=== PATIENT | male | born 1950 | race Hispanic/Latino ===

== ENCOUNTER → 2017-12-14 | Day surgery (SDC) | payer MEDICARE ==
[2017-12-12 16:24] LABS: BASOPHILS % 0.4 % (0.0-1.0); EOSINOPHILS # (AUTO) 0.1 (0.0-0.4); EOSINOPHILS % 1.7 % (0.0-6.0); HEMATOCRIT 40.1 % (38.2-49.6); HEMOGLOBIN 14.3 g/dL (14.0-18.0); LYMPHOCYTES # (AUTO) 1.5 (1.0-3.2); LYMPHOCYTES % 28.8 % (18.0-39.1); MEAN CORPUSCULAR HEMOGLOBIN 30.8 pg (28-32); MEAN CORPUSCULAR HGB CONC 35.7 g/dL (31-35); MEAN CORPUSCULAR VOLUME 86.4 fL (81-99); MONOCYTES # (AUTO) 0.3 (0.2-0.8); MONOCYTES % 5.1 % (4.4-11.3); NEUTROPHILS # (AUTO) 3.4 (2.1-6.9); NEUTROPHILS % 63.8 % (38.7-80.0); PLATELET COUNT 210 x10e3/uL (140-360); RED BLOOD COUNT 4.64 x10e6/uL (4.3-5.7); RED CELL DISTRIBUTION WIDTH 13.2 % (11.7-14.4)
[~2017-12-14] MED LIST: BACTRIM DS TAB1 EACH PO; FENOFIBRATE145 MG PO; FINASTERIDE5 MG PO; FLOMAX0.4 MG PO; LEVOTHYROXINE PO; LISINOPRIL10 MG PO; LOSARTAN POTASS25 MG PO; MIDAZOLAM HCL 2 MG/2 ML VIAL ONE; PROPOFOL IV EMULSION 10 MG/ML 50 ML VIAL ONE; SIMVASTATIN20 MG PO; ULTRAM50 MG PO
== END ==
LOC: OR 07:33
PROVIDERS: ATTEND Internal Medicine Gastroenterology
DX: Z09 Encounter for follow-up examination after completed treatment for conditions other than malignant neoplasm (principal); K57.30 Diverticulosis of large intestine without perforation or abscess without bleeding; K64.8 Other hemorrhoids; I10 Essential (primary) hypertension; E66.3 Overweight; K21.9 Gastro-esophageal reflux disease without esophagitis; N39.0 Urinary tract infection, site not specified; E07.9 Disorder of thyroid, unspecified; R00.1 Bradycardia, unspecified; Z88.0 Allergy status to penicillin; Z88.2 Allergy status to sulfonamides; Z01.810 Encounter for preprocedural cardiovascular examination; Z01.812 Encounter for preprocedural laboratory examination; Z68.28 Body mass index [BMI] 28.0-28.9, adult
CPT/HCPCS: 36415; 45378; 85025; 93005; J2250

== ENCOUNTER 2019-07-22 16:46 | Inpatient (IN) | payer MEDICARE ==
[~2019-07-22] VITALS: Ht 167.6 cm; Wt 68.1 kg
[~2019-07-22 16:46] MED LIST changes: -MIDAZOLAM HCL 2 MG/2 ML VIAL ONE; -PROPOFOL IV EMULSION 10 MG/ML 50 ML VIAL ONE
--- OUTSIDE RECORDS SUMMARY | 2019-07-22 16:51 | XMS REPORT ---
Author Author [facility] Address Unknown Phone Unavailable Care Team Providers Care Animal Sticker Name Role Phone Unavailable Unavailable Problems This patient has no known problems. Allergies, Adverse Reactions, Alerts This patient has no known allergies or adverse reactions. Medications This patient has no known medications. Results Test Description Test Time Test Comments Text Results Atomic Results Result Comments URINALYSIS W/ MICROSCOPIC 2018-09-13 00:15:00 COLOR (BEAKER) (test pxjk=339) Yellow CLARITY (BEAKER) (test cvqz=201) Hazy SPECIFIC GRAVITY UA (BEAKER) (test wogx=888) 1.027 1.001-1.035 PH UA (BEAKER) (test shoc=974) 5.5 5.0-8.0 PROTEIN UA (BEAKER) (test mmil=090) 30 mg/dL Negative GLUCOSE UA (BEAKER) (test awbz=481) Negative Negative KETONES UA (BEAKER) (test hmii=089) 10 mg/dL Negative BILIRUBIN UA (BEAKER) (test qvip=544) Negative Negative BLOOD UA (BEAKER) (test tkec=878) Negative Negative NITRITE UA (BEAKER) (test cfpp=960) Negative Negative LEUKOCYTE ESTERASE UA (BEAKER) (test uptt=289) Trace Negative UROBILINOGEN UA (BEAKER) (test kqjc=988) 0.2 mg/dL 0.2-1.0 RBC UA (BEAKER) (test hzuq=904) 2 /HPF WBC UA (BEAKER) (test gmeg=423) 5 /HPF MUCUS (BEAKER) (test rwmw=5594) Many SQUAMOUS EPITHELIAL (BEAKER) (test mmos=362) 3 /HPF SOURCE(BEAKER) (test nhmm=0589) Urine, Clean Catch BASIC METABOLIC [id number] 23:59:00* Test Item Value Reference Range Comments SODIUM (BEAKER) (test vdgr=780) 136 meq/L 136-145 POTASSIUM (BEAKER) (test rkyh=270) 4.7 meq/L 3.5-5.1 Specimen slightly hemolyzed CHLORIDE (BEAKER) (test vtmb=579) 104 meq/L 98-107 CO2 (BEAKER) (test yzaf=446) 23 meq/L 22-29 BLOOD UREA NITROGEN (BEAKER) (test dxdi=818) 23 mg/dL 7-21 CREATININE (BEAKER) (test gfve=109) 1.30 mg/dL 0.57-1.25 Specimen slightly hemolyzed GLUCOSE RANDOM (BEAKER) (test ulqq=960) 141 mg/dL 70-105 CALCIUM (BEAKER) (test vsdk=652) 9.1 mg/dL 8.4-10.2 EGFR (BEAKER) (test yekr=0174) 55 mL/min/1.73 sq m ESTIMATED GFR IS NOT ACCURATE CREATININE CLEARANCE IN PREDICTING GLOMERULAR FILTRATION RATE. ESTIMATED GFR IS NOT APPLICABLE FOR DIALYSIS PATIENTS. CBC W/PLT COUNT & AUTO [id number] 23:48:00* Test Item Value Reference Range Comments WHITE BLOOD CELL COUNT (BEAKER) (test ccrc=883) 11.7 K/ L 3.5-10.5 RED BLOOD CELL COUNT (BEAKER) (test ijtv=026) 5.29 M/ L 4.63-6.08 HEMOGLOBIN (BEAKER) (test khcz=503) 16.5 GM/DL 13.7-17.5 HEMATOCRIT (BEAKER) (test kuii=955) 49.6 % 40.1-51.0 MEAN CORPUSCULAR VOLUME (BEAKER) (test vfyi=223) 93.8 fL 79.0-92.2 MEAN CORPUSCULAR HEMOGLOBIN (BEAKER) (test guis=124) 31.2 pg 25.7-32.2 MEAN CORPUSCULAR HEMOGLOBIN CONC (BEAKER) (test jsoi=202) 33.3 GM/DL 32.3-36.5 RED CELL DISTRIBUTION WIDTH (BEAKER) (test nyvo=808) 13.8 % 11.6-14.4 PLATELET COUNT (BEAKER) (test sjsd=990) 206 K/CU MM 150-450 MEAN PLATELET VOLUME (BEAKER) (test hdyr=086) 9.6 fL 9.4-12.4 NUCLEATED RED BLOOD CELLS (BEAKER) (test hjln=925) 0 /100 WBC 0-0 NEUTROPHILS RELATIVE PERCENT (BEAKER) (test fynd=496) 91 % LYMPHOCYTES RELATIVE PERCENT (BEAKER) (test zmpw=854) 5 % MONOCYTES RELATIVE PERCENT (BEAKER) (test kzat=749) 4 % EOSINOPHILS RELATIVE PERCENT (BEAKER) (test tknx=334) 0 % BASOPHILS RELATIVE PERCENT (BEAKER) (test lbqt=240) 0 % NEUTROPHILS ABSOLUTE COUNT (BEAKER) (test aoyi=099) 10.64 K/ L 1.78-5.38 LYMPHOCYTES ABSOLUTE COUNT (BEAKER) (test csuq=941) 0.55 K/ L 1.32-3.57 MONOCYTES ABSOLUTE COUNT (BEAKER) (test ktpn=887) 0.42 K/ L 0.30-0.82 EOSINOPHILS ABSOLUTE COUNT (BEAKER) (test ycnj=397) 0.03 K/ L 0.04-0.54 BASOPHILS ABSOLUTE COUNT (BEAKER) (test fpft=590) 0.01 K/ L 0.01-0.08 IMMATURE GRANULOCYTES-RELATIVE PERCENT (BEAKER) (test mhbx=1874) 0 % 0-1
[2019-07-22] MEDS ORDERED: IBUPROFEN 600 MG TAB ONE (17:07)
[2019-07-22] MEDS ORDERED: ACETAMINOPHEN 325 MG TAB ONE (17:07)
[2019-07-22] MEDS ORDERED: IBUPROFEN 600 MG TAB PO STA (17:08)
[2019-07-22] MEDS ORDERED: ACETAMINOPHEN 325 MG TAB PO ONE (17:15)
[2019-07-22 17:29] LABS: BASOPHILS % 0.2 % (0.0-1.0); HEMATOCRIT 43.5 % (38.2-49.6); HEMOGLOBIN 14.8 g/dL (14.0-18.0); LYMPHOCYTES # (AUTO) 0.4 (1.0-3.2); LYMPHOCYTES % 3.3 % (18.0-39.1); MEAN CORPUSCULAR VOLUME 91.2 fL (81-99); MONOCYTES # (AUTO) 0.4 (0.2-0.8); MONOCYTES % 3.4 % (4.4-11.3); NEUTROPHILS % 92.7 % (38.7-80.0); PLATELET COUNT 180 x10e3/uL (140-360); RED BLOOD COUNT 4.77 x10e6/uL (4.3-5.7); RED CELL DISTRIBUTION WIDTH 12.9 % (11.7-14.4)
[2019-07-22 17:47] LABS: ALANINE AMINOTRANSFERASE 21 IU/L (0-55); ALBUMIN 3.9 g/dL (3.5-5.0); ALBUMIN/GLOBULIN RATIO 1.2 (0.8-2.0); ALKALINE PHOSPHATASE 87 IU/L (40-150); ANION GAP 14.9 mmol/L (8-16); BLOOD UREA NITROGEN 12 mg/dL (7-26); BUN/CREATININE RATIO 11 (6-25); CALCIUM 8.9 mg/dL (8.4-10.2); CARBON DIOXIDE 25 mmol/L (22-29); CHLORIDE 96 mmol/L (98-107); CREATININE, SERUM 1.09 mg/dL (0.72-1.25); EST GLOMERULAR FILTRATION RATE > 60 ML/MIN (60-); GLUCOSE 139 mg/dL (74-118); POTASSIUM 3.9 mmol/L (3.5-5.1); SODIUM 132 mmol/L (136-145)
[2019-07-22 18:24] LABS: CLARITY,URINE SL CLOUDY (CLEAR); COLOR,URINE YELLOW (YELLOW)
[2019-07-22 18:25] LABS: BILIRUBIN,URINE NEGATIVE (NEGATIVE); KETONES,URINE NEGATIVE (NEGATIVE); LEUKOCYTE ESTERASE ,URINE NEGATIVE (NEGATIVE); NITRITE,URINE NEGATIVE (NEGATIVE); PROTEIN,URINE DIPSTICK NEGATIVE (NEGATIVE); URINE UROBILINOGEN 0.2 mg/dL (0.2 - 1)
[2019-07-22 18:45] LABS: BACTERIA,URINE RARE /HPF; EPITHELIAL CELLS,URINE RARE /LPF; WBC,URINE (MAN) 0-5 /HPF (0-5)
[2019-07-22] MEDS ORDERED: SODIUM CHLORIDE 0.9% 1000ML 1,000 ML IV SCH (19:45)
--- NOTE | 2019-07-22 20:30 | Diagnostic Imaging Report ---
CT Abdomen and Pelvis without contrast INDICATION: ^hematuria ^[id number] ^1999 TECHNIQUE: Thin collimation axial images obtained from the diaphragm to the level of the pubic symphysis without nonionic intravenous contrast. Dose reduction techniques used: Automated exposure control, adjustment of the mAs and/or kVp according to patient size, standardized low-dose protocol, and/or iterative reconstruction technique. RADIATION DOSE: Total DLP: 352.79 mGy*cm Estimated effective dose: (DLP x 0.015 x size factor) mSv CTDIvol has been reviewed. It is below the limits set by the Radiation Protocol Committee (RPC). COMPARISON: None. ABDOMEN FINDINGS: Lung Bases: Clear. The visualized portion of the mediastinum is normal. Liver: Normal in attenuation without mass. Gallbladder: Absent. No ductal dilatation. Pancreas: Normal attenuation without mass. Spleen: Normal size without mass. Adrenal Glands: No evidence for mass. Kidneys: Right: No renal calculus. No cortical mass or hydronephrosis Left: No renal calculus. There is a prominent peripelvic cyst. No cortical mass or hydronephrosis. Lymph Nodes: No enlarged abdominal or periaortic lymph nodes. Aorta: Normal in diameter. PELVIS FINDINGS: Bowel: Stomach: Normal. Small Bowel: Normal in caliber with normal wall thickness. Large Bowel: Diverticulosis coli, predominantly the sigmoid colon with mural thickening of the mid sigmoid colon for approximately 4.4 cm. There is adjacent peritoneal inflammation. Appendix: Normal. Bladder: Underdistended with mild circumferential mural thickening and perivesicular inflammation. Ureters: No ureteral dilatation or calculus. Prostate: Enlarged with postoperative changes suggestive of TURP. Peritoneum/retroperitoneum: No free fluid or loculated fluid collection. Bones: Degenerative changes of the spine without compression deformities. No lytic or blastic lesions. Soft tissues: [Normal hernia repair mesh and reactive left inguinal lymph node.. IMPRESSION: 1. Inflammation of the mid sigmoid colon is suggestive of diverticulitis. However, inflammatory carcinoma cannot be excluded. Colonoscopy is recommended to exclude underlying colon malignancy. 2. Perivesicular inflammation, likely due to diverticulitis. Please correlate for signs/symptoms of cystitis. 3. Prostate hypertrophy with TURP defect. Bladder wall thickening may be secondary to outlet obstruction as well as cystitis. 4. No renal calculus or obstructive uropathy. Signed by: Dr. Gabbi Lemon MD on 07/22/2019 8:27 PM
[2019-07-22] MEDS ORDERED: CIPROFLOXACIN 400 MG/D5W 200ML 200 ML IV ONE (20:33)
[2019-07-22] MEDS ORDERED: METRONIDAZOLE 750MG/NS 150ML 150 ML IV ONE (21:30)
[2019-07-23] MEDS ORDERED: LEVOTHYROXINE88 MCG PO (06:31)
[2019-07-23] MEDS ORDERED: CIPROFLOXACIN 400 MG/D5W 200ML 200 ML IV SCH (07:00)
[2019-07-23] MEDS: FAMOTIDINE 20 MG/2 ML VIAL IV SCH ×2 (08:48→17:45)
[2019-07-23] MEDS: METRONIDAZOLE 500MG/NS 100ML 100 ML IV SCH ×3 (08:48→20:51)
[2019-07-23] MEDS: CIPROFLOXACIN 400 MG/D5W 200ML 200 ML IV SCH ×2 (08:48→21:30)
--- NOTE | 2019-07-23 10:22 | NUR ---
Report and care hand off received from SB Navarro. Pt sitting up in bed comfortably. RR even and unlabored. pt remains on NIBP, pulse ox, and cardiac monitoring. Call light in reach. Pt updated on POC. Will continue to monitor.
[2019-07-23 13:03] VITALS: BP 120/70
--- NOTE | 2019-07-23 13:22 | NUR ---
Dr. Casey dennis for orders for elevated temp.
--- NOTE | 2019-07-23 14:08 | History and Physical ---
This is a 69-year-old male comes in with abdominal pain. HISTORY OF PRESENTING ILLNESS: Mr. Tej Desir is a 69-year-old with a history of levothyroxine, was in usual state of health until yesterday. The patient started to have abdominal pain in left lower quadrant and also with some pain in the suprapubic area. The patient's pain was classified as about 6/10 in intensity. The patient came into the emergency room, was found to have cystitis and also diverticulitis. The patient admitted for the same. PAST MEDICAL HISTORY: History of hypothyroidism. MEDICATIONS: He takes are levothyroxine 88 mcg. PAST SURGICAL HISTORY: History of surgery with cholecystectomy. The patient also had tonsillectomy when he was young. FAMILY HISTORY: Noncontributory. SOCIAL HISTORY: No EtOH. No IV drug abuse. REVIEW OF SYSTEMS: Negative for chest pain. No shortness of breath. No nausea. No vomiting. Positive for abdominal pain. No constipation. No rectal bleeding. No hematochezia. No hematemesis. No dysuria and no hematuria. PHYSICAL EXAMINATION: GENERAL: The patient is comfortable. VITAL SIGNS: Temperature is 98.4, pulse 58, respirations of 18, blood pressure is 103/64, pulse oximetry of 96% on room air. HEENT: Normocephalic, atraumatic. No icterus present. CVS: S1 and S2 normal. Regular rate and rhythm. LUNGS: Clear to auscultation. ABDOMEN: Tender in the suprapubic area in the left lower quadrant. EXTREMITIES: No clubbing, no cyanosis, no edema. [place]: [place] [address], neutrophil count 92.7. Chemistry shows sodium of 132, potassium 3.9, BUN of 12, creatinine of 1.09. Urine looks cloudy with rbc's and 2+ blood. MICROBIOLOGY: Urine cultures are pending. IMAGING STUDIES: Abdominal CT shows inflammation in the mid sigmoid colon suggestive of diverticulitis or inflammatory carcinoma cannot be excluded. Perivascular inflammation and prostate hypertrophy with TURP defects. Bladder wall thickening may be secondary to outlet obstruction and cystitis. ASSESSMENT: Diverticulitis, sigmoid. PLAN: 1. The patient is currently on Cipro and Flagyl. We will continue the same. 2. Cystitis. Urine cultures have been sent. Ciprofloxacin has been continued. 3. Hypothyroidism. We will keep the patient n.p.o. at this time until the consult with Dr. Wallace Stringer is done. 4. The patient can be transferred to the floor. I will keep the patient inpatient. Further recommendations per clinical course. We will continue to monitor the patient along with consultants. ADDENDUM: The patient has been told about inflammatory processes in the bowels and also the need to follow up in lieu of questionable carcinoma of the large bowel. Further recommendations per clinical course. Again, we will consult Dr. Wallace Stringer. MD OWEN CalderonJ/MODL /[id number]
[2019-07-23] MEDS ORDERED: ACETAMINOPHEN 325 MG TAB PO PRN (14:15)
[2019-07-23] MEDS ORDERED: SODIUM CHLORIDE 0.9% 250ML 250 ML ONE (15:20)
[2019-07-23 15:57] VITALS: BP 120/70
[2019-07-23 20:00] VITALS: BP 135/80
[2019-07-24] VITALS (7 sets, daily range): BP systolic 121–159; BP diastolic 70–82
[2019-07-24] MEDS: METRONIDAZOLE 500MG/NS 100ML 100 ML IV SCH ×4 (01:44→20:29)
[2019-07-24] MEDS: LEVOTHYROXINE SODIUM 88 MCG TAB PO SCH (05:43)
[2019-07-24 06:01] LABS: BASOPHILS % 0.2 % (0.0-1.0); EOSINOPHILS # (AUTO) 0.1 (0.0-0.4); EOSINOPHILS % 1.4 % (0.0-6.0); HEMATOCRIT 38.9 % (38.2-49.6); HEMOGLOBIN 13.5 g/dL (14.0-18.0); LYMPHOCYTES # (AUTO) 0.7 (1.0-3.2); LYMPHOCYTES % 13.9 % (18.0-39.1); MEAN CORPUSCULAR HEMOGLOBIN 31.4 pg (28-32); MEAN CORPUSCULAR HGB CONC 34.7 g/dL (31-35); MEAN CORPUSCULAR VOLUME 90.5 fL (81-99); MONOCYTES # (AUTO) 0.4 (0.2-0.8); MONOCYTES % 8.5 % (4.4-11.3); NEUTROPHILS # (AUTO) 3.8 (2.1-6.9); NEUTROPHILS % 75.6 % (38.7-80.0); PLATELET COUNT 156 x10e3/uL (140-360)
[2019-07-24 06:23] LABS: ANION GAP 12.7 mmol/L (8-16); BLOOD UREA NITROGEN 10 mg/dL (7-26); BUN/CREATININE RATIO 10 (6-25); CARBON DIOXIDE 24 mmol/L (22-29); CHLORIDE 105 mmol/L (98-107); CREATININE, SERUM 1.02 mg/dL (0.72-1.25); EST GLOMERULAR FILTRATION RATE > 60 ML/MIN (60-); GLUCOSE 126 mg/dL (74-118); POTASSIUM 3.7 mmol/L (3.5-5.1); SODIUM 138 mmol/L (136-145)
--- NOTE | 2019-07-24 06:41 | NUR ---
Patient laying in bed, eyes closed, respirations are even and unlabored. Telemetry in place, IV patent, bed low, wheels locked and call light within reach.
[2019-07-24] MEDS: FAMOTIDINE 20 MG/2 ML VIAL IV SCH ×2 (08:24→16:28)
--- NOTE | 2019-07-24 09:33 | Progress Note ---
DATE: 07/24/2019 SUBJECTIVE: The patient comes in with cystitis and diverticulitis of the sigmoid. The patient is currently still feeling pain more in the suprapubic area. The left lower quadrant continues pain. No chest pain. No shortness of breath. No diarrhea. No dysuria and no difficulty urination. MEDICATIONS: At this time, medications he is on Cipro, metronidazole, which he is also taking levothyroxine and acetaminophen for pain control. The patient is on fluid resuscitation too. PHYSICAL EXAMINATION: VITAL SIGNS: Temperature is 98.0, it has been afebrile for the last 48 hours, pulse is 96, respirations of 20, blood pressure is 121/72, and pulse oximetry of 97%. HEENT: Normocephalic and atraumatic. No icterus present. CVS: S1 and S2 normal. Regular rate and rhythm. ABDOMEN: Tender in the suprapubic area, left lower quadrant. EXTREMITIES: No clubbing, no cyanosis, no edema. LABORATORY VALUES: The patient's white count has come down to 5.05, hemoglobin of 13.5, hematocrit 38.9. Left shift test is also dissipated. Chemistry show sodium of 138, potassium 3.7, BUN of 10, creatinine of 1.02, glucose of 126. Urine, white count was elevated. MICROBIOLOGY: Urine cultures and blood cultures have no growth at this time. ASSESSMENT: 1. A 69-year-old male with diverticulitis. Continue on Cipro and Flagyl. 2. Cystitis. Urine cultures have been sent, has been negative. Continue on Cipro. 3. Hypothyroidism. Continue with thyroid medication. 4. The patient will be in-house for the next day or 2. 5. Disposition. Possible discharge in a day or 2 depending on the progression of the patient's symptoms. 6. Further recommendation per clinical course. The patient has been stressed on the need for a colonoscopy as an outpatient basis. MD RONDA Calderon/MODL /[id number]
[2019-07-24] MEDS: CIPROFLOXACIN 400 MG/D5W 200ML 200 ML IV SCH (11:02)
--- NOTE | 2019-07-24 19:46 | NUR ---
RECEIVED PT IN BED AOX3 .JYOTHI PAIN NO ACUTE DISTRESS NOTED FAMILY AT THE BEDSIDE .CALL LIGHT WITH IN REACH .CONTINUE TO MONITOR
[2019-07-24] MEDS: CIPROFLOXACIN 500 MG TAB PO SCH (20:29)
[2019-07-25 00:18] VITALS: BP 122/70
[2019-07-25] MEDS: METRONIDAZOLE 500MG/NS 100ML 100 ML IV SCH ×2 (02:00→08:13)
[2019-07-25 04:10] VITALS: BP 134/77
[2019-07-25] MEDS: LEVOTHYROXINE SODIUM 88 MCG TAB PO SCH (06:02)
--- NOTE | 2019-07-25 06:02 | NUR ---
PT RESTED DURING THE NIGHT .DENIES PAIN .CALL LIGHT WITH IN REACH .CONTINUE TO MONITOR
--- NOTE | 2019-07-25 07:03 | NUR ---
walking rounds completed, received change of shift report from security shift manager RN, pt in stable condition. will continue to monitor.
--- NOTE | 2019-07-25 07:08 | NUR ---
BEDSIDE REPORT GIVEN TO THE ONCOMING NURSE .
[2019-07-25 08:00] VITALS: BP 131/68
[2019-07-25] MEDS: CIPROFLOXACIN 500 MG TAB PO SCH (08:16)
[2019-07-25] MEDS: FAMOTIDINE 20 MG/2 ML VIAL IV SCH (08:17)
[2019-07-25 08:43] VITALS: BP 131/68
[2019-07-25] MEDS ORDERED: FLAGYL250 MG PO (09:19)
[2019-07-25] MEDS ORDERED: CIPRO500 MG PO (09:19)
--- NOTE | 2019-07-25 10:37 | Progress Note ---
DATE: 07/25/2019 SUBJECTIVE: The patient came in with acute diverticulitis and cystitis. Currently, asymptomatic, tolerated p.o. fluids and is doing very well, wants to go home this morning. The patient is on his medication levothyroxine. OBJECTIVE: VITAL SIGNS: Temperature is 96.4, pulse of 49, respirations 16, blood pressure is 134/77, and pulse oximetry of 97%. HEENT: Normocephalic, atraumatic. Pupils reactive to light and accommodation. CVS: S1, S2, normal regular rate and rhythm. ABDOMEN: Nontender, nondistended. EXTREMITIES: No clubbing, no cyanosis, no edema. LABORATORY VALUES: Yesterday's white count resolved. Chemistries are within normal limits and glucose is also within normal limits. MICROBIOLOGY: Urine culture shows no growth in the last 36-48 hours. No growth in blood cultures in the last 48 hours either. ASSESSMENT: Mr. Desir is a 69-year-old male with acute diverticulitis and acute cystitis. The patient is symptom-free, tolerating p.o. at this time. PLAN: Plan will be to discharge him after advancing his diet as tolerated. The patient will be discharged home with Cipro and Flagyl. The patient to be followed up with me in about a week's time, and also with Dr. Stringer. The patient again stressed the importance of colonoscopy in lieu of the CT findings of questionable malignancy. Further recommendation per clinical course. The patient has been advised to follow up with Dr. Stringer. MD RONDA Calderon/MODL /[id number]
[2019-07-28] MEDS ORDERED: KEFLEX500 MG PO (02:06)
== END 2019-07-25 10:15 | disposition home or self-care (01) | DRG 392 ==
LOC: ER 16:46 → ERHOLD 07-23 01:11 → MED/SURG3 07-23 14:34
PROVIDERS: ADMIT Family Medicine; ATTEND Family Medicine
DX: K57.92 Diverticulitis of intestine, part unspecified, without perforation or abscess without bleeding (principal); N30.90 Cystitis, unspecified without hematuria; Z79.52 Long term (current) use of systemic steroids; E03.9 Hypothyroidism, unspecified
CPT/HCPCS: 36415; 74176; 80048; 80053; 81001; 83605; 85025; 87040; 87086; 99284; J7030; J7050

== ENCOUNTER 2020-01-22 16:16 | Emergency (ER) | payer MEDICARE ==
[~2020-01-22] VITALS: Ht 167.6 cm; Wt 68.0 kg
[~2020-01-22 16:16] MED LIST changes: +CIPRO500 MG PO; +FLAGYL250 MG PO; +KEFLEX500 MG PO; +LEVOTHYROXINE88 MCG PO
--- OUTSIDE RECORDS SUMMARY | 2020-01-22 16:20 | XMS REPORT | Clinical Summary ---
Author Author [facility] Address Unknown Phone Unavailable Care Team Providers Care Head Neck Surgeon Name Role Phone Sharpless PCP Allergies Comments Active Allergy Reactions Severity Noted Date Sulfamethoxazole-Trimetho Rash Low 01/12 prim Penicillins Rash Low 01/25/2014 Sulfa (Sulfonamide Hives 09/12/2018 Antibiotics) Medications End Date Status Medication Sig Dispensed Refills Start Date Active FINASTERIDE ORAL Take by 0 mouth. Active tamsulosin (FLOMAX) 0.4 Take 0.4 mg 0 mg Cp24 24 hr capsule by mouth daily. Active lisinopril Take 10 mg by 0 (PRINIVIL,ZESTRIL) 10 MG mouth daily. tablet Active famotidine (PEPCID) 20 MG Take 1 tablet 30 tablet 0 tablet (20 mg total) 4 by mouth 2 (two) times daily. 09/13/2019 dicyclomine (BENTYL) 20 Take 1 tablet 20 tablet 0 mg tablet (20 mg total) 9 by mouth 2 (two) times daily. Active Problems Not on file Social History Date Tobacco Use Types Packs/Day Years Used Never Smoker Alcohol Use Drinks/Week oz/Week Comments No Sex Assigned at Date Recorded Not on file Industry Job Start Date Occupation Not on file Not on file Not on file Travel End Travel History Travel Start No recent travel history available. Last Filed Vital Signs Not on file Plan of Treatment Not on file Results Not on fileafter 01/21/2019 Insurance Payer Benefit Subscriber ID Type Phone Address Plan / Group [employer] xxxxxxxxx [facility] xxxxxxxxx MEDICARE [employer] CARE MEDICARE HMO [id number]
--- OUTSIDE RECORDS SUMMARY | 2020-01-22 16:21 | XMS REPORT | Continuity of Care Document ---
Author Author Sugey [employer] YENNI Gray Organization [employer] Address Unknown Phone Unavailable Care Team Providers Care Hi Teacher Name Role Phone [email or web address] Information Exchange Unavailable Un available Problems Problem Status Onset Date Classification Date Reported Comments Source ACUTE PYELONEPHRITIS PREVIOUSLY ON ABX Active 01/28/2016 [facility] URINARY Active 01/28/2016 [facility] ACUTE PYELONEPHRITIS PREVIOUSLY ON ABX. Active 01/28/2016 [facility] Discharge Diagnosis: Pelvic and perineal pain 01/12/2016 01/15/2016 [facility] Discharge Diagnosis: Enteritis 01/10/2016 01/13/2016 [facility] Infection due to extended spectrum beta- lactamase producing bacteria (disorder) Resolved 01/10/2016 Problem 04/11/2019 urine, 01/10/16 Problem added by Discern Expert. [facility] Escherichia coli (organism) Ac tive 01/10/2016 Problem 02/04/2016 urine, 01/10/16 Problem added by Discern Expert. [facility] FEVER/STOMACH PAIN Active 01/09/2016 [facility] ABD PAIN Active 01/05/2016 [facility] R06.02-SHORTNESS OF BREATH/R07.9-CHEST P Active 10/30/2015 [facility] ELEVATED PSA Active 02/17/2015 Condition 02/17/2015 [facility] CONJUNCTIVITIS, ACUTE Active 02/17/2015 Condition 02/17/2015 [facility] ANEMIA Active 02/17/2015 Condition 02/17/2015 [facility] KNEE PAIN, RIGHT Active 12/30/2014 Condition 02/17/2015 [facility] PROSTATE NEOPLASM SCREENING In active 12/30/2014 Condition 02/17/2015 [facility] Knee pain (finding) Active 12/30/2014 Problem 04/11/2019 Data migrated from [employer] on . Data migrated from [employer] on 01/14/15. [facility] TINEA [facility]IS Active 09/15/2014 Condition 02/17/2015 [facility] Tinea pedis (disorder) Active 09/15/2014 Problem 02/04/2016 Data migrated from [employer] on . Data migrated from [employer] on 01/13/15. [facility] CHOLELITHIASIS Inactive 07/21/2014 Condition 02/17/2015 [facility] CHOLECYSTECTOMY, LAPAROSCOPIC, HX OF Inactive 07/21/2014 Condition 02/17/2015 [facility] URINARY RETENTION Inactive 07/21/2014 Condition 02/17/2015 [facility] HEMATURIA Inactive 07/21/2014 Condition 02/17/2015 [facility] Calculus in biliary tract (disorder) Active 07/21/2014 Problem 04/11/2019 Data migrated from [employer] on . Data migrated from [employer] on 01/13/15. [facility] ACUTE CHOLECYSTITIS Active 07/08/2014 [facility] ABDOMINAL PAIN Active 07/08/2014 [facility] ACUTE CYSTITIS Inactive 06/09/2014 Condition 02/17/2015 [facility] DYSURIA Inactive 06/09/2014 Condition 02/17/2015 [facility] Discharge Diagnosis: Urinary tract infection 06/04/2014 06/07/2014 [facility] HYPOTHYROIDISM Active 04/21/2014 Condition 02/17/2015 [facility] LEFT INGUINAL HERNIA Active 04/21/2014 Condition 02/17/2015 [facility] HYPERLIPIDEMIA Active 04/21/2014 Condition 02/17/2015 [facility] Hypothyroidism (disorder) Acti ve 04/21/2014 Problem 04/11/2019 Data migrated from [employer] on . Data migrated from [employer] on 01/13/15. [facility] Left inguinal hernia (disorder) Resolved 04/21/2014 Problem 04/11/2019 Data migrated from [employer] on . Data migrated from [employer] on 01/13/15. [facility] ROUTINE GENERAL MEDICAL EXAMINATION AT A HEALTH CARE FACILITY Inactive 04/04/2014 Condition 02/17/2015 [facility] SCREENING FOR GLAUCOMA Inactive 04/04/2014 Condition 02/17/2015 [facility] IMPAIRED FASTING GLUCOSE Active 04/04/2014 Condition 12/30/2014 [facility] HEARING LOSS Active 04/04/2014 Condition 02/17/2015 [facility] DYSPEPSIA Active 04/04/2014 Condition 09/15/2014 [facility] ABDOMINAL PAIN Inactive 04/04/2014 Condition 02/17/2015 [facility] DYSPNEA Inactive 04/04/2014 Condition 02/17/2015 [facility] NEED FOR PROPHYLACTIC VACCINATION AND IN OCULATION AGAINST INFLUENZA Inactive 04/04/2014 Condition 02/17/2015 [facility] SCREENING FOR MALIGNANT NEOPLASMS OF COLON Inactive 04/04/2014 Condition 02/17/2015 [facility] NOCTURIA Inactive 04/04/2014 Condition 02/17/2015 [facility] PREDIABETES Active 04/04/2014 Condition 02/17/2015 [facility] GERD Active 04/04/2014 Condition 02/17/2015 [facility] Gastroesophageal reflux disease (disorder) Active 04/04/2014 Problem 04/11/2019 Data migrated from [employer] on 02/18/15. Data migrated from [employer] on 01/13/15. [facility] Hearing loss (finding) Active 04/04/2014 Problem 04/11/2019 Data migrated from [employer] on . Data migrated from [employer] on 01/13/15. [facility] [place] PROSTATIC HYPERTROPHY Active 03/03/2014 Condition 03/28/2014 [facility] HYPERTENSION Active 03/03/2014 Condition 03/28/2014 [facility] BPH Active 0 03/03/2014 Condition 02/17/2015 [facility] BENIGN ESSENTIAL HYPERTENSION Active 03/03/2014 Condition 02/17/2015 [facility] Benign essential hypertension (disorder) Active 03/03/2014 Problem 04/11/2019 Data migrated from [employer] on 01/13/15. Data migrated from [employer] on 01/13/15. Medical [facility] Benign prostatic hyperplasia (disorder) Active 03/03/2014 Problem 04/11/2019 Data migrated from [employer] on 01/13/15. Data migrated from [employer] on 01/13/15. [facility] Anemia (disorder) Resolved Problem 04/11/2019 [facility] [place] Type II diabetes mellitus without compli cation (disorder) Active Prob marco 04/11/2019 [facility] Dry eyes (finding) Active Problem 02/13/2018 [facility] [place] History of polyp of colon (situation) Active Problem [facility] History of transurethral prostatectomy (situation) Active Problem 04/11/2019 [facility] Lumbar radiculopathy (disorder) Active Problem [facility] Medical examinations/reports status (finding) Active Problem 04/11/2019 [facility] Mixed hyperlipidemia (disorder) Active Problem [facility] [place] [facility] Overweight (finding) Active Problem 04/11/2019 [facility] Raised prostate specific antigen (finding) Active Problem 04/11/2019 [facility] Screening status (finding) Act scotty Problem Medical Group Tinnitus (finding) Active Problem 04/11/2019 [facility] Vitamin D deficiency (disorder) Active Problem [facility] [place] Body mass index index 25-29 - overweight (finding) Active Problem 04/11/2019 [facility] Vertigo (finding) Active Problem 04/11/2019 [facility] Pain in eye (finding) Active Problem 09/26/2018 [facility] Allergic cough (finding) Active Problem 11/09/2015 [facility] Dyspnea (finding) Resolved Problem 02/04/2016 [facility] Epidermal nevus (disorder) Act scotty Problem [facility] Hypocalcemia (disorder) Resolv ed Problem [facility] Patient encounter status (finding) Resolved Problem [facility] Vascular headache (disorder) A ctive Problem [facility] Hypertensive disorder, systemic arterial (disorder) Active Problem 02/04/2016 [facility] Skin lesion (disorder) Active Problem 02/04/2016 [facility] Urethral spasm (finding) Active Problem 02/04/2016 [facility] Urethritis (disorder) Active Problem 02/04/2016 [facility] Disease of thyroid gland (disorder) Resolved Problem [facility] Large prostate (finding) Active Problem 02/04/2016 [facility] CHOLECYSTITIS NOS Active [facility] SHORTNESS OF BREATH Active [facility] CHEST PAIN, UNSPECIFIED Active [facility] TUBULO-INTERSTITIAL NEPHRITIS, 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 [facility] Medications Medication Details Route Status Patient Instructions Ordering Provider Order Date Source sildenafil 100 MG Oral Tablet 100 mg = 1 tab, PO, Daily, PRN for erectile dysfunction, # 2 tab, 5 Refill(s) Active 01/28/2019 [facility] sildenafil 100 MG Oral Tablet 100 mg = 1 tab, PO, Daily, PRN for erectile dysfunction, # 2 tab, 5 Refill(s), Pharmacy: [id number] Active 12/18/2018 [facility] sildenafil 100 MG Oral Tablet 100 mg = 1 tab, PO, Daily, PRN for erectile dysfunction, # 2 tab, 5 Refill[id number] Active 12/12/2018 [facility] omeprazole 40 mg oral delayed release capsule 40 mg = 1 cap, PO, Daily, # 30 cap, 1 Refill(s), Pharmacy: [email or web address] [id number] Active 10/03/2018 [facility] levothyroxine 88 mcg (0.088 mg) oral tablet 88 microgram = 1 tab, PO, Daily, # 90 tab, 1 Refill(s), Pharmacy: [email or web address] [id number] Active 09/28/2018 [facility] sildenafil 100 MG Oral Tablet 100 mg = 1 tab, PO, Daily, PRN for erectile dysfunction, # 2 tab, 5 Refill(s), Pharmacy: [id number] No Longer Active 09/20/2018 [facility] meclizine 25 mg oral tablet 25 mg = 1 tab, PO, TID, PRN for dizziness, # 40 tab, 1 Refill(s), [facility] [id number] Active 06/27/2018 [facility] sildenafil 100 MG Oral Tablet 100 mg = 1 tab, PO, Daily, PRN for erectile dysfunction, # 2 tab, 5 Refill(s) No Longer Active 06/27/2018 [facility] levothyroxine 75 mcg (0.075 mg) oral tablet 75 microgram = 1 tab, PO, Daily, # 90 tab, 1 Refill(s), [facility] [id number] No Longer Active 04/29/2018 [facility] losartan 25 mg oral tablet 25 mg = 1 tab, PO, Daily, # 90 tab, 1 Refill(s), Pharmacy: [email or web address] [id number] Active 04/03/2018 [facility] losartan 25 mg oral tablet 25 mg = 1 tab, PO, Daily, X 90 day, # 90 tab, 1 Refill(s), [facility] [id number], Needs follow-up No Longer Active 03/09/2018 [facility] levothyroxine 75 mcg (0.075 mg) oral tablet 75 microgram = 1 tab, PO, Daily, # 90 tab, 1 Refill(s), Pharmacy: [email or web address] [id number], Dose increased No Longer Activ e 03/09/2018 [facility] simvastatin 10 mg oral tablet 10 mg = 1 tab, PO, Bedtime, # 90 tab, 1 Refill(s), Pharmacy: [facility] [address] [id number] Active 03/09/2018 [facility] montelukast 10 mg oral tablet 10 mg = 1 tab, PO, Bedtime, # 90 tab, 1 Refill(s), Pharmacy: [facility] [id number] Active 01/23/2018 [facility] levothyroxine 75 mcg (0.075 mg) oral tablet 75 microgram = 1 tab, PO, Daily, # 90 tab, 1 Refill(s), Pharmacy: [facility] [address] [facility] [id number], Dose increased Active 11/07/2017 [facility] Fenofibrate 54 MG Oral Tablet 54 mg = 1 tab, PO, Daily, # 90 tab, 1 Refill(s), Pharmacy: [email or web address] [address], Second approval Active 08/16/2017 [facility] Fenofibrate 54 MG Oral Tablet 54 mg = 1 tab, PO, Daily, # 90 tab, 1 Refill(s), Pharmacy: [email or web address] [id number] Active 08/09/2017 [facility] omeprazole 40 mg oral delayed release capsule 40 mg = 1 cap, PO, Daily, # 30 cap, 1 Refill(s), Pharmacy: [email or web address] [id number] Active 07/03/2017 [facility] ertapenem Notes: (Same as: FLORENCE singleton) Refrigerate. NOT COMPATIBLE WITH D5W. Stable in refrigerator for 24 hours MEDICATION WASTE Product Size: 1000 mg Product Wasted: ___ mg Inactive 02/01/2016 [facility] tamsulosin Notes: (Same As: Fl omax) "Do Not Crush" No Longer Active 01/30/2016 [facility] Lisinopril Notes: (Same as: Pr inivil, Zestril) No Longer Active 01/30/2016 [facility] Finasteride Notes: (Same as: P roscar) "Do Not Crush" Women of childbearing age should not touch or handle broken tablets No Longer Active 01/30/2016 [facility] Fenofibrate 54 MG Oral Tablet 54 mg, 1 tab, Route: PO, Drug form: TAB, Daily, Dosing Weight 72.727, kg, Start date: 01/30/16 9:00:00 CDT, Duration: 30 day, Stop date: 02/28/16 9:00:00 CDT No Longer Active 01/30/2016 [facility] Vitamin D3 2000 intl units oral tablet Notes: Same as : Vitamin D3 No Longer Active 01/30/2016 [facility] Thyroxine Notes: Take 1 hour b efore or 2 hours after meal; Enteral feeds may interefere with the absorption of this medication.(Same as:Levothroid, Synthroid) No Longer Active 01/30/2016 [facility] ocular lubricant Notes: (Same as: Aquasite) No Longer Active 01/29/2016 [facility] TriCor Notes: (Same as: Tricor) No Longer Active 01/29/2016 [facility] Protonix Notes: Tablet should not be chewed or crushed. (Same as: Protonix) No Longer Active 01/29/2016 [facility] meropenem Notes: (Same as: Candice rem) . MEDICATION WASTE Product Size: 1000 mg Product Wasted: ___ mg No Longer Active 01/29/2016 [facility] sodium phosphate + D5W 250 mL 15 mmol, 5 mL, Route: IVPB, PRN, Dosing Weight 72.727, kg, PRN Abnormal Lab Result, Start date: 01/29/16 11:14:00 CDT, Duration: 30 day, Stop date: 02/28/16 11:13:00 CDT No Longer Active 01/29/2016 [facility] Enoxaparin Notes: (Same as: Lo venox) No Longer Active 01/29/2016 [facility] Insulin, Aspart, Human Notes: Roll in palms of hands gently; Do not shake vigorously. (Same as: NovoLOG) "single patient use only" WASTE: F/P - Black; E - Municipal Trash Bin Stable for 28 days at room temperature. Expires in days from Date No Longer Active 01/29/2016 [facility] Glucagon 1 mg, Route: IM, Drug form: PDR/INJ, PRN, Dosing Weight 72.727, kg, PRN Blood Glucose Results, Start date: 01/29/16 10:00:00 CDT, Duration: 30 day, Stop date: 02/28/16 9:59:00 CDT No Longer Active 01/29/2016 [facility] Dextrose 50% Syringe 25 gm, 50 mL, Route: IVP, Drug Form: INJ, Dosing Weight 72.727, kg, PRN, PRN Blood Glucose Results, Start date: 01/29/16 10:00:00 CDT, Duration: 30 day, Stop date: 02/28/16 9:59:00 CDT No Longer Active 01/29/2016 [facility] Josi Notes: (Same as: Josi ) MEDICATION WASTE Product Size: 4 mg Product Wasted: ___ mg No Longer Active 01/29/2016 [facility] tramadol hydrochloride 50 MG Oral Tablet Notes: Not to exceed 400mg/day. (Same As: Ultram) No Longer Active 01/29/2016 [facility] Acetaminophen Notes: Do not ex ceed 4 gm/day. (Same as: Tylenol) No Longer Active 01/29/2016 [facility] lisinopril 20 mg oral tablet 2 0 mg = 1 tab, PO, Daily, # 30 tab, 0 Refill(s) Active 01/29/2016 [facility] Rocephin Notes: (Same As: Rex berger). Use with 100 mL NS and infuse over 30 min MEDICATION WASTE Product Size: 1000 mg Product Wasted: ___ mg No Longer Active 01/29/2016 [facility] Sodium Chloride 0.154 MEQ/ML Injectable Solution 1,000 mL, Rate: 100 ml/hr, Infuse over: 10 hr, Route: IV, Dosing Weight 72.727 kg, Total Volume: 1,000, Start date: 01/28/16 21:37:00 CDT, Duration: 30 day, Stop date: 02/27/16 21:36:00 CDT No Longer Active 01/29/2016 [facility] Saline Flush 0.9% Notes: (Same as: BD Posiflush) No Longer Active 01/29/2016 [facility] Docusate Notes: (Same as: Cola ce) (Do Not Crush) No Longer Active 01/29/2016 [facility] Morphine Notes: (Same as:MORPh ine Sulfate) No Longer Active 01/29/2016 [facility] Ondansetron Notes: (Same as: Esther burton) MEDICATION WASTE Product Size: 4 mg Product Wasted: ___ mg No Longer Active 01/29/2016 [facility] Acetaminophen Notes: Do not ex ceed 4 gm/day. (Same as: Tylenol) No Longer Active 01/29/2016 [facility] Morphine Notes: (Same as:MORPh ine Sulfate) Inactive 01/29/2016 [facility] Acetaminophen Notes: Do not ex ceed 4 gm/day. (Same as: Tylenol) Inactive 01/29/2016 [facility] Rocephin Notes: (Same As: Roce phin). Use with 100 mL NS and infuse over 30 min MEDICATION WASTE Product Size: 1000 mg Product Wasted: ___ mg Inactive 01/29/2016 [facility] Morphine Notes: (Same as:MORPh ine Sulfate) Inactive 01/29/2016 [facility] Saline Flush 0.9% Notes: (Same as: BD Posiflush) No Longer Active 01/28/2016 [facility] Ciprofloxacin 500 MG Oral Tablet [Cipro] 500 mg = 1 tab, PO, Q12H, X 21 day, # 42 tab, 0 Refill(s) Active 01/12/2016 [facility] Ciprofloxacin 500 MG Oral Tablet [Cipro] 500 mg = 1 tab, PO, Q12H, X 7 day, # 14 tab, 0 Refill(s), Pharmacy: [facility] [id number] Active 01/10/2016 [facility] Ondansetron 4 MG Oral Tablet [Zofran] 4 mg = 1 tab, PO, BID, X 5 day, # 10 tab, 0 Refill(s), Pharmacy: [facility] [id number] Active 01/10/2016 [facility] Ciprofloxacin 500 MG Oral Tablet [Cipro] 500 mg = 1 tab, PO, Q12H, X 3 day, # 6 tab, 0 Refill(s), Pharmacy: [facility] [id number] Active 01/10/2016 [facility] Acetaminophen 325 MG / Hydrocodone Steph trate 5 MG Oral Tablet Notes: (Same as: [place] 325/5) Do not ex ceed 4gm/day of acetaminophen. Inactive 01/10/2016 [facility] Saline Flush 0.9% Notes: (Same as: BD Posiflush) Inactive 01/10/2016 [facility] Sodium Chloride 0.154 MEQ/ML Injectable Solution 1,000 mL, 1,000 ml/hr, Infuse Over: 1 hr, Route: IV, 1,000, Drug form: INJ, ONCE, Priority: STAT, Dosing Weight 77.273 kg, Start date: 01/10/16 1:21:00 CDT, Duration: 1 doses or times, Stop date: 01/10/16 1:21:00 CDT Inactive 01/10/2016 [facility] VIGAMOX 0.5 % SOLN Instill one drop to right eye three times daily for 7 days. Active 02/17/2015 [facility] NAPROXEN 500 MG TABS Take one tablet by mouth twice daily as needed for pain. Take with food. No Longer Active 12/30/2014 [facility] NAPROXEN 500 MG TABS Take one tablet by mouth twice daily as needed for pain. Take with food. Active 12/30/2014 [facility] OMEPRAZOLE 20 MG CPDR Take one capsule by mouth daily. No Longer Active 09/30/2014 [facility] OMEPRAZOLE 20 MG CPDR Take one capsule by mouth daily. Active 09/30/2014 [facility] ECONAZOLE NITRATE 1 % CREA Biju ly to affected areas twice daily No Longer Active 09/15/2014 [facility] ECONAZOLE NITRATE 1 % CREA Biju ly to affected areas twice daily Active 09/15/2014 [facility] NAFTIN 2 % CREA Apply to affec [place] areas twice daily Active 09/15/2014 [facility] LOSARTAN POTASSIUM 25 MG TABS Take one tablet by mouth daily. Active 08/18/2014 [facility] MACROBID 100 MG CAPS Take one capsule by mouth twice daily for 7 days. No Longer Active 07/24/2014 [facility] polyethylene glycol 3350 oral powder for reconstitutio n 17 gm, PO, Daily, # 12 ea, 0 Refill(s) Active 07/11/2014 [facility] tramadol hydrochloride 50 MG Oral Tablet 50 mg = 1 tab, PO, Q6H, Pain, # 40 tab, 0 Refill(s) Active 07/11/2014 [facility] POLYETHYLENE GLYCOL 3350 PO, D aily, Constipation, 0 Refill(s) Inactive 07/11/2014 [facility] Miralax Notes: Dissolve in 8 o z of water or juice. (Same as: Miralax) No Longer Active 07/11/2014 [facility] tamsulosin Notes: (Same As: Fl omax) "Do Not Crush" Inactive 07/10/2014 [facility] Finasteride Notes: (Same as: Nolvia tellez) "Do Not Crush" Inactive 07/10/2014 [facility] Ofirmev Notes: Infuse over 15 minutes Do not exceed 4gm/day of acetaminophen Inactive 07/09/2014 [facility] Acetaminophen 325 MG / Hydrocodone Steph trate 10 MG Oral Tablet [[place] 10/325] Notes: Do not exceed 4gm/day of acetamin ophen. (Same as: [place] 325/10) Inactive 07/09/2014 [facility] Flumazenil Notes: (Same as: Ro mazicon) Inactive 07/09/2014 [facility] Morphine Notes: (Same as:MORPh ine Sulfate) Inactive 07/09/2014 [facility] Naloxone Notes: Same as Narcan Inactive 07/09/2014 [facility] Ondansetron Notes: (Same as: Esther burton) Inactive 07/09/2014 [facility] Ketorolac 4 days Inactive 07/09/2014 [facility] Hydromorphone 0.5 mg, 0.5 mL, Route: IVP, Drug form: INJ, Q5Min, Dosing Weight 76.818, kg, PRN Pain Score 7-10, Start date: 07/09/14 13:57:00, Duration: 4 doses or times, Stop date: Limited # of times Inactive 07/09/2014 [facility] Fentanyl Notes: (Same as: Subl imaze) Preservative free. Inactive 07/09/2014 [facility] Acetaminophen 325 MG / Hydrocodone Steph trate 5 MG Oral Tablet Notes: (Same as: [place] 325/5) Do not ex ceed 4gm/day of acetaminophen. No Longer Active 07/09/2014 [facility] Morphine Notes: (Same as:MORPh ine Sulfate) No Longer Active 07/09/2014 [facility] Calcium Chloride 0.0014 MEQ/ML / Potassi um Chloride 0.004 MEQ/ML / Sodium Chloride 0.103 MEQ/ML / Sodium Lactate 0.028 MEQ/ML Injectable Solution 1,000 mL, Rate: 100 ml/hr, Infuse over: 10 hr, Route: IV, Dosing Weight 76.818 kg, Total Volume: 1,000, Start date: 07/09/14 13:43:00, Duration: 30 day, Stop date: 08/08/14 13:42:00 No Longer Active 07/09/2014 [facility] Flomax Notes: (Same As: Flomax ) "Do Not Crush" No Longer Active 07/09/2014 [facility] Finasteride Notes: (Same as: P roscar) "Do Not Crush" No Longer Active 07/09/2014 [facility] Rocephin Notes: (Same As: Roce phin). Use with 100ml NS mini-bag PLUS and infuse over 30 min No Longer Active 07/08/2014 [facility] Enoxaparin Notes: (Same as: Lo venox) No Longer Active 07/08/2014 [facility] Glucose 50 MG/ML / Sodium Chloride 0.154 MEQ/ML Injectable Solution 1,000 mL, Rate: 125 ml/hr, Infuse over: 8 hr, Route: IV, Dosing Weight 77.273 kg, Total Volume: 1,000, Start date: 07/08/14 14:06:00, Duration: 30 day, Stop date: 08/07/14 14:05:00 No Longer Active 07/08/2014 [facility] Saline Flush 0.9% Notes: (Same as: BD Posiflush) No Longer Active 07/08/2014 [facility] Ondansetron Notes: (Same as: Esther burton) No Longer Active 07/08/2014 [facility] Morphine Notes: (Same as:MORPh ine Sulfate) No Longer Active 07/08/2014 [facility] Acetaminophen Notes: Do not ex ceed 4 gm/day. (Same as: Tylenol) No Longer Active 07/08/2014 [facility] D5W 1/2NS 1000 mL 1,000 mL, Ra te: 75 ml/hr, Infuse over: 13.3 hr, Route: IV, Dosing Weight 77.273 kg, Total Volume: 1,000, Start date: 07/08/14 11:33:00, Duration: 30 day, Stop date: 08/07/14 11:32:00 Inactive 07/08/2014 [facility] Flagyl Notes: (Same as: Flagyl ) Avoid alcohol. No Longer Active 07/08/2014 [facility] Cipro 400 mg, Route: IVPB, ONC E, Dosing Weight 77.273, kg, Priority: STAT, Start date: 07/08/14 11:32:00, Stop date: 07/08/14 11:32:00 Inactive 07/08/2014 [facility] Ondansetron 4 mg, Route: IVP, ONCE, Dosing Weight 77.273, kg, Priority: STAT, Start date: 07/08/14 6:36:00, Stop date: 07/08/14 6:36:00 Inactive 07/08/2014 [facility] Morphine 4 mg, Route: IVP, ONC E, Dosing Weight 77.273, kg, Priority: STAT, Start date: 07/08/14 6:36:00, Stop date: 07/08/14 6:36:00 Inactive 07/08/2014 [facility] Famotidine 20 mg, Route: IVP, ONCE, Dosing Weight 77.273, kg, Priority: STAT, Start date: 07/08/14 6:36:00, Stop date: 07/08/14 6:36:00 Inactive 07/08/2014 [facility] GI cocktail 30 mL, Route: PO, Dosing Weight 77.273, kg, ONCE, STAT, Start date: 07/08/14 6:36:00, Stop date: 07/08/14 6:36:00 Inactive 07/08/2014 [facility] Sodium Chloride 0.154 MEQ/ML Injectable Solution 1,000 mL, Infuse Over: 1 hr, Route: IV, ONCE, Priority: STAT, Dosing Weight 77.273 kg, Start date: 07/08/14 6:36:00, Duration: 1 doses or times, Stop date: 07/08/14 6:36:00 Inactive 07/08/2014 [facility] Saline Flush 0.9% Notes: (Same as: BD Posiflush) Inactive 07/08/2014 [facility] Finasteride 0 Refill(s) Active 07/08/2014 [facility] Flomax 0 Refill(s) Active 07/08/2014 [facility] lisinopril 20 mg oral tablet 2 0 mg = 1 tab, PO, Daily, # 30 tab, 0 Refill(s) Active 07/08/2014 [facility] Thyroxine 25 mg, PO, Daily, 0 Refill(s) Active 07/08/2014 [facility] CIPROFLOXACIN HCL 500 MG TABS Take one tablet by mouth twice daily. No Longer Active 06/09/2014 [facility] PYRIDIUM 100 MG TABS Take one tablet by mouth three times a day for 2 days. No Longer Active 06/09/2014 [facility] CIPROFLOXACIN HCL 500 MG TABS Take one tablet by mouth twice daily. No Longer Active 06/09/2014 [facility] Ciprofloxacin 500 MG Oral Tablet [Cipro] 500 mg = 1 tab, PO, Q12H, # 28 tab, 0 Refill(s) Active 06/05/2014 [facility] Ciprofloxacin 2 MG/ML Injectable Solution [Cipro] Notes: Do not refrigerate Inactive 06/05/2014 [facility] Sodium Chloride 0.154 MEQ/ML Injectable Solution 500 mL, 500 ml/hr, Infuse Over: 1 hr, Route: IV, ONCE, Priority: STAT, Dosing Weight 73.182 kg, Start date: 06/04/14 20:53:00, Duration: 1 doses or times, Stop date: 06/04/14 20:53:00 Inactive 06/05/2014 [facility] LEVOTHYROXINE SODIUM 25 MCG TABS Take one tablet by mouth daily 30 minutes prior to breakfast. Active 04/21/2014 [facility] LEVOTHYROXINE SODIUM 25 MCG TABS Take one tablet by mouth daily 30 minutes prior to breakfast. Active 04/21/2014 [facility] MULTIVITAMIN AND MULTIMINERAL Take one tablet by mouth daily. No Longer Active 04/04/2014 [facility] NEXIUM 20 MG CPDR Take one cap brittani by mouth daily. No Longer Active 04/04/2014 [facility] CIPROFLOXACIN HCL 500 MG TABS Take one tablet by mouth twice daily for 3 days. No Longer Active 04/04/2014 [facility] NEXIUM 20 MG CPDR Take one cap brittani by mouth daily. Active 04/04/2014 [facility] CIPROFLOXACIN HCL 500 MG TABS Take one tablet by mouth twice daily for 3 days. Active 04/04/2014 [facility] CIPROFLOXACIN HCL 500 MG TABS Take one tablet by mouth twice daily for 3 days. No Longer Active 04/04/2014 [facility] FINASTERIDE 5 MG TABS Take one tablet by mouth daily. Active 03/03/2014 [facility] FLOMAX 0.4 MG CAPS take 1 cap by mouth daily Active 03/03/2014 [facility] LISINOPRIL 20 MG TABS Take one tablet by mouth daily. No Longer Active 03/03/2014 [facility] FINASTERIDE 5 MG TABS take 1 t ablet by mouth daily Active 03/03/2014 [facility] FLOMAX 0.4 MG CAPS Take one ca psule by mouth daily. Active 03/03/2014 [facility] LISINOPRIL 20 MG TABS Take one tablet by mouth daily. Active 03/03/2014 [facility] LISINOPRIL 20 MG TABS Take one tablet by mouth daily. Active 03/03/2014 [facility] LISINOPRIL 20 MG TABS Take one tablet by mouth daily. Active 03/03/2014 [facility] FINASTERIDE 5 MG TABS Take one tablet by mouth daily. Active 03/03/2014 [facility] LISINOPRIL 20 MG TABS Take one tablet by mouth daily. No Longer Active 03/03/2014 [facility] Allergies, Adverse Reactions, Alerts Substance Category Reaction Severity Reaction type Status Date Reported Comments Source SULFA Drug allergy SULFA 08/14/2012 [facility] PENICILLIN Drug allergy PENICILLIN 03/03/2014 [facility] penicillins<sup>1</sup> Assert ion itching and rash Drug allergy Active 03/03/2014 Data migrated from [employer] on 03/13. Originally documented as PENICILLIN. irritation and rash [facility] penicillins<sup>2</sup> Assert ion itching and rash Drug allergy Active 03/03/2014 Data migrated from [employer] on 03/13. Originally documented as PENICILLIN. irritation and rash [facility] LISINOPRIL Drug allergy LISINOPRIL 08/18/2014 [facility] lisinopril<sup>1</sup> Asserti on headache Pr opensity to adverse reactions to drug Active 08/18/2014 Data migrated from [employer] on 12/09. Originally documented as LISINOPRIL. Headache [facility] sulfa drugs<sup>2</sup> Assert ion lip swelling Drug allergy Active Data migrated from [employer] on 03/13/15. Originally documented as SULFA. lips (swollen) [facility] sulfa drugs<sup>3</sup> Assert ion lip swelling Drug allergy Active Data migrated from [employer] on 03/13/15. Originally documented as SULFA. lips (swollen) [facility] penicillins Assertion Drug allergy Active [facility] sulfa drugs Assertion Drug allergy Active [facility] Immunizations Immunization Date Given Site Status Last Updated Comments Source influenza virus vaccine, inactivated<sup>1</sup> 04/28/2018 completed [place] Location History: [facility] influenza virus vaccine, inactivated<sup>1</sup> 05/15/2017 completed [place] Location History: [facility] influenza virus vaccine, inactivated<sup>2</sup> 05/15/2017 completed [place] Location History: [facility] influenza virus vaccine, inactivated 05/26/2015 Left deltoid completed [facility] influenza immunization (Flu Vax) has been administered 04/04/2014 completed [facility] pneumococcal immunization administered 04/04/2014 completed [facility] pneumococcal 23-valent vaccine<sup>3</sup> 04/04/2014 Left Deltoid completed [facility] Result Comment: pneumovax. Migrated from OBS VIS: 03-11-97 given April 04, 2014. ; Data migrated from [employer] on 03/20/2015. [facility] influenza virus vaccine, inactivated<sup>2</sup> 04/04/2014 Right Deltoid completed [facility] Result Comment: fluzone. Migrated from OBS ; Data migrated from [employer] on 03/20/2015. [facility] pneumococcal 23-valent vaccine<sup>4</sup> 04/04/2014 Left Deltoid completed [facility] Result Comment: pneumovax. Migrated from OBS VIS: 03-11-97 given April 04, 2014. ; Data migrated from [employer] on 03/20/2015. [facility] influenza virus vaccine, inactivated<sup>3</sup> 04/04/2014 Right Deltoid completed [facility] Result Comment: fluzone. Migrated from OBS ; Data migrated from [employer] on 03/20/2015. [facility] pneumococcal 23-valent vaccine<sup>2</sup> 04/04/2014 Left Deltoid completed GE Result Comment: pneumovax. Migrated from OBS VIS: 03-11-97 given April 04, 2014. ; Data migrated from [employer] on 03/20/2015. [facility] influenza virus vaccine, inactivated<sup>1</sup> 04/04/2014 Right Deltoid completed GE Result Comment: fluzone. Migrated from OBS ; Data migrated from [employer] on 03/20/2015. [facility] Results Order Name Results Value Reference Range Date Interpretation Comments Source ELECTROLYTES AGAP 13.1 10.0 - 20.0 01/30/2016 [facility] ELECTROLYTES eGFR 81 01/30/2016 Result Comment: The eGFR is calculated using the CKD-EPI formula. In most young, healthy individuals the eGFR will be >90 mL/min/1.73m2. The eGFR declines with age. An eGFR of 60-89 may be normal in some populations, particularly the elderly, for whom the CKD-EPI formula has not been extensively validated. Use of the eGFR is not recommended in the following populations:

Individuals with unstable creatinine concentrations, including patients and those with serious co-morbid conditions.

Patients with extremes in muscle mass or diet.

The data above are obtained from the National Kidney Disease Education Program (NKDEP) which additionally recommends that when the eGFR is used in patients with extremes of body mass index for purposes of drug dosing, the eGFR should be multiplied by the estimated BMI. [facility] ELECTROLYTES Sodium Lvl 140 135 - 145 01/30/2016 [facility] ELECTROLYTES Potassium Lvl 4.1 3.5 - 5.1 01/30/2016 [facility] ELECTROLYTES Calcium Lvl 7.9 8.5 - 10.5 01/30/2016 [facility] ELECTROLYTES CO2 24 24 - 32 01/30/2016 [facility] ELECTROLYTES Chloride Lvl 107 95 - 109 01/30/2016 [facility] ELECTROLYTES BUN 13 7 - 22 01/30/2016 [facility] ELECTROLYTES Glucose Lvl 102 70 - 99 01/30/2016 [facility] ELECTROLYTES Creatinine Lvl 0.9 7 0.50 - 1.40 01/30/2016 [facility] HEMATOLOGY Segs 69.5 45.0 - 75.0 01/30/2016 [facility] Segs-Bands # 5.4 1.5 - 8.1 01/30/2016 [facility] Lymphocytes # 1.7 1.0 - 5.5 01/30/2016 [facility] Monocytes # 0.5 0.0 - 0.8 01/30/2016 [facility] HEMATOLOGY Eosinophils # 0.1 0.0 - 0.5 01/30/2016 [facility] HEMATOLOGY Basophils 0.5 0.0 - 1.0 01/30/2016 [facility] HEMATOLOGY Eosinophils 1.6 0.0 - 4.0 01/30/2016 [facility] Lymphocytes 21.4 20.0 - 40.0 01/30/2016 [facility] Monocytes 7.0 2.0 - 12.0 01/30/2016 [facility] Hgb 12.1 14.0 - 18.0 01/30/2016 [facility] Hct 36.4 42.0 - 54.0 01/30/2016 [facility] HEMATOLOGY MCV 87.6 80.0 - 94.0 01/30/2016 [facility] HEMATOLOGY WBC 7.8 3.7 - 10.4 01/30/2016 [facility] HEMATOLOGY RBC 4.15 4.70 - 6.10 01/30/2016 [facility] HEMATOLOGY RDW 14.1 11.5 - 14.5 01/30/2016 [facility] HEMATOLOGY Platelet 206 133 - 450 01/30/2016 [facility] HEMATOLOGY MPV 8.1 7.4 - 10.4 01/30/2016 [facility] HEMATOLOGY MCH 29.2 27.0 - 31.0 01/30/2016 [facility] HEMATOLOGY MCHC 33.3 32.0 - 36.0 01/30/2016 [facility] SPECIAL CHEMISTRY Hgb A1C 6.3 <=5.6 % 01/30/2016 [facility] CHEM PANEL A/G Ratio 1.0 0.7 - 1.6 01/29/2016 [facility] CHEM PANEL B/C Ratio 14 6 - 25 01/29/2016 [facility] CHEM PANEL AGAP 12.9 10.0 - 20.0 01/29/2016 [facility] CHEM PANEL Globulin 2.8 2.0 - 4.0 01/29/2016 [facility] CHEM PANEL eGFR 78 01/29/2016 Result Comment: The eGFR is calculated using the CKD-EPI formula. In most young, healthy individuals the eGFR will be >90 mL/min/1.73m2. The eGFR declines with age. An eGFR of 60-89 may be normal in some populations, particularly the elderly, for whom the CKD-EPI formula has not been extensively validated. Use of the eGFR is not recommended in the following populations:

Individuals with unstable creatinine concentrations, including patients and those with serious co-morbid conditions.

Patients with extremes in muscle mass or diet.

The data above are obtained from the National Kidney Disease Education Program (NKDEP) which additionally recommends that when the eGFR is used in patients with extremes of body mass index for purposes of drug dosing, the eGFR should be multiplied by the estimated BMI. [facility] CHEM PANEL CO2 24 24 - 32 01/29/2016 [facility] CHEM PANEL Chloride Lvl 106 95 - 109 01/29/2016 [facility] CHEM PANEL AST 20 0 - 37 01/29/2016 [facility] CHEM PANEL Potassium Lvl 3.9 3.5 - 5.1 01/29/2016 [facility] CHEM PANEL Sodium Lvl 139 135 - 145 01/29/2016 [facility] CHEM PANEL Total Protein 5.7 6.4 - 8.4 01/29/2016 [facility] CHEM PANEL Calcium Lvl 7.6 8.5 - 10.5 01/29/2016 [facility] CHEM PANEL Albumin Lvl 2.9 3.5 - 5.0 01/29/2016 [facility] CHEM PANEL Glucose Lvl 126 70 - 99 01/29/2016 [facility] CHEM PANEL Creatinine Lvl 1.00 0.50 - 1.40 01/29/2016 [facility] CHEM PANEL BUN 14 7 - 22 01/29/2016 [facility] CHEM PANEL ALT 33 0 - 65 01/29/2016 [facility] CHEM PANEL Alk Phos 84 39 - 136 01/29/2016 [facility] CHEM PANEL Bili Total 0.5 0.2 - 1.3 01/29/2016 [facility] CHEM PANEL Magnesium Lvl 1.9 1.8 - 2.4 01/29/2016 [facility] CHEM PANEL Phosphorus 2.1 2.5 - 4.5 01/29/2016 [facility] HEMATOLOGY WBC 13.6 3.7 - 10.4 01/29/2016 [facility] HEMATOLOGY MCV 87.6 80.0 - 94.0 01/29/2016 [facility] HEMATOLOGY Hct 34.7 42.0 - 54.0 01/29/2016 [facility] HEMATOLOGY Hgb 11.8 14.0 - 18.0 01/29/2016 [facility] HEMATOLOGY RBC 3.96 4.70 - 6.10 01/29/2016 [facility] HEMATOLOGY MCH 29.7 27.0 - 31.0 01/29/2016 [facility] HEMATOLOGY MCHC 33.9 32.0 - 36.0 01/29/2016 [facility] HEMATOLOGY MPV 8.0 7.4 - 10.4 01/29/2016 [facility] HEMATOLOGY Platelet 204 133 - 450 01/29/2016 [facility] HEMATOLOGY RDW 14.4 11.5 - 14.5 01/29/2016 [facility] HEMATOLOGY Eosinophils # 0.1 0.0 - 0.5 01/29/2016 [facility] HEMATOLOGY Segs-Bands # 11.5 1.5 - 8.1 01/29/2016 [facility] HEMATOLOGY Monocytes # 0.8 0.0 - 0.8 01/29/2016 [facility] HEMATOLOGY Basophils 0.2 0.0 - 1.0 01/29/2016 [facility] HEMATOLOGY Lymphocytes # 1.3 1.0 - 5.5 01/29/2016 [facility] HEMATOLOGY Eosinophils 0.4 0.0 - 4.0 01/29/2016 [facility] HEMATOLOGY Segs 84.1 45.0 - 75.0 01/29/2016 [facility] HEMATOLOGY Lymphocytes 9.8 20.0 - 40.0 01/29/2016 [facility] HEMATOLOGY Monocytes 5.5 2.0 - 12.0 01/29/2016 [facility] SPECIAL CHEMISTRY PSA 20.2 0.0 - 4.0 01/29/2016 [facility] SPECIAL CHEMISTRY PSA Free 2.38 01/29/2016 [facility] SPECIAL CHEMISTRY Free PSA/PSA 11.8 >=25.0 % 01/29/2016 [facility] CHEM PANEL Lactic Acid Lvl 0.8 0.5 - 2.2 01/29/2016 [facility] CARDIAC ENZYMES CK MB 0.5 0.5 - 3.6 01/28/2016 [facility] CARDIAC ENZYMES Troponin-I <0.02 0.00 - 0.40 01/28/2016 [facility] CHEM PANEL Lipase Lvl 155 73 - 393 01/28/2016 [facility] CHEM PANEL Amylase Lvl 29 25 - 115 01/28/2016 [facility] ELECTROLYTES AGAP 11.6 10.0 - 20.0 01/28/2016 [facility] ELECTROLYTES B/C Ratio 13 6 - 25 01/28/2016 [facility] ELECTROLYTES Globulin 3.9 2.0 - 4.0 01/28/2016 [facility] ELECTROLYTES A/G Ratio 0.8 0.7 - 1.6 01/28/2016 [facility] ELECTROLYTES Alk Phos 73 39 - 136 01/28/2016 [facility] ELECTROLYTES Bili Total 0.5 0.2 - 1.3 01/28/2016 [facility] ELECTROLYTES Potassium Lvl 3.6 3.5 - 5.1 01/28/2016 [facility] ELECTROLYTES Chloride Lvl 103 95 - 109 01/28/2016 [facility] ELECTROLYTES CO2 25 24 - 32 01/28/2016 [facility] ELECTROLYTES Albumin Lvl 3.2 3.5 - 5.0 01/28/2016 [facility] ELECTROLYTES Glucose Lvl 148 70 - 99 01/28/2016 [facility] ELECTROLYTES Calcium Lvl 8.2 8.5 - 10.5 01/28/2016 [facility] ELECTROLYTES Total Protein 7.1 6.4 - 8.4 01/28/2016 [facility] ELECTROLYTES BUN 15 7 - 22 01/28/2016 [facility] ELECTROLYTES Creatinine Lvl 1.1 9 0.50 - 1.40 01/28/2016 [facility] ELECTROLYTES Sodium Lvl 136 135 - 145 01/28/2016 [facility] ELECTROLYTES eGFR 63 01/28/2016 Result Comment: The eGFR is calculated using the CKD-EPI formula. In most young, healthy individuals the eGFR will be >90 mL/min/1.73m2. The eGFR declines with age. An eGFR of 60-89 may be normal in some populations, particularly the elderly, for whom the CKD-EPI formula has not been extensively validated. Use of the eGFR is not recommended in the following populations:

Individuals with unstable creatinine concentrations, including patients and those with serious co-morbid conditions.

Patients with extremes in muscle mass or diet.

The data above are obtained from the National Kidney Disease Education Program (NKDEP) which additionally recommends that when the eGFR is used in patients with extremes of body mass index for purposes of drug dosing, the eGFR should be multiplied by the estimated BMI. [facility] ELECTROLYTES ALT 20 0 - 65 01/28/2016 [facility] ELECTROLYTES AST 8 0 - 37 01/28/2016 [facility] HEMATOLOGY Basophils 0.3 0.0 - 1.0 01/28/2016 [facility] HEMATOLOGY Segs-Bands # 13.3 1.5 - 8.1 01/28/2016 [facility] HEMATOLOGY Segs 85.3 45.0 - 75.0 01/28/2016 [facility] Lymphocytes # 1.3 1.0 - 5.5 01/28/2016 [facility] HEMATOLOGY Monocytes # 0.9 0.0 - 0.8 01/28/2016 [facility] HEMATOLOGY Monocytes 5.9 2.0 - 12.0 01/28/2016 [facility] HEMATOLOGY Eosinophils 0.1 0.0 - 4.0 01/28/2016 [facility] HEMATOLOGY Lymphocytes 8.4 20.0 - 40.0 01/28/2016 [facility] MPV 7.5 7.4 - 10.4 01/28/2016 [facility] HEMATOLOGY MCV 87.2 80.0 - 94.0 01/28/2016 [facility] Hct 37.1 42.0 - 54.0 01/28/2016 [facility] HEMATOLOGY Hgb 12.1 14.0 - 18.0 01/28/2016 [facility] HEMATOLOGY MCH 28.4 27.0 - 31.0 01/28/2016 [facility] HEMATOLOGY MCHC 32.6 32.0 - 36.0 01/28/2016 [facility] HEMATOLOGY Platelet 221 133 - 450 01/28/2016 [facility] HEMATOLOGY RDW 14.2 11.5 - 14.5 01/28/2016 [facility] HEMATOLOGY RBC 4.26 4.70 - 6.10 01/28/2016 [facility] HEMATOLOGY WBC 15.6 3.7 - 10.4 01/28/2016 [facility] URINE AND STOOL UA Color Ltyellow 01/28/2016 [facility] URINE AND STOOL UA Urobilinogen <=1.0 mg/dL 0.1 - 1.0 01/28/2016 [facility] [place] URINE AND STOOL UA Bacteria Occasional /HPF None Seen /HPF 01/28/2016 [facility] [place] URINE AND STOOL UA Glucose Negative mg/dL Negative mg/dL 01/28/2016 [facility] [place] URINE AND STOOL UA Ketones Negative mg/dL Negative mg/dL 01/28/2016 [facility] [place] URINE AND STOOL UA Bili Negative *NA* (01/28/16 4:24 PM) Negative 01/28/2016 [facility] URINE AND STOOL UA Nitrite Negative (01/28/16 4:24 PM) Negative 01/28/2016 [facility] URINE AND STOOL UA Blood Negative (01/28/16 4:24 PM) Negative 01/28/2016 [facility] URINE AND STOOL UA Leuk Est Moderate *ABN* (01/28/16 4:24 PM) Negative 01/28/2016 [facility] URINE AND STOOL UA Sq Epi Occasional /LPF Few /LPF 01/28/2016 [facility] URINE AND STOOL UA RBC 3 0 - 2 01/28/2016 [facility] URINE AND STOOL UA WBC 27 0 - 5 01/28/2016 [facility] URINE AND STOOL UA Mucus Few /LPF None Seen /LPF 01/28/2016 [facility] URINE AND STOOL UA Protein Negative mg/dL Negative mg/dL 01/28/2016 [facility] [place] URINE AND STOOL UA pH 6.0 5.0 - 8.0 01/28/2016 [facility] URINE AND STOOL UA Spec Grav 1.021 <=1.030 01/28/2016 [facility] URINE AND STOOL UA Turbidity Clear (01/28/16 4:24 PM) Clear 01/28/2016 [facility] CHEM PANEL Globulin 4.2 2.0 - 4.0 01/12/2016 [facility] CHEM PANEL A/G Ratio 0.8 0.7 - 1.6 01/12/2016 [facility] CHEM PANEL B/C Ratio 11 6 - 25 01/12/2016 [facility] CHEM PANEL AGAP 11.0 10.0 - 20.0 01/12/2016 [facility] CHEM PANEL eGFR 57 01/12/2016 Result Comment: The eGFR is calculated using the CKD-EPI formula. In most young, healthy individuals the eGFR will be >90 mL/min/1.73m2. The eGFR declines with age. An eGFR of 60-89 may be normal in some populations, particularly the elderly, for whom the CKD-EPI formula has not been extensively validated. Use of the eGFR is not recommended in the following populations:

Individuals with unstable creatinine concentrations, including patients and those with serious co-morbid conditions.

Patients with extremes in muscle mass or diet.

The data above are obtained from the National Kidney Disease Education Program (NKDEP) which additionally recommends that when the eGFR is used in patients with extremes of body mass index for purposes of drug dosing, the eGFR should be multiplied by the estimated BMI. [facility] CHEM PANEL AST 12 0 - 37 01/12/2016 [facility] CHEM PANEL Alk Phos 83 39 - 136 01/12/2016 [facility] CHEM PANEL Bili Total 0.5 0.2 - 1.3 01/12/2016 [facility] CHEM PANEL ALT 17 0 - 65 01/12/2016 [facility] CHEM PANEL Albumin Lvl 3.4 3.5 - 5.0 01/12/2016 [facility] CHEM PANEL Total Protein 7.6 6.4 - 8.4 01/12/2016 [facility] CHEM PANEL Calcium Lvl 8.4 8.5 - 10.5 01/12/2016 [facility] CHEM PANEL Chloride Lvl 104 95 - 109 01/12/2016 [facility] CHEM PANEL CO2 26 24 - 32 01/12/2016 [facility] CHEM PANEL Potassium Lvl 4.0 3.5 - 5.1 01/12/2016 [facility] CHEM PANEL Sodium Lvl 137 135 - 145 01/12/2016 [facility] CHEM PANEL Creatinine Lvl 1.29 0.50 - 1.40 01/12/2016 [facility] CHEM PANEL BUN 14 7 - 22 01/12/2016 [facility] CHEM PANEL Glucose Lvl 118 70 - 99 01/12/2016 [facility] HEMATOLOGY Segs 83.0 45.0 - 75.0 01/12/2016 [facility] HEMATOLOGY Basophils 0.1 0.0 - 1.0 01/12/2016 [facility] HEMATOLOGY Lymphocytes # 1.4 1.0 - 5.5 01/12/2016 [facility] HEMATOLOGY Monocytes # 0.5 0.0 - 0.8 01/12/2016 [facility] HEMATOLOGY Segs-Bands # 9.5 1.5 - 8.1 01/12/2016 [facility] HEMATOLOGY Monocytes 4.6 2.0 - 12.0 01/12/2016 [facility] HEMATOLOGY Eosinophils 0.3 0.0 - 4.0 01/12/2016 [facility] Lymphocytes 12.0 20.0 - 40.0 01/12/2016 [facility] MPV 8.8 7.4 - 10.4 01/12/2016 [facility] HEMATOLOGY Platelet 190 133 - 450 01/12/2016 [facility] HEMATOLOGY RDW 14.1 11.5 - 14.5 01/12/2016 [facility] MCHC 33.9 32.0 - 36.0 01/12/2016 [facility] RBC 4.48 4.70 - 6.10 01/12/2016 [facility] Hgb 13.3 14.0 - 18.0 01/12/2016 [facility] Hct 39.3 42.0 - 54.0 01/12/2016 [facility] WBC 11.5 3.7 - 10.4 01/12/2016 [facility] MCH 29.7 27.0 - 31.0 01/12/2016 [facility] HEMATOLOGY MCV 87.6 80.0 - 94.0 01/12/2016 [facility] URINE AND STOOL UA Color Ltyellow 01/12/2016 [facility] URINE AND STOOL UA Urobilinogen <=1.0 mg/dL 0.1 - 1.0 01/12/2016 [facility] [place] URINE AND STOOL UA Sq Epi None Seen 01/12/2016 [facility] URINE AND STOOL UA Mucus Few /LPF None Seen /LPF 01/12/2016 [facility] URINE AND STOOL UA [place] Yeast Occasional /HPF None Seen /HPF 01/12/[address] [facility] [address] URINE AND STOOL UA Leuk Est Small *ABN* (01/12/16 9:17 AM) Negative 01/12/2016 [facility] URINE AND STOOL UA WBC 20 0 - 5 01/12/2016 [facility] URINE AND STOOL UA Bacteria Occasional /HPF None Seen /HPF 01/12/[address] [facility] [address] URINE AND STOOL UA RBC 2 0 - 2 01/12/2016 [facility] URINE AND STOOL UA Bili Negative *NA* (01/12/16 9:17 AM) Negative 01/12/2016 [facility] URINE AND STOOL UA Ketones Negative mg/dL Negative mg/dL 01/12/[address] [facility] [address] URINE AND STOOL UA Blood Negative (01/12/16 9:17 AM) Negative 01/12/2016 [facility] URINE AND STOOL UA Nitrite Negative (01/12/16 9:17 AM) Negative 01/12/2016 [facility] URINE AND STOOL UA Turbidity Clear (01/12/16 9:17 AM) Clear 01/12/2016 [facility] URINE AND STOOL UA Spec Grav 1.011 <=1.030 01/12/2016 [facility] URINE AND STOOL UA pH 7.0 5.0 - 8.0 01/12/2016 [facility] URINE AND STOOL UA Protein Negative mg/dL Negative mg/dL 01/12/[address] [facility] [address] URINE AND STOOL UA Glucose Negative mg/dL Negative mg/dL 01/12/2016 [facility] [place] URINE AND STOOL UA Color Ltyellow 01/10/2016 [facility] URINE AND STOOL UA Urobilinogen <=1.0 mg/dL 0.1 - 1.0 01/10/2016 [facility] [place] URINE AND STOOL UA Sq Epi None Seen 01/10/2016 [facility] URINE AND STOOL UA Bacteria Many /HPF None Seen /HPF 01/10/2016 [facility] URINE AND STOOL UA RBC 4 0 - 2 01/10/2016 [facility] URINE AND STOOL UA Turbidity Clear (01/10/16 3:29 AM) Clear 01/10/2016 [facility] URINE AND STOOL UA pH 7.0 5.0 - 8.0 01/10/2016 [facility] URINE AND STOOL UA Spec Grav 1.015 <=1.030 01/10/2016 [facility] URINE AND STOOL UA Blood Negative (01/10/16 3:29 AM) Negative 01/10/2016 [facility] URINE AND STOOL UA Nitrite Negative (01/10/16 3:29 AM) Negative 01/10/2016 [facility] URINE AND STOOL UA Bili Negative *NA* (01/10/16 3:29 AM) Negative 01/10/2016 [facility] URINE AND STOOL UA Leuk Est Small *ABN* (01/10/16 3:29 AM) Negative 01/10/2016 [facility] URINE AND STOOL UA WBC 12 0 - 5 01/10/2016 [facility] [facility]OOL UA Glucose Negative mg/dL Negative mg/dL 01/10/2016 [facility] [place] URINE AND STOOL UA Protein Negative mg/dL Negative mg/dL 01/10/2016 [facility] [place] URINE AND STOOL UA Ketones Negative mg/dL Negative mg/dL 01/10/2016 [facility] [place] CHEM PANEL Bili Direct 0.1 0.0 - 0.3 01/10/2016 [facility] CHEM PANEL Bili Total 0.7 0.2 - 1.3 01/10/2016 [facility] CHEM PANEL Alk Phos 87 39 - 136 01/10/2016 [facility] CHEM PANEL AST 16 0 - 37 01/10/2016 [facility] CHEM PANEL ALT 23 0 - 65 01/10/2016 [facility] CHEM PANEL Albumin Lvl 3.7 3.5 - 5.0 01/10/2016 [facility] CHEM PANEL Total Protein 7.2 6.4 - 8.4 01/10/2016 [facility] CHEM PANEL A/G Ratio 1.1 0.7 - 1.6 01/10/2016 [facility] CHEM PANEL Bili Indirect 0.6 0.0 - 1.0 01/10/2016 [facility] CHEM PANEL Globulin 3.5 2.0 - 4.0 01/10/2016 [facility] CHEM PANEL Lipase Lvl 175 73 - 393 01/10/2016 [facility] ELECTROLYTES AGAP 11.9 10.0 - 20.0 01/10/2016 [facility] ELECTROLYTES eGFR 60 01/10/2016 Result Comment: The eGFR is calculated using the CKD-EPI formula. In most young, healthy individuals the eGFR will be >90 mL/min/1.73m2. The eGFR declines with age. An eGFR of 60-89 may be normal in some populations, particularly the elderly, for whom the CKD-EPI formula has not been extensively validated. Use of the eGFR is not recommended in the following populations:

Individuals with unstable creatinine concentrations, including patients and those with serious co-morbid conditions.

Patients with extremes in muscle mass or diet.

The data above are obtained from the National Kidney Disease Education Program (NKDEP) which additionally recommends that when the eGFR is used in patients with extremes of body mass index for purposes of drug dosing, the eGFR should be multiplied by the estimated BMI. [facility] ELECTROLYTES Calcium Lvl 8.4 8.5 - 10.5 01/10/2016 [facility] ELECTROLYTES CO2 25 24 - 32 01/10/2016 [facility] ELECTROLYTES Chloride Lvl 104 95 - 109 01/10/2016 [facility] ELECTROLYTES Potassium Lvl 3.9 3.5 - 5.1 01/10/2016 [facility] ELECTROLYTES Creatinine Lvl 1.2 4 0.50 - 1.40 01/10/2016 [facility] ELECTROLYTES Sodium Lvl 137 135 - 145 01/10/2016 [facility] ELECTROLYTES BUN 16 7 - 22 01/10/2016 [facility] ELECTROLYTES Glucose Lvl 163 70 - 99 01/10/2016 [facility] HEMATOLOGY RBC 4.51 4.70 - 6.10 01/10/2016 [facility] MCV 87.3 80.0 - 94.0 01/10/2016 [facility] Hgb 13.4 14.0 - 18.0 01/10/2016 [facility] Hct 39.4 42.0 - 54.0 01/10/2016 [facility] WBC 14.3 3.7 - 10.4 01/10/2016 [facility] MPV 8.2 7.4 - 10.4 01/10/2016 [facility] Platelet 184 133 - 450 01/10/2016 [facility] RDW 14.7 11.5 - 14.5 01/10/2016 [facility] MCHC 34.0 32.0 - 36.0 01/10/2016 [facility] MCH 29.6 27.0 - 31.0 01/10/2016 [facility] Monocytes 4.5 2.0 - 12.0 01/10/2016 [facility] HEMATOLOGY Segs 89.8 45.0 - 75.0 01/10/2016 [facility] Lymphocytes # 0.7 1.0 - 5.5 01/10/2016 [facility] Segs-Bands # 12.8 1.5 - 8.1 01/10/2016 [facility] HEMATOLOGY Basophils 0.3 0.0 - 1.0 01/10/2016 [facility] HEMATOLOGY Monocytes # 0.6 0.0 - 0.8 01/10/2016 [facility] HEMATOLOGY Eosinophils 0.2 0.0 - 4.0 01/10/2016 [facility] HEMATOLOGY Lymphocytes 5.2 20.0 - 40.0 01/10/2016 [facility] CHEM PANEL eGFR 70 11/06/2015 Result Comment: The eGFR is calculated using the CKD-EPI formula. In most young, healthy individuals the eGFR will be >90 mL/min/1.73m2. The eGFR declines with age. An eGFR of 60-89 may be normal in some populations, particularly the elderly, for whom the CKD-EPI formula has not been extensively validated. Use of the eGFR is not recommended in the following populations:

Individuals with unstable creatinine concentrations, including patients and those with serious co-morbid conditions.

Patients with extremes in muscle mass or diet.

The data above are obtained from the National Kidney Disease Education Program (NKDEP) which additionally recommends that when the eGFR is used in patients with extremes of body mass index for purposes of drug dosing, the eGFR should be multiplied by the estimated BMI. [facility] CHEM PANEL POC Creatinine 1.1 0.5 - 1.4 11/06/2015 [facility] Chemistry HGBA1C 5.9 - 5.6 12/30/2014 [facility] Chemistry TSH 5.530 0.360 - 3.740 12/30/2014 [facility] Chemistry CHOLESTEROL 163 - 199 12/30/2014 [facility] TRIGLYCERIDE 235 - 149 12/30/2014 [facility] Chemistry HDL 37 >=61 12/30/2014 [facility] Chemistry LDL 79 - 99 12/30/2014 [facility] SODIUM 137 MEQ/L 135 - 145 12/30/2014 [facility] POTASSIUM 4.1 MEQ/L 3.5 - 5.1 12/30/2014 [facility] Chemistry CREATININE 0.9 0.5 - 1.4 12/30/2014 [facility] Chemistry BUN 14 7 - 22 12/30/2014 [facility] Chemistry BUN/CREAT 16 6 - 25 12/30/2014 [facility] ALBUMIN 3.6 3.5 - 5.0 12/30/2014 [facility] CALCIUM 8.8 8.5 - 10.5 12/30/2014 [facility] Chemistry SGPT (ALT) 21 0 - 65 12/30/2014 [facility] SGOT (AST) 16 0 - 37 12/30/2014 [facility] ALK PHOS 110 39 - 136 12/30/2014 [facility] T4, FREE 0.99 0.76 - 1.46 12/30/2014 [facility] PSA 5.14 0.00 - 4.00 12/30/2014 [facility] HGB 13.8 14.0 - 18.0 12/30/2014 [facility] HCT 39.2 42.0 - 54.0 12/30/2014 [facility] Hematology PLATELETS 185 K/CMM 133 - 450 12/30/2014 [facility] PSA 7.61 0.00 - 4.00 09/30/2014 [facility] PSA 7.61 0.00 - 4.00 09/30/2014 [facility] Urinalysis UA COLOR Yellow 09/30/2014 [facility] BACTERIA URN Occas ional 09/30/2014 [facility] Urinal[facility] UA COLOR Yellow 09/30/2014 [facility] Urinal[facility] BACTERIA URN Occas ional 09/30/2014 [facility] HGBA1C 6.4 - 5.6 08/12/2014 [facility] TSH 3.340 0.360 - 3.740 08/12/2014 [facility] CHOLESTEROL 183 - 199 08/12/2014 [facility] TRIGLYCERIDE 244 - 149 08/12/2014 [facility] HDL 39 >=61 08/12/2014 [facility] LDL 95 - 99 08/12/2014 [facility] SODIUM 142 MEQ/L 135 - 145 08/12/2014 [facility] POTASSIUM 4.1 MEQ/L 3.5 - 5.1 08/12/2014 [facility] CREATININE 1.0 0.5 - 1.4 08/12/2014 [facility] BUN 17 7 - 22 08/12/2014 [facility] BUN/CREAT 17 6 - 25 08/12/2014 [facility] ALBUMIN 4.0 3.5 - 5.0 08/12/2014 [facility] CALCIUM 8.5 8.5 - 10.5 08/12/2014 [facility] SGPT (ALT) 26 0 - 65 08/12/2014 [facility] SGOT (AST) 15 0 - 37 08/12/2014 [facility] Chemistry ALK PHOS 116 39 - 136 08/12/2014 [facility] Chemistry HGBA1C 6.4 - 5.6 08/12/2014 [facility] Chemistry TSH 3.340 0.360 - 3.740 08/12/2014 [facility] Chemistry CHOLESTEROL 183 - 199 08/12/2014 [facility] Urinalysis UA COLOR Yellow 08/12/2014 [facility] Urinalysis UA COLOR Yellow 08/12/2014 [facility] Urinalysis UA COLOR Yellow 08/12/2014 [facility] Urinalysis UA COLOR Yellow 07/21/2014 [facility] Urinalysis BACTERIA URN Many 07/21/2014 [facility] Urinalysis UA COLOR Yellow 07/21/2014 [facility] Urinalysis BACTERIA URN Many 07/21/2014 [facility] Urinalysis UA COLOR Yellow 07/21/2014 [facility] Urinalysis UA COLOR Yellow 07/21/2014 [facility] Urinalysis BACTERIA URN Many 07/21/2014 [facility] CHEM PANEL eGFR 63 07/09/2014 <sup>1</sup>Result Comment: The eGFR is calculated using the CKD-EPI formula. In most young, healthy individuals the eGFR will be >90 mL/min/1.73m2. The eGFR declines with age. An eGFR of 60-89 may be normal in some populations, particularly the elderly, for whom the CKD-EPI formula has not been extensively validated. Use of the eGFR is not recommended in the following populations:& lt;br/>
Individuals with unstable creatinine concentrations, including patients and those with serious co-morbid conditions.

Patients with extremes in muscle mass or diet.

The data above are obtained from the National Kidney Disease Education Program (NKDEP) which additionally recommends that when the eGFR is used in patients with extremes of body mass index for purposes of drug dosing, the eGFR should be multiplied by the estimated BMI. [facility] CHEM PANEL Calcium Lvl 7.5 8.5 - 10.5 07/09/2014 [facility] CHEM PANEL CO2 27 24 - 32 07/09/2014 [facility] CHEM PANEL Chloride Lvl 108 95 - 109 07/09/2014 [facility] CHEM PANEL Creatinine Lvl 1.2 0.5 - 1.4 07/09/2014 [facility] CHEM PANEL BUN 8 7 - 22 07/09/2014 [facility] CHEM PANEL Potassium Lvl 4.0 3.5 - 5.1 07/09/2014 [facility] CHEM PANEL Glucose Lvl 136 70 - 99 07/09/2014 <sup>4</sup>Interpretive Data: Adult ref erence range values reflect the clinical guidelines
of the [employer]. [facility] CHEM PANEL Sodium Lvl 141 135 - 145 07/09/2014 [facility] CHEM PANEL AGAP 10.0 10.0 - 20.0 07/09/2014 [facility] HEMATOLOGY Basophils 0.4 0.0 - 1.0 07/09/2014 [facility] HEMATOLOGY Monocytes # 0.3 0.0 - 0.8 07/09/2014 [facility] HEMATOLOGY Eosinophils # 0.1 0.0 - 0.5 07/09/2014 [facility] HEMATOLOGY Segs 57.0 45.0 - 75.0 07/09/2014 [facility] HEMATOLOGY Segs-Bands # 2.4 1.5 - 8.1 07/09/2014 [facility] HEMATOLOGY Lymphocytes # 1.4 1.0 - 5.5 07/09/2014 [facility] HEMATOLOGY Eosinophils 1.9 0.0 - 4.0 07/09/2014 [facility] HEMATOLOGY Monocytes 7.3 2.0 - 12.0 07/09/2014 [facility] HEMATOLOGY Lymphocytes 33.4 20.0 - 40.0 07/09/2014 [facility] HEMATOLOGY MPV 7.8 7.4 - 10.4 07/09/2014 [facility] HEMATOLOGY MCHC 34.2 32.0 - 36.0 07/09/2014 [facility] HEMATOLOGY RDW 14.0 11.5 - 14.5 07/09/2014 [facility] HEMATOLOGY Platelet 160 133 - 450 07/09/2014 [facility] HEMATOLOGY Hct 38.5 42.0 - 54.0 07/09/2014 [facility] HEMATOLOGY MCH 30.1 27.0 - 31.0 07/09/2014 [facility] HEMATOLOGY MCV 88.0 80.0 - 94.0 07/09/2014 [facility] HEMATOLOGY WBC 4.2 3.7 - 10.4 07/09/2014 [facility] HEMATOLOGY Hgb 13.2 14.0 - 18.0 07/09/2014 [facility] HEMATOLOGY RBC 4.38 4.70 - 6.10 07/09/2014 [facility] CHEM PANEL eGFR 70 07/08/2014 <sup>2</sup>Result Comment: The eGFR is calculated using the CKD-EPI formula. In most young, healthy individuals the eGFR will be >90 mL/min/1.73m2. The eGFR declines with age. An eGFR of 60-89 may be normal in some populations, particularly the elderly, for whom the CKD-EPI formula has not been extensively validated. Use of the eGFR is not recommended in the following populations:& lt;br/>
Individuals with unstable creatinine concentrations, including patients and those with serious co-morbid conditions.

Patients with extremes in muscle mass or diet.

The data above are obtained from the National Kidney Disease Education Program (NKDEP) which additionally recommends that when the eGFR is used in patients with extremes of body mass index for purposes of drug dosing, the eGFR should be multiplied by the estimated BMI. [facility] CHEM PANEL Creatinine Lvl 1.1 0.5 - 1.4 07/08/2014 [facility] HEMATOLOGY PTT 29.8 22.9 - 35.8 07/08/2014 <sup>6</sup>Interpretive Data: Heparin T herapeutic Range: 57 - 92 Seconds [facility] HEMATOLOGY Platelet 177 133 - 450 07/08/2014 [facility] CHEM PANEL eGFR 79 07/08/2014 <sup>3</sup>Result Comment: The eGFR is calculated using the CKD-EPI formula. In most young, healthy individuals the eGFR will be >90 mL/min/1.73m2. The eGFR declines with age. An eGFR of 60-89 may be normal in some populations, particularly the elderly, for whom the CKD-EPI formula has not been extensively validated. Use of the eGFR is not recommended in the following populations:& lt;br/>
Individuals with unstable creatinine concentrations, including patients and those with serious co-morbid conditions.

Patients with extremes in muscle mass or diet.

The data above are obtained from the National Kidney Disease Education Program (NKDEP) which additionally recommends that when the eGFR is used in patients with extremes of body mass index for purposes of drug dosing, the eGFR should be multiplied by the estimated BMI. [facility] CHEM PANEL Calcium Lvl 8.5 8.5 - 10.5 07/08/2014 [facility] CHEM PANEL Albumin Lvl 3.9 3.5 - 5.0 07/08/2014 [facility] CHEM PANEL Chloride Lvl 103 95 - 109 07/08/2014 [facility] CHEM PANEL CO2 26 24 - 32 07/08/2014 [facility] CHEM PANEL Potassium Lvl 4.0 3.5 - 5.1 07/08/2014 [facility] CHEM PANEL Sodium Lvl 138 135 - 145 07/08/2014 [facility] CHEM PANEL Creatinine Lvl 1.0 0.5 - 1.4 07/08/2014 [facility] CHEM PANEL BUN 14 7 - 22 07/08/2014 [facility] CHEM PANEL Glucose Lvl 120 70 - 99 07/08/2014 <sup>5</sup>Interpretive Data: Adult ref erence range values reflect the clinical guidelines
of the [employer]. [facility] CHEM PANEL Alk Phos 129 39 - 136 07/08/2014 [facility] CHEM PANEL Bili Total 0.4 0.2 - 1.3 07/08/2014 [facility] CHEM PANEL Total Protein 7.8 6.4 - 8.4 07/08/2014 [facility] CHEM PANEL ALT 23 0 - 65 07/08/2014 [facility] CHEM PANEL AST 16 0 - 37 07/08/2014 [facility] CHEM PANEL B/C Ratio 14 6 - 25 07/08/2014 [facility] CHEM PANEL AGAP 13.0 10.0 - 20.0 07/08/2014 [facility] CHEM PANEL Globulin 3.9 2.0 - 4.0 07/08/2014 [facility] CHEM PANEL A/G Ratio 1.0 0.7 - 1.6 07/08/2014 [facility] CHEM PANEL Lipase Lvl 242 73 - 393 07/08/2014 [facility] HEMATOLOGY WBC 6.1 3.7 - 10.4 07/08/2014 [facility] HEMATOLOGY RBC 4.53 4.70 - 6.10 07/08/2014 [facility] HEMATOLOGY RDW 14.1 11.5 - 14.5 07/08/2014 [facility] HEMATOLOGY Platelet 174 133 - 450 07/08/2014 [facility] HEMATOLOGY MPV 8.3 7.4 - 10.4 07/08/2014 [facility] HEMATOLOGY MCHC 34.8 32.0 - 36.0 07/08/2014 [facility] HEMATOLOGY Hct 39.8 42.0 - 54.0 07/08/2014 [facility] HEMATOLOGY MCH 30.6 27.0 - 31.0 07/08/2014 [facility] HEMATOLOGY Hgb 13.9 14.0 - 18.0 07/08/2014 [facility] HEMATOLOGY MCV 87.9 80.0 - 94.0 07/08/2014 [facility] HEMATOLOGY Segs 69.2 45.0 - 75.0 07/08/2014 [facility] HEMATOLOGY Lymphocytes 24.4 20.0 - 40.0 07/08/2014 [facility] HEMATOLOGY Eosinophils # 0.1 0.0 - 0.5 07/08/2014 [facility] HEMATOLOGY Lymphocytes # 1.5 1.0 - 5.5 07/08/2014 [facility] HEMATOLOGY Monocytes # 0.3 0.0 - 0.8 07/08/2014 [facility] HEMATOLOGY Basophils 0.3 0.0 - 1.0 07/08/2014 [facility] HEMATOLOGY Monocytes 4.9 2.0 - 12.0 07/08/2014 [facility] HEMATOLOGY Eosinophils 1.2 0.0 - 4.0 07/08/2014 [facility] HEMATOLOGY Segs-Bands # 4.2 1.5 - 8.1 07/08/2014 [facility] URINE AND STOOL UA Color Ltyellow 07/08/2014 [facility] URINE AND STOOL UA Urobilinogen <=1.0 mg/dL 0.1 - 1.0 07/08/2014 [facility] [place] URINE AND STOOL UA Bili Negative *NA* (07/08/14 6:24 AM) Negative 07/08/2014 [facility] URINE AND STOOL UA Protein Negative mg/dL Negative mg/dL 07/08/2014 [facility] [place] URINE AND STOOL UA Glucose Negative mg/dL Negative mg/dL 07/08/[address] [facility] [address] URINE AND STOOL UA Ketones Negative mg/dL Negative mg/dL 07/08/[address] [facility] [address] URINE AND STOOL UA Turbidity Clear (07/08/14 6:24 AM) Clear 07/08/2014 [facility] URINE AND STOOL UA Leuk Est Negative (07/08/14 6:24 AM) Negative 07/08/2014 [facility] URINE AND STOOL UA Sq Epi Occasional /LPF Few /LPF 07/08/2014 [facility] URINE AND STOOL UA RBC 1 0 - 2 07/08/2014 [facility] URINE AND STOOL UA WBC <1 0 - 5 07/08/2014 [facility] URINE AND STOOL UA Mucus Few /LPF None Seen /LPF 07/08/2014 [facility] URINE AND STOOL UA Spec Grav 1.013 <=1.030 07/08/2014 [facility] URINE AND STOOL UA Blood Negative (07/08/14 6:24 AM) Negative 07/08/2014 [facility] URINE AND STOOL UA Nitrite Negative (07/08/14 6:24 AM) Negative 07/08/2014 [facility] URINE AND STOOL UA pH 5.0 5.0 - 8.0 07/08/2014 [facility] Urinalysis UA COLOR Yellow 06/09/2014 [facility] Urinalysis BACTERIA URN Occas ional 06/09/2014 [facility] Urinalysis UA COLOR Yellow 06/09/2014 [facility] Urinalysis BACTERIA URN Occas ional 06/09/2014 [facility] Urinalysis UA COLOR Yellow 06/09/2014 [facility] Urinalysis UA COLOR Yellow 06/09/2014 [facility] Urinalysis BACTERIA URN Occas ional 06/09/2014 [facility] CHEM PANEL eGFR 79 06/05/2014 <sup>1</sup>Result Comment: The eGFR is calculated using the CKD-EPI formula. In most young, healthy individuals the eGFR will be >90 mL/min/1.73m2. The eGFR declines with age. An eGFR of 60-89 may be normal in some populations, particularly the elderly, for whom the CKD-EPI formula has not been extensively validated. Use of the eGFR is not recommended in the following populations:& lt;br/>
Individuals with unstable creatinine concentrations, including patients and those with serious co-morbid conditions.

Patients with extremes in muscle mass or diet.

The data above are obtained from the National Kidney Disease Education Program (NKDEP) which additionally recommends that when the eGFR is used in patients with extremes of body mass index for purposes of drug dosing, the eGFR should be multiplied by the estimated BMI. [facility] CHEM PANEL Calcium Lvl 8.3 8.5 - 10.5 06/05/2014 [facility] CHEM PANEL Sodium Lvl 137 135 - 145 06/05/2014 [facility] CHEM PANEL Creatinine Lvl 1.0 0.5 - 1.4 06/05/2014 [facility] CHEM PANEL BUN 12 7 - 22 06/05/2014 [facility] CHEM PANEL Glucose Lvl 98 70 - 99 06/05/2014 <sup>2</sup>Interpretive Data: Adult ref erence range values reflect the clinical guidelines
of the [employer]. [facility] CHEM PANEL CO2 26 24 - 32 06/05/2014 [facility] CHEM PANEL Potassium Lvl 3.8 3.5 - 5.1 06/05/2014 [facility] CHEM PANEL Chloride Lvl 104 95 - 109 06/05/2014 [facility] CHEM PANEL AGAP 10.8 10.0 - 20.0 06/05/2014 [facility] HEMATOLOGY RDW 14.3 11.5 - 14.5 06/05/2014 [facility] HEMATOLOGY MPV 7.5 7.4 - 10.4 06/05/2014 [facility] HEMATOLOGY Platelet 174 133 - 450 06/05/2014 [facility] HEMATOLOGY Hct 40.2 42.0 - 54.0 06/05/2014 [facility] HEMATOLOGY MCV 88.5 80.0 - 94.0 06/05/2014 [facility] Hgb 13.9 14.0 - 18.0 06/05/2014 [facility] RBC 4.55 4.70 - 6.10 06/05/2014 [facility] HEMATOLOGY WBC 12.1 3.7 - 10.4 06/05/2014 [facility] MCHC 34.5 32.0 - 36.0 06/05/2014 [facility] MCH 30.5 27.0 - 31.0 06/05/2014 [facility] HEMATOLOGY Segs-Bands # 9.5 1.5 - 8.1 06/05/2014 [facility] HEMATOLOGY Basophils 0.2 0.0 - 1.0 06/05/2014 [facility] HEMATOLOGY Monocytes # 0.7 0.0 - 0.8 06/05/2014 [facility] HEMATOLOGY Lymphocytes # 1.8 1.0 - 5.5 06/05/2014 [facility] HEMATOLOGY Eosinophils 0.2 0.0 - 4.0 06/05/2014 [facility] HEMATOLOGY Segs 78.4 45.0 - 75.0 06/05/2014 [facility] Lymphocytes 15.0 20.0 - 40.0 06/05/2014 [facility] HEMATOLOGY Monocytes 6.2 2.0 - 12.0 06/05/2014 [facility] URINE AND STOOL UA Urobilinogen <=1.0 mg/dL 0.1 - 1.0 06/05/2014 [facility] [place] URINE AND STOOL UA Color Ltyellow 06/05/2014 [facility] URINE AND STOOL UA Blood Negative (06/04/14 9:20 PM) Negative 06/05/2014 [facility] URINE AND STOOL UA Bili Negative *NA* (06/04/14 9:20 PM) Negative 06/05/2014 [facility] URINE AND STOOL UA Ketones Negative mg/dL Negative mg/dL 06/05/2014 [facility] [place] URINE AND STOOL UA Glucose Negative mg/dL Negative mg/dL 06/05/2014 [facility] [place] URINE AND STOOL UA Protein Negative mg/dL Negative mg/dL 06/05/[address] [facility] [address] URINE AND STOOL UA pH 6.0 5.0 - 8.0 06/05/2014 [facility] URINE AND STOOL UA Spec Grav 1.006 <=1.030 06/05/2014 [facility] URINE AND STOOL UA Turbidity Clear (06/04/14 9:20 PM) Clear 06/05/2014 [facility] URINE AND STOOL UA Bacteria Occasional /HPF None Seen /HPF 06/05/2014 [facility] [place] URINE AND STOOL UA RBC 3 0 - 2 06/05/2014 [facility] URINE AND STOOL UA WBC 17 0 - 5 06/05/2014 [facility] URINE AND STOOL UA Sq Epi Occasional /LPF Few /LPF 06/05/2014 [facility] URINE AND STOOL UA Leuk Est Moderate *ABN* (06/04/14 9:20 PM) Negative 06/05/2014 [facility] URINE AND STOOL UA Nitrite Negative (06/04/14 9:20 PM) Negative 06/05/2014 [facility] Chemistry HEMOCCULT Negative 04/20/2014 [facility] Chemistry HEMOCCULT Negative 04/20/2014 [facility] Microbiology HEMOCCULT Negative 04/20/2014 [facility] Chemistry HEMOCCULT Negative 04/18/2014 [facility] Chemistry HEMOCCULT Negative 04/18/2014 [facility] Microbiology HEMOCCULT Negative 04/18/2014 [facility] Chemistry HEMOCCULT Negative 04/17/2014 [facility] Chemistry HEMOCCULT Negative 04/17/2014 [facility] Microbiology HEMOCCULT Negative 04/17/2014 [facility] HGBA1C 6.1 - 5.6 04/04/2014 [facility] Chemistry TSH 5.070 0.360 - 3.740 04/04/2014 [facility] CHOLESTEROL 165 - 199 04/04/2014 [facility] Chemistry HGBA1C 6.1 - 5.6 04/04/2014 [facility] TSH 5.070 0.360 - 3.740 04/04/2014 [facility] CHOLESTEROL 165 - 199 04/04/2014 [facility] TRIGLYCERIDE 187 - 149 04/04/2014 [facility] HDL 40 >=61 04/04/2014 [facility] LDL 88 - 99 04/04/2014 [facility] SODIUM 141 MEQ/L 135 - 145 04/04/2014 [facility] POTASSIUM 4.3 MEQ/L 3.5 - 5.1 04/04/2014 [facility] CREATININE 1.0 0.5 - 1.4 04/04/2014 [facility] BUN 13 7 - 22 04/04/2014 [facility] BUN/CREAT 13 6 - 25 04/04/2014 [facility] ALBUMIN 3.9 3.5 - 5.0 04/04/2014 [facility] CALCIUM 8.6 8.5 - 10.5 04/04/2014 [facility] SGPT (ALT) 22 0 - 65 04/04/2014 [facility] SGOT (AST) 11 0 - 37 04/04/2014 [facility] ALK PHOS 104 39 - 136 04/04/2014 [facility] T4, FREE 1.01 0.76 - 1.46 04/04/2014 [facility] HGB 13.9 14.0 - 18.0 04/04/2014 [facility] HCT 40.7 42.0 - 54.0 04/04/2014 [facility] PLATELETS 186 K/CMM 133 - 450 04/04/2014 [facility] Urinal[facility] UA COLOR Yellow 04/04/2014 [facility] BACTERIA URN Occas ional 04/04/2014 [facility] Urinal[facility] UA COLOR Yellow 04/04/2014 [facility] Urinal[facility] BACTERIA URN Occas ional 04/04/2014 [facility] Urinalysis UA COLOR Yellow 04/04/2014 [facility] Urinalysis BACTERIA URN Occas ional 04/04/2014 [facility] Urinalysis UA COLOR Yellow 04/04/2014 [facility] Urinalysis UA COLOR Yellow 04/04/2014 [facility] Urinalysis BACTERIA URN Occas ional 04/04/2014 [facility] Urinalysis UA COLOR Yellow 04/04/2014 [facility] Urinalysis BACTERIA URN Occas ional 04/04/2014 [facility] Urinalysis UA COLOR Yellow 04/04/2014 [facility] Urinalysis UA COLOR Yellow 04/04/2014 [facility] Urinalysis BACTERIA URN Occas ional 04/04/2014 [facility] Urinalysis UA COLOR Yellow 04/04/2014 [facility] Urinalysis BACTERIA URN Occas ional 04/04/2014 [facility] Chemistry SODIUM 140 MEQ/L 135 - 145 03/28/2014 [facility] Chemistry POTASSIUM 4.3 MEQ/L 3.5 - 5.1 03/28/2014 [facility] Chemistry CREATININE 0.9 0.5 - 1.4 03/28/2014 [facility] Chemistry SODIUM 140 MEQ/L 135 - 145 03/28/2014 [facility] Chemistry POTASSIUM 4.3 MEQ/L 3.5 - 5.1 03/28/2014 [facility] Chemistry CREATININE 0.9 0.5 - 1.4 03/28/2014 [facility] Chemistry SODIUM 140 MEQ/L 135 - 145 03/28/2014 [facility] Chemistry POTASSIUM 4.3 MEQ/L 3.5 - 5.1 03/28/2014 [facility] Chemistry CREATININE 0.9 0.5 - 1.4 03/28/2014 [facility] Chemistry BUN 13 7 - 22 03/28/2014 [facility] Chemistry BUN/CREAT 14 6 - 25 03/28/2014 [facility] Chemistry ALBUMIN 3.7 3.5 - 5.0 03/28/2014 [facility] Chemistry CALCIUM 8.7 8.5 - 10.5 03/28/2014 [facility] Chemistry SGPT (ALT) 20 0 - 65 03/28/2014 [facility] Chemistry SGOT (AST) 12 0 - 37 03/28/2014 [facility] Chemistry ALK PHOS 98 39 - 136 03/28/2014 [facility] Chemistry PSA 10.24 0.00 - 4.00 03/28/2014 [facility] HGB 14.0 14.0 - 18.0 03/28/2014 Medical [facility] HCT 40.6 42.0 - 54.0 03/28/2014 Medical [facility] PLATELETS 181 K/CMM 133 - 450 03/28/2014 [facility] Pathology Reports No Data Provided for This Section Diagnostic Reports Report Value Date Source Chest 1view DX Chest 1view DX CLINICAL HISTORY:PICC Line Placement COMPARISON: 01/10/2016 FINDINGS: Limited AP portable study. Lungs are reasonably well inflated. No consolidation, effusion or pneumothorax. Trachea is midline. Stable mild cardiomegaly. No pulmonary edema. No significant bony abnormality is noted. Right arm PICC is at the SVC. IMPRESSION: PICC line satisfactory. No acute abnormality is noted in the chest. SL: [id number] 01/29/2016 [facility] Renal Stone CT CT SCAN OF THE ABDOMEN [<AND PELVIS>] WITHOUT CONTRAST. HX: Clinical Indication: Abdominal pain, acute; lower abdominal pain. Dysuria.. Comparison: CT abdomen pelvis of 01/10/2016. Technique: Helical CT images were obtained from the domes the diaphragms to the symphysis pubis without the administration of oral or intravenous contrast. The lack of IV contrast lowers the sensitivity for diagnostic evaluation. ABDOMEN AND PELVIS: The lung bases are clear. The heart is stable in size. No pericardial effusion. Postoperative cholecystectomy. Stable small subcentimeter low-density lesion within the left hepatic lobe likely cyst. The unenhanced liver, spleen, pancreas, and adrenals are stable in appearance. Grossly normal appendix. No abdominal masses, adenopathy, ascites, or fluid collections are seen. No renal or ureteral calculi or hydronephrosis. Mild nonspecific perinephric stranding detected. Probable left parapelvic cyst is present. Mild sigmoid descending diverticulosis. The bladder is nondistended. Markedly enlarged heterogeneous prostate measuring about 5.0 cm AP x 6.3 cm transverse. Single surgical clip is present within the right lower quadrant/lateral upper pelvis. Tiny fat-containing left inguinal hernia is present. IMPRESSION: 1.No renal or ureteral calculi or hydron ephrosis. Mild nonspecific perinephric stranding detected. Probable left parapelvic cyst is present. 2. Mild sigmoid descending diverticulosi s. 3. Markedly enlarged heterogeneous prost ate measuring about 5.0 cm AP x 6.3 cm transverse. Please correlate with PSAs. 4. Postoperative cholecystectomy. SL: 01/28/2016 [facility] Abdomen/Pelvis w IV contrast CT Patient Name: YENNI BONNER : 1950; Age: 65 years y/o Male MR: [id number] Study: Abdomen/Pelvis w IV contrast CT 01/10/2016 2:18 AM CDT Ordering Physician: Narendra Sena MD Clinical Indication: Abdominal pain, acute; fever, abdominal pain r/o appendicitis Comparison: CT abdomen pelvis 07/08/2014. TECHNIQUE: Helical imaging was performed diaphragm through the symphysis with multiplanar reformations obtained. FINDINGS: LOWER CHEST: Lung bases are clear. No pleural or pericardial effusion is identified. SOLID ORGANS: Small round focal hypodensity in the left liver probably represents a cyst. Gallbladder has been removed. The spleen, pancreas, and bilateral adrenal glands within normal limits. Subcentimeter focal hypodensities in bilateral kidneys are too small to characterize. Small left renal parapelvic cyst is again seen. BOWEL: Large and small bowel is normal in caliber. Sigmoid colon diverticulosis is seen without inflammation. Appendix is normal. PERITONEUM: No intraperitoneal free air is seen. No intraperitoneal free fluid is identified. RETROPERITONEUM: No adenopathy. No aortic aneurysm is seen. PELVIS: The urinary bladder is within normal limits. Prostate is significantly enlarged measuring 5.9 x 4.9 x 5.6 cm. It protrudes into the base of the urinary bladder. Ill-defined hypodensity is again seen along the superior aspect of the left inguinal canal, likely representing change related to prior inguinal hernia repair. MUSCULOSKELETAL: No osseous destructive lesions are seen. IMPRESSION: 1. No acute intra-abdominal abnormality seen. 2. Signal colon diverticulosis without inflammation. 3. Significant prostatomegaly. 4. Status post cholecystectomy. SL: [id number] 01/10/2016 [facility] 1view DX : 1950; Age: 65 years y/o Male MR: [id number] Study: Chest 1view DX 01/10/2016 1:26 AM CDT Clinical Indication: Cough and fever; Comparison: CT chest 11/06/2015. FINDINGS: Bilateral lungs are clear. No pneumothorax or pleural effusion is seen. Cardiac silhouette is not enlarged. Aorta is tortuous. Skeleton is intact. IMPRESSION: 1. No acute intrathoracic abnormality. SL: [id number] 01/10/2016 [facility] Pulmonary Embolism CTA HIGH-RESOLUTION CT CHEST WITHOUT CONTRAST; CTA PULMONARY ARTERIES: HISTORY: Short of breath for 6 months. TECHNIQUE: High-resolution axial images of the chest were done before contrast. Multislice helical images targeted to the pulmonary arteries were then done during IV contrast bolus. This was followed by a complete study of the chest with IV contrast. 3-D volume rendered images of the pulmonary arteries were done. ANGIOGRAPHIC FINDINGS: There is no evidence of pulmonary embolus. The central pulmonary arteries are normal caliber. The main pulmonary artery measures 1.9 cm in diameter. The ascending aorta measures 2.9 cm in diameter. There are no other significant pulmonary or systemic vascular abnormalities. NON-ANGIOGRAPHIC FINDINGS: There is linear scarring in the inferior lingula. There is mild hazy geographic reticulonodular density in the lower lobes without bronchiectasis. There is no pulmonary mass or groundglass opacity. There are no other significant pulmonary or pleural abnormalities. There is no mediastinal mass or significant lymph node enlargement. IMPRESSION: 1. No evidence of pulmonary embolus. 2. Mild nonspecific reticulonodular dise ase in the lower lobes. 3. No other acute CT abnormalities in th e chest. [id number] 11/06/2015 [facility] Abdomen RUQ US EXAM: Right upper quadrant ultrasound HISTORY: Abdominal pain. COMPARISON: CT abdomen 07/08/2014. TECHNIQUE: Huizar scale static images of the right upper quadrant performed FINDINGS: 1. Cholelithiasis with acute cholecystit is. 2. Visualized common duct is normal margo kia measuring 0.6 cm. 3. The liver and visualized pancreas biju ear unremarkable. 4. Right kidney measures 10 cm length wi thout hydronephrosis. SL:13 07/08/2014 [facility] Abdomen/Pelvis w IV contrast CT CT ABDOMEN AND PELVIS WITH CONTRAST INDICATION: Acute abdominal pain COMPARISON: None FINDINGS: ABDOMEN: The visible lung bases are clear. Cholelithiasis is present. The gallbladder is distended, associated with marked wall thickening and pericholecystic fluid. A small left hepatic cyst is noted. There are multiple small bilateral renal cysts. The spleen, pancreas, and adrenal glands appear normal. There is colonic diverticulosis. The stomach, small bowel, and appendix are unremarkable. No free fluid or abnormal fluid collections are seen. No abdominal lymphadenopathy is identified. The abdominal aorta is grossly patent and normal in caliber. PELVIS: The prostate is enlarged. The bladder is unremarkable. There is a left inguinal hernia, containing fat and a small amount of fluid. No pelvic mass or lymphadenopathy are identified. BONES: No acute bony abnormalities are seen. IMPRESSION: 1. Cholelithiasis, associated with findi ngs that suggest acute cholecystitis. 2. Small hepatic and bilateral renal cys ts. 3. Diverticulosis. SL: 16 07/08/2014 [facility] Consultation Notes No Data Provided for This Section Discharge Summaries No Data Provided for This Section History and Physicals No Data Provided for This Section Vital Signs Vital Sign Value Date Comments Source Heart Rate 69 01/28/2019 [facility] Systolic (mm Hg) 108 01/28/2019 [facility] Diastolic (mm Hg) 65 01/28/2019 [facility] Temperature Oral (F) 98.5 F 01/28/2019 [facility] Weight 71.534 01/28/2019 [facility] Height 167.64 cm 01/28/2019 [facility] BMI Calculated 25.45 01/28/2019 [facility] Respitory Rate 16 01/28/2019 [facility] BMI Calculated 25.43 09/28/2018 [facility] Weight 71.477 09/28/2018 [facility] Height 167.64 cm 09/28/2018 [facility] Respitory Rate 16 09/28/2018 [facility] Temperature Oral (F) 97.6 F 09/28/2018 [facility] Systolic (mm Hg) 130 09/28/2018 [facility] Diastolic (mm Hg) 76 09/28/2018 [facility] Heart Rate 75 09/28/2018 [facility] BMI Calculated 25.96 06/27/2018 [facility] Height 167.64 cm 06/27/2018 [facility] Weight 72.955 06/27/2018 [facility] Systolic (mm Hg) 144 06/27/2018 [facility] Diastolic (mm Hg) 76 06/27/2018 [facility] Heart Rate 68 06/27/2018 [facility] Respitory Rate 16 06/27/2018 [facility] Temperature Oral (F) 98.3 F 06/27/2018 [facility] Systolic (mm Hg) 165 03/09/2018 [facility] Diastolic (mm Hg) 90 03/09/2018 [facility] Temperature Oral (F) 97.1 F 03/09/2018 [facility] Respitory Rate 16 03/09/2018 [facility] Heart Rate 56 03/09/2018 [facility] Height 167.64 cm 03/09/2018 [facility] BMI Calculated 26.04 03/09/2018 [facility] Weight 73.182 03/09/2018 [facility] BMI Calculated 26.87 11/07/2017 [facility] Weight 75.511 11/07/2017 [facility] Height 167.64 cm 11/07/2017 [facility] Temperature Oral (F) 97.6 F 11/07/2017 [facility] Respitory Rate 16 11/07/2017 [facility] Heart Rate 56 11/07/2017 [facility] Systolic (mm Hg) 122 11/07/2017 [facility] Diastolic (mm Hg) 72 11/07/2017 [facility] Weight 75 1 09/02/2016 [facility] BMI Calculated 26.69 07/03/2017 [facility] Height 167.64 cm 07/03/2017 [facility] Temperature Oral (F) 97.5 F 07/03/2017 [facility] Heart Rate 61 07/03/2017 [facility] Respitory Rate 16 07/03/2017 [facility] Systolic (mm Hg) 136 07/03/2017 [facility] Diastolic (mm Hg) 79 07/03/2017 [facility] Temperature Oral (F) 98.3 F 02/01/2016 [facility] Rate 62 02/01/2016 [facility] Respitory Rate 18 02/01/2016 [facility] Systolic (mm Hg) 134 02/01/2016 [facility] Diastolic (mm Hg) 82 02/01/2016 [facility] Systolic (mm Hg) 143 02/01/2016 [facility] Diastolic (mm Hg) 80 02/01/2016 [facility] Respitory Rate 18 02/01/2016 [facility] Heart Rate 61 02/01/2016 [facility] Temperature Oral (F) 98.4 F 02/01/2016 [facility] Heart Rate 56 02/01/2016 [facility] Temperature Oral (F) 98.2 F 02/01/2016 [facility] Systolic (mm Hg) 130 02/01/2016 [facility] Diastolic (mm Hg) 80 02/01/2016 [facility] Respitory Rate 18 02/01/2016 [facility] Height 167.64 cm 01/29/2016 [facility] Weight 72.727 01/29/2016 [facility] BMI Calculated 25.88 01/29/2016 [facility] Weight 72.727 01/28/2016 [facility] BMI Calculated 25.88 01/28/2016 [facility] Height 167.64 cm 01/28/2016 [facility] Heart Rate 72 01/12/2016 [facility] Respitory Rate 18 01/12/2016 [facility] Systolic (mm Hg) 118 01/12/2016 [facility] Diastolic (mm Hg) 69 01/12/2016 [facility] Weight 72.727 01/12/2016 [facility] BMI Calculated 25.88 01/12/2016 [facility] Height 167.64 cm 01/12/2016 [facility] Temperature Oral (F) 98.0 F 01/12/2016 [facility] Heart Rate 65 01/12/2016 [facility] Respitory Rate 18 01/12/2016 [facility] Systolic (mm Hg) 129 01/12/2016 [facility] Diastolic (mm Hg) 76 01/12/2016 [facility] Heart Rate 77 01/10/2016 [facility] Respitory Rate 18 01/10/2016 [facility] Temperature Oral (F) 100.2 F 01/10/2016 [facility] Systolic (mm Hg) 122 01/10/2016 [facility] Diastolic (mm Hg) 74 01/10/2016 [facility] Heart Rate 95 01/10/2016 [facility] Systolic (mm Hg) 128 01/10/2016 [facility] Diastolic (mm Hg) 77 01/10/2016 [facility] Respitory Rate 22 01/10/2016 [facility] Weight 77.273 01/10/2016 [facility] Respitory Rate 18 01/10/2016 [facility] Temperature Oral (F) 101.2 F 01/10/2016 [facility] Height 167.64 cm 01/10/2016 [facility] BMI Calculated 27.5 01/10/2016 [facility] Heart Rate 89 01/10/2016 [facility] Systolic (mm Hg) 148 01/10/2016 [facility] Diastolic (mm Hg) 87 01/10/2016 [facility] Respitory Rate 12 02/17/2015 [facility] Weight 163 02/17/2015 [facility] Height 68 0 02/17/2015 [facility] Temperature Oral (F) 97.9 F 02/17/2015 [facility] Heart Rate 60 02/17/2015 [facility] Systolic (mm Hg) 113 02/17/2015 [facility] Diastolic (mm Hg) 69 02/17/2015 [facility] Weight 161 12/30/2014 [facility] Height 68 0 12/30/2014 [facility] Respitory Rate 16 12/30/2014 [facility] Temperature Oral (F) 97.1 F 12/30/2014 [facility] Systolic (mm Hg) 142 12/30/2014 [facility] Diastolic (mm Hg) 91 12/30/2014 [facility] Heart Rate 59 12/30/2014 [facility] Weight 165 09/30/2014 [facility] Height 68 0 09/30/2014 [facility] Respitory Rate 14 09/30/2014 [facility] Temperature Oral (F) 98.4 F 09/30/2014 [facility] Systolic (mm Hg) 162 09/30/2014 [facility] Diastolic (mm Hg) 89 09/30/2014 [facility] Heart Rate 59 09/30/2014 [facility] Respitory Rate 14 09/15/2014 [facility] Weight 160 09/15/2014 [facility] Height 68 0 09/15/2014 [facility] Temperature Oral (F) 97.0 F 09/15/2014 [facility] Systolic (mm Hg) 137 09/15/2014 [facility] Diastolic (mm Hg) 83 09/15/2014 [facility] Heart Rate 62 09/15/2014 [facility] Respitory Rate 14 08/18/2014 [facility] Weight 158 08/18/2014 [facility] Height 68 0 08/18/2014 [facility] Temperature Oral (F) 98.0 F 08/18/2014 [facility] Heart Rate 65 08/18/2014 [facility] Systolic (mm Hg) 151 08/18/2014 [facility] Diastolic (mm Hg) 90 08/18/2014 [facility] Respitory Rate 14 07/21/2014 [facility] Systolic (mm Hg) 134 07/21/2014 [facility] Diastolic (mm Hg) 75 07/21/2014 [facility] Heart Rate 59 07/21/2014 [facility] Temperature Oral (F) 98.4 F 07/21/2014 [facility] Weight 162 07/21/2014 [facility] Height 68 1 09/21/2013 [facility] Respitory Rate 15 07/11/2014 [facility] Heart Rate 67 07/11/2014 [facility] Diastolic (mm Hg) 82 07/11/2014 [facility] Systolic (mm Hg) 129 07/11/2014 [facility] Temperature Oral (F) 98.3 F 07/11/2014 [facility] Diastolic (mm Hg) 66 07/11/2014 [facility] Systolic (mm Hg) 114 07/11/2014 [facility] Respitory Rate 16 07/11/2014 [facility] Heart Rate 68 07/11/2014 [facility] Temperature Oral (F) 98.2 F 07/11/2014 [facility] Respitory Rate 16 07/11/2014 [facility] Heart Rate 71 07/11/2014 [facility] Diastolic (mm Hg) 66 07/11/2014 [facility] Systolic (mm Hg) 110 07/11/2014 [facility] Temperature Oral (F) 98.8 F 07/11/2014 [facility] Weight 76.818 07/08/2014 [facility] BMI Calculated 26.04 07/08/2014 [facility] Height 167.64 cm 07/08/2014 [facility] Weight 73.182 07/08/2014 [facility] Weight 77.273 07/08/2014 [facility] Respitory Rate 14 06/09/2014 [facility] Weight 162 06/09/2014 [facility] Height 68 1 [facility] Systolic (mm Hg) 154 06/09/2014 [facility] Diastolic (mm Hg) 87 06/09/2014 [facility] Heart Rate 76 06/09/2014 [facility] Respitory Rate 16 06/05/2014 [facility] Systolic (mm Hg) 125 06/05/2014 [facility] Heart Rate 67 06/05/2014 [facility] Temperature Oral (F) 98.4 F 06/05/2014 [facility] Diastolic (mm Hg) 72 06/05/2014 [facility] Diastolic (mm Hg) 70 06/05/2014 [facility] Heart Rate 70 06/05/2014 [facility] Respitory Rate 16 06/05/2014 [facility] Systolic (mm Hg) 125 06/05/2014 [facility] Temperature Oral (F) 98.3 F 06/05/2014 [facility] Respitory Rate 16 06/04/2014 [facility] Temperature Oral (F) 98.7 F 06/04/2014 [facility] Systolic (mm Hg) 123 06/04/2014 [facility] Heart Rate 85 06/04/2014 [facility] Diastolic (mm Hg) 70 06/04/2014 [facility] BMI Calculated 26.04 06/04/2014 [facility] Weight 73.182 06/04/2014 [facility] Height 167.64 cm 06/04/2014 [facility] Weight 160 04/21/2014 [facility] Height 68 0 04/21/2014 [facility] Respitory Rate 14 04/21/2014 [facility] Temperature Oral (F) 97.6 F 04/21/2014 [facility] Heart Rate 67 04/21/2014 [facility] Systolic (mm Hg) 126 04/21/2014 [facility] Diastolic (mm Hg) 85 04/21/2014 [facility] Weight 161 04/04/2014 [facility] Height 68 0 04/04/2014 [facility] Temperature Oral (F) 97.2 F 04/04/2014 [facility] Respitory Rate 14 04/04/2014 [facility] Heart Rate 60 04/04/2014 [facility] Systolic (mm Hg) 144 04/04/2014 [facility] Diastolic (mm Hg) 87 04/04/2014 [facility] Height 68 0 03/03/2014 [facility] Weight 164 03/03/2014 [facility] Systolic (mm Hg) 155 03/03/2014 [facility] Diastolic (mm Hg) 101 03/03/2014 [facility] Heart Rate 66 03/03/2014 [facility] Temperature Oral (F) 97.6 F 03/03/2014 [facility] Respitory Rate 12 03/03/2014 [facility] Encounters Location Location Details Encounter Type Encounter Number Reason For Visit Attending Provider ADM Date DC Date Status Source [facility] Office Visit [id number] Nakia Benitez MD 03/03/2014 03/03/2014 [facility] Lab Report [id number] Nakia Benitez MD 03/28/2014 03/28/[address] [facility] Lab Report [id number] Nakia Benitez MD 04/04/2014 04/04/[address] [facility] Office Visit [id number] Nakia Benitez MD 04/21/2014 04/21/2014 [facility] [id number] Narendra Sena 06/04/2014 06/05/2014 [facility] Lab Report [id number] Nakia Benitez MD 06/05/2014 06/05/[address] [facility] Lab Report [id number] Nakia Benitez MD 06/09/2014 06/09/[address] [facility] Office Visit [id number] Nakia Benitez MD 06/09/2014 06/09/2014 [facility] Inpatient [id number] Elisha Hernandez 07/08/2014 07/11/2014 [facility] Office Visit [id number] Nakia Benitez MD 07/21/2014 07/21/[address] [facility] Lab Report [id number] Nakia Benitez MD 07/21/2014 07/21/[address] [facility] Office Visit [id number] Nakia Benitez MD 08/18/2014 08/18/2014 [facility] Office Visit [id number] Nakia Benitez MD 09/15/2014 09/15/[address] [facility] Office Visit [id number] Nakia Benitez MD 09/30/2014 09/30/2014 Medical [facility] Lab Report [id number] Nakia Benitez MD 09/30/2014 09/30/2014 [facility] Lab Report [id number] Nakia Benitez MD 12/30/2014 12/30/2014 [facility] Office Visit [id number] Nakia Benitez MD 02/17/2015 02/17/2015 Medical [facility] Outpatient [id number] NAKIA BENITEZ 05/26/2015 Active [facility] Outpatient [id number] NAKIA BENITEZ 09/02/2015 Active [facility] Outpatient [id number] NAKIA BENITEZ 09/30/2015 Active [facility] Outpatient [id number] Flako Abad 11/06/2015 11/07/2015 [facility] Outpatient [id number] NAKIA BENITEZ 12/30/2015 Active [facility] [id number] Narendra Sena 01/10/2016 01/10/2016 [facility] [id number] Marilin Stewart 01/12/2016 01/12/2016 [facility] Inpatient [id number] Crispin Haynes 01/28/2016 02/01/2016 [facility] Outpatient [id number] NAKIA BENITEZ 02/11/2016 Active [facility] Outpatient [id number] NAKIA BENITEZ 03/03/2016 [facility] [id number] NAKIA BENITEZ 03/22/2016 [facility] [id number] NAKIA BENITEZ 04/22/2016 [facility] [id number] NAKIA BENITEZ 06/06/2016 [facility] [id number] NAKIA BENITEZ 10/07/[address] [facility] Out[facility] [id number] NAKIA BENITEZCEDO 11/21/2016 [facility] [id number] NAKIA BENITEZ 02/28/2017 [facility] [id number] NAKIA BENITEZ 07/03/2017 Active [facility] [id number] Nakia Benitez 07/03/2017 07/04/2017 [facility] Phone Message [id number] 08/09/2017 08/11/2017 [facility] Phone Message [id number] 08/16/2017 08/18/2017 [facility] Outpatient [id number] NAKIA BENITEZ 11/07/2017 Active [facility] Outpatient [id number] Nakia Benitez 11/07/2017 11/08/2017 [facility] Phone Message [id number] 01/23/2018 01/25/2018 [facility] Outpatient [id number] NAKIA BENITEZ 03/09/2018 Active [facility] Out[facility] [id number] Nakia Benitez 03/09/2018 03/10/2018 [facility] Phone Message [id number] 04/03/2018 04/05/2018 [facility] Phone Message [id number] 04/29/2018 04/30/2018 [facility] Outpatient [id number] NAKIA BENITEZ 06/27/[address] [facility] Outpatient [id number] Nakia Benitez 06/27/2018 06/28/2018 [facility] Phone Message [id number] 09/20/2018 09/22/2018 [facility] Outpatient [id number] NAKIA BENITEZ 09/28/2018 Active [facility] Outpatient [id number] Nakia Benitez 09/28/2018 09/29/2018 Medical Group [facility] Primary [facility] Phone Message [id number] 10/02/2018 10/04/2018 [facility] Group [facility] Primary [facility] Phone Message [id number] 11/12/2018 11/13/2018 Medical Group [facility] Phone Message [phone] 12/11/2018 12/13/2018 Medical Group [facility] Phone Message [phone] 12/18/2018 12/20/2018 Medical Group Outpatient [id number] Nakia Arambulao 01/28/2019 Active [facility] Outpatient [id number] Nakia Benitezcedo 01/28/2019 01/29/2019 Medical Group [facility] Phone Message [phone] 03/11/2019 03/13/2019 Medical Group [facility] Between Visit [id number] 04/05/2019 04/06/2019 Medical [facility] Procedures Procedure Code Date Perfomer Comments Source Diabetic retinal eye exam<sup>1</sup> [id number] 08/14/2018 no retinopathy Medical Group Influenza vaccination [id number] 04/28/2018 Medical Group Colonoscopy<sup>2</sup> 402090 12/14/2017 diverticulosis, hemorrhoids, repeat in 5 years Medical [facility] Colonoscopy<sup>1</sup> 432697 12/14/2017 diverticulosis, hemorrhoids, repeat in 5 years Medical [facility] Diabetic retinal eye exam 7221 16064 03/14/2017 Medical Group TURP - Transurethral resection of prostate<sup>1</sup> [id number] 03/07/2016 [facility] TURP - Transurethral resection of prostate<sup>2</sup> [id number] 03/07/2016 [facility] TURP - Transurethral resection of prostate<sup>3</sup> [id number] 03/07/2016 [facility] colonoscopy 23539 07/01/2014 Complete [facility] Colonoscopy<sup>3</sup> 851399 07/01/2014 polyps, repeat in 3 years Medical [facility] Colonoscopy<sup>4</sup> 046890 07/01/2014 polyps, repeat in 3 years [facility] Pneumococcal vaccination<sup>4</sup> [id number] 04/04/2014 Pneumovax [facility] Pneumococcal vaccination<sup>5</sup> [id number] 04/04/2014 Pneumovax [facility] Bilateral inguinal hernia repair<sup>3</sup> [id number] right in 2007 [place] left 11/2012 Medical [facility] Cholecystectomy [id number] [facility] Tonsillectomy [id number] [facility] Bilateral inguinal hernia repair<sup>5</sup> [id number] right in 2007 [place] left 11/2012 Medical Group Bilateral inguinal hernia repair<sup>6</sup> [id number] right in 2007 [place] left 11/2012 [facility] Bilateral inguinal hernia repair<sup>4</sup> [id number] right in 2007 [place] left 11/2012 [facility] Bilateral inguinal hernia repair<sup>2</sup> [id number] right in 2007 [place] left 11/2012 [facility] Hernia repair [id number] [facility] st Assessment and Plan Assessment and Plan Date Source Extracted from:Title: Clinical Document Author: Freddie Barahona MD Date: 02/01/16 INFECTIOUS DISEASES PROGRESS NOTE FREDDIE BARAHONA M.D. REASON FOR ID FOLLOW UP: UTI ASSESMENT: complicated UTI ESBL BPH Anemia DM2 PLAN: continue Iv abx home ok on IV abx today arrange home iv abx invanz 1000 mg IV q24 ANTIBIOTICS: invamz day 11/25 SUBJECTIVE: Seen and examined. Events noted. VITAL SIGNS: Vitals and Temp: Vitals Tmp(F) Pulse BP RR SpO2 FIO2 01/30 16:58 97.5 64 135/72 1 6 --- --- 01/30 12:05 97.8 57 131/76 1 8 98 --- 01/30 08:07 98 54 114/73 18 94 --- 01/30 04:27 97.9 59 102/62 1 8 96 --- 01/29 23:26 98.2 60 110/70 1 8 98 --- 24 Hr Tmax: 98.2F (36.78c) at 01/29 23:2 6 Vital Signs are the last 5 in the past 48 hours. ROS: otherwise unremarkable PHYSICAL EXAMINATION: Awake lying on bed NAD No thrush CTAB RRR S1&S2 BS+ve NT/ND No edema No Rash No focal defecit IVs ok LABORATORY DATA: Labs (Last four charted values) WBC 7.8 (JAN 18) H 13.6 (JAN 17) H 15.6 (JAN 16) Hgb L 12.1 (JAN 18) L 11.8 (JAN 17) L 12.1 (JAN 16) Hct L 36.4 (JAN 18) L 34.7 (DEREJE 17) L 37.1 (JAN 16) Plt 206 (JAN 18) 204 (DEREJE 17) 221 (JAN 16) Na 140 (JAN 18) 139 (DEREJE 17) 136 (DEREJE 16) K 4.1 (JAN 18) 3.9 (JAN 17) 3.6 (JAN 16) CO2 24 (JAN 18) 24 (DEREJE 17) 25 (JAN 16) Cl 107 (JAN 18) 106 (DEREJE 17) 103 (JAN 16) Cr 0.97 (JAN 18) 1.00 (JAN 17) 1.19 (JAN 16) BUN 13 (JAN 18) 14 (DEREJE 17) 15 (DEREJE 16) Glucose Random H 102 (JAN 18) H 126 (JAN 17) H 148 (JAN 16) Mg 1.9 (JAN 17) Phos L 2.1 (JAN 17) Ca L 7.9 (JAN 18) L 7.6 (DEREJE 17) L 8.2 (DEREJE 16) Troponin <0.02 (JAN 16) CK MB 0.5 (JAN 16) CULTURES: DATE/SOURCE/RESULT/ SENSITIVITIES urine ESBL IMAGING: Scheduled Meds (10): 01/30/16 cholecalciferol (Vitamin D3 200 0 intl units oral tablet) 2,000 IntlUnit PO Daily 01/29/16 enoxaparin 40 mg SUB-Q [id number] 01/29/16 fenofibrate (TriCor) 48 mg PO A fter Dinner 01/30/16 finasteride 5 mg PO Daily 01/30/16 levothyroxine 50 microgram PO Q 630AM 01/30/16 lisinopril 20 mg PO Daily 01/29/16 meropenem + sodium chloride 0.9 % INJ 100 mL 1,000 mg IVPB Q8H 33.33 ml/hr 01/29/16 ocular lubricant 1 drp BOTH EYE S BID 01/29/16 pantoprazole (Protonix) 40 mg P O Before Dinner 01/30/16 tamsulosin 0.4 mg PO Daily 02/01/2016 [place] Extracted from:Title: Clinical Document Author: Hans Oliveira MD Date: 07/10/14 Progress Note - Daily [facility] Completed: Jun, 08:31 by Hans Oliveira MD RM: 237 - 1D, SE C2A YENNI BONNER 64y (: 1950) M Attending: Elisha Heranndez MD Service: Internal Medicine Reason for Admission: ACUTE CHOLECYSTITIS Working DRG: Disorders of the biliary tract w/o CC/CARE HOME Code status: Full Code [Ordered] Current diet: Isolation: None Documented Allergies: penicillins, sulfa drugs SUBJECTIVE Pt was unable to void post surgery and required straight cath. Pt still cannot void. He is tolerating diet, ambulating OBJECTIVE abd is soft, mild distention, wounds OK 24hr Labs 07/09 1030 Glucose Lvl 136 H BUN 8 Creatinine Lvl 1.2 Sodium Lvl 141 Potassium Lvl 4.0 Chloride Lvl 108 CO2 27 AGAP 10.0 Calcium Lvl 7.5 L eGFR 63 WBC 4.2 RBC 4.38 L Hgb 13.2 L Hct 38.5 L MCV 88.0 MCH 30.1 MCHC 34.2 RDW 14.0 Platelet 160 MPV 7.8 Segs 57.0 Monocytes 7.3 Lymphocytes 33.4 Eosinophils 1.9 Basophils 0.4 Segs-Bands # 2.4 Lymphocytes # 1.4 Monocytes # 0.3 Eosinophils # 0.1 Barboza still necessary (Yes/No): Line still necessary (Yes/No): Vitals Tmp(F) Pulse BP RR SpO2 FIO2 07/10 07:35 97.5 68 162/87 1 6 93 --- 07/10 03:40 98.6 61 149/83 1 4 95 --- 07/10 00:00 99.0 64 144/84 1 4 95 --- 07/09 21:18 ---- 65 149/96 - - --- --- 07/09 20:00 98.1 68 188/99 1 4 97 --- 24 Hr Tmax: 99.0F (37.22c) at 07/10 00:0 0 Vital Signs are the last 5 in the past 48 hours. Date Wt(kg) Wt(lb) Ht(cm) Ht(in) Method 07/08 (initial) 77.27 170.00 Estimated 07/08 167.64 66.00 Measured I&O Record In Out Bal 07/09 24hr Tot 261 2801 -182 07/08 24hr Tot 1097 750 347 Medications (16) Active Scheduled Meds (5): 07/08/14 cefTRIAXone + Sodium Chloride 0 .9% IV 100 mL (Rocephin + Sodium Chloride 0.9% IV 100 mL) 1 gm IVPB [id number] 200 ml/hr 07/08/14 enoxaparin 40 mg SUB-Q [id number] 07/09/14 finasteride 5 mg PO Daily 07/08/14 metroNIDAZOLE (Flagyl) 500 mg I VPB [id number] 200 ml/hr 07/09/14 tamsulosin (Flomax) 0.4 mg PO D aily Unscheduled Meds: None PRN Meds (6): 07/09/14 acetaminophen-hydrocodone (acet aminophen-hydrocodone 325 mg-5 mg oral tablet) 1 tab PO Q4H 07/08/14 acetaminophen 650 mg PO Q4H 07/08/14 morphine Sulfate 2 mg IVP Q3H 07/09/14 morphine Sulfate 4 mg IVP Q3H 07/08/14 ondansetron 4 mg IVP Q8H 07/08/14 sodium chloride (Saline Flush 0 .9%) 10 ml IVP PRN One Time Meds (3): 07/09/14 (Completed) finasteride 5 mg P O ONCE 07/09/14 (Discontinued) ketorolac 30 mg IVP ONCE 07/09/14 (Completed) tamsulosin 0.4 mg PO ONCE Continuous Infusions (2): 07/08/14 Dextrose 5% with 0.9% NaCl IV 1 ,000 mL 1,000 mL 125 ml/hr 07/09/14 Lactated Ringers Injection IV 1 ,000 mL 1,000 mL 100 ml/hr ASSESSMENT and EXAM pt with urinary retention, otherwise OK post cholecystectomy PLAN and TREATMENT Place Barboza catheter. Pt could be discharged with catheter if he wishes to go home. F/U wiith in 3-4 days to remove catheter. DIAGNOSES and PROBLEMS Ready for Discharge (Yes/No)? 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 Exercise Exercise type: none. Substance Abuse Use: None. Smoking Status Never smoker; Concerns about tobacco use in household: No; Exposure to Tobacco Smoke None; Cigarette Smoking Last 365 Days No; Reg Smoking Cessation Counseling No entered on: 01/28/19 06/27/2018 Medical Group Social History TypeResponse Substance Abuse Use: None. 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 Alcohol Never Smoking Status Never smoker; Tobacco use per day: 0; Number of years: 0; Total pack years: 0; Started at age: 1.0; Stopped at age: 1; Previous treatment: None; Ready to change: No; Concerns about tobacco use in household: No; Exposure to Tobacco Smoke None; Cigarette Smoking Last 365 Days No; Reg Smoking Cessation Counseling No 1not at the moment 05/26/2015 [facility] Family History No Data Provided for This Section Advance Directives No Data Provided for This Section Functional Status No Data Provided for This Section
--- OUTSIDE RECORDS SUMMARY | 2020-01-22 16:21 | XMS REPORT | Continuity of Care Document ---
Author Author [facility] Address Unknown Phone Unavailable Care Team Providers Care Bit Sander Name Role Phone MD Alessia, Jessy HERNANDEZ Unavailable Insurance Providers Payer name Policy type / Coverage type Policy ID Covered democrat ID Policy Leiva [facility] PL[facility] (MEDICARE REPL Encounters Encounter Performer Location Date Lab Report Jessy Aggarwal MD [facility] Apr 04, 2014 Allergies, Adverse Reactions, Alerts Type Substance Reaction Status Drug allergy PENICILLIN irritation and rash Active Drug allergy SULFA lips (swollen) Active Problems Problem Effective Dates Problem Status BPH Mar 03, 2014 Active BENIGN ESSENTIAL HYPERTENSION Mar 03, 2014 Active ROUTINE GENERAL MEDICAL EXAMINATION AT A [facility] Apr 04, 2014 Active SCREENING FOR GLAUCOMA Apr 04, 2014 Active IMPAIRED FASTING GLUCOSE Apr 04, 2014 Active HEARING LOSS Apr 04, 2014 Active DYSPEPSIA Apr 04, 2014 Active ABDOMINAL PAIN Apr 04, 2014 Active DYSPNEA Apr 04, 2014 Active NEED FOR PROPHYLACTIC VACCINATION AND INOCULATION AGAI NST INFLUENZA Apr 04, 2014 Active SCREENING FOR MALIGNANT NEOPLASMS OF COLON Apr 04, 2014 Active NOCTURIA Apr 04, 2014 Active Procedures Date Description Comments Apr 04, 2014 smoking status Never smoker Medications Medication Instructions Start Date Status MULTIVITAMIN AND MULTIMINERAL Take one tablet by mouth daily. Au 2013 Active NEXIUM 20 MG CPDR Take one capsule by mouth daily. Apr 04, 2014 Active FINASTERIDE 5 MG TABS take 1 tablet by mouth daily Mar 03, 2014 Active FLOMAX 0.4 MG CAPS take 1 cap by mouth daily Mar 03, 2014 Act scotty LISINOPRIL 20 MG TABS Take one tablet by mouth daily. Mar 03 14 Active CIPROFLOXACIN HCL 500 MG TABS Take one tablet by mouth twice daily for 3 days. Apr 04, 2014 Active Immunizations Vaccine Date Status influenza immunization (Flu Vax) has been administered Mar 152013 completed pneumococcal immunization administered Apr 04, 2014 c ompleted Vital Signs Date Description Test Result Mar 03, 2014 height E&M HEIGHT 68 in Mar 03, 2014 weight E&M WEIGHT 164 lb Mar 03, 2014 blood pressure, systolic BP SYSTOLIC 155 mm Hg Mar 03, 2014 blood pressure, diastolic BP DIASTOLIC 101 mm Hg Mar 03, 2014 pulse rate E&M PULSE RATE 66 /min Mar 03, 2014 temperature E&M TEMPERATURE 97.6 deg f Mar 03, 2014 respiratory rate E&M RESP RATE 12 /min Apr 04, 2014 weight E&M WEIGHT 161 lb Apr 04, 2014 height E&M HEIGHT 68 in Apr 04, 2014 temperature E&M TEMPERATURE 97.2 deg f Apr 04, 2014 respiratory rate E&M RESP RATE 14 /min Apr 04, 2014 pulse rate E&M PULSE RATE 60 /min Apr 04, 2014 blood pressure, systolic BP SYSTOLIC 144 mm Hg Apr 04, 2014 blood pressure, diastolic BP DIASTOLIC 87 mm Hg Results Date Description Test Name Value Reference Interpretation Sta tus Mar 28, 2014 hemoglobin, blood HGB 14.0 g/dL 14.0-18.0 Mar 28, 2014 hematocrit, blood HCT 40.6 % 42.0-54.0 Low Mar 28, 2014 platelet count PLATELETS 181 K/CMM /mm3 133-450 Apr 04, 2014 hemoglobin, blood HGB 13.9 g/dL 14.0-18.0 Low Apr 04, 2014 hematocrit, blood HCT 40.7 % 42.0-54.0 Low Apr 04, 2014 platelet count PLATELETS 186 K/CMM /mm3 133-450 Mar 28, 2014 sodium, serum SODIUM 140 MEQ/L mmol/L 135-145 Mar 28, 2014 potassium, serum POTASSIUM 4.3 MEQ/L mmol/L 3.5-5.1 Mar 28, 2014 creatinine, serum CREATININE 0.9 mg/dL 0.5-1.4 Mar 28, 2014 urea nitrogen, blood BUN 13 mg/dL 7-22 Mar 28, 2014 urea nitrogen/creatinine ratio, serum BUN/CREAT 14 null 6-25 Mar 28, 2014 albumin, serum ALBUMIN 3.7 g/dL 3.5-5.0 Mar 28, 2014 calcium, serum CALCIUM 8.7 mg/dL 8.5-10.5 Mar 28, 2014 alanine aminotransferase (SGPT), serum SGPT (ALT) 20 U/L 0-65 Mar 28, 2014 aspartate aminotransferase (SGOT), serum SGOT (AST) 12 U/ L 0-37 Mar 28, 2014 alkaline phosphatase, serum ALK PHOS 98 U/L 39-136 Mar 28, 2014 prostate specific antigen PSA 10.24 ng/mL 0.00-4.00 High Apr 04, 2014 hemoglobin A1C, blood, as % of total hemoglobin HGBA1C 6.1 % <=5.6 High Apr 04, 2014 thyroid stimulating hormone, serum TSH 5.070 uIU/ mL 0.360-3.740 High Apr 04, 2014 cholesterol, serum CHOLESTEROL 165 mg/dl <=199 Apr 04, 2014 triglyceride, serum, fasting TRIGLYCERIDE 187 mg/dl <=149 High Apr 04, 2014 HDL cholesterol, serum HDL 40 mg/dl >=61 Low Apr 04, 2014 LDL cholesterol, serum LDL 88 mg/dl <=99 Apr 04, 2014 sodium, serum SODIUM 141 MEQ/L mmol/L 135-145 Apr 04, 2014 potassium, serum POTASSIUM 4.3 MEQ/L mmol/L 3.5-5.1 Apr 04, 2014 creatinine, serum CREATININE 1.0 mg/dL 0.5-1.4 Apr 04, 2014 urea nitrogen, blood BUN 13 mg/dL 7-22 Apr 04, 2014 urea nitrogen/creatinine ratio, serum BUN/CREAT 13 null 6-25 Apr 04, 2014 albumin, serum ALBUMIN 3.9 g/dL 3.5-5.0 Apr 04, 2014 calcium, serum CALCIUM 8.6 mg/dL 8.5-10.5 Apr 04, 2014 alanine aminotransferase (SGPT), serum SGPT (ALT) 22 U/L 0-65 Apr 04, 2014 aspartate aminotransferase (SGOT), serum SGOT (AST) 11 U/ L 0-37 Apr 04, 2014 alkaline phosphatase, serum ALK PHOS 104 U/L 39-136 Apr 04, 2014 thyroxine, serum, free T4, FREE 1.01 ng/dl 0.76-1.46 Apr 04, 2014 urine color UA COLOR Yellow null Yellow Apr 04, 2014 bacteria, urine microscopy BACTERIA URN Occasional null None Seen Apr 04, 2014 urine color UA COLOR Yellow null Yellow Apr 04, 2014 bacteria, urine microscopy BACTERIA URN Occasional null None Seen
--- OUTSIDE RECORDS SUMMARY | 2020-01-22 16:21 | XMS REPORT | Continuity of Care Document ---
Author Author [facility] Organization [facility] Address Unknown Phone Unavailable Care Team Providers Care Car Construction Superintendent Name Role Phone MD Alessia, Jessy HERNANDEZ Unavailable Insurance Providers Payer name Policy type / Coverage type Policy ID Covered green party ID Policy Leiva [facility] PLUS (MEDICARE REPL Encounters Encounter Performer Location Date Office Visit Jessy Aggarwal MD [facility] Apr 21, 2014 Allergies, Adverse Reactions, Alerts Type Substance Reaction Status Drug allergy PENICILLIN irritation and rash Active Drug allergy SULFA lips (swollen) Active Problems Problem Effective Dates Problem Status BPH Mar 03, 2014 Active BENIGN ESSENTIAL HYPERTENSION Mar 03, 2014 Active ROUTINE GENERAL MEDICAL EXAMINATION AT A [facility] Apr 04, 2014 Inactive SCREENING FOR GLAUCOMA Apr 04, 2014 Inactive IMPAIRED FASTING GLUCOSE Apr 04, 2014 Active HEARING LOSS Apr 04, 2014 Active DYSPEPSIA Apr 04, 2014 Active ABDOMINAL PAIN Apr 04, 2014 Active DYSPNEA Apr 04, 2014 Active NEED FOR PROPHYLACTIC VACCINATION AND INOCULATION AGAI NST INFLUENZA Apr 04, 2014 Inactive SCREENING FOR MALIGNANT NEOPLASMS OF COLON Apr 04, 2014 Inactive NOCTURIA Apr 04, 2014 Active HYPOTHYROIDISM Apr 21, 2014 Active LEFT INGUINAL HERNIA Apr 21, 2014 Active HYPERLIPIDEMIA Apr 21, 2014 Active Procedures Date Description Comments Apr 04, 2014 smoking status Never smoker Apr 21, 2014 smoking status Never smoker Medications Medication [...] daily for 3 days. Apr 04, 2014 Inactive LEVOTHYROXINE SODIUM 25 MCG TABS Take one tablet by [facility] daily 30 minutes prior to breakfast. Apr 21, 2014 Active Immunizations Vaccine Date Status influenza [...] pressure, diastolic BP DIASTOLIC 87 mm Hg Apr 21, 2014 weight E&M WEIGHT 160 lb Apr 21, 2014 height E&M HEIGHT 68 in Apr 21, 2014 respiratory rate E&M RESP RATE 14 /min Apr 21, 2014 temperature E&M TEMPERATURE 97.6 deg f Apr 21, 2014 pulse rate E&M PULSE RATE 67 /min Apr 21, 2014 blood pressure, systolic BP SYSTOLIC 126 mm Hg Apr 21, 2014 blood pressure, diastolic BP DIASTOLIC 85 mm Hg Results Date Description Test Name [...] 2014 urea nitrogen, blood BUN 13 mg/dL 7-Mar 28, 2014 urea nitrogen/creatinine ratio, serum BUN/CREAT [...] 2014 urea nitrogen, blood BUN 13 mg/dL -Apr 04, 2014 urea nitrogen/creatinine ratio, serum BUN/CREAT [...] BACTERIA URN Occasional null None Seen Apr 17, 2014 occult blood, stool (E&M) HEMOCCULT Negative null Negativ e Apr 18, 2014 occult blood, stool (E&M) HEMOCCULT Negative null Negativ e Apr 20, 2014 occult blood, stool (E&M) HEMOCCULT Negative null Negativ e
--- OUTSIDE RECORDS SUMMARY | 2020-01-22 16:21 | XMS REPORT | Continuity of Care Document ---
Author Author [facility] Organization [facility] Address Unknown Phone Unavailable Care Team Providers Care Ocean Export Account Manager Name Role Phone MD Alessia, Jessy HERNANDEZ Unavailable Insurance Providers Payer name Policy type / Coverage type Policy ID Covered alliance party ID Policy Leiva [facility] PLUS (MEDICARE REPL Encounters Encounter Performer Location Date Office Visit Jessy Aggarwal MD [facility] Apr 21, 2014 Allergies, Adverse Reactions, Alerts Type Substance Reaction Status Drug allergy PENICILLIN irritation and rash Active Drug allergy SULFA lips (swollen) Active Problems Problem Effective Dates Problem Status BPH Mar 03, 2014 Active BENIGN ESSENTIAL HYPERTENSION Mar 03, 2014 Active ROUTINE GENERAL MEDICAL EXAMINATION AT A [facility] Apr 04, 2014 Inactive SCREENING FOR [...] 25 MCG TABS Take one tablet by [facility] daily 30 minutes prior to breakfast. Apr 21, 2014 Active Immunizations Vaccine Date Status influenza immunization (Flu Vax) has been administered Mar 152013 completed pneumococcal immunization administered Apr 04, 2014 c ompleted Vital Signs Date Description Test Result Mar 03, 2014 height E&M - 8302-2 HEIGHT 68 in Mar 03, 2014 weight E&M - 3141-9 WEIGHT 164 lb Mar 03, 2014 blood pressure, systolic - 8480-6 BP SYSTOLIC 155 mm Hg Mar 03, 2014 blood pressure, diastolic - 8462-4 BP DIASTOLIC 101 mm Hg Mar 03, 2014 pulse rate E&M - 8867-4 PULSE RATE 66 /min Mar 03, 2014 temperature E&M TEMPERATURE 97.6 deg f Mar 03, 2014 respiratory rate E&M - 9279-1 RESP RATE 12 /min Apr 04, 2014 weight E&M - 3141-9 WEIGHT 161 lb Apr 04, 2014 height E&M - 8302-2 HEIGHT 68 in Apr 04, 2014 temperature E&M TEMPERATURE 97.2 deg f Apr 04, 2014 respiratory rate E&M - 9279-1 RESP RATE 14 /min Apr 04, 2014 pulse rate E&M - 8867-4 PULSE RATE 60 /min Apr 04, 2014 blood pressure, systolic - 8480-6 BP SYSTOLIC 144 mm Hg Apr 04, 2014 blood pressure, diastolic - 8462-4 BP DIASTOLIC 87 mm Hg Apr 21, 2014 weight E&M - 3141-9 WEIGHT 160 lb Apr 21, 2014 height E&M - 8302-2 HEIGHT 68 in Apr 21, 2014 respiratory rate E&M - 9279-1 RESP RATE 14 /min Apr 21, 2014 temperature E&M TEMPERATURE 97.6 deg f Apr 21, 2014 pulse rate E&M - 8867-4 PULSE RATE 67 /min Apr 21, 2014 blood pressure, systolic - 8480-6 BP SYSTOLIC 126 mm Hg Apr 21, 2014 blood pressure, diastolic - 8462-4 BP DIASTOLIC 85 mm Hg Results Date [...] 2014 urea nitrogen, blood BUN 13 mg/dL -Mar 28, 2014 urea nitrogen/creatinine ratio, serum BUN/CREAT [...] 2014 urea nitrogen, blood BUN 13 mg/dL 7-Apr 04, 2014 urea nitrogen/creatinine ratio, serum BUN/CREAT [...] free T4, FREE 1.01 ng/dl 0.76-1.46 Apr 17, 2014 occult blood, stool (E&M) HEMOCCULT Negative null Negativ e Apr 18, 2014 occult blood, stool (E&M) HEMOCCULT Negative null Negativ e Apr 20, 2014 occult blood, stool (E&M) HEMOCCULT Negative null Negativ e Apr 04, 2014 urine color UA COLOR Yellow null Yellow Apr 04, 2014 bacteria, urine microscopy BACTERIA URN Occasional null None Seen Apr 04, 2014 urine color UA COLOR Yellow null Yellow Apr 04, 2014 bacteria, urine microscopy BACTERIA URN Occasional null None Seen
--- OUTSIDE RECORDS SUMMARY | 2020-01-22 16:21 | XMS REPORT | Continuity of Care Document ---
Author Author [facility] Organization [facility] Address Unknown Phone Unavailable Care Team Providers Care Cumulative Effects Analyst Name Role Phone MD Alessia, Jessy HERNANDEZ Unavailable Insurance Providers Payer name Policy type / Coverage type Policy ID Covered democrat ID Policy Leiva [facility] PL[facility] (MEDICARE REPL Encounters Encounter Performer Location Date Lab Report Jessy Aggarwal MD [facility] Mar 28, 2014 Allergies, Adverse Reactions, Alerts Type Substance Reaction Status Drug allergy PENICILLIN irritation and rash Active Drug allergy SULFA lips (swollen) Active Problems Problem Effective Dates Problem Status PROSTATIC HYPERTROPHY Mar 03, 2014 Active HYPERTENSION Mar 03, 2014 Active Medications Medication Instructions Start Date Status FINASTERIDE 5 MG TABS take 1 tablet by mouth daily Mar 03, 2014 Active FLOMAX 0.4 MG CAPS take 1 cap by mouth daily Mar 03, 2014 Act scotty LISINOPRIL 20 MG TABS take 1 tablet by mouth daily Mar 03, 2014 Active Vital Signs Date Description Test Result Mar [...] respiratory rate E&M RESP RATE 12 /min Results Date Description Test Name Value Reference Interpretation Sta tus Mar 28, 2014 hemoglobin, blood HGB 14.0 g/dL 14.0-18.0 Mar 28, 2014 hematocrit, blood HCT 40.6 % 42.0-54.0 Low Mar 28, 2014 platelet count PLATELETS 181 K/CMM /mm3 133-450 Mar 28, 2014 sodium, [...]
--- OUTSIDE RECORDS SUMMARY | 2020-01-22 16:21 | XMS REPORT | Continuity of Care Document ---
Author Author [facility] Organization [facility] Address Unknown Phone Unavailable Care Team Providers Care Property Disposal Manager Name Role Phone MD Alessia, Jessy PP Unavailable Insurance Providers Payer name Policy type / Coverage type Policy ID Covered constitution party ID Policy Leiva [facility] OF [facility] PLUS (MEDICARE REPL Encounters Encounter Performer Location Date Office Visit Jessy Aggarwal MD [facility] Mar 03, 2014 Allergies, Adverse Reactions, Alerts Type Substance [...]
--- OUTSIDE RECORDS SUMMARY | 2020-01-22 16:21 | XMS REPORT | Continuity of Care Document ---
Author Author [facility] Address Unknown Phone Unavailable Care Team Providers Care Biomedical Instrument Technician Name Role Phone MD Alessia, Jessy HERNANDEZ Unavailable Insurance Providers Payer name Policy type / Coverage type Policy ID Covered constitution party ID Policy Leiva [facility] OF [facility] (MEDICARE REPL Encounters Encounter Performer Location Date Office Visit Jessy Aggarwal MD [facility] Feb 17, 2015 Allergies, Adverse Reactions, Alerts Type Substance Reaction Status Drug allergy LISINOPRIL Headache Active Drug allergy PENICILLIN irritation and rash Active Drug allergy SULFA lips (swollen) Active Problems Problem Effective Dates Problem Status BPH Mar 03, 2014 Active BENIGN ESSENTIAL HYPERTENSION Mar 03, 2014 Active ROUTINE GENERAL MEDICAL EXAMINATION AT A [facility] Apr 04, 2014 Inactive SCREENING FOR GLAUCOMA Apr 04, 2014 Inactive PREDIABETES Apr 04, 2014 Active HEARING LOSS Apr 04, 2014 Active GERD Apr 04, 2014 Active ABDOMINAL PAIN Apr 04, 2014 Inactive DYSPNEA Apr 04, 2014 Inactive NEED FOR PROPHYLACTIC VACCINATION AND INOCULATION AGAI NST INFLUENZA Apr 04, 2014 Inactive SCREENING FOR MALIGNANT NEOPLASMS OF COLON Apr 04, 2014 Inactive NOCTURIA Apr 04, 2014 Inactive HYPOTHYROIDISM Apr 21, 2014 Active LEFT INGUINAL HERNIA Apr 21, 2014 Active HYPERLIPIDEMIA Apr 21, 2014 Active ACUTE CYSTITIS Jun 09, 2014 Inactive DYSURIA Jun 09, 2014 Inactive CHOLELITHIASIS Jul 21, 2014 Inactive CHOLECYSTECTOMY, LAPAROSCOPIC, HX OF Jul 21, 2014 Lianne ctive URINARY RETENTION Jul 21, 2014 Inactive HEMATURIA Jul 21, 2014 Inactive ACUTE CYSTITIS Jul 24, 2014 Inactive TINEA PEDIS Sep 15, 2014 Active DYSURIA Sep 30, 2014 Inactive KNEE PAIN, RIGHT December 30, 2014 Active ROUTINE GENERAL MEDICAL EXAMINATION AT [facility] December 30, 2014 Inactive PROSTATE NEOPLASM SCREENING December 30, 2014 Inactive ELEVATED PSA Feb 17, 2015 Active CONJUNCTIVITIS, ACUTE Feb 17, 2015 Active ANEMIA Feb 17, 2015 Active Procedures Date Description Comments Apr 04, 2014 smoking status Never smoker Apr 21, 2014 smoking status Never smoker Jun 09, 2014 smoking status Never smoker Jul 01, 2014 colonoscopy Complete Jul 21, 2014 smoking status Never smoker Aug 18, 2014 smoking status Never smoker Sep 15, 2014 smoking status Never smoker Sep 30, 2014 smoking status Never smoker December 30, 2014 smoking status Never smoker Feb 17, 2015 smoking status Never smoker Medications Medication Instructions Start Date Status CIPROFLOXACIN HCL 500 MG TABS Take one tablet by mouth twice daily for 3 days. Apr 04, 2014 Inactive PYRIDIUM 100 MG TABS Take one tablet by mouth three times a day for 2 days. Jun 09, 2014 Inactive FINASTERIDE 5 MG TABS Take one tablet by mouth daily. Mar 03 Active FLOMAX 0.4 MG CAPS Take one capsule by mouth daily. Mar 03, 2014 Active CIPROFLOXACIN HCL 500 MG TABS Take one tablet by mouth twice daily. Jun 09, 2014 Inactive MACROBID 100 MG CAPS Take one capsule by mouth twice daily f or 7 days. Jul 24, 2014 Inactive LISINOPRIL 20 MG TABS Take one tablet by mouth daily. Mar 03 Inactive LOSARTAN POTASSIUM 25 MG TABS Take one tablet by mouth daily. 2014 Active NEXIUM 20 MG CPDR Take one capsule by mouth daily. Apr 04, 2014 Inactive LEVOTHYROXINE SODIUM 25 MCG TABS Take one tablet by mo uth daily 30 minutes prior to breakfast. Apr 21, 2014 Active ECONAZOLE NITRATE 1 % CREA Apply to affected areas twice daily F 2014 Inactive OMEPRAZOLE 20 MG CPDR Take one capsule by mouth daily. Sep 30 015 Inactive NAPROXEN 500 MG TABS Take one tablet by mouth twi ce daily as needed for pain. Take with food. December 30, 2014 Inactive MULTIVITAMIN AND MULTIMINERAL Take one tablet by mouth daily. Au 2013 Inactive VIGAMOX 0.5 % SOLN Instill one drop to right eye three time s daily for 7 days. Feb 17, 2015 Active Immunizations Vaccine Date Status influenza immunization [...] - 8462-4 BP DIASTOLIC 85 mm Hg Jun 09, 2014 respiratory rate E&M - 9279-1 RESP RATE 14 /min Jun 09, 2014 weight E&M - 3141-9 WEIGHT 162 lb Jun 09, 2014 height E&M - 8302-2 HEIGHT 68 in Jun 09, 2014 blood pressure, systolic - 8480-6 BP SYSTOLIC 154 mm Hg Jun 09, 2014 blood pressure, diastolic - 8462-4 BP DIASTOLIC 87 mm Hg Jun 09, 2014 pulse rate E&M - 8867-4 PULSE RATE 76 /min Jul 21, 2014 respiratory rate E&M - 9279-1 RESP RATE 14 /min Jul 21, 2014 blood pressure, systolic - 8480-6 BP SYSTOLIC 134 mm Hg Jul 21, 2014 blood pressure, diastolic - 8462-4 BP DIASTOLIC 75 mm Hg Jul 21, 2014 pulse rate E&M - 8867-4 PULSE RATE 59 /min Jul 21, 2014 temperature E&M TEMPERATURE 98.4 deg f Jul 21, 2014 weight E&M - 3141-9 WEIGHT 162 lb Jul 21, 2014 height E&M - 8302-2 HEIGHT 68 in Aug 18, 2014 respiratory rate E&M - 9279-1 RESP RATE 14 /min Aug 18, 2014 weight E&M - 3141-9 WEIGHT 158 lb Aug 18, 2014 height E&M - 8302-2 HEIGHT 68 in Aug 18, 2014 temperature E&M TEMPERATURE 98.0 deg f Aug 18, 2014 pulse rate E&M - 8867-4 PULSE RATE 65 /min Aug 18, 2014 blood pressure, systolic - 8480-6 BP SYSTOLIC 151 mm Hg Aug 18, 2014 blood pressure, diastolic - 8462-4 BP DIASTOLIC 90 mm Hg Sep 15, 2014 respiratory rate E&M - 9279-1 RESP RATE 14 /min Sep 15, 2014 weight E&M - 3141-9 WEIGHT 160 lb Sep 15, 2014 height E&M - 8302-2 HEIGHT 68 in Sep 15, 2014 temperature E&M TEMPERATURE 97.0 deg f Sep 15, 2014 blood pressure, systolic - 8480-6 BP SYSTOLIC 137 mm Hg Sep 15, 2014 blood pressure, diastolic - 8462-4 BP DIASTOLIC 83 mm Hg Sep 15, 2014 pulse rate E&M - 8867-4 PULSE RATE 62 /min Sep 30, 2014 weight E&M - 3141-9 WEIGHT 165 lb Sep 30, 2014 height E&M - 8302-2 HEIGHT 68 in Sep 30, 2014 respiratory rate E&M - 9279-1 RESP RATE 14 /min Sep 30, 2014 temperature E&M TEMPERATURE 98.4 deg f Sep 30, 2014 blood pressure, systolic - 8480-6 BP SYSTOLIC 162 mm Hg Sep 30, 2014 blood pressure, diastolic - 8462-4 BP DIASTOLIC 89 mm Hg Sep 30, 2014 pulse rate E&M - 8867-4 PULSE RATE 59 /min December 30, 2014 weight E&M - 3141-9 WEIGHT 161 lb December 30, 2014 height E&M - 8302-2 HEIGHT 68 in December 30, 2014 respiratory rate E&M - 9279-1 RESP RATE 16 /min December 30, 2014 temperature E&M TEMPERATURE 97.1 deg f December 30, 2014 blood pressure, systolic - 8480-6 BP SYSTOLIC 142 mm Hg December 30, 2014 blood pressure, diastolic - 8462-4 BP DIASTOLIC 91 mm Hg December 30, 2014 pulse rate E&M - 8867-4 PULSE RATE 59 /min Feb 17, 2015 respiratory rate E&M - 9279-1 RESP RATE 12 /min Feb 17, 2015 weight E&M - 3141-9 WEIGHT 163 lb Feb 17, 2015 height E&M - 8302-2 HEIGHT 68 in Feb 17, 2015 temperature E&M TEMPERATURE 97.9 deg f Feb 17, 2015 pulse rate E&M - 8867-4 PULSE RATE 60 /min Feb 17, 2015 blood pressure, systolic - 8480-6 BP SYSTOLIC 113 mm Hg Feb 17, 2015 blood pressure, diastolic - 8462-4 BP DIASTOLIC 69 mm Hg Results Date Description Test Name [...] platelet count PLATELETS 186 K/CMM /mm3 133-450 December 30, 2014 hemoglobin, blood HGB 13.8 g/dL 14.0-18.0 Low December 30, 2014 hematocrit, blood HCT 39.2 % 42.0-54.0 Low December 30, 2014 platelet count PLATELETS 185 K/CMM /mm3 133-450 Mar 28, 2014 sodium, [...] urea nitrogen/creatinine ratio, serum BUN/CREAT 13 null 6-Apr 04, 2014 albumin, serum ALBUMIN 3.9 g/dL [...] stool (E&M) HEMOCCULT Negative null Negativ e Aug 12, 2014 hemoglobin A1C, blood, as % of total hemoglobin HGBA1C 6.4 % <=5.6 High Aug 12, 2014 thyroid stimulating hormone, serum TSH 3.340 uIU/mL 0.360-3.740 Aug 12, 2014 cholesterol, serum CHOLESTEROL 183 mg/dl <=199 Aug 12, 2014 triglyceride, serum, fasting TRIGLYCERIDE 244 mg/dl <=149 High Aug 12, 2014 HDL cholesterol, serum HDL 39 mg/dl >=61 Low Aug 12, 2014 LDL cholesterol, serum LDL 95 mg/dl <=99 Aug 12, 2014 sodium, serum SODIUM 142 MEQ/L mmol/L 135-145 Aug 12, 2014 potassium, serum POTASSIUM 4.1 MEQ/L mmol/L 3.5-5.1 Aug 12, 2014 creatinine, serum CREATININE 1.0 mg/dL 0.5-1.4 Aug 12, 2014 urea nitrogen, blood BUN 17 mg/dL -Aug 12, 2014 urea nitrogen/creatinine ratio, serum BUN/CREAT 17 null 6-25 Aug 12, 2014 albumin, serum ALBUMIN 4.0 g/dL 3.5-5.0 Aug 12, 2014 calcium, serum CALCIUM 8.5 mg/dL 8.5-10.5 Aug 12, 2014 alanine aminotransferase (SGPT), serum SGPT (ALT) 26 U/L 0-65 Aug 12, 2014 aspartate aminotransferase (SGOT), serum SGOT (AST) 15 U/ L 0-37 Aug 12, 2014 alkaline phosphatase, serum ALK PHOS 116 U/L 39-136 Sep 30, 2014 prostate specific antigen PSA 7.61 ng/mL 0.00-4.00 High December 30, 2014 hemoglobin A1C, blood, as % of total hemoglobin HGBA1C 5.9 % <=5.6 High December 30, 2014 thyroid stimulating hormone, serum TSH 5.530 uIU/ mL 0.360-3.740 High December 30, 2014 cholesterol, serum CHOLESTEROL 163 mg/dl <=199 December 30, 2014 triglyceride, serum, fasting TRIGLYCERIDE 235 mg/dl <=149 High December 30, 2014 HDL cholesterol, serum HDL 37 mg/dl >=61 Low December 30, 2014 LDL cholesterol, serum LDL 79 mg/dl <=99 December 30, 2014 sodium, serum SODIUM 137 MEQ/L mmol/L 135-145 December 30, 2014 potassium, serum POTASSIUM 4.1 MEQ/L mmol/L 3.5-5.1 December 30, 2014 creatinine, serum CREATININE 0.9 mg/dL 0.5-1.4 December 30, 2014 urea nitrogen, blood BUN 14 mg/dL -December 30, 2014 urea nitrogen/creatinine ratio, serum BUN/CREAT 16 null 6-December 30, 2014 albumin, serum ALBUMIN 3.6 g/dL 3.5-5.0 December 30, 2014 calcium, serum CALCIUM 8.8 mg/dL 8.5-10.5 December 30, 2014 alanine aminotransferase (SGPT), serum SGPT (ALT) 21 U/L 0-65 December 30, 2014 aspartate aminotransferase (SGOT), serum SGOT (AST) 16 U/ L 0-37 December 30, 2014 alkaline phosphatase, serum ALK PHOS 110 U/L 39-136 December 30, 2014 thyroxine, serum, free T4, FREE 0.99 ng/dl 0.76-1.46 December 30, 2014 prostate specific antigen PSA 5.14 ng/mL 0.00-4.00 High Apr 04, 2014 urine color UA COLOR Yellow null Yellow Apr 04, 2014 bacteria, urine microscopy BACTERIA URN Occasional null None Seen Apr 04, 2014 urine color UA COLOR Yellow null Yellow Apr 04, 2014 bacteria, urine microscopy BACTERIA URN Occasional null None Seen Jun 09, 2014 urine color UA COLOR Yellow null Yellow Jun 09, 2014 bacteria, urine microscopy BACTERIA URN Occasional null None Seen Jul 21, 2014 urine color UA COLOR Yellow null Yellow Jul 21, 2014 bacteria, urine microscopy BACTERIA URN Many null None Seen Abnormal Aug 12, 2014 urine color UA COLOR Yellow null Yellow Sep 30, 2014 urine color UA COLOR Yellow null Yellow Sep 30, 2014 bacteria, urine microscopy BACTERIA URN Occasional null None Seen
--- OUTSIDE RECORDS SUMMARY | 2020-01-22 16:21 | XMS REPORT | Continuity of Care Document ---
Author Author [facility] Address Unknown Phone Unavailable Care Team Providers Care Model And Pattern Supervisor Name Role Phone MD Alessia, Jessy HERNANDEZ Unavailable Insurance Providers Payer name Policy type / Coverage type Policy ID Covered green party ID Policy Leiva [facility]MEDIC[facility] REPL Encounters Encounter Performer Location Date Lab Report Jessy Aggarwal MD [facility] Jun 05, 2014 Allergies, Adverse Reactions, Alerts Type Substance Reaction Status Drug allergy PENICILLIN irritation and rash Active Drug allergy SULFA lips (swollen) Active Problems Problem Effective Dates Problem Status BPH Mar 03, 2014 Active BENIGN ESSENTIAL HYPERTENSION Mar 03, 2014 Active ROUTINE GENERAL MEDICAL EXAMINATION AT A [facility] Apr 04, 2014 Inactive SCREENING FOR [...] 25 MCG TABS Take one tablet by nm ut daily 30 minutes prior to breakfast. Apr [...]
--- OUTSIDE RECORDS SUMMARY | 2020-01-22 16:22 | XMS REPORT | Summary of Care ---
Author Author [facility] Primary Care [facility] Organization [facility] Primary [facility] Address Unknown Phone Unavailable Encounter HQ Jacinta(FIN) [id number] Date(s): 10/02/18 - 10/03/18 [facility] [address], [address] [place] [address]- [phone] Vital Signs No data available for this section Problem List Condition Effective Dates Status Health Status Informan t Anemia(Confirmed) Resolved Benign essential 03/03/14 Active hypertension(Confirm ed)1, 2 Benign prostatic 03/03/14 Active hyperplasia(Confirme d)3, 4 Biliary calculus5, 6 07/21/14 Active Body mass index Active 25.0-25.9, adult(Confirmed) Diabetes mellitus Active type 2, controlled, without complications(Confir med) Gastroesophageal 04/04/14 Active reflux disease(Confirmed)7, 8 Hearing loss9, 10 04/04/14 Active History of colonic Active polyps(Confirmed) S/P TURP(Confirmed) Active Hypothyroidism(Confi 04/21/14 Active rmed)11, 12 ESBL (extended 01/10/16 Resolved spectrum beta-lactamase) producing bacteria infection(Confirmed) 13, 14 Right knee pain15, 12/30/14 Active 16 Left inguinal 04/21/14 Resolved , 18 Left lumbar Active radiculopathy(Confir med) Medicare annual Active wellness visit, subsequent(Confirmed ) Mixed Active hyperlipidemia(Confi rmed) Overweight(Confirmed Active ) Elevated Active PSA(Confirmed) Screening for colon Active cancer(Confirmed) Screening for Active diabetic retinopathy(Confirme d) Tinnitus of left Active ear(Confirmed) Vertigo(Confirmed) Active Vitamin D Active deficiency(Confirmed ) 1Data migrated from [employer] on 01/13/15. 2Data migrated from [employer] on 01/13/15. 3Data migrated from [employer] on 01/13/15. 4Data migrated from [employer] on 01/13/15. 5Data migrated from [employer] on 01/13/15. 6Data migrated from [employer] on 01/13/15. 7Data migrated from [employer] on 02/18/15. 8Data migrated from [employer] on 01/13/15. 9Data migrated from [employer] on 01/13/15. 10Data migrated from [employer] on 01/13/15. 11Data migrated from [employer] on 01/13/15. 12Data migrated from [employer] on 01/13/15. 13urine, 01/10/16 14Problem added by Discern Expert. 15Data migrated from [employer] on 02/18/15. 16Data migrated from [employer] on 01/14/15. 17Data migrated from [employer] on 01/13/15. 18Data migrated from [employer] on 01/13/15. Allergies, Adverse Reactions, Alerts Substance Reaction Severity Status penicillins1 itching and rash Active sulfa drugs2 lip swelling Active 1Data migrated from [employer] on 03/13/15. Originally documented as PENICILLIN. irritation and rash 2Data migrated from [employer] on 03/13/15. Originally documented as SULFA. lips (swollen) Medications omeprazole 40 mg oral delayed release capsule 40 mg = 1 cap, PO, Daily, # 30 cap, 1 Refill(s), Pharmacy: [facility] [id number] Start Date: 10/03/18 Stop Date: 12/02/18 Status: Ordered Results No data available for this section Immunizations Given and Recorded Vaccine Date Status Refusal Reason influenza virus vaccine, inactivated1 04/28/18 Recorded influenza virus vaccine, inactivated2 05/15/17 Recorded influenza virus vaccine, inactivated 05/26/15 G iven influenza virus vaccine, inactivated3 04/04/14 Given pneumococcal 23-valent vaccine4 04/04/14 Given 1Location History: Pharmacy 2Location History: [facility] 3Result Comment: fluzone. Migrated from OBS ; Data migrated from [employer] on 03/20/2015. 4Result Comment: pneumovax. Migrated from OBS VIS: 03-11-97 given April 04, 2014. ; Data migrated from [employer] on 03/20/2015. Procedures Procedure Date Related Diagnosis Body Site Status Influenza vaccination 04/28/18 Completed Colonoscopy1 12/14/17 Completed Diabetic retinal eye exam 03/2017 Completed TURP - Transurethral resection of prostate2 03/07/16 Completed Colonoscopy3 07/01/14 Completed Pneumococcal vaccination4 04/04/14 Completed Bilateral inguinal hernia repair5 Completed Cholecystectomy Completed Tonsillectomy Completed 1diverticulosis, hemorrhoids, repeat in [address] 3polyps, repeat in 3 years 4Pneumovax 5right in 2007 [place] left 11/2012 Social History Social History Type Response Substance Abuse Use: None. Exercise Exercise type: none. 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 Alcohol Never Smoking Status Never smoker; Concerns abou t tobacco use in household: No; Exposure to Tobacco Smoke None; Cigarette Smoking L ast 365 Days No; Reg Smoking Cessation Counseling No entered on: 09/28/18 Assessment and Plan No data available for this section
--- OUTSIDE RECORDS SUMMARY | 2020-01-22 16:22 | XMS REPORT | Summary of Care ---
Author Author [facility] Primary Care [facility] Organization [facility] Address Unknown Phone Unavailable Encounter MIRELA Workman(FIN) [id number] Date(s): 07/03/17 - 07/03/17 [facility] [address], [address] [place] [address]- [phone] Discharge Disposition: Home or Self Care Attending Physician: Jessy Aggarwal MD Vital Signs Most recent to 1 oldest [Reference Range]: Height 167.64 cm (07/03/17 10:41 AM) Temperature Oral 97.5 DegF [96.4-99.1 DegF] (07/03/17 10:41 AM) Blood Pressure 136/79 mmHg [90-140/60-90 mmHg] (07/03/17 10:41 AM) Respiratory Rate 16 BRMIN [14-20 BRMIN] (07/03/17 10:41 AM) Peripheral Pulse 61 bpm Rate [60-100 bpm] (07/03/17 10:41 AM) Weight 75 kg (07/03/17 10:41 AM) Body Mass Index 26.69 m2 (07/03/17 10:41 AM) Problem List Condition Effective Dates Status Health Status Informan t Anemia(Confirmed) Active Benign essential 03/03/14 Active hypertension(Confirm ed)1, 2 Benign prostatic 03/03/14 Active hyperplasia(Confirme d)3, 4 Biliary calculus5, 6 07/21/14 Active Diabetes mellitus Active type 2, controlled, without complications(Confir med) Dry eyes(Confirmed) Active Gastroesophageal 04/04/14 Active reflux disease(Confirmed)7, 8 Hearing loss9, 10 04/04/14 Active History of colonic Active polyps(Confirmed) S/P TURP(Confirmed) Active Hypothyroidism(Confi 04/21/14 Active rmed)11, 12 ESBL (extended 5/29/16 Resolved spectrum beta-lactamase) producing bacteria infection(Confirmed) 13, 14 Right knee pain15, 12/30/14 Active 16 Left inguinal 04/21/14 Resolved moahhg52, 18 Left lumbar Active radiculopathy(Confir med) Medicare annual Active wellness visit, subsequent(Confirmed ) Mixed Active hyperlipidemia(Confi rmed) Overweight(Confirmed Active ) Elevated Active PSA(Confirmed) Screening for colon Active cancer(Confirmed) Screening for Active diabetic retinopathy(Confirme d) Tinnitus of left Active ear(Confirmed) Vitamin D Active deficiency(Confirmed ) 1Data migrated [...] Daily, # 30 cap, 1 Refill(s), Pharmacy: [id number] Start Date: 11/20/17 Stop Date: 09/01/17 Status: Ordered Results No data available for this section Immunizations Given and Recorded Vaccine Date Status Refusal Reason influenza virus vaccine, inactivated1 05/15/17 Recorded influenza virus vaccine, inactivated 05/26/15 G iven influenza virus vaccine, inactivated2 04/04/14 Given pneumococcal 23-valent vaccine3 04/04/14 Given 1Location History: [facility] 2Result Comment: fluzone. Migrated from OBS ; Data migrated from [email or web address] on 03/20/2015. 3Result Comment: pneumovax. Migrated from OBS VIS: 03-11-97 given April 04, 2014. ; Data migrated from [email or web address] on 03/20/2015. Procedures Procedure Date Related Diagnosis Body Site Diabetic retinal eye exam 03/2017 TURP - Transurethral resection of prostate1 03/07/16 Colonoscopy2 07/01/14 Bilateral inguinal hernia repair3 Cholecystectomy Tonsillectomy [facility] 2polyps, repeat in 3 years 3right in 2007 [place] left 11/2012 Social History Social History Type Response Substance Abuse Use: None. Exercise Exercise type: none. 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
--- OUTSIDE RECORDS SUMMARY | 2020-01-22 16:22 | XMS REPORT | Continuity of Care Document ---
Author Author [facility] Address Unknown Phone Unavailable Care Team Providers Care Director Community Health Nursing Name Role Phone MD Alessia, Jessy HERNANDEZ Unavailable Insurance Providers Payer name Policy type / Coverage type Policy ID Covered democrat ID Policy Leiva [facility] PL[facility] (MEDICARE REPL Encounters Encounter Performer Location Date Office Visit Jessy Aggarwal MD [facility] Jun 09, 2014 Allergies, Adverse Reactions, Alerts Type Substance Reaction Status Drug allergy PENICILLIN irritation and rash Active Drug allergy SULFA lips (swollen) Active Problems Problem Effective Dates Problem Status BPH Mar 03, 2014 Active BENIGN ESSENTIAL HYPERTENSION Mar 03, 2014 Active ROUTINE GENERAL MEDICAL EXAMINATION AT A [facility] Apr 04, 2014 Inactive SCREENING FOR [...] 2014 Active ACUTE CYSTITIS Jun 09, 2014 Active DYSURIA Jun 09, 2014 Active Procedures Date Description Comments Apr 04, 2014 smoking status Never smoker Apr 21, 2014 smoking status Never smoker Jun 09, 2014 smoking status Never smoker Medications Medication [...] prior to breakfast. Apr 21, 2014 Active CIPROFLOXACIN HCL 500 MG TABS Take one tablet by mouth twice daily. Jun 09, 2014 Active PYRIDIUM 100 MG TABS Take one tablet by mouth three times a day for 2 days. Jun 09, 2014 Active Immunizations Vaccine Date Status influenza [...] E&M - 8867-4 PULSE RATE 76 /min Results Date Description Test Name Value [...]
--- OUTSIDE RECORDS SUMMARY | 2020-01-22 16:22 | XMS REPORT | Continuity of Care Document ---
Author Author [facility] Organization [facility] Address Unknown Phone Unavailable Care Team Providers Care Aircraft Magneto Mechanic Name Role Phone MD Alessia, Jessy HERNANDEZ Unavailable Insurance Providers Payer name Policy type / Coverage type Policy ID Covered alliance party ID Policy Leiva [facility] (MEDICARE REPL Encounters Encounter Performer Location Date Office Visit Jessy Aggarwal MD [facility] Sep 30, 2014 Allergies, Adverse Reactions, Alerts Type Substance Reaction Status Drug allergy LISINOPRIL Headache Active Drug allergy PENICILLIN irritation and rash Active Drug allergy SULFA lips (swollen) Active Problems Problem Effective Dates Problem Status BPH Mar 03, 2014 Active BENIGN ESSENTIAL HYPERTENSION Mar 03, 2014 Active ROUTINE GENERAL MEDICAL EXAMINATION AT A HEALTH CARE [facility] Apr 04, 2014 Inactive SCREENING FOR [...] 09, 2014 Inactive CHOLELITHIASIS Jul 21, 2014 Active CHOLECYSTECTOMY, LAPAROSCOPIC, HX OF Jul 21, 2014 Act scotty URINARY RETENTION Jul 21, 2014 Inactive HEMATURIA Jul 21, 2014 Inactive ACUTE CYSTITIS Jul 24, 2014 Inactive TINEA PEDIS Sep 15, 2014 Active DYSURIA Sep 30, 2014 Active Procedures Date Description Comments Apr 04, 2014 smoking status Never smoker Apr 21, 2014 smoking status Never smoker Jun 09, 2014 smoking status Never smoker Jul 01, 2014 colonoscopy Complete Jul 21, 2014 smoking status Never smoker Aug 18, 2014 smoking status Never smoker Sep 15, 2014 smoking status Never smoker Sep 30, 2014 smoking status Never smoker Medications Medication Instructions Start Date Status MULTIVITAMIN AND MULTIMINERAL Take one tablet by mouth daily. Au 2013 Active CIPROFLOXACIN HCL 500 MG TABS Take one tablet by mouth twice daily for 3 days. Apr 04, 2014 Inactive LEVOTHYROXINE SODIUM 25 MCG TABS Take one tablet by [facility] daily 30 minutes prior to breakfast. Apr 21, 2014 Active PYRIDIUM 100 MG TABS Take [...] TABS Take one tablet by mouth daily. Ja n 2014 Active ECONAZOLE NITRATE 1 % CREA Apply to affected areas twice daily F 2014 Active OMEPRAZOLE 20 MG CPDR Take one capsule by mouth daily. Sep 30 015 Active NEXIUM 20 MG CPDR Take one capsule by mouth daily. Apr 04, 2014 Inactive Immunizations Vaccine Date Status influenza immunization (Flu [...] E&M - 8867-4 PULSE RATE 59 /min Results Date Description Test Name Value [...] 2014 urea nitrogen, blood BUN 17 mg/dL 7-Aug 12, 2014 urea nitrogen/creatinine ratio, serum BUN/CREAT [...] phosphatase, serum ALK PHOS 116 U/L 39-136 Apr 04, 2014 urine color UA COLOR [...]
--- OUTSIDE RECORDS SUMMARY | 2020-01-22 16:22 | XMS REPORT | Summary of Care ---
Author Author [facility] Primary Care [facility] Organization [facility] Primary [facility] Address Unknown Phone Unavailable Encounter MIRELA Workman(FIN) [id number] Date(s): 12/11/18 - 12/12/18 [facility] Primary [facility] [address] [place] [address]- [phone] Vital Signs No data available for this [...] Originally documented as SULFA. lips (swollen) Medications sildenafil 100 mg oral tablet 100 mg = 1 tab, PO, Daily, PRN for erectile dysfunction, # 2 tab, 5 Refill(s), P harmacy: [id number] Start Date: 12/11/18 Status: Ordered Results No data available for this section Immunizations Given and Recorded Vaccine Date Status Refusal Reason influenza virus vaccine, inactivated1 04/28/18 Recorded influenza virus vaccine, inactivated2 05/15/17 Recorded influenza virus vaccine, inactivated 05/26/15 G iven influenza virus vaccine, inactivated3 04/04/14 Given pneumococcal 23-valent vaccine4 04/04/14 Given 1Location History: Pharmacy 2Location History: [facility] 3Result Comment: fluzone. 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 Alcohol Never Smoking Status Never smoker; Concerns abou t tobacco use in household: No; Exposure to Tobacco Smoke None; Cigarette Smoking L ast 365 Days No; Reg Smoking Cessation Counseling No entered on: 09/28/18 Assessment and Plan No data available for this section
--- OUTSIDE RECORDS SUMMARY | 2020-01-22 16:22 | XMS REPORT | Continuity of Care Document ---
Author Author [facility] Address Unknown Phone Unavailable Care Team Providers Care Typist Name Role Phone MD Alessia, Jessy HERNANDEZ Unavailable Insurance Providers Payer name Policy type / Coverage type Policy ID Covered republican ID Policy Leiva [facility] (MEDICARE REPL Encounters Encounter Performer Location Date Lab Report Jessy Aggarwal MD [facility] Jul 21, 2014 Allergies, Adverse Reactions, Alerts Type Substance Reaction Status Drug allergy PENICILLIN irritation and rash Active Drug allergy SULFA lips (swollen) Active Problems Problem Effective Dates Problem Status BPH Mar 03, 2014 Active BENIGN ESSENTIAL HYPERTENSION Mar 03, 2014 Active ROUTINE GENERAL MEDICAL EXAMINATION AT A HEALTH CARE [facility] Apr 04, 2014 Inactive [...] 09, 2014 Inactive DYSURIA Jun 09, 2014 Active CHOLELITHIASIS Jul 21, 2014 Active CHOLECYSTECTOMY, LAPAROSCOPIC, HX OF Jul 21, 2014 Act scotty URINARY RETENTION Jul 21, 2014 Active HEMATURIA Jul 21, 2014 Active ACUTE CYSTITIS Jul 24, 2014 Active Procedures Date Description Comments Apr 04, 2014 smoking status Never smoker Apr 21, 2014 smoking status Never smoker Jun 09, 2014 smoking status Never smoker Jul 01, 2014 colonoscopy Complete Jul 21, 2014 smoking status Never smoker Medications Medication Instructions Start Date Status MULTIVITAMIN AND MULTIMINERAL Take one tablet by mouth daily. Au 2013 Active NEXIUM 20 MG CPDR Take one capsule by mouth daily. Apr 04, 2014 Active LISINOPRIL 20 MG TABS Take one tablet by mouth daily. Mar 03 14 Active CIPROFLOXACIN HCL 500 MG TABS Take one tablet by mouth twice daily for 3 days. Apr 04, 2014 Inactive LEVOTHYROXINE SODIUM 25 MCG TABS Take one tablet by [facility] daily 30 minutes prior to breakfast. Apr [...] f or 7 days. Jul 24, 2014 Active Immunizations Vaccine Date Status influenza [...] height E&M - 8302-2 HEIGHT 68 in Results Date Description Test Name Value Reference [...]
--- OUTSIDE RECORDS SUMMARY | 2020-01-22 16:22 | XMS REPORT | Summary of Care ---
Author Author [facility] Primary Care [facility] Organization [facility] Address Unknown Phone Unavailable Encounter MIRELA Workman(FIN) [id number] Date(s): 04/03/18 - 04/04/18 [facility] [address] [place], [place] [address]- [phone] Vital Signs No data available for this [...] 12/30/14 Active 16 Left inguinal 04/21/14 Resolved [id number], 18 Left lumbar Active radiculopathy(Confir med) Medicare [...] Originally documented as SULFA. lips (swollen) Medications losartan 25 mg oral tablet 25 mg = 1 tab, PO, Daily, # 90 tab, 1 Refill(s), Pharmacy: [id number] Start Date: 04/03/18 Stop Date: 09/30/18 Status: Ordered Results No data available for this section Immunizations Given and Recorded Vaccine Date Status Refusal Reason influenza virus vaccine, inactivated1 04/28/18 Recorded influenza virus vaccine, inactivated2 05/15/17 Recorded influenza virus vaccine, inactivated 05/26/15 G iven influenza virus vaccine, inactivated3 04/04/14 Given pneumococcal 23-valent vaccine4 04/04/14 Given 1Location History: Pharmacy 2Location History: [facility] 3Result Comment: fluzone. 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
--- OUTSIDE RECORDS SUMMARY | 2020-01-22 16:22 | XMS REPORT | Summary of Care ---
Author Author [facility] Primary Care [facility] Organization [facility] Address Unknown Phone Unavailable Encounter HQ Jacinta(FIN) [id number] Date(s): 03/11/19 - 03/12/19 [facility] [address] [place] [address] 7 [phone] Vital Signs No data available for this [...] 12/30/14 Active 16 Left inguinal 04/21/14 Resolved [id number], 18 Left lumbar Active radiculopathy(Confir med) Medicare [...] Originally documented as SULFA. lips (swollen) Medications No data available for this section Results No data available for this section Immunizations Given and Recorded Vaccine Date Status Refusal Reason influenza virus vaccine, inactivated1 04/28/18 Recorded influenza virus vaccine, inactivated2 05/15/17 Recorded influenza virus vaccine, inactivated 05/26/15 G iven influenza virus vaccine, inactivated3 04/04/14 Given pneumococcal 23-valent vaccine4 04/04/14 Given 1Location History: Pharmacy 2Location History: [facility] 3Result Comment: fluzone. Migrated from OBS ; Data migrated from [employer] on 03/20/2015. 4Result Comment: pneumovax. Migrated from OBS VIS: 03-11-97 given April 04, 2014. ; Data migrated from [employer] on 03/20/2015. Procedures Procedure Date Related Diagnosis Body Site Status Diabetic retinal eye exam1 08/2018 Completed Influenza vaccination 04/28/18 Completed Colonoscopy2 12/14/17 Completed Diabetic retinal eye exam 03/2017 Completed TURP - Transurethral resection of prostate3 03/07/16 Completed Colonoscopy4 07/01/14 Completed Pneumococcal vaccination5 04/04/14 Completed Bilateral inguinal hernia repair6 Completed Cholecystectomy Completed Tonsillectomy Completed 1no retinopathy 2diverticulosis, hemorrhoids, repeat in [address] 4polyps, repeat in 3 years 5Pneumovax 6right in 2007 [place] left 11/2012 Social History Social History Type Response Substance Abuse Use: None. Exercise Exercise type: none. 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
--- OUTSIDE RECORDS SUMMARY | 2020-01-22 16:22 | XMS REPORT | Summary of Care ---
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 Alcohol Never Smoking Status Never smoker; Concerns abou t tobacco use in household: No; Exposure to Tobacco Smoke None; Cigarette Smoking L ast 365 Days No; Reg Smoking Cessation Counseling No entered on: 09/28/18 Assessment and Plan No data available for this section
--- OUTSIDE RECORDS SUMMARY | 2020-01-22 16:22 | XMS REPORT | Summary of Care ---
Author Author [facility] Primary Care [facility] Organization [facility] Primary [facility] Address Unknown Phone Unavailable Encounter HQ Jacinta(FIN) [id number] Date(s): 12/18/18 - 12/19/18 [facility] Primary Care [facility] [address] [place] [address]- Vital Signs No data available for this [...] # 2 tab, 5 Refill(s), P harmacy: [facility] Start Date: 12/18/18 Status: Ordered Results No data available for [...] 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 Alcohol Never Smoking Status Never smoker; Concerns abou t tobacco use in household: No; Exposure to Tobacco Smoke None; Cigarette Smoking L ast 365 Days No; Reg Smoking Cessation Counseling No entered on: 09/28/18 Assessment and Plan No data available for this section
--- OUTSIDE RECORDS SUMMARY | 2020-01-22 16:22 | XMS REPORT | Continuity of Care Document ---
Author Author [facility] Address Unknown Phone Unavailable Care Team Providers Care Cleaning Specialist Name Role Phone MD Alessia, Jessy HERNANDEZ Unavailable Insurance Providers Payer name Policy type / Coverage type Policy ID Covered constitution party ID Policy Leiva [facility] REPL Encounters Encounter Performer Location Date Lab Report Jessy Aggarwal MD [facility] Sep 30, 2014 Allergies, Adverse Reactions, Alerts Type Substance Reaction Status Drug allergy LISINOPRIL Headache Active Drug allergy PENICILLIN irritation and rash Active Drug allergy SULFA lips (swollen) Active Problems Problem Effective Dates Problem Status BPH Mar 03, 2014 Active BENIGN ESSENTIAL HYPERTENSION Mar 03, 2014 Active ROUTINE GENERAL MEDICAL EXAMINATION AT A HEALTH CARE [facility] Apr 04, 2014 Inactive SCREENING [...] 25 MCG TABS Take one tablet by [facility] daily 30 minutes prior to breakfast. Apr [...] specific antigen PSA 7.61 ng/mL 0.00-4.00 High Apr 04, 2014 urine [...]
--- OUTSIDE RECORDS SUMMARY | 2020-01-22 16:22 | XMS REPORT | Summary of Care ---
Author Author [facility] Primary Care [facility] Organization [facility] Address Unknown Phone Unavailable Encounter HQ Belen_gustavo(FIN) [id number] Date(s): 08/16/17 - 08/17/17 [facility] [address] [place], [place] [address]- [phone] Vital Signs No data available for this [...] Originally documented as SULFA. lips (swollen) Medications fenofibrate 54 mg oral tablet 54 mg = 1 tab, PO, Daily, # 90 tab, 1 Refill(s), Pharmacy: [id number], Second approval Start Date: 08/16/17 Status: Ordered Results No data available for this section Immunizations Given and Recorded Vaccine Date Status Refusal Reason influenza virus vaccine, inactivated1 05/15/17 Recorded influenza virus vaccine, inactivated 05/26/15 G iven influenza virus vaccine, inactivated2 04/04/14 Given pneumococcal 23-valent vaccine3 04/04/14 Given 1Location History: [facility] 2Result Comment: fluzone. Migrated from OBS ; Data migrated from [employer] on 03/20/2015. 3Result Comment: pneumovax. 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
--- OUTSIDE RECORDS SUMMARY | 2020-01-22 16:22 | XMS REPORT | Summary of Care ---
Author Author [facility] Primary [facility] Organization [facility] Address Unknown Phone Unavailable Encounter MIRELA Workman(FIN) [id number] Date(s): 06/27/18 - 06/27/18 [facility] [address] [place] [address]- Discharge Disposition: Home or Self Care Attending Physician: Jessy Aggarwal MD Vital Signs Most recent to 1 oldest [Reference Range]: Height 167.64 cm (06/27/18 1:47 PM) Temperature Oral 98.3 DegF [96.4-99.1 DegF] (06/27/18 1:47 PM) Blood Pressure 144/76 mmHg [90-140/60-90 mmHg] *HI* (06/27/18 1:47 PM) Respiratory Rate 16 BRMIN [14-20 BRMIN] (06/27/18 1:47 PM) Peripheral Pulse 68 bpm Rate [60-100 bpm] (06/27/18 1:47 PM) Weight 72.955 kg (06/27/18 1:47 PM) Body Mass Index 25.96 m2 (06/27/18 1:47 PM) Problem List Condition Effective Dates Status Health [...] 12/30/14 Active 16 Left inguinal 04/21/14 Resolved [id number], 18 Left lumbar Active radiculopathy(Confir med) Medicare [...] Originally documented as SULFA. lips (swollen) Medications meclizine 25 mg oral tablet 25 mg = 1 tab, PO, TID, PRN for dizziness, # 40 tab, 1 Refill(s), Pharmacy: [id number] Start Date: 06/27/18 Stop Date: 06/27/19 Status: Ordered sildenafil 100 mg oral tablet 100 mg = 1 tab, PO, Daily, PRN for erectile dysfunction, # 2 tab, 5 Refill(s) Start Date: 06/27/18 Stop Date: 09/20/18 Status: Completed Results No data available for this section Immunizations Given and Recorded Vaccine Date Status Refusal Reason influenza virus vaccine, inactivated1 04/28/18 Recorded influenza virus vaccine, inactivated2 05/15/17 Recorded influenza virus vaccine, inactivated 05/26/15 G iven influenza virus vaccine, inactivated3 04/04/14 Given pneumococcal 23-valent vaccine4 04/04/14 Given 1Location History: Pharmacy 2Location History: [facility] 3Result Comment: fluzone. Migrated from OBS ; Data migrated from [employer] on 03/20/2015. 4Result Comment: pneumovax. Migrated from OBS VIS: 03-11-97 given April 04, 2014. ; Data migrated from [employer] on 03/20/2015. 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 Alcohol Never Smoking Status Never smoker; Concerns abou t tobacco use in household: No; Exposure to Tobacco Smoke None; Cigarette Smoking L ast 365 Days No; Reg Smoking Cessation Counseling No entered on: 09/28/18 Assessment and Plan No data available for this section
--- OUTSIDE RECORDS SUMMARY | 2020-01-22 16:22 | XMS REPORT | Summary of Care ---
Author Author [facility] Primary Care [facility] Organization [facility] Primary [facility] Address Unknown Phone Unavailable Encounter HQ Jacinta(FIN) [id number] Date(s): 04/28/18 - 04/29/18 [facility] Primary [facility] [address] [place] [address]- Vital Signs No data available for this [...] 12/30/14 Active 16 Left inguinal 04/21/14 Resolved [id number], 18 Left lumbar Active radiculopathy(Confir med) Medicare [...] Originally documented as SULFA. 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 Alcohol Never Smoking Status Never smoker; Concerns abou t tobacco use in household: No; Exposure to Tobacco Smoke None; Cigarette Smoking L ast 365 Days No; Reg Smoking Cessation Counseling No entered on: 09/28/18 Assessment and Plan No data available for this section
--- OUTSIDE RECORDS SUMMARY | 2020-01-22 16:22 | XMS REPORT | Continuity of Care Document ---
Author Author [facility] Address Unknown Phone Unavailable Care Team Providers Care Classroom Assistant Name Role Phone MD Alessia, Jessy HERNANDEZ Unavailable Insurance Providers Payer name Policy type / Coverage type Policy ID Covered democrat ID Policy Leiva [facility]MEDIC[facility] REPL Encounters Encounter Performer Location Date Lab Report Jessy Aggarwal MD [facility] Jun 09, 2014 Allergies, Adverse Reactions, Alerts Type Substance Reaction Status Drug allergy PENICILLIN irritation and rash Active Drug allergy SULFA lips (swollen) Active Problems Problem Effective Dates Problem Status BPH Mar 03, 2014 Active BENIGN ESSENTIAL HYPERTENSION Mar 03, 2014 Active ROUTINE GENERAL MEDICAL EXAMINATION AT A HEALTH CARE [facility] Y Apr 04, 2014 Inactive SCREENING FOR [...] MCG TABS Take one tablet by [facility] daily 30 minutes prior to breakfast. [...]
--- OUTSIDE RECORDS SUMMARY | 2020-01-22 16:22 | XMS REPORT | Summary of Care ---
Author Author [facility] Primary Care [facility] Organization [facility] Primary [facility] Address Unknown Phone Unavailable Encounter HQ Jacinta(FIN) [id number] Date(s): 01/23/18 - 01/24/18 [facility] [address] [place] [address]- [phone] Vital Signs No data available for this [...] 12/30/14 Active 16 Left inguinal 04/21/14 Resolved [id number], 18 Left lumbar Active radiculopathy(Confir med) Medicare [...] Originally documented as SULFA. lips (swollen) Medications montelukast 10 mg oral tablet 10 mg = 1 tab, PO, Bedtime, # 90 tab, 1 Refill(s), Pharmacy: [facility] Start Date: 01/23/18 Status: Ordered Results No data available for this section Immunizations Given and Recorded Vaccine Date Status Refusal Reason influenza virus vaccine, inactivated1 05/15/17 Recorded influenza virus vaccine, inactivated 05/26/15 G iven influenza virus vaccine, inactivated2 04/04/14 Given pneumococcal 23-valent vaccine3 04/04/14 Given 1Location History: [facility] 2Result Comment: fluzone. Migrated from OBS ; Data migrated from [employer] on 03/20/2015. 3Result Comment: pneumovax. Migrated from OBS VIS: 03-11-97 given April 04, 2014. ; Data migrated from [employer] on 03/20/2015. Procedures Procedure Date Related Diagnosis Body Site Status Colonoscopy1 12/14/17 Completed Diabetic retinal eye exam 03/2017 Completed TURP - Transurethral resection of prostate2 03/07/16 Completed Colonoscopy3 07/01/14 Completed Bilateral inguinal hernia repair4 Completed Cholecystectomy Completed Tonsillectomy Completed 1diverticulosis, hemorrhoids, repeat in [address] 3polyps, repeat in 3 years 4right in 2007 [place] left 11/2012 Social History Social History Type Response Substance Abuse Use: None. Exercise Exercise type: none. 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 Alcohol Never Smoking Status Never smoker; Concerns abou t tobacco use in household: No; Exposure to Tobacco Smoke None; Cigarette Smoking L ast 365 Days No; Reg Smoking Cessation Counseling No entered on: 11/07/17 Assessment and Plan No data available for this section
--- OUTSIDE RECORDS SUMMARY | 2020-01-22 16:22 | XMS REPORT | Continuity of Care Document ---
Author Author [facility] Address Unknown Phone Unavailable Care Team Providers Care It Support Analyst Name Role Phone MD Alessia, Jessy HERNANDEZ Unavailable Insurance Providers Payer name Policy type / Coverage type Policy ID Covered democrat ID Policy Leiva [facility] (MEDICARE REPL Encounters Encounter Performer Location Date Office Visit Jessy Aggarwal MD [facility] Sep 15, 2014 Allergies, Adverse Reactions, Alerts Type Substance Reaction Status Drug allergy LISINOPRIL Headache Active Drug allergy PENICILLIN irritation and rash Active Drug allergy SULFA lips (swollen) Active Problems Problem Effective Dates Problem Status BPH Mar 03, 2014 Active BENIGN ESSENTIAL HYPERTENSION Mar 03, 2014 Active ROUTINE GENERAL MEDICAL EXAMINATION AT A [facility] CARE [facility] Apr 04, 2014 Inactive [...] Inactive TINEA PEDIS Sep 15, 2014 Active Procedures Date Description Comments Apr 04, 2014 smoking status Never smoker Apr 21, 2014 smoking status Never smoker Jun 09, 2014 smoking status Never smoker Jul 01, 2014 colonoscopy Complete Jul 21, 2014 smoking status Never smoker Aug 18, 2014 smoking status Never smoker Sep 15, 2014 smoking status Never smoker Medications Medication Instructions Start Date Status MULTIVITAMIN AND MULTIMINERAL Take one tablet by mouth daily. Au 2013 Active NEXIUM 20 MG CPDR Take one capsule by mouth daily. Apr 04, 2014 Active CIPROFLOXACIN HCL 500 MG TABS Take one tablet by mouth twice daily for 3 days. Apr 04, 2014 Inactive LEVOTHYROXINE SODIUM 25 MCG TABS Take one tablet by [facility] daily 30 minutes prior to breakfast. Apr [...] TABS Take one tablet by mouth daily. Stan n 2014 Active NAFTIN 2 % CREA Apply to affected areas twice daily Sep 15, 2014 Active Immunizations Vaccine Date Status influenza [...] E&M - 8867-4 PULSE RATE 62 /min Results Date Description Test Name Value [...]
--- OUTSIDE RECORDS SUMMARY | 2020-01-22 16:22 | XMS REPORT | Continuity of Care Document ---
Author Author [facility] Address Unknown Phone Unavailable Care Team Providers Care Bacon De Rinder Name Role Phone MD Alessia, Jessy HERNANDEZ Unavailable Insurance Providers Payer name Policy type / Coverage type Policy ID Covered alliance party ID Policy Leiva [facility] (MEDICARE REPL Encounters Encounter Performer Location Date Lab Report Jessy Aggarwal MD [facility] December 30, 2014 Allergies, Adverse Reactions, Alerts Type Substance Reaction Status Drug allergy LISINOPRIL Headache Active Drug allergy PENICILLIN irritation and rash Active Drug allergy SULFA lips (swollen) Active Problems Problem Effective Dates Problem Status BPH Mar 03, 2014 Active BENIGN ESSENTIAL HYPERTENSION Mar 03, 2014 Active ROUTINE GENERAL MEDICAL EXAMINATION AT A [facility] CARE [facility] Apr 04, 2014 Inactive [...] GENERAL MEDICAL EXAMINATION AT A [facility] December 30, 2014 Active PROSTATE NEOPLASM SCREENING December 30, 2014 Active Procedures Date Description Comments [...] December 30, 2014 smoking status Never smoker Medications [...] prior to breakfast. Apr 21, 2014 Active NAPROXEN 500 MG TABS Take one tablet by mouth twi ce daily as needed for pain. Take with food. December 30, 2014 Active Immunizations Vaccine Date Status influenza [...] RATE 14 /min Jun 09, 2014 weight Guadalupe&M - 3141-9 WEIGHT 162 lb Jun 09, [...] WEIGHT 161 lb December 30, 2014 height E& - 8302-2 HEIGHT 68 in December 30, [...] urea nitrogen/creatinine ratio, serum BUN/CREAT 13 null -Apr 04, 2014 albumin, serum ALBUMIN 3.9 g/dL [...] urea nitrogen/creatinine ratio, serum BUN/CREAT 17 null -Aug 12, 2014 albumin, serum ALBUMIN 4.0 g/dL [...] urea nitrogen/creatinine ratio, serum BUN/CREAT 16 null 6-25 December 30, 2014 albumin, serum ALBUMIN 3.6 g/dL [...]
--- OUTSIDE RECORDS SUMMARY | 2020-01-22 16:22 | XMS REPORT | Continuity of Care Document ---
Author Author [facility] Organization [facility] Address Unknown Phone Unavailable Care Team Providers Care White Metal Caster Name Role Phone MD Alessia, Jessy HERNANDEZ Unavailable Insurance Providers Payer name Policy type / Coverage type Policy ID Covered alliance party ID Policy Leiva [facility] (MEDICARE REPL Encounters Encounter Performer Location Date Office Visit Jessy Aggarwal MD [facility] Jul 21, 2014 Allergies, Adverse Reactions, Alerts Type Substance Reaction Status Drug allergy PENICILLIN irritation and rash Active Drug allergy SULFA lips (swollen) Active Problems Problem Effective Dates Problem Status BPH Mar 03, 2014 Active BENIGN ESSENTIAL HYPERTENSION Mar 03, 2014 Active ROUTINE GENERAL MEDICAL EXAMINATION AT A HE[facility] CARE [facility] Apr 04, 2014 Inactive [...] 2014 Active HEMATURIA Jul 21, 2014 Active Procedures Date Description Comments [...] 25 MCG TABS Take one tablet by [facility] daily 30 minutes prior to [...] by mouth daily. Mar 03, 2014 Active Immunizations Vaccine Date Status influenza [...]
--- OUTSIDE RECORDS SUMMARY | 2020-01-22 16:22 | XMS REPORT | Continuity of Care Document ---
Author Author [facility] Organization [facility] Address Unknown Phone Unavailable Care Team Providers Care Director Data Architecture Name Role Phone MD Alessia, Jessy HERNANDEZ Unavailable Insurance Providers Payer name Policy type / Coverage type Policy ID Covered republican ID Policy Leiva [facility] ([facility]PL Encounters Encounter Performer Location Date Office Visit Jessy Aggarwal MD [facility] Aug 18, 2014 Allergies, Adverse Reactions, Alerts Type Substance Reaction Status Drug allergy PENICILLIN irritation and rash Active Drug allergy SULFA lips (swollen) Active Drug allergy LISINOPRIL Headache Active Problems Problem Effective Dates Problem Status BPH Mar 03, 2014 Active BENIGN ESSENTIAL HYPERTENSION Mar 03, 2014 Active ROUTINE GENERAL MEDICAL EXAMINATION AT A [facility] CARE [facility] Apr 04, 2014 Inactive [...] Inactive ACUTE CYSTITIS Jul 24, 2014 Inactive Procedures Date Description Comments Apr 04, 2014 smoking status Never smoker Apr 21, 2014 smoking status Never smoker Jun 09, 2014 smoking status Never smoker Jul 01, 2014 colonoscopy Complete Jul 21, 2014 smoking status Never smoker Aug 18, 2014 smoking status Never smoker Medications Medication [...] 25 MCG TABS Take one tablet by [facility] daily 30 minutes prior to breakfast. Apr [...] by mouth daily. Stan n 2014 Active Immunizations Vaccine Date Status influenza [...] 98.4 deg f Jul 21, 2014 weight Guadalupe&Lucero - 3141-9 WEIGHT 162 lb Jul 21, 2014 height E&M - 8302-2 HEIGHT 68 in Aug 18, 2014 respiratory rate E&M - 9279-1 RESP RATE 14 /min Aug 18, 2014 weight Guadalupe&Lucero - 3141-9 WEIGHT 158 lb Aug 18, 2014 height E&M - 8302-2 HEIGHT 68 in Aug 18, 2014 temperature E&M TEMPERATURE 98.0 deg f Aug 18, 2014 pulse rate E&M - 8867-4 PULSE RATE 65 /min Aug 18, 2014 blood pressure, systolic - 8480-6 BP SYSTOLIC 151 mm Hg Aug 18, 2014 blood pressure, diastolic - 8462-4 BP DIASTOLIC 90 mm Hg Results Date Description Test Name [...] urea nitrogen/creatinine ratio, serum BUN/CREAT 14 null 6-Mar 28, 2014 albumin, serum ALBUMIN 3.7 g/dL [...]
--- OUTSIDE RECORDS SUMMARY | 2020-01-22 16:22 | XMS REPORT | Summary of Care ---
Author Author [facility] Primary Care [facility] Organization [facility] Address Unknown Phone Unavailable Encounter HQ Belen_gustavo(FIN) [id number] Date(s): 08/09/17 - 08/10/17 [facility] [address], [address] [place], [place] [id number]- [phone] Vital Signs No data available for this [...] Daily, # 90 tab, 1 Refill(s), Pharmacy: [id number] Start Date: 08/09/17 Status: Ordered Results No data available for this section Immunizations Given and Recorded Vaccine Date Status Refusal Reason influenza virus vaccine, inactivated1 05/15/17 Recorded influenza virus vaccine, inactivated 05/26/15 G iven influenza virus vaccine, inactivated2 04/04/14 Given pneumococcal 23-valent vaccine3 04/04/14 Given 1Location History: [facility] 2Result Comment: fluzone. 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
--- OUTSIDE RECORDS SUMMARY | 2020-01-22 16:23 | XMS REPORT | Summary of Care ---
Author Author [facility] Primary Care [facility] Organization [facility] Address Unknown Phone Unavailable Encounter MIRELA Workman(FIN) [id number] Date(s): 09/28/18 - 09/28/18 [facility] [address], [address] [place] [address]- [phone] Discharge Disposition: Home or Self Care Attending Physician: Jessy Aggarwal MD Vital Signs Most recent to 1 oldest [Reference Range]: Height 167.64 cm (09/28/18 2:04 PM) Temperature Oral 97.6 DegF [96.4-99.1 DegF] (09/28/18 2:04 PM) Blood Pressure 130/76 mmHg [90-140/60-90 mmHg] (09/28/18 2:04 PM) Respiratory Rate 16 BRMIN [14-20 BRMIN] (09/28/18 2:04 PM) Peripheral Pulse 75 bpm Rate [60-100 bpm] (09/28/18 2:04 PM) Weight 71.477 kg (09/28/18 2:04 PM) Body Mass Index 25.43 m2 (09/28/18 2:04 PM) Problem List Condition Effective Dates Status [...] 12/30/14 Active 16 Left inguinal 04/21/14 Resolved [id number], 18 Left lumbar Active radiculopathy(Confir med) Medicare [...] documented as SULFA. lips (swollen) Medications levothyroxine 88 mcg (0.088 mg) oral tablet 88 microgram = 1 tab, PO, Daily, # 90 tab, 1 Refill(s), Pharmacy: [facility] [id number] Start Date: 09/28/18 Status: Ordered Results No data available for this section Immunizations Given and Recorded Vaccine Date Status Refusal Reason influenza virus vaccine, inactivated1 04/28/18 Recorded influenza virus vaccine, inactivated2 05/15/17 Recorded influenza virus vaccine, inactivated 05/26/15 G iven influenza virus vaccine, inactivated3 04/04/14 Given pneumococcal 23-valent vaccine4 04/04/14 Given 1Location History: Pharmacy 2Location History: [facility] 3Result Comment: fluzone. Migrated from OBS ; Data migrated from WriteOn on 03/20/2015. 4Result Comment: pneumovax. Migrated from OBS VIS: 03-11-97 given April 04, 2014. ; Data migrated from WriteOn on 03/20/2015. 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 Alcohol Never Smoking Status Never smoker; Concerns abou t tobacco use in household: No; Exposure to Tobacco Smoke None; Cigarette Smoking L ast 365 Days No; Reg Smoking Cessation Counseling No entered on: 09/28/18 Assessment and Plan No data available for this section
--- OUTSIDE RECORDS SUMMARY | 2020-01-22 16:23 | XMS REPORT | Summary of Care ---
Author Author [facility] Primary Care [facility] Organization [facility] Address Unknown Phone Unavailable Encounter HQ Jacinta(FIN) [id number] Date(s): 04/05/19 - 04/06/19 [facility] [address] [place] [address]- Vital Signs No data available for this [...] 12/30/14 Active 16 Left inguinal 04/21/14 Resolved [id number], 18 Left lumbar Active radiculopathy(Confir med) Medicare annual Active wellness visit, subsequent(Confirmed ) Mixed Active hyperlipidemia(Confi rmed) Overweight(Confirmed Active ) Elevated Active PSA(Confirmed) Screening for Active diabetic retinopathy(Confirme d) Screening for colon Active cancer(Confirmed) Tinnitus of left Active ear(Confirmed) Vertigo(Confirmed) Active [...] 11/2012 Social History Social History Type Response Alcohol Never Employment/School Work/School description: 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 Substance Abuse Use: None. Smoking Status Never smoker; Concerns abou t tobacco use in household: No; Exposure to Tobacco Smoke None; Cigarette Smoking L ast 365 Days No; Reg Smoking Cessation Counseling No entered on: 01/28/19 Assessment and Plan No data available for this section
--- OUTSIDE RECORDS SUMMARY | 2020-01-22 16:23 | XMS REPORT | Summary of Care ---
Author Organization Unknown Address Unknown Phone Unavailable Encounter HQ Jacinta(ALIA) [id number] Date(s): 07/08/14 - 07/11/[address] [facility] [address] [address] Discharge Disposition: Home Physician Attending: Elisha Hernandez MD Physician Admitting: Elisha Hernandez MD Reason for Visit ACUTE CHOLECYSTITIS Vital Signs 1 2 3 Most recent to oldest [Reference Range]: 167.64 cm (07/08/14 2:11 PM) Height 98.3 DegF (07/11/14 7:45 AM) 98.2 DegF (07/11/14 4:00 AM) 98.8 DegF (07/11/14 12:00 AM) Temperature Oral [96.4-99.1 DegF] 129 mmHg (07/11/14 7:45 AM) 114 mmHg (07/11/14 4:00 AM) 110 mmHg (07/11/14 12:00 AM) Systolic Blood Pressure [90-140 mmHg] 82 mmHg (07/11/14 7:45 AM) 66 mmHg (07/11/14 4:00 AM) 66 mmHg (07/11/14 12:00 AM) Diastolic Blood Pressure [60-90 mmHg] 15 BRMIN (07/11/14 7:45 AM) 16 BRMIN (07/11/14 4:00 AM) 16 BRMIN (07/11/14 12:00 AM) Respiratory Rate [14-20 BRMIN] 67 bpm (07/11/14 7:45 AM) 68 bpm (07/11/14 4:00 AM) 71 bpm (07/11/14 12:00 AM) Peripheral Pulse Rate [60-100 bpm] 76.818 kg (07/08/14 2:47 PM) 73.182 kg (07/08/14 2:11 PM) 77.273 kg (07/08/14 2:10 PM) Weight 26.04 m2 (07/08/14 2:11 PM) Body Mass Index Problem List Condition Effective Dates Status Health Status Informan t Hypertension(Confirm Resolved ed) Thyroid Resolved disease(Confirmed) Allergies, Adverse Reactions, Alerts Substance Reaction Severity Status penicillins Active sulfa drugs Active Medications acetaminophen 650 mg, 2 tab, Route: PO, Drug form: TAB, Q4H, Dosing Weight 77.273, kg, PRN Pamela n 1-3/Temp > 100.4 F, Start date: 07/08/14 14:06:00, Duration: 30 day, Stop date: 08/07/14 14:05:00 Notes: Do not exceed 4 gm/day. (Same as: Tylenol) Start Date: 07/08/14 Stop Date: 07/11/14 Status: Discontinued acetaminophen-hydrocodone 325 mg-5 mg oral tablet 1 tab, Route: PO, Drug Form: TAB, Dosing Weight 76.818, kg, Q4H, PRN Pain Score 4-6, Start date: 07/09/14 13:43:00, Duration: 30 day, Stop date: 08/08/14 13:42: 00 Notes: (Same as: Odessa 325/5) Do not exceed 4gm/day of acetaminophen. Start Date: 07/09/14 Stop Date: 07/11/14 Status: Discontinued Cipro 400 mg, Route: IVPB, ONCE, Dosing Weight 77.273, kg, Priority: STAT, Start date: 07/08/14 11:32:00, Stop date: 07/08/14 11:32:00 Start Date: 07/08/14 Stop Date: 07/08/14 Status: Completed D5W 1/2NS 1000 mL 1,000 mL, Rate: 75 ml/hr, Infuse over: 13.3 hr, Route: IV, Dosing Weight 77.273 kg, Total Volume: 1,000, Start date: 07/08/14 11:33:00, Duration: 30 day, Stop d ate: 08/07/14 11:32:00 Start Date: 07/08/14 Stop Date: 07/08/14 Status: Discontinued Dextrose 5% with 0.9% NaCl IV 1,000 mL 1,000 mL, Rate: 125 ml/hr, Infuse over: 8 hr, Route: IV, Dosing Weight 77.273 kg , Total Volume: 1,000, Start date: 07/08/14 14:06:00, Duration: 30 day, Stop pamela e: 08/07/14 14:05:00 Start Date: 07/08/14 Stop Date: 07/11/14 Status: Discontinued enoxaparin 40 mg, 0.4 mL, Route: SUB-Q, Drug form: INJ, [id number], Dosing Weight 76.818, kg, Start date: 07/08/14 17:00:00, Duration: 30 day, Stop date: 08/06/14 17:00:00 Notes: (Same as: Lovenox) Start Date: 07/08/14 Stop Date: 07/11/14 Status: Discontinued famotidine 20 mg, Route: IVP, ONCE, Dosing Weight 77.273, kg, Priority: STAT, Start date: 09/07/13 6:36:00, Stop date: 07/08/14 6:36:00 Start Date: 07/08/14 Stop Date: 07/08/14 Status: Completed fentaNYL 50 microgram, 1 mL, Route: IVP, Drug form: INJ, Q5Min, Dosing Weight 76.818, kg, PRN Pain Score 7-10, Start date: 07/09/14 13:57:00, Duration: 2 doses or times, Stop date: Limited # of times Notes: (Same as: Sublimaze) Preservative free. Start Date: 07/09/14 Stop Date: 07/09/14 Status: Completed finasteride 5 mg, 1 tab, Route: PO, Drug form: TAB, Daily, Dosing Weight 76.818, kg, Start d ate: 07/09/14 9:00:00, Duration: 30 day, Stop date: 08/07/14 9:00:00 Notes: (Same as: Proscar) "Do Not Crush" Start Date: 07/09/14 Stop Date: 07/11/14 Status: Discontinued finasteride 5 mg, 1 tab, Route: PO, Drug form: TAB, ONCE, Dosing Weight 76.818, kg, Priority : NOW, Start date: 07/09/14 19:47:00, Stop date: 07/09/14 19:47:00 Notes: (Same as: Proscar) "Do Not Crush" Start Date: 07/09/14 Stop Date: 07/09/14 Status: Completed finasteride 0 Refill(s) Start Date: 07/08/14 Status: Ordered Flagyl 500 mg, 100 mL, Route: IVPB, Drug form: INJ, [id number], Dosing Weight 77.273, kg, P riority: STAT, Start date: 07/08/14 11:32:00, Duration: 30 day, Stop date: 08/07 5:32:00 Notes: (Same as: Flagyl) Avoid alcohol. Start Date: 07/08/14 Stop Date: 07/11/14 Status: Discontinued Flomax 0 Refill(s) Start Date: 07/08/14 Status: Ordered Flomax 0.4 mg, 1 cap, Route: PO, Drug form: CAP, Daily, Dosing Weight 76.818, kg, Start date: 07/09/14 9:00:00, Duration: 30 day, Stop date: 08/07/14 9:00:00 Notes: (Same As: Flomax) "Do Not Crush" Start Date: 07/09/14 Stop Date: 07/11/14 Status: Discontinued flumazenil 0.2 mg, 2 mL, Route: IVP, Drug form: INJ, PRN, Dosing Weight 76.818, kg, PRN Gustavo zodiazepine Reversal, Initial dose, Start date: 07/09/14 13:57:00, Duration: 30 day, Stop date: 08/08/14 13:56:00 Notes: (Same as: Romazicon) Start Date: 07/09/14 Stop Date: 07/09/14 Status: Discontinued GI cocktail 30 mL, Route: PO, Dosing Weight 77.273, kg, ONCE, STAT, Start date: 07/08/14 6:3 6:00, Stop date: 07/08/14 6:36:00 Start Date: 07/08/14 Stop Date: 07/08/14 Status: Completed hydromorphone 0.5 mg, 0.5 mL, Route: IVP, Drug form: INJ, Q5Min, Dosing Weight 76.818, kg, PRN Pain Score 7-10, Start date: 07/09/14 13:57:00, Duration: 4 doses or times, Stop date: Limited # of times Start Date: 07/09/14 Stop Date: 07/09/14 Status: Discontinued ketorolac 30 mg, 1 mL, Route: IVP, Drug form: INJ, ONCE, Dosing Weight 76.818, kg, Start d ate: 07/09/14 13:57:00, Duration: 1 doses or times, Stop date: 07/09/14 13:57:00 Notes: (Same as:Toradol) IV bolus must be given >15 seconds. Give IM administration slowly and deeply into the muscle. Not for use > 4 days Start Date: 07/09/14 Stop Date: 07/09/14 Status: Discontinued Lactated Ringers Injection IV 1,000 mL 1,000 mL, Rate: 100 ml/hr, Infuse over: 10 hr, Route: IV, Dosing Weight 76.818 k g, Total Volume: 1,000, Start date: 07/09/14 13:43:00, Duration: 30 day, Stop da te: 08/08/14 13:42:00 Start Date: 07/09/14 Stop Date: 07/11/14 Status: Discontinued levothyroxine 25 mg, PO, Daily, 0 Refill(s) Start Date: 07/08/14 Status: Ordered lisinopril 20 mg oral tablet 20 mg = 1 tab, PO, Daily, # 30 tab, 0 Refill(s) Start Date: 07/08/14 Status: Ordered MiraLax 17 gm, 1 pkt, Route: PO, Drug form: PWDR, Daily, Dosing Weight 76.818, kg, Start date: 07/10/14 18:00:00, Duration: 30 day, Stop date: 08/09/14 9:00:00 Notes: Dissolve in 8 oz of water or juice.(Same as: Miralax) Start Date: 07/10/14 Stop Date: 07/11/14 Status: Discontinued morphine Sulfate 4 mg, Route: IVP, ONCE, Dosing Weight 77.273, kg, Priority: STAT, Start date: 6:36:00, Stop date: 07/08/14 6:36:00 Start Date: 07/08/14 Stop Date: 07/08/14 Status: Completed morphine Sulfate 2 mg, 1 mL, Route: IVP, Drug form: INJ, Q3H, Dosing Weight 77.273, kg, PRN Pain Score 4-6, Start date: 07/08/14 14:06:00, Duration: 30 day, Stop date: 08/07/14 14:05:00 Notes: (Same as:MORPhine Sulfate) Start Date: 07/08/14 Stop Date: 07/11/14 Status: Discontinued morphine Sulfate 2 mg, 1 mL, Route: IVP, Drug form: INJ, Q5Min, Dosing Weight 76.818, kg, PRN Pamela n Score 4-6, Start date: 07/09/14 13:57:00, Duration: 5 doses or times, Stop pamela e: Limited # of times Notes: (Same as:MORPhine Sulfate) Start Date: 07/09/14 Stop Date: 07/09/14 Status: Discontinued morphine Sulfate 4 mg, 2 mL, Route: IVP, Drug form: INJ, Q3H, Dosing Weight 76.818, kg, PRN Pain Score 1-3, Start date: 07/09/14 13:43:00, Duration: 30 day, Stop date: 08/08/14 13:42:00 Notes: (Same as:MORPhine Sulfate) Start Date: 07/09/14 Stop Date: 07/11/14 Status: Discontinued naloxone 0.04 mg, 0.1 mL, Route: IVP, Drug form: INJ, Q2MIN, Dosing Weight 76.818, kg, [place] N Narcotic Reversal, Start date: 07/09/14 13:57:00, Duration: 8 doses or times, Stop date: Limited # of times Notes: Same as Narcan Start Date: 07/09/14 Stop Date: 07/09/14 Status: Discontinued Odessa 10/325 oral tablet 1 tab, Route: PO, Drug Form: TAB, Dosing Weight 76.818, kg, Q6H, PRN Pain, Start date: 07/09/14 13:57:00, Duration: 30 day, Stop date: 08/08/14 13:56:00 Notes: Do not exceed 4gm/day of acetaminophen. (Same as: Odessa 325/10) Start Date: 07/09/14 Stop Date: 07/09/14 Status: Discontinued Ofirmev 1,000 mg, 100 mL, Route: IV, Drug form: INJ, ONCE, Dosing Weight 76.818, kg, PRN Pain, for > or = 50 kg, Start date: 07/09/14 13:57:00 Notes: Infuse over 15 minutes Do not exceed 4gm/day of acetaminophen Start Date: 07/09/14 Stop Date: 07/09/14 Status: Discontinued ondansetron 4 mg, Route: IVP, ONCE, Dosing Weight 77.273, kg, Priority: STAT, Start date: 6:36:00, Stop date: 07/08/14 6:36:00 Start Date: 07/08/14 Stop Date: 07/08/14 Status: Completed ondansetron 4 mg, 2 mL, Route: IVP, Drug form: INJ, Q8H, Dosing Weight 77.273, kg, PRN Nause a & Vomiting, Start date: 07/08/14 14:06:00, Duration: 30 day, Stop date: 08/07/14 14:05:00 Notes: (Same as: Josi) Start Date: 07/08/14 Stop Date: 07/11/14 Status: Discontinued ondansetron 4 mg, 2 mL, Route: IVP, Drug form: INJ, ONCE, Dosing Weight 76.818, kg, PRN Naus ea & Vomiting, Start date: 07/09/14 13:57:00 Notes: (Same as: Josi) Start Date: 07/09/14 Stop Date: 07/09/14 Status: Discontinued polyethylene glycol 3350 PO, Daily, Constipation, 0 Refill(s) Start Date: 07/11/14 Stop Date: 07/11/14 Status: Deleted polyethylene glycol 3350 oral powder for reconstitution 17 gm, PO, Daily, # 12 ea, 0 Refill(s) Start Date: 07/11/14 Stop Date: 07/18/14 Status: Ordered Rocephin + Sodium Chloride 0.9% IV 100 mL 1 gm, Route: IVPB, [id number], Dosing Weight 76.818, kg, Start date: 07/08/14 17:00 :00, Duration: 30 day, Stop date: 08/06/14 17:00:00 Notes: (Same As: Rocephin). Use with 100ml NS mini-bag PLUS and infuse over 30 min Start Date: 07/08/14 Stop Date: 07/11/14 Status: Discontinued Saline Flush 0.9% 10 mL, Route: IVP, Drug Form: INJ, Dosing Weight 77.273, kg, PRN, PRN Line Flush , Start date: 07/08/14 6:36:00, Duration: 30 day, Stop date: 08/07/14 6:35:00 Notes: (Same as: BD Posiflush) Start Date: 07/08/14 Stop Date: 07/08/14 Status: Discontinued Saline Flush 0.9% 10 ml, Route: IVP, Drug Form: INJ, Dosing Weight 77.273, kg, PRN, PRN Line Flush , Start date: 07/08/14 14:06:00, Duration: 30 day, Stop date: 08/07/14 14:05:00 Notes: (Same as: BD Posiflush) Start Date: 07/08/14 Stop Date: 07/11/14 Status: Discontinued Sodium Chloride 0.9% (Bolus) IV 1,000 mL, Infuse Over: 1 hr, Route: IV, ONCE, Priority: STAT, Dosing Weight 77.2 73 kg, Start date: 07/08/14 6:36:00, Duration: 1 doses or times, Stop date: 06/15 12/25 6:36:00 Start Date: 07/08/14 Stop Date: 07/08/14 Status: Completed tamsulosin 0.4 mg, 1 cap, Route: PO, Drug form: CAP, ONCE, Dosing Weight 76.818, kg, Priori ty: NOW, Start date: 07/09/14 19:48:00, Stop date: 07/09/14 19:48:00 Notes: (Same As: Flomax) "Do Not Crush" Start Date: 07/09/14 Stop Date: 07/09/14 Status: Completed tramadol 50 mg oral tablet 50 mg = 1 tab, PO, Q6H, Pain, # 40 tab, 0 Refill(s) Start Date: 07/11/14 Stop Date: 07/21/14 Status: Ordered Results ELECTROLYTES 1 2 3 Most recent to oldest [Reference Range]: 141 mEq/L (07/09/14 10:30 AM) 138 mEq/L (07/08/14 6:25 AM) Sodium Lvl [135-145 mEq/L] 4.0 mEq/L (07/09/14 10:30 AM) 4.0 mEq/L (07/08/14 6:25 AM) Potassium Lvl [3.5-5.1 mEq/L] 108 mEq/L (07/09/14 10:30 AM) 103 mEq/L (07/08/14 6:25 AM) Chloride Lvl [95-109 mEq/L] 27 mEq/L (07/09/14 10:30 AM) 26 mEq/L (07/08/14 6:25 AM) CO2 [24-32 mEq/L] 10.0 mEq/L (07/09/14 10:30 AM) 13.0 mEq/L (07/08/14 6:25 AM) AGAP [10.0-20.0 mEq/L] CHEM PANEL 1 2 3 Most recent to oldest [Reference Range]: 1.2 mg/dL (07/09/14 10:30 AM) 1.1 mg/dL (07/08/14 5:01 PM) 1.0 mg/dL (07/08/14 6:25 AM) Creatinine Lvl [0.5-1.4 mg/dL] 63 mL/min/1.73m2 1 *NA* (07/09/14 10:30 AM) 70 mL/min/1.73m2 2 *NA* (07/08/14 5:01 PM) 79 mL/min/1.73m2 3 *NA* (07/08/14 6:25 AM) eGFR 8 mg/dL (07/09/14 10:30 AM) 14 mg/dL (07/08/14 6:25 AM) BUN [7-22 mg/dL] 14 (07/08/14 6:25 AM) B/C Ratio [6-25] 136 mg/dL 4 *HI* (07/09/14 10:30 AM) 120 mg/dL 5 *HI* (07/08/14 6:25 AM) Glucose Lvl [70-99 mg/dL] 7.8 g/dL (07/08/14 6:25 AM) Total Protein [6.4-8.4 g/dL] 3.9 g/dL (07/08/14 6:25 AM) Albumin Lvl [3.5-5.0 g/dL] 3.9 g/dL (07/08/14 6:25 AM) Globulin [2.0-4.0 g/dL] 1.0 (07/08/14 6:25 AM) A/G Ratio [0.7-1.6] 7.5 mg/dL *LOW* (07/09/14 10:30 AM) 8.5 mg/dL (07/08/14 6:25 AM) Calcium Lvl [8.5-10.5 mg/dL] 23 unit/L (07/08/14 6:25 AM) ALT [0-65 unit/L] 16 unit/L (07/08/14 6:25 AM) AST [0-37 unit/L] 129 unit/L (07/08/14 6:25 AM) Alk Phos [39-136 unit/L] 0.4 mg/dL (07/08/14 6:25 AM) Bili Total [0.2-1.3 mg/dL] 242 unit/L (07/08/14 6:25 AM) Lipase Lvl [73-393 unit/L] 1Result Comment: The eGFR is calculated using the [...] from the National Kidney Disease Education Program ( NKDEP) which additionally recommends that when the eGFR is used in patients with extremes of body mass index for purposes of drug dosing, the eGFR should be mul tiplied by the estimated BMI. 2Result Comment: The eGFR is calculated using the [...] from the National Kidney Disease Education Program ( NKDEP) which additionally recommends that when the eGFR is used in patients with extremes of body mass index for purposes of drug dosing, the eGFR should be mul tiplied by the estimated BMI. 3Result Comment: The eGFR is calculated using the [...] from the National Kidney Disease Education Program ( NKDEP) which additionally recommends that when the eGFR is used in patients with extremes of body mass index for purposes of drug dosing, the eGFR should be mul tiplied by the estimated BMI. 4Interpretive Data: Adult reference range values reflect the clinical guidelines of the [place] [employer]. 5Interpretive Data: Adult reference range values reflect the clinical guidelines of the [place] [employer]. URINE AND STOOL 1 2 3 Most recent to oldest [Reference Range]: Clear (07/08/14 6:24 AM) UA Turbidity [Clear] Ltyellow *NA* (07/08/14 6:24 AM) UA Color 5.0 (07/08/14 6:24 AM) UA pH [5.0-8.0] 1.013 (07/08/14 6:24 AM) UA Spec Grav [<=1.030] Negative mg/dL *NA* (07/08/14 6:24 AM) UA Glucose [Negative mg/dL] Negative (07/08/14 6:24 AM) UA Blood [Negative] Negative mg/dL *NA* (07/08/14 6:24 AM) UA Ketones [Negative mg/dL] Negative mg/dL (07/08/14 6:24 AM) UA Protein [Negative mg/dL] <=1.0 mg/dL *NA* (07/08/14 6:24 AM) UA Urobilinogen [0.1-1.0 mg/dL] Negative *NA* (07/08/14 6:24 AM) UA Bili [Negative] Negative (07/08/14 6:24 AM) UA Leuk Est [Negative] Negative (07/08/14 6:24 AM) UA Nitrite [Negative] <1 /HPF (07/08/14 6:24 AM) UA WBC [0-5 /HPF] 1 /HPF (07/08/14 6:24 AM) UA RBC [0-2 /HPF] Occasional /LPF *NA* (07/08/14 6:24 AM) UA Sq Epi [Few /LPF] Few /LPF *NA* (07/08/14 6:24 AM) UA Mucus [None Seen /LPF] HEMATOLOGY 1 2 3 Most recent to oldest [Reference Range]: 4.2 K/CMM (07/09/14 10:30 AM) 6.1 K/CMM (07/08/14 6:25 AM) WBC [3.7-10.4 K/CMM] 4.38 M/CMM *LOW* (07/09/14 10:30 AM) 4.53 M/CMM *LOW* (07/08/14 6:25 AM) RBC [4.70-6.10 M/CMM] 13.2 g/dL *LOW* (07/09/14 10:30 AM) 13.9 g/dL *LOW* (07/08/14 6:25 AM) Hgb [14.0-18.0 g/dL] 38.5 % *LOW* (07/09/14 10:30 AM) 39.8 % *LOW* (07/08/14 6:25 AM) Hct [42.0-54.0 %] 88.0 fL (07/09/14 10:30 AM) 87.9 fL (07/08/14 6:25 AM) MCV [80.0-94.0 fL] 30.1 pg (07/09/14 10:30 AM) 30.6 pg (07/08/14 6:25 AM) MCH [27.0-31.0 pg] 34.2 g/dL (07/09/14 10:30 AM) 34.8 g/dL (07/08/14 6:25 AM) MCHC [32.0-36.0 g/dL] 14.0 % (07/09/14 10:30 AM) 14.1 % (07/08/14 6:25 AM) RDW [11.5-14.5 %] 160 K/CMM (07/09/14 10:30 AM) 177 K/CMM (07/08/14 5:01 PM) 174 K/CMM (07/08/14 6:25 AM) Platelet [133-450 K/CMM] 7.8 fL (07/09/14 10:30 AM) 8.3 fL (07/08/14 6:25 AM) MPV [7.4-10.4 fL] 57.0 % (07/09/14 10:30 AM) 69.2 % (07/08/14 6:25 AM) Segs [45.0-75.0 %] 33.4 % (07/09/14 10:30 AM) 24.4 % (07/08/14 6:25 AM) Lymphocytes [20.0-40.0 %] 7.3 % (07/09/14 10:30 AM) 4.9 % (07/08/14 6:25 AM) Monocytes [2.0-12.0 %] 1.9 % (07/09/14 10:30 AM) 1.2 % (07/08/14 6:25 AM) Eosinophils [0.0-4.0 %] 0.4 % (07/09/14 10:30 AM) 0.3 % (07/08/14 6:25 AM) Basophils [0.0-1.0 %] 2.4 K/CMM (07/09/14 10:30 AM) 4.2 K/CMM (07/08/14 6:25 AM) Segs-Bands # [1.5-8.1 K/CMM] 1.4 K/CMM (07/09/14 10:30 AM) 1.5 K/CMM (07/08/14 6:25 AM) Lymphocytes # [1.0-5.5 K/CMM] 0.3 K/CMM (07/09/14 10:30 AM) 0.3 K/CMM (07/08/14 6:25 AM) Monocytes # [0.0-0.8 K/CMM] 0.1 K/CMM (07/09/14 10:30 AM) 0.1 K/CMM (07/08/14 6:25 AM) Eosinophils # [0.0-0.5 K/CMM] 29.8 seconds 6 (07/08/14 5:01 PM) PTT [22.9-35.8 seconds] 6Interpretive Data: Heparin Therapeutic Range: 57 - 92 Seconds Medications Administered During Your Visit No data available for this section Immunizations No data available for this section Procedures Procedure Type Body Site Date of Procedure Related Diag nosis Hernia repair Social History Social History Type Response Smoking Status Never smoker, Previous jenniffer tment: None, Ready to change: No, Concerns about tobacco use in household: No, Exposure to Tobacco Smoke None, Cigarette Smoking Last 365 Days No, Reg Smoking C essation Counseling No Assessment and Plan Extracted from: Title: Clinical Document Author: Hans Oliveira MD Date: 07/10/14 Progress Note - Daily [facility] Completed: Jun, 08:31 by Hans Oliveira MD RM: 237 - 1D, SE [id number] (: 1950) M Attending: Elisha Hernandez MDPhone: Service: Internal Medicine Reason for Admission: ACUTE CHOLECYSTITIS Working DRG: Disorders of the biliary tract w/o CC/RESIDENTIAL Code status: Full Code [Ordered]Current diet: Isolation: None Documented Allergies: penicillins, sulfa drugs SUBJECTIVE Pt was unable to void post surgery and required straight cath. Pt still cannot void. He is tolerating diet, ambulating OBJECTIVE abd is soft, mild distention, wounds OK 24hr Labs 07/09 1030 Glucose Oqr309 H BUN8 Creatinine Lvl1.2 Sodium Fpu859 Potassium Lvl4.0 Chloride Uzl436 CO227 AGAP10.0 Calcium Lvl7.5 L eGFR63 WBC4.2 RBC4.38 L Hgb13.2 L Hct38.5 L MCV88.0 MCH30.1 MCHC34.2 RDW14.0 Xrjmthpa070 MPV7.8 Segs57.0 Monocytes7.3 Vnoaizxgkvw36.4 Eosinophils1.9 Basophils0.4 Segs-Bands #2.4 Lymphocytes #1.4 Monocytes #0.3 Eosinophils #0.1 Barboza still necessary (Yes/No): Line still necessary (Yes/No): VitalsTmp(F)[id number] 07/10 07:3597.256344/331935--- 07/10 03:4098.200283/198944--- 07/10 00:0099.591930/438798--- 07/09 21:18----42185/96-------- 07/09 20:0098.721910/[id number]--- 24 Hr Tmax: 99.0F (37.22c) at 07/10 00:0 0Vital Signs are the last 5 in the past 48 hours. DateWt(kg)Wt(lb)Ht(cm)Ht(in)Method 07/08 (initial) 77.27 170.00Estimated 67.64 66.00Measured I&ORecordInOutBal 06/2624hr Tot 2619 2801 -182 06/2524hr Tot 1097 750 347 Medications (16) Active Scheduled Meds (5): 07/08/14 cefTRIAXone + Sodium Chloride 0 .9% IV 100 mL (Rocephin + Sodium Chloride 0.9% IV 100 mL) 1 gm IVPB [id number] 200 ml/hr 07/08/14 enoxaparin 40 mg SUB-Q [id number] 07/09/14 finasteride 5 mg PO Daily 07/08/14 [...] ,000 mL 1,000 mL 100 ml/hr ASSESSMENT & EXAM pt with urinary retention, otherwise OK post cholecystectomy PLAN & TREATMENT Place Barboza catheter. Pt could be discharged with catheter if he wishes to go home. F/U karina in 3-4 days to remove catheter. DIAGNOSES & PROBLEMS Ready for Discharge (Yes/No)? TEACHING ATTESTATION
--- OUTSIDE RECORDS SUMMARY | 2020-01-22 16:23 | XMS REPORT | Summary of Care ---
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 Exercise Exercise type: none. Substance Abuse Use: None. Smoking Status Never smoker; Concerns abou t tobacco use in household: No; Exposure to Tobacco Smoke None; Cigarette Smoking L ast 365 Days No; Reg Smoking Cessation Counseling No entered on: 01/28/19 Assessment and Plan No data available for this section
--- OUTSIDE RECORDS SUMMARY | 2020-01-22 16:23 | XMS REPORT | Summary of Care ---
Author Author [facility] Organization [facility] Address Unknown Phone Unavailable Encounter MIRELA Workman(ALIA) [id number] Date(s): 01/10/16 - 01/10/16 [facility] [address] [place] [address]- Discharge Diagnosis: Enteritis Discharge Disposition: Home Attending Physician: Narendra Sena MD Vital Signs 1 2 3 Most recent to oldest [Reference Range]: 167.64 cm (01/10/16 1:00 AM) Height 100.2 DegF *HI* (01/10/16 3:42 AM) 101.2 DegF *HI* (01/10/16 1:00 AM) Temperature Oral [96.4-99.1 DegF] 122/74 mmHg (01/10/16 3:42 AM) 148/87 mmHg *HI* (01/10/16 1:00 AM) Blood Pressure [90-140/60-90 mmHg] 128 mmHg (01/10/16 1:34 AM) Systolic Blood Pressure [90-140 mmHg] 77 mmHg (01/10/16 1:34 AM) Diastolic Blood Pressure [60-90 mmHg] 18 BRMIN (01/10/16 3:42 AM) 22 BRMIN *HI* (01/10/16 1:34 AM) 18 BRMIN (01/10/16 1:00 AM) Respiratory Rate [14-20 BRMIN] 77 bpm (01/10/16 3:42 AM) 95 bpm (01/10/16 1:34 AM) 89 bpm (01/10/16 1:00 AM) Peripheral Pulse Rate [60-100 bpm] 77.273 kg (01/10/16 1:00 AM) Weight 27.5 m2 (01/10/16 1:00 AM) Body Mass Index Problem List Condition Effective Dates Status Health Status Informan t Anemia1 02/17/15 Active Benign essential 03/03/14 Active hypertension2, 3 Benign prostatic 03/03/14 Active hyperplasia4, 5 Biliary calculus6, 7 07/21/14 Active Diabetes mellitus Active type 2, controlled, without complications(Confir med) Dry eyes(Confirmed) Active Dyspnea(Confirmed) Resolved Epidermal Active nevus(Confirmed) Escherichia Active coli(Confirmed)8 Gastroesophageal 04/04/14 Active reflux disease9, 10 Hearing loss11, 12 04/04/14 Active Hypertension(Confirm Active ed) Hypocalcemia(Confirm Resolved ed) [id number], 14 04/21/14 Active Right knee pain15, 12/30/14 Active 16 Left inguinal 04/21/14 Resolved remexj23, 18 Mixed Active hyperlipidemia(Confi rmed) Annual physical Resolved exam(Confirmed) Elevated Active PSA(Confirmed) Nevus(Confirmed) Active Tinea pedis19, 20 09/15/14 Active Urethral Active spasm(Confirmed) Urethritis(Confirmed Active ) Vascular Active headache(Confirmed) Vitamin D Active deficiency(Confirmed ) 1Data migrated from [employer] on 03/18/15. 2Data migrated from [employer] on 01/13/15. 3Data migrated from [employer] on 01/13/15. 4Data migrated from [employer] on 01/13/15. 5Data migrated from [employer] on 01/13/15. 6Data migrated from [employer] on 01/13/15. 7Data migrated from [employer] on 01/13/15. 8Problem added by Discern Expert. 9Data migrated from [employer] on 02/18/15. 10Data migrated from [employer] on 01/13/15. 11Data migrated from [employer] on 01/13/15. 12Data migrated from [employer] on 01/13/15. 13Data migrated from [employer] on 01/13/15. 14Data migrated from [employer] on 01/13/15. 15Data migrated from [employer] on 02/18/15. 16Data migrated from [employer] on 01/14/15. 17Data migrated from [employer] on 01/13/15. 18Data migrated from [employer] on 01/13/15. 19Data migrated from [employer] on 02/18/15. 20Data migrated from [facility] on 01/13/15. Allergies, Adverse Reactions, Alerts Substance Reaction Severity Status penicillins1 itching and rash Active sulfa drugs2 lip swelling Active 1Data migrated from [facility] on 03/13/15. Originally documented as PENICILLIN. irritation and rash 2Data migrated from [facility] on 03/13/15. Originally documented as SULFA. lips (swollen) Medications acetaminophen-hydrocodone 325 mg-5 mg oral tablet 1 tab, Route: PO, Drug Form: TAB, Dosing Weight 77.273, kg, ONCE, STAT, Start da te: 01/10/16 1:21:00 CDT, Stop date: 01/10/16 1:21:00 CDT Notes: (Same as: [place] 325/5) Do not exceed 4gm/day of acetaminophen. Start Date: 01/10/16 Stop Date: 01/10/16 Status: Completed Cipro 500 mg oral tablet 500 mg = 1 tab, PO, Q12H, X 3 day, # 6 tab, 0 Refill(s), [facility] [id number] Start Date: 01/10/16 Stop Date: 01/13/16 Status: Ordered Cipro 500 mg oral tablet 500 mg = 1 tab, PO, Q12H, X 7 day, # 14 tab, 0 Refill(s), [facility]: [facility] [id number] Start Date: 01/10/16 Stop Date: 01/17/16 Status: Ordered NS (Bolus) IV 1,000 mL, 1,000 ml/hr, Infuse Over: 1 hr, Route: IV, 1,000, Drug form: INJ, ONCE , Priority: STAT, Dosing Weight 77.273 kg, Start date: 01/10/16 1:21:00 CDT, Dur ation: 1 doses or times, Stop date: 01/10/16 1:21:00 CDT Start Date: 01/10/16 Stop Date: 01/10/16 Status: Completed Saline Flush 0.9% 10 mL, Route: IVP, Drug Form: INJ, Dosing Weight 77.273, kg, PRN, PRN Line Flush , Start date: 01/10/16 1:21:00 CDT, Duration: 30 day, Stop date: 02/09/16 1:20:0 0 CDT Notes: (Same as: BD Posiflush) Start Date: 01/10/16 Stop Date: 01/10/16 Status: Discontinued Zofran 4 mg oral tablet 4 mg = 1 tab, PO, BID, X 5 day, # 10 tab, 0 Refill(s), Pharmacy: [facility] [id number] Start Date: 01/10/16 Stop Date: 01/15/16 Status: Ordered Results ELECTROLYTES Most recent to 1 oldest [Reference Range]: Sodium Lvl [135-145 137 mEq/L mEq/L] (01/10/16 1:44 AM) Potassium Lvl 3.9 mEq/L [3.5-5.1 mEq/L] (01/10/16 1:44 AM) Chloride Lvl [95-109 104 mEq/L mEq/L] (01/10/16 1:44 AM) CO2 [24-32 mEq/L] 25 mEq/L (01/10/16 1:44 AM) AGAP [10.0-20.0 11.9 mEq/L mEq/L] (01/10/16 1:44 AM) CHEM PANEL Most recent to 1 oldest [Reference Range]: Creatinine Lvl 1.24 mg/dL [0.50-1.40 mg/dL] (01/10/16 1:44 AM) eGFR 60 mL/min/1.73m2 1 *NA* (01/10/16 1:44 AM) BUN [7-22 mg/dL] 16 mg/dL (01/10/16 1:44 AM) Glucose Lvl [70-99 163 mg/dL mg/dL] *HI* (01/10/16 1:44 AM) Total Protein 7.2 g/dL [6.4-8.4 g/dL] (01/10/16 1:44 AM) Albumin Lvl [3.5-5.0 3.7 g/dL g/dL] (01/10/16 1:44 AM) Globulin [2.0-4.0 3.5 g/dL g/dL] (01/10/16 1:44 AM) A/G Ratio [0.7-1.6] 1.1 (01/10/16 1:44 AM) Calcium Lvl 8.4 mg/dL [8.5-10.5 mg/dL] *LOW* (01/10/16 1:44 AM) ALT [0-65 unit/L] 23 unit/L (01/10/16 1:44 AM) AST [0-37 unit/L] 16 unit/L (01/10/16 1:44 AM) Alk Phos [39-136 87 unit/L unit/L] (01/10/16 1:44 AM) Bili Total [0.2-1.3 0.7 mg/dL mg/dL] (01/10/16 1:44 AM) Bili Direct [0.0-0.3 0.1 mg/dL mg/dL] (01/10/16 1:44 AM) Bili Indirect 0.6 mg/dL [0.0-1.0 mg/dL] (01/10/16 1:44 AM) Lipase Lvl [73-393 175 unit/L unit/L] (01/10/16 1:44 AM) 1Result Comment: The eGFR is calculated using [...] be mul tiplied by the estimated BMI. URINE AND STOOL Most recent to 1 oldest [Reference Range]: UA Turbidity [Clear] Clear (01/10/16 3:29 AM) UA Color Ltyellow *NA* (01/10/16 3:29 AM) UA pH [5.0-8.0] 7.0 (01/10/16 3:29 AM) UA Spec Grav 1.015 [<=1.030] (01/10/16 3:29 AM) UA Glucose [Negative Negative mg/dL mg/dL] *NA* (01/10/16 3:29 AM) UA Blood [Negative] Negative (01/10/16 3:29 AM) UA Ketones [Negative Negative mg/dL mg/dL] *NA* (01/10/16 3:29 AM) UA Protein [Negative Negative mg/dL mg/dL] (01/10/16 3:29 AM) UA Urobilinogen <=1.0 mg/dL [0.1-1.0 mg/dL] *NA* (01/10/16 3:29 AM) UA Bili [Negative] Negative *NA* (01/10/16 3:29 AM) UA Leuk Est Small [Negative] *ABN* (01/10/16 3:29 AM) UA Nitrite Negative [Negative] (01/10/16 3:29 AM) UA WBC [0-5 /HPF] 12 /HPF *HI* (01/10/16 3:29 AM) UA RBC [0-2 /HPF] 4 /HPF *HI* (01/10/16 3:29 AM) UA Bacteria [None Many /HPF Seen /HPF] *ABN* (01/10/16 3:29 AM) UA Sq Epi None Seen *NA* (01/10/16 3:29 AM) HEMATOLOGY Most recent to 1 oldest [Reference Range]: WBC [3.7-10.4 K/CMM] 14.3 K/CMM *HI* (01/10/16 1:44 AM) RBC [4.70-6.10 4.51 M/CMM M/CMM] *LOW* (01/10/16 1:44 AM) Hgb [14.0-18.0 g/dL] 13.4 g/dL *LOW* (01/10/16 1:44 AM) Hct [42.0-54.0 %] 39.4 % *LOW* (01/10/16 1:44 AM) MCV [80.0-94.0 fL] 87.3 fL (01/10/16 1:44 AM) MCH [27.0-31.0 pg] 29.6 pg (01/10/16 1:44 AM) MCHC [32.0-36.0 34.0 g/dL g/dL] (01/10/16 1:44 AM) RDW [11.5-14.5 %] 14.7 % *HI* (01/10/16 1:44 AM) Platelet [133-450 184 K/CMM K/CMM] (01/10/16 1:44 AM) MPV [7.4-10.4 fL] 8.2 fL (01/10/16 1:44 AM) Segs [45.0-75.0 %] 89.8 % *HI* (01/10/16 1:44 AM) Lymphocytes 5.2 % [20.0-40.0 %] *LOW* (01/10/16 1:44 AM) Monocytes [2.0-12.0 4.5 % %] (01/10/16 1:44 AM) Eosinophils [0.0-4.0 0.2 % %] (01/10/16 1:44 AM) Basophils [0.0-1.0 0.3 % %] (01/10/16 1:44 AM) Segs-Bands # 12.8 K/CMM [1.5-8.1 K/CMM] *HI* (01/10/16 1:44 AM) Lymphocytes # 0.7 K/CMM [1.0-5.5 K/CMM] *LOW* (01/10/16 1:44 AM) Monocytes # [0.0-0.8 0.6 K/CMM K/CMM] (01/10/16 1:44 AM) Immunizations Vaccine Date Refusal Reason influenza virus vaccine, inactivated 05/26/15 influenza virus vaccine, inactivated1 04/04/14 pneumococcal 23-valent vaccine2 04/04/14 1Result Comment: fluzone. Migrated from OBS ; Data migrated from [employer] on 03/20/2015. 2Result Comment: pneumovax. Migrated from OBS VIS: 03-11-97 given April 04, 2014. ; Data migrated from [employer] on 03/20/2015. Procedures Procedure Date Related Diagnosis Body Site Colonoscopy1 07/01/14 Bilateral inguinal hernia repair2 Cholecystectomy Tonsillectomy 1polyps, repeat in 3 years 2right in 2007 [place] left 11/2012 Social History Social History Type Response Substance Abuse Use: None. 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 Alcohol Never Smoking Status Never smoker; Tobacco use p er day: 0; Number of years: 0; Total pack years: 0; Started at age: 1.0; Stopped at age: 1; Previous treatment: None; Ready to change: No; Concerns about tobacco u se in household: No; Exposure to Tobacco Smoke None; Cigarette Smoking L ast 365 Days No; Reg Smoking Cessation Counseling No 1not at the moment Assessment and Plan No data available for this section
--- OUTSIDE RECORDS SUMMARY | 2020-01-22 16:23 | XMS REPORT | Summary of Care ---
Author Author [facility] Organization [facility] Address Unknown Phone Unavailable Encounter MIRELA Workman(ALIA) [id number] Date(s): 01/28/16 - 02/01/16 [facility] [id number] [place] [address]- Discharge Disposition: Home Attending Physician: Crispin Haynes MD Admitting Physician: Crispin Haynes MD Vital Signs 1 2 3 Most recent to oldest [Reference Range]: 167.64 cm (01/28/16 9:40 PM) 167.64 cm (01/28/16 3:59 PM) Height 98.3 DegF (02/01/16 4:33 PM) 98.4 DegF (02/01/16 12:20 PM) 98.2 DegF (02/01/16 8:00 AM) Temperature Oral [96.4-99.1 DegF] 134/82 mmHg (02/01/16 4:33 PM) 143/80 mmHg *HI* (02/01/16 12:20 PM) 130/80 mmHg (02/01/16 8:00 AM) Blood Pressure [90-140/60-90 mmHg] 18 BRMIN (02/01/16 4:33 PM) 18 BRMIN (02/01/16 12:20 PM) 18 BRMIN (02/01/16 8:00 AM) Respiratory Rate [14-20 BRMIN] 62 bpm (02/01/16 4:33 PM) 61 bpm (02/01/16 12:20 PM) 56 bpm *LOW* (02/01/16 8:00 AM) Peripheral Pulse Rate [60-100 bpm] 72.727 kg (01/28/16 9:40 PM) 72.727 kg (01/28/16 3:59 PM) Weight 25.88 m2 (01/28/16 9:40 PM) 25.88 m2 (01/28/16 3:59 PM) Body Mass Index Problem List Condition Effective Dates Status Health Status Informan t Anemia1 02/17/15 Active Benign essential 03/03/14 Active hypertension2, 3 Benign prostatic 03/03/14 Active hyperplasia4, 5 Biliary calculus6, 7 07/21/14 Active Diabetes mellitus Active type 2, controlled, without complications(Confir med) Dry eyes(Confirmed) Active Dyspnea(Confirmed) Resolved Epidermal Active nevus(Confirmed) Escherichia 01/10/16 Active coli(Confirmed)8, 9 Gastroesophageal 04/04/14 Active reflux [id number], 11 Hearing loss12, 13 04/04/14 Active Hypertension(Confirm Active ed) Hypocalcemia(Confirm Resolved ed) Hypothyroid(Confirme Active d) [id number], 15 04/21/14 Active Right knee pain16, 12/30/14 Active 17 Left inguinal 04/21/14 Resolved dkjkic78, 19 Mixed Active hyperlipidemia(Confi rmed) Annual physical Resolved exam(Confirmed) Prostate Active enlargement(Confirme d) Elevated Active PSA(Confirmed) Nevus(Confirmed) Active Tinea pedis20, 21 09/15/14 Active Urethral Active spasm(Confirmed) Urethritis(Confirmed Active [...] 7Data migrated from [employer] on 01/13/15. 8urine, 01/10/16 9Problem added by Discern Expert. 10Data migrated from [employer] on 02/18/15. 11Data migrated from [employer] on 01/13/15. 12Data migrated from [employer] on 01/13/15. 13Data migrated from [employer] on 01/13/15. 14Data migrated from [employer] on 01/13/15. 15Data migrated from [employer] on 01/13/15. 16Data migrated from [employer] on 02/18/15. 17Data migrated from [employer] on 01/14/15. 18Data migrated from [employer] on 01/13/15. 19Data migrated from [employer] on 01/13/15. 20Data migrated from [employer] on 02/18/15. 21Data migrated from [employer] on 01/13/15. Allergies, Adverse Reactions, Alerts Substance Reaction Severity Status penicillins1 itching and rash Active sulfa drugs2 lip swelling Active 1Data migrated from [employer] on 03/13/15. Originally documented as PENICILLIN. irritation and rash 2Data migrated from [employer] on 03/13/15. Originally documented as SULFA. lips (swollen) Medications acetaminophen 650 mg, 2 tab, Route: PO, Drug form: TAB, Q4H, Dosing Weight 72.727, kg, PRN Pamela n 1-3/Temp > 100.4 F, Start date: 01/28/16 21:37:00 CDT, Duration: 30 day, Stop date: 02/27/16 21:36:00 CDT Notes: Do not exceed 4 gm/day. (Same as: Tylenol) Start Date: 01/28/16 Stop Date: 01/29/16 Status: Discontinued acetaminophen 650 mg, 2 tab, Route: PO, Drug form: TAB, ONCE, Dosing Weight 72.727, kg, Priori ty: STAT, Start date: 01/28/16 19:27:00 CDT, Stop date: 01/28/16 19:27:00 CDT Notes: Do not exceed 4 gm/day. (Same as: Tylenol) Start Date: 01/28/16 Stop Date: 01/28/16 Status: Completed acetaminophen 650 mg, 2 tab, Route: PO, Drug form: TAB, Q6H, Dosing Weight 72.727, kg, PRN Pamela n 1-3/Temp > 99.5 F, Start date: 01/29/16 9:56:00 CDT, Duration: 30 day, Stop date: 02/28/16 9:55:00 CDT Notes: Do not exceed 4 gm/day. (Same as: Tylenol) Start Date: 01/29/16 Stop Date: 02/01/16 Status: Discontinued Dextrose 50% Syringe 25 gm, 50 mL, Route: IVP, Drug Form: INJ, Dosing Weight 72.727, kg, PRN, PRN Blo od Glucose Results, Start date: 01/29/16 10:00:00 CDT, Duration: 30 day, Stop da te: 02/28/16 9:59:00 CDT Start Date: 01/29/16 Stop Date: 02/01/16 Status: Discontinued Dextrose 50% Syringe 12.5 gm, 25 mL, Route: IVP, Drug Form: INJ, Dosing Weight 72.727, kg, PRN, PRN B lood Glucose Results, Start date: 01/29/16 10:00:00 CDT, Duration: 30 day, Stop date: 02/28/16 9:59:00 CDT Start Date: 01/29/16 Stop Date: 02/01/16 Status: Discontinued docusate 100 mg, 1 cap, Route: PO, Drug form: CAP, BID, Dosing Weight 72.727, kg, PRN Con stipation, Start date: 01/28/16 21:37:00 CDT, Duration: 30 day, Stop date: 02/26 21:36:00 CDT Notes: (Same as: Colace) (Do Not Crush) Start Date: 01/28/16 Stop Date: 02/01/16 Status: Discontinued enoxaparin 40 mg, 0.4 mL, Route: SUB-Q, Drug form: INJ, [id number], Dosing Weight 72.727, kg, Start date: 01/29/16 10:00:00 CDT, Duration: 30 day, Stop date: 02/27/16 10:00: 00 CDT Notes: (Same as: Lovenox) Start Date: 01/29/16 Stop Date: 02/01/16 Status: Discontinued ertapenem + sodium chloride 0.9% INJ 100 mL 1 gm, Route: IVPB, [id number], Dosing Weight 72.727, kg, Priority: NOW, Start date: 02/01/16 13:36:00 CDT, Duration: 30 day, Stop date: 03/01/16 13:36:00 CDT Notes: (Same as: INVanz) Refrigerate. NOT COMPATIBLE WITH D5W.Stable in refrige rator for 24 hours MEDICATION WASTE Product Size: 1000 mgProduct Wasted : ___ mg Start Date: 02/01/16 Stop Date: 02/01/16 Status: Discontinued fenofibrate 54 mg oral tablet 54 mg, 1 tab, Route: PO, Drug form: TAB, Daily, Dosing Weight 72.727, kg, Start date: 01/30/16 9:00:00 CDT, Duration: 30 day, Stop date: 02/28/16 9:00:00 CDT Start Date: 01/30/16 Stop Date: 01/29/16 Status: Deleted finasteride 5 mg, 1 tab, Route: PO, Drug form: TAB, Daily, Dosing Weight 72.727, kg, Start d ate: 01/30/16 9:00:00 CDT, Duration: 30 day, Stop date: 02/28/16 9:00:00 CDT Notes: (Same as: Proscar) "Do Not Crush"Women of childbearing age should not adria ch or handle broken tablets Start Date: 01/30/16 Stop Date: 02/01/16 Status: Discontinued glucagon 1 mg, Route: IM, Drug form: PDR/INJ, PRN, Dosing Weight 72.727, kg, PRN Blood Gl ucose Results, Start date: 01/29/16 10:00:00 CDT, Duration: 30 day, Stop date: 02/28/16 9:59:00 CDT Start Date: 01/29/16 Stop Date: 02/01/16 Status: Discontinued insulin aspart 5 unit, 0.05 mL, Route: SUB-Q, Drug form: SOLN, TID-Before Meals, Dosing Weight 72.727, kg, PRN Blood Glucose Results, Start date: 01/29/16 10:00:00 CDT, Durati on: 30 day, Stop date: 02/28/16 9:59:00 CDT Notes: Roll in palms of hands gently; Do not shake vigorously. (Same as: Elie Bryant)"single patient use only"WASTE: F/P - Black; E - Municipal Trash Bin Stable f or 28 days at room temperature.Expires in days from Date Start Date: 01/29/16 Stop Date: 02/01/16 Status: Discontinued insulin aspart 1 unit, 0.01 mL, Route: SUB-Q, Drug form: SOLN, TID-Before Meals, Dosing Weight 72.727, kg, PRN Blood Glucose Results, Start date: 01/29/16 10:00:00 CDT, Durati on: 30 day, Stop date: 02/28/16 9:59:00 CDT Notes: Roll in palms of hands gently; Do not shake vigorously. (Same as: Elie Bryant)"single patient use only"WASTE: F/P - Black; E - Municipal Trash Bin Stable f or 28 days at room temperature.Expires in days from Date Start Date: 01/29/16 Stop Date: 02/01/16 Status: Discontinued insulin aspart 2 unit, 0.02 mL, Route: SUB-Q, Drug form: SOLN, TID-Before Meals, Dosing Weight 72.727, kg, PRN Blood Glucose Results, Start date: 01/29/16 10:00:00 CDT, Durati on: 30 day, Stop date: 02/28/16 9:59:00 CDT Notes: Roll in palms of hands gently; Do not shake vigorously. (Same as: Elie Bryant)"single patient use only"WASTE: F/P - Black; E - Municipal Trash Bin Stable f or 28 days at room temperature.Expires in days from Date Start Date: 01/29/16 Stop Date: 02/01/16 Status: Discontinued insulin aspart 3 unit, 0.03 mL, Route: SUB-Q, Drug form: SOLN, TID-Before Meals, Dosing Weight 72.727, kg, PRN Blood Glucose Results, Start date: 01/29/16 10:00:00 CDT, Durati on: 30 day, Stop date: 02/28/16 9:59:00 CDT Notes: Roll in palms of hands gently; Do not shake vigorously. (Same as: Elie Bryant)"single patient use only"WASTE: F/P - Black; E - Municipal Trash Bin Stable f or 28 days at room temperature.Expires in days from Date Start Date: 01/29/16 Stop Date: 02/01/16 Status: Discontinued insulin aspart 4 unit, 0.04 mL, Route: SUB-Q, Drug form: SOLN, TID-Before Meals, Dosing Weight 72.727, kg, PRN Blood Glucose Results, Start date: 01/29/16 10:00:00 CDT, Durati on: 30 day, Stop date: 02/28/16 9:59:00 CDT Notes: Roll in palms of hands gently; Do not shake vigorously. (Same as: Elie Bryant)"single patient use only"WASTE: F/P - Black; E - Municipal Trash Bin Stable f or 28 days at room temperature.Expires in days from Date Start Date: 01/29/16 Stop Date: 02/01/16 Status: Discontinued levothyroxine 50 microgram, 1 tab, Route: PO, Drug form: TAB, [id number], Dosing Weight 72.727, kg , Start date: 01/30/16 6:30:00 CDT, Duration: 30 day, Stop date: 02/28/16 6:30:0 0 CDT Notes: Take 1 hour before or 2 hours after meal; Enteral feeds may interefere wi th the absorption of this medication.(Same as:Levothroid, Synthroid) Start Date: 01/30/16 Stop Date: 02/01/16 Status: Discontinued lisinopril 20 mg, 1 tab, Route: PO, Drug form: TAB, Daily, Dosing Weight 72.727, kg, Start date: 01/30/16 9:00:00 CDT, Duration: 30 day, Stop date: 02/28/16 9:00:00 CDT Notes: (Same as: Prinivil, Zestril) Start Date: 01/30/16 Stop Date: 02/01/16 Status: Discontinued lisinopril 20 mg oral tablet 20 mg = 1 tab, PO, Daily, # 30 tab, 0 Refill(s) Start Date: 01/28/16 Status: Ordered meropenem + sodium chloride 0.9% INJ 100 mL 1,000 mg, Route: IVPB, Q8H, Dosing Weight 72.727, kg, CrCl >50, Extended infusion, infuse over 3 hours, Start date: 01/29/16 16:00:00 CDT, Duration: 30 day, Stop date: 02/28/16 8:00:00 CDT Notes: (Same as: Merrem) . MEDICATION WASTE Product Size: 1000 mgProduc t Wasted: ___ mg Start Date: 01/29/16 Stop Date: 02/01/16 Status: Discontinued morphine Sulfate 4 mg, 2 mL, Route: IVP, Drug form: INJ, ONCE, Dosing Weight 72.727, kg, Priority : STAT, Start date: 01/28/16 20:44:00 CDT, Stop date: 01/28/16 20:44:00 CDT Notes: (Same as:MORPhine Sulfate) Start Date: 01/28/16 Stop Date: 01/28/16 Status: Completed morphine Sulfate 2 mg, 1 mL, Route: IVP, Drug form: INJ, Q4H, Dosing Weight 72.727, kg, PRN Pain Score 7-10, Start date: 01/28/16 21:37:00 CDT, Duration: 30 day, Stop date: 02/11 01/27 21:36:00 CDT Notes: (Same as:MORPhine Sulfate) Start Date: 01/28/16 Stop Date: 01/29/16 Status: Discontinued morphine Sulfate 4 mg, 2 mL, Route: IVP, Drug form: INJ, ONCE, Dosing Weight 72.727, kg, Priority : STAT, Start date: 01/28/16 19:23:00 CDT, Stop date: 01/28/16 19:23:00 CDT Notes: (Same as:MORPhine Sulfate) Start Date: 01/28/16 Stop Date: 01/28/16 Status: Completed ocular lubricant 1 drp, Route: BOTH EYES, BID, Drug form: SOLN, Start date: 01/29/16 17:00:00 CDT , Duration: 30 day, Stop date: 02/28/16 9:00:00 CDT Notes: (Same as: Aquasite) Start Date: 01/29/16 Stop Date: 02/01/16 Status: Discontinued ondansetron 4 mg, 2 mL, Route: IVP, Drug form: INJ, Q6H, Dosing Weight 72.727, kg, PRN Nause a & Vomiting, Start date: 01/28/16 21:37:00 CDT, Duration: 30 day, Stop date: 02/27/16 21:36:00 CDT Notes: (Same as: Zofran) MEDICATION WASTE Product Size: 4 mgProduct Was camden: ___ mg Start Date: 01/28/16 Stop Date: 01/29/16 Status: Discontinued Protonix 40 mg, 1 tab, Route: PO, Drug form: ECTAB, Before Dinner, Dosing Weight 72.727, kg, Start date: 01/29/16 16:30:00 CDT, Duration: 30 day, Stop date: 02/27/16 16: 30:00 CDT Notes: Tablet should not be chewed or crushed.(Same as: Protonix) Start Date: 01/29/16 Stop Date: 02/01/16 Status: Discontinued Rocephin + sodium chloride 0.9% INJ 100 mL 1 gm, Route: IVPB, Q24H, Dosing Weight 72.727, kg, Priority: STAT, Start date: 0 01/28/16 21:37:00 CDT, Duration: 30 day, Stop date: 02/26/16 20:00:00 CDT Notes: (Same As: Rocephin).Use with 100 mL NS and infuse over 30 min MEDICA TION WASTE Product Size: 1000 mgProduct Wasted: ___ mg Start Date: 01/28/16 Stop Date: 01/29/16 Status: Discontinued Rocephin + sodium chloride 0.9% INJ 100 mL 1 gm, Route: IVPB, ONCE, Dosing Weight 72.727, kg, Priority: STAT, Start date: 0 01/28/16 19:24:00 CDT, Stop date: 01/28/16 19:24:00 CDT Notes: (Same As: Rocephin).Use with 100 mL NS and infuse over 30 min MEDICA TION WASTE Product Size: 1000 mgProduct Wasted: ___ mg Start Date: 01/28/16 Stop Date: 01/28/16 Status: Completed Saline Flush 0.9% 10 ml, Route: IVP, Drug Form: INJ, Dosing Weight 72.727, kg, PRN, PRN Line Flush , Start date: 01/28/16 21:37:00 CDT, Duration: 30 day, Stop date: 02/27/16 21:36 :00 CDT Notes: (Same as: BD Posiflush) Start Date: 01/28/16 Stop Date: 02/01/16 Status: Discontinued Saline Flush 0.9% 10 mL, Route: IVP, Drug Form: INJ, Dosing Weight 72.727, kg, PRN, PRN Line Flush , Start date: 01/28/16 16:14:00 CDT, Duration: 30 day, Stop date: 02/27/16 16:13 :00 CDT Notes: (Same as: BD Posiflush) Start Date: 01/28/16 Stop Date: 02/01/16 Status: Discontinued sodium chloride 0.9% 1000 ml INJ 1,000 mL 1,000 mL, Rate: 100 ml/hr, Infuse over: 10 hr, Route: IV, Dosing Weight 72.727 k g, Total Volume: 1,000, Start date: 01/28/16 21:37:00 CDT, Duration: 30 day, Sto p date: 02/27/16 21:36:00 CDT Start Date: 01/28/16 Stop Date: 02/01/16 Status: Discontinued sodium phosphate + D5W 250 mL 15 mmol, 5 mL, Route: IVPB, PRN, Dosing Weight 72.727, kg, PRN Abnormal Lab Resu lt, Start date: 01/29/16 11:14:00 CDT, Duration: 30 day, Stop date: 02/28/16 11: 13:00 CDT Start Date: 01/29/16 Stop Date: 02/01/16 Status: Discontinued tamsulosin 0.4 mg, 1 cap, Route: PO, Drug form: CAP, Daily, Dosing Weight 72.727, kg, Start date: 01/30/16 9:00:00 CDT, Duration: 30 day, Stop date: 02/28/16 9:00:00 CDT Notes: (Same As: Flomax) "Do Not Crush" Start Date: 01/30/16 Stop Date: 02/01/16 Status: Discontinued tramadol 50 mg oral tablet 50 mg, 1 tab, Route: PO, Drug form: TAB, Q6H, Dosing Weight 72.727, kg, PRN Pain Score 4-6, Start date: 01/29/16 9:56:00 CDT, Duration: 30 day, Stop date: 02/27 9:55:00 CDT Notes: Not to exceed 400mg/day. (Same As: Ultram) Start Date: 01/29/16 Stop Date: 02/01/16 Status: Discontinued TriCor 48 mg, 1 tab, Route: PO, Drug form: TAB, After Dinner, Start date: 01/29/16 17:0 0:00 CDT, Duration: 30 day, Stop date: 02/27/16 17:00:00 CDT Notes: (Same as: Tricor) Start Date: 01/29/16 Stop Date: 02/01/16 Status: Discontinued Vitamin D3 2000 intl units oral tablet 2,000 IntlUnit, 2 tab, Route: PO, Drug form: TAB, Daily, Dosing Weight 72.727, k g, Start date: 01/30/16 9:00:00 CDT, Duration: 30 day, Stop date: 02/28/16 9:00: 00 CDT Notes: Same as : Vitamin D3 Start Date: 01/30/16 Stop Date: 02/01/16 Status: Discontinued Zofran 4 mg, 2 mL, Route: IV, Drug form: INJ, Q8H, Dosing Weight 72.727, kg, PRN Nausea , Start date: 01/29/16 9:57:00 CDT, Duration: 30 day, Stop date: 02/28/16 9:56:0 0 CDT Notes: (Same as: Zofran) MEDICATION WASTE Product Size: 4 mgProduct Was camden: ___ mg Start Date: 01/29/16 Stop Date: 02/01/16 Status: Discontinued Results ELECTROLYTES 1 2 3 Most recent to oldest [Reference Range]: 140 mEq/L (01/30/16 5:49 AM) 139 mEq/L (01/29/16 7:16 AM) 136 mEq/L (01/28/16 4:24 PM) Sodium Lvl [135-145 mEq/L] 4.1 mEq/L (01/30/16 5:49 AM) 3.9 mEq/L (01/29/16 7:16 AM) 3.6 mEq/L (01/28/16 4:24 PM) Potassium Lvl [3.5-5.1 mEq/L] 107 mEq/L (01/30/16 5:49 AM) 106 mEq/L (01/29/16 7:16 AM) 103 mEq/L (01/28/16 4:24 PM) Chloride Lvl [95-109 mEq/L] 24 mEq/L (01/30/16 5:49 AM) 24 mEq/L (01/29/16 7:16 AM) 25 mEq/L (01/28/16 4:24 PM) CO2 [24-32 mEq/L] 13.1 mEq/L (01/30/16 5:49 AM) 12.9 mEq/L (01/29/16 7:16 AM) 11.6 mEq/L (01/28/16 4:24 PM) AGAP [10.0-20.0 mEq/L] CHEM PANEL 1 2 3 Most recent to oldest [Reference Range]: 0.97 mg/dL (01/30/16 5:49 AM) 1.00 mg/dL (01/29/16 7:16 AM) 1.19 mg/dL (01/28/16 4:24 PM) Creatinine Lvl [0.50-1.40 mg/dL] 81 mL/min/1.73m2 1 *NA* (01/30/16 5:49 AM) 78 mL/min/1.73m2 2 *NA* (01/29/16 7:16 AM) 63 mL/min/1.73m2 3 *NA* (01/28/16 4:24 PM) eGFR 13 mg/dL (01/30/16 5:49 AM) 14 mg/dL (01/29/16 7:16 AM) 15 mg/dL (01/28/16 4:24 PM) BUN [7-22 mg/dL] 14 (01/29/16 7:16 AM) 13 (01/28/16 4:24 PM) B/C Ratio [6-25] 102 mg/dL *HI* (01/30/16 5:49 AM) 126 mg/dL *HI* (01/29/16 7:16 AM) 148 mg/dL *HI* (01/28/16 4:24 PM) Glucose Lvl [70-99 mg/dL] 5.7 g/dL *LOW* (01/29/16 7:16 AM) 7.1 g/dL (01/28/16 4:24 PM) Total Protein [6.4-8.4 g/dL] 2.9 g/dL *LOW* (01/29/16 7:16 AM) 3.2 g/dL *LOW* (01/28/16 4:24 PM) Albumin Lvl [3.5-5.0 g/dL] 2.8 g/dL (01/29/16 7:16 AM) 3.9 g/dL (01/28/16 4:24 PM) Globulin [2.0-4.0 g/dL] 1.0 (01/29/16 7:16 AM) 0.8 (01/28/16 4:24 PM) A/G Ratio [0.7-1.6] 7.9 mg/dL *LOW* (01/30/16 5:49 AM) 7.6 mg/dL *LOW* (01/29/16 7:16 AM) 8.2 mg/dL *LOW* (01/28/16 4:24 PM) Calcium Lvl [8.5-10.5 mg/dL] 2.1 mg/dL *LOW* (01/29/16 7:16 AM) Phosphorus [2.5-4.5 mg/dL] 1.9 mg/dL (01/29/16 7:16 AM) Magnesium Lvl [1.8-2.4 mg/dL] 33 unit/L (01/29/16 7:16 AM) 20 unit/L (01/28/16 4:24 PM) ALT [0-65 unit/L] 20 unit/L (01/29/16 7:16 AM) 8 unit/L (01/28/16 4:24 PM) AST [0-37 unit/L] 84 unit/L (01/29/16 7:16 AM) 73 unit/L (01/28/16 4:24 PM) Alk Phos [39-136 unit/L] 0.5 mg/dL (01/29/16 7:16 AM) 0.5 mg/dL (01/28/16 4:24 PM) Bili Total [0.2-1.3 mg/dL] 29 unit/L (01/28/16 4:24 PM) Amylase Lvl [25-115 unit/L] 155 unit/L (01/28/16 4:24 PM) Lipase Lvl [73-393 unit/L] 0.8 mMol/L (01/28/16 8:07 PM) Lactic Acid Lvl [0.5-2.2 mMol/L] 1Result Comment: The eGFR is calculated using [...] be mul tiplied by the estimated BMI. CARDIAC ENZYMES 1 2 3 Most recent to oldest [Reference Range]: 0.5 ng/mL (01/28/16 4:24 PM) CK MB [0.5-3.6 ng/mL] <0.02 ng/mL (01/28/16 4:24 PM) Troponin-I [0.00-0.40 ng/mL] SPECIAL CHEMISTRY 1 2 3 Most recent to oldest [Reference Range]: 6.3 % *HI* (01/30/16 5:49 AM) Hgb A1C [<=5.6 %] 20.2 ng/mL *HI* (01/29/16 7:16 AM) PSA [0.0-4.0 ng/mL] 2.38 ng/mL *NA* (01/29/16 7:16 AM) PSA Free 11.8 % *LOW* (01/29/16 7:16 AM) Free PSA/PSA [>=25.0 %] URINE AND STOOL 1 2 3 Most recent to oldest [Reference Range]: Clear (01/28/16 4:24 PM) UA Turbidity [Clear] Ltyellow *NA* (01/28/16 4:24 PM) UA Color 6.0 (01/28/16 4:24 PM) UA pH [5.0-8.0] 1.021 (01/28/16 4:24 PM) UA Spec Grav [<=1.030] Negative mg/dL *NA* (01/28/16 4:24 PM) UA Glucose [Negative mg/dL] Negative (01/28/16 4:24 PM) UA Blood [Negative] Negative mg/dL *NA* (01/28/16 4:24 PM) UA Ketones [Negative mg/dL] Negative mg/dL (01/28/16 4:24 PM) UA Protein [Negative mg/dL] <=1.0 mg/dL *NA* (01/28/16 4:24 PM) UA Urobilinogen [0.1-1.0 mg/dL] Negative *NA* (01/28/16 4:24 PM) UA Bili [Negative] Moderate *ABN* (01/28/16 4:24 PM) UA Leuk Est [Negative] Negative (01/28/16 4:24 PM) UA Nitrite [Negative] 27 /HPF *HI* (01/28/16 4:24 PM) UA WBC [0-5 /HPF] 3 /HPF *HI* (01/28/16 4:24 PM) UA RBC [0-2 /HPF] Occasional /HPF *NA* (01/28/16 4:24 PM) UA Bacteria [None Seen /HPF] Occasional /LPF *NA* (01/28/16 4:24 PM) UA Sq Epi [Few /LPF] Few /LPF *NA* (01/28/16 4:24 PM) UA Mucus [None Seen /LPF] HEMATOLOGY 1 2 3 Most recent to oldest [Reference Range]: 7.8 K/CMM (01/30/16 5:49 AM) 13.6 K/CMM *HI* (01/29/16 7:16 AM) 15.6 K/CMM *HI* (01/28/16 4:24 PM) WBC [3.7-10.4 K/CMM] 4.15 M/CMM *LOW* (01/30/16 5:49 AM) 3.96 M/CMM *LOW* (01/29/16 7:16 AM) 4.26 M/CMM *LOW* (01/28/16 4:24 PM) RBC [4.70-6.10 M/CMM] 12.1 g/dL *LOW* (01/30/16 5:49 AM) 11.8 g/dL *LOW* (01/29/16 7:16 AM) 12.1 g/dL *LOW* (01/28/16 4:24 PM) Hgb [14.0-18.0 g/dL] 36.4 % *LOW* (01/30/16 5:49 AM) 34.7 % *LOW* (01/29/16 7:16 AM) 37.1 % *LOW* (01/28/16 4:24 PM) Hct [42.0-54.0 %] 87.6 fL (01/30/16 5:49 AM) 87.6 fL (01/29/16 7:16 AM) 87.2 fL (01/28/16 4:24 PM) MCV [80.0-94.0 fL] 29.2 pg (01/30/16 5:49 AM) 29.7 pg (01/29/16 7:16 AM) 28.4 pg (01/28/16 4:24 PM) MCH [27.0-31.0 pg] 33.3 g/dL (01/30/16 5:49 AM) 33.9 g/dL (01/29/16 7:16 AM) 32.6 g/dL (01/28/16 4:24 PM) MCHC [32.0-36.0 g/dL] 14.1 % (01/30/16 5:49 AM) 14.4 % (01/29/16 7:16 AM) 14.2 % (01/28/16 4:24 PM) RDW [11.5-14.5 %] 206 K/CMM (01/30/16 5:49 AM) 204 K/CMM (01/29/16 7:16 AM) 221 K/CMM (01/28/16 4:24 PM) Platelet [133-450 K/CMM] 8.1 fL (01/30/16 5:49 AM) 8.0 fL (01/29/16 7:16 AM) 7.5 fL (01/28/16 4:24 PM) MPV [7.4-10.4 fL] 69.5 % (01/30/16 5:49 AM) 84.1 % *HI* (01/29/16 7:16 AM) 85.3 % *HI* (01/28/16 4:24 PM) Segs [45.0-75.0 %] 21.4 % (01/30/16 5:49 AM) 9.8 % *LOW* (01/29/16 7:16 AM) 8.4 % *LOW* (01/28/16 4:24 PM) Lymphocytes [20.0-40.0 %] 7.0 % (01/30/16 5:49 AM) 5.5 % (01/29/16 7:16 AM) 5.9 % (01/28/16 4:24 PM) Monocytes [2.0-12.0 %] 1.6 % (01/30/16 5:49 AM) 0.4 % (01/29/16 7:16 AM) 0.1 % (01/28/16 4:24 PM) Eosinophils [0.0-4.0 %] 0.5 % (01/30/16 5:49 AM) 0.2 % (01/29/16 7:16 AM) 0.3 % (01/28/16 4:24 PM) Basophils [0.0-1.0 %] 5.4 K/CMM (01/30/16 5:49 AM) 11.5 K/CMM *HI* (01/29/16 7:16 AM) 13.3 K/CMM *HI* (01/28/16 4:24 PM) Segs-Bands # [1.5-8.1 K/CMM] 1.7 K/CMM (01/30/16 5:49 AM) 1.3 K/CMM (01/29/16 7:16 AM) 1.3 K/CMM (01/28/16 4:24 PM) Lymphocytes # [1.0-5.5 K/CMM] 0.5 K/CMM (01/30/16 5:49 AM) 0.8 K/CMM (01/29/16 7:16 AM) 0.9 K/CMM *HI* (01/28/16 4:24 PM) Monocytes # [0.0-0.8 K/CMM] 0.1 K/CMM (01/30/16 5:49 AM) 0.1 K/CMM (01/29/16 7:16 AM) Eosinophils # [0.0-0.5 K/CMM] Immunizations Given and Recorded Vaccine Date Status Refusal Reason influenza virus vaccine, inactivated 05/26/15 G iven influenza virus vaccine, inactivated1 04/04/14 Given pneumococcal 23-valent vaccine2 04/04/14 Given 1Result Comment: fluzone. Migrated from OBS ; Data migrated from [facility] on 03/20/2015. 2Result Comment: pneumovax. Migrated from OBS VIS: 03-11-97 given April 04, 2014. ; Data migrated from [facility] on 03/20/2015. Procedures Procedure Date Related Diagnosis Body Site Colonoscopy1 07/01/14 Bilateral inguinal hernia repair2 Cholecystectomy Tonsillectomy 1polyps, repeat in 3 years 2right in 2007 [place] left 11/2012 Social History Social History Type Response Substance Abuse Use: None. 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 Alcohol Never Smoking Status Never smoker; Tobacco [...] 1not at the moment Assessment and Plan Extracted from: Title: Clinical Document Author: Freddie Barahona MD Date: INFECTIOUS DISEASES PROGRESS NOTE FREDDIE BARAHONA M.D. REASON FOR ID FOLLOW UP: UTI ASSESMENT: complicated UTI ESBL BPH Anemia DM2 PLAN: continue Iv abx home ok on IV abx today arrange home iv abx invanz 1000 mg IV q24 ANTIBIOTICS: invamz day 11/25 SUBJECTIVE: Seen and examined. Events noted. VITAL SIGNS: Vitals and Temp: VitalsTmp(F)[id number] 01/30 16:[id number]------ 01/30 12:[id number]--- 01/30 [id number]--- 01/30 04:[id number]--- 01/29 23:[id number]--- 24 Hr Tmax: 98.2F (36.78c) at 01/29 23:2 6Vital Signs are the last 5 in the past 48 hours. ROS: otherwise unremarkable PHYSICAL EXAMINATION: Awake lying on bed NAD No thrush CTAB RRR S1&S2 BS+ve NT/ND No edema No Rash No focal defecit IVs ok LABORATORY DATA: Labs (Last four charted values) WBC 7.8(JAN 18)H 13.6(JAN 17)H 15.6(JAN 16) Hgb L 12.1(JAN 18)L 11.8(JAN 17)L 12.1(JAN 16) Hct L 36.4(JAN 18)L 34.7(JAN 17)L 37.1(JAN 16) Plt 206(JAN 18)204(DEREJE 17)221(JAN 16) Na 140(JAN 18)139(JAN 17)136(DEREJE 16) K 4.1(JAN 18)3.9(DEREJE 17)3.6(JAN 16) CO2 24(JAN 18)24(DEREJE 17)25(JAN 16) Cl 107(JAN 18)106(JAN 17)103(JAN 16) Cr 0.97(JAN 18)1.00(JAN 17)1.19(JAN 16) BUN 13(JAN 18)14(DEREJE 17)15(DEREJE 16) Glucose Random H 102(JAN 18)H 126(JAN 17)H 148(JAN 16) Mg 1.9(JAN 17) Phos L 2.1(JAN 17) Ca L 7.9(JAN 18)L 7.6(DEREJE 17)L 8.2(DEREJE 16) Troponin <0.02(JAN 16) CK MB 0.5(JAN 27) CULTURES: DATE/SOURCE/RESULT/ SENSITIVITIES urine ESBL IMAGING: Scheduled Meds (10): 01/30/16 cholecalciferol (Vitamin D3 200 0 intl units oral tablet) 2,000 IntlUnit PO Daily 01/29/16 enoxaparin 40 mg SUB-Q [id number] 01/29/16 fenofibrate (TriCor) 48 mg PO A [...]
--- OUTSIDE RECORDS SUMMARY | 2020-01-22 16:23 | XMS REPORT | Summary of Care ---
Author Organization Unknown Address Unknown Phone Unavailable Encounter HQ Jacinta(ALIA) [id number] Date(s): 06/04/14 - 06/04/14 [facility] [address] [address] - [facility] Discharge Diagnosis: Urinary tract infection Discharge Disposition: Home Physician Attending: Narendra Sena MD Reason for Visit ABD PAIN Vital Signs 1 2 3 Most recent to oldest [Reference Range]: 167.64 cm (06/04/14 6:23 PM) Height 98.4 DegF (06/04/14 11:40 PM) 98.3 DegF (06/04/14 10:20 PM) 98.7 DegF (06/04/14 6:23 PM) Temperature Oral [96.4-99.1 DegF] 125 mmHg (06/04/14 11:40 PM) 125 mmHg (06/04/14 10:20 PM) 123 mmHg (06/04/14 6:23 PM) Systolic Blood Pressure [90-140 mmHg] 72 mmHg (06/04/14 11:40 PM) 70 mmHg (06/04/14 10:20 PM) 70 mmHg (06/04/14 6:23 PM) Diastolic Blood Pressure [60-90 mmHg] 16 BRMIN (06/04/14 11:40 PM) 16 BRMIN (06/04/14 10:20 PM) 16 BRMIN (06/04/14 6:23 PM) Respiratory Rate [14-20 BRMIN] 67 bpm (06/04/14 11:40 PM) 70 bpm (06/04/14 10:20 PM) 85 bpm (06/04/14 6:23 PM) Peripheral Pulse Rate [60-100 bpm] 73.182 kg (06/04/14 6:23 PM) Weight 26.04 m2 (06/04/14 6:23 PM) Body Mass Index Problem List No data available for this section Allergies, Adverse Reactions, Alerts Substance Reaction Severity Status penicillins Active sulfa drugs Active Medications Cipro 500 mg oral tablet 500 mg = 1 tab, PO, Q12H, # 28 tab, 0 Refill(s) Start Date: 06/04/14 Stop Date: 06/18/14 Status: Ordered Cipro I.V. 400 mg/200 mL intravenous solution 400 mg, 200 mL, Route: IV, Drug form: INJ, ONCE, Dosing Weight 73.182, kg, Start date: 06/04/14 22:09:00, Stop date: 06/04/14 22:09:00 Notes: Do not refrigerate Start Date: 06/04/14 Stop Date: 06/04/14 Status: Completed Sodium Chloride 0.9% (Bolus) IV 500 mL, 500 ml/hr, Infuse Over: 1 hr, Route: IV, ONCE, Priority: STAT, Dosing We ight 73.182 kg, Start date: 06/04/14 20:53:00, Duration: 1 doses or times, Stop date: 06/04/14 20:53:00 Start Date: 06/04/14 Stop Date: 06/04/14 Status: Completed Results ELECTROLYTES Most recent to 1 oldest [Reference Range]: Sodium Lvl [135-145 137 mEq/L mEq/L] (06/04/14 9:20 PM) Potassium Lvl 3.8 mEq/L [3.5-5.1 mEq/L] (06/04/14 9:20 PM) Chloride Lvl [95-109 104 mEq/L mEq/L] (06/04/14 9:20 PM) CO2 [24-32 mEq/L] 26 mEq/L (06/04/14 9:20 PM) AGAP [10.0-20.0 10.8 mEq/L mEq/L] (06/04/14 9:20 PM) CHEM PANEL Most recent to 1 oldest [Reference Range]: Creatinine Lvl 1.0 mg/dL [0.5-1.4 mg/dL] (06/04/14 9:20 PM) eGFR 79 mL/min/1.73m2 1 *NA* (06/04/14 9:20 PM) BUN [7-22 mg/dL] 12 mg/dL (06/04/14 9:20 PM) Glucose Lvl [70-99 98 mg/dL 2 mg/dL] (06/04/14 9:20 PM) Calcium Lvl 8.3 mg/dL [8.5-10.5 mg/dL] *LOW* (06/04/14 9:20 PM) 1Result Comment: The eGFR is calculated using [...] be mul tiplied by the estimated BMI. 2Interpretive Data: Adult reference range values reflect the clinical guidelines of the [place] [employer]. URINE AND STOOL Most recent to 1 oldest [Reference Range]: UA Turbidity [Clear] Clear (06/04/14 9:20 PM) UA Color Ltyellow *NA* (06/04/14 9:20 PM) UA pH [5.0-8.0] 6.0 (06/04/14 9:20 PM) UA Spec Grav 1.006 [<=1.030] (06/04/14 9:20 PM) UA Glucose [Negative Negative mg/dL mg/dL] *NA* (06/04/14 9:20 PM) UA Blood [Negative] Negative (06/04/14 9:20 PM) UA Ketones [Negative Negative mg/dL mg/dL] *NA* (06/04/14 9:20 PM) UA Protein [Negative Negative mg/dL mg/dL] (06/04/14 9:20 PM) UA Urobilinogen <=1.0 mg/dL [0.1-1.0 mg/dL] *NA* (06/04/14 9:20 PM) UA Bili [Negative] Negative *NA* (06/04/14 9:20 PM) UA Leuk Est Moderate [Negative] *ABN* (06/04/14 9:20 PM) UA Nitrite Negative [Negative] (06/04/14 9:20 PM) UA WBC [0-5 /HPF] 17 /HPF *HI* (06/04/14 9:20 PM) UA RBC [0-2 /HPF] 3 /HPF *HI* (06/04/14 9:20 PM) UA Bacteria [None Occasional /HPF Seen /HPF] *NA* (06/04/14 9:20 PM) UA Sq Epi [Few /LPF] Occasional /LPF *NA* (06/04/14 9:20 PM) HEMATOLOGY Most recent to 1 oldest [Reference Range]: WBC [3.7-10.4 K/CMM] 12.1 K/CMM *HI* (06/04/14 9:20 PM) RBC [4.70-6.10 4.55 M/CMM M/CMM] *LOW* (06/04/14 9:20 PM) Hgb [14.0-18.0 g/dL] 13.9 g/dL *LOW* (06/04/14 9:20 PM) Hct [42.0-54.0 %] 40.2 % *LOW* (06/04/14 9:20 PM) MCV [80.0-94.0 fL] 88.5 fL (06/04/14 9:20 PM) MCH [27.0-31.0 pg] 30.5 pg (06/04/14 9:20 PM) MCHC [32.0-36.0 34.5 g/dL g/dL] (06/04/14 9:20 PM) RDW [11.5-14.5 %] 14.3 % (06/04/14 9:20 PM) Platelet [133-450 174 K/CMM K/CMM] (06/04/14 9:20 PM) MPV [7.4-10.4 fL] 7.5 fL (06/04/14 9:20 PM) Segs [45.0-75.0 %] 78.4 % *HI* (06/04/14 9:20 PM) Lymphocytes 15.0 % [20.0-40.0 %] *LOW* (06/04/14 9:20 PM) Monocytes [2.0-12.0 6.2 % %] (06/04/14 9:20 PM) Eosinophils [0.0-4.0 0.2 % %] (06/04/14 9:20 PM) Basophils [0.0-1.0 0.2 % %] (06/04/14 9:20 PM) Segs-Bands # 9.5 K/CMM [1.5-8.1 K/CMM] *HI* (06/04/14 9:20 PM) Lymphocytes # 1.8 K/CMM [1.0-5.5 K/CMM] (06/04/14 9:20 PM) Monocytes # [0.0-0.8 0.7 K/CMM K/CMM] (06/04/14 9:20 PM) Medications Administered During Your Visit No data available for this section Immunizations No data available for this section
--- OUTSIDE RECORDS SUMMARY | 2020-01-22 16:23 | XMS REPORT | Summary of Care ---
Author Author [facility] Primary [facility] Organization [facility] Address Unknown Phone Unavailable Encounter MIRELA Workman(FIN) [id number] Date(s): 01/28/19 - 01/28/19 [facility] [address] [place] [address]- Discharge Disposition: Home or Self Care Attending Physician: Jessy Aggarwal MD Vital Signs Most recent to 1 oldest [Reference Range]: Height 167.64 cm (01/28/19 2:07 PM) Temperature Oral 98.5 DegF [96.4-99.1 DegF] (01/28/19 2:07 PM) Blood Pressure 108/65 mmHg [90-140/60-90 mmHg] (01/28/19 2:07 PM) Respiratory Rate 16 BRMIN [14-20 BRMIN] (01/28/19 2:07 PM) Peripheral Pulse 69 bpm Rate [60-100 bpm] (01/28/19 2:07 PM) Weight 71.534 kg (01/28/19 2:07 PM) Body Mass Index 25.45 m2 (01/28/19 2:07 PM) Problem List Condition Effective Dates Status [...] 12/30/14 Active 16 Left inguinal 04/21/14 Resolved [id number], 18 Left lumbar Active radiculopathy(Confir med) Medicare [...] # 2 tab, 5 Refill(s) Start Date: 01/28/19 Status: Ordered Results No data available for this section Immunizations Given and Recorded Vaccine Date Status Refusal Reason influenza virus vaccine, inactivated1 04/28/18 Recorded influenza virus vaccine, inactivated2 05/15/17 Recorded influenza virus vaccine, inactivated 05/26/15 G iven influenza virus vaccine, inactivated3 04/04/14 Given pneumococcal 23-valent vaccine4 04/04/14 Given 1Location History: Pharmacy 2Location History: [facility] 3Result Comment: fluzone. Migrated from OBS ; Data migrated from [employer] on 03/20/2015. 4Result Comment: pneumovax. Migrated from OBS VIS: 7--97 given April 04, 2014. ; Data migrated from [employer] on 03/20/2015. 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
--- OUTSIDE RECORDS SUMMARY | 2020-01-22 16:23 | XMS REPORT | Summary of Care ---
Author Author [facility] Organization [facility] Address Unknown Phone Unavailable Encounter MIRELA Workman(FIN) [id number] Date(s): 03/09/18 - 03/09/18 [facility] [address], [address] [place] [address]- [phone] Discharge Disposition: Home or Self Care Attending Physician: Jessy Aggarwal MD Vital Signs Most recent to 1 oldest [Reference Range]: Height 167.64 cm (03/09/18 2:54 PM) Temperature Oral 97.1 DegF [96.4-99.1 DegF] (03/09/18 2:54 PM) Blood Pressure 165/90 mmHg [90-140/60-90 mmHg] *HI* (03/09/18 2:54 PM) Respiratory Rate 16 BRMIN [14-20 BRMIN] (03/09/18 2:54 PM) Peripheral Pulse 56 bpm Rate [60-100 bpm] *LOW* (03/09/18 2:54 PM) Weight 73.182 kg (03/09/18 2:54 PM) Body Mass Index 26.04 m2 (03/09/18 2:54 PM) Problem List Condition Effective Dates Status [...] 12/30/14 Active 16 Left inguinal 04/21/14 Resolved qsuopj53, 18 Left lumbar Active radiculopathy(Confir med) Medicare annual Active wellness visit, subsequent(Confirmed ) Mixed Active hyperlipidemia(Confi rmed) Overweight(Confirmed Active ) Discomfort of both Active eyes(Confirmed) Elevated Active PSA(Confirmed) Screening for colon Active [...] Daily, # 90 tab, 1 Refill(s), Pharmacy: [facility] [id number], Dose increased Start Date: 03/09/18 Stop Date: 04/28/18 Status: Completed losartan 25 mg oral tablet 25 mg = 1 tab, PO, Daily, X 90 day, # 90 tab, 1 Refill(s), Pharmacy: [facility] [id number], Needs follow-up Start Date: 03/09/18 Stop Date: 04/03/18 Status: Completed simvastatin 10 mg oral tablet 10 mg = 1 tab, PO, Bedtime, # 90 tab, 1 Refill(s), [id number] Start Date: 03/09/18 Stop Date: 09/05/18 Status: Ordered Results No data available for this section Immunizations Given and Recorded Vaccine Date Status Refusal Reason influenza virus vaccine, inactivated1 04/28/18 Recorded influenza virus vaccine, inactivated2 05/15/17 Recorded influenza virus vaccine, inactivated 05/26/15 G iven influenza virus vaccine, inactivated3 04/04/14 Given pneumococcal 23-valent vaccine4 04/04/14 Given 1Location History: Pharmacy 2Location History: [facility] 3Result Comment: fluzone. Migrated from OBS ; Data migrated from [employer] on 03/20/2015. 4Result Comment: pneumovax. Migrated from OBS VIS: 03-11-97 given April 04, 2014. ; Data migrated from [employer] on 03/20/2015. 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 Alcohol Never Smoking Status Never smoker; Concerns abou t tobacco use in household: No; Exposure to Tobacco Smoke None; Cigarette Smoking L ast 365 Days No; Reg Smoking Cessation Counseling No entered on: 06/27/18 Assessment and Plan No data available for this section
--- OUTSIDE RECORDS SUMMARY | 2020-01-22 16:23 | XMS REPORT | Summary of Care ---
Author Author [facility] Organization [facility] Address Unknown Phone Unavailable Encounter HQ Jacinta(ALIA) [id number] Date(s): 11/06/15 - 11/06/15 [facility] [address] [place] [address]- Discharge Disposition: Home Attending Physician: Flako Abad MD Referring Physician: Flako Abad MD Vital Signs No data available for this section Problem List Condition Effective Dates Status Health Status Informan t Allergic Active cough(Confirmed) Anemia1 02/17/15 Active Benign essential 03/03/14 Active hypertension2, 3 Benign prostatic 03/03/14 Active hyperplasia4, 5 Biliary calculus6, 7 07/21/14 Active Diabetes mellitus Active type 2, controlled, without complications(Confir med) Dry eyes(Confirmed) Active Dyspnea(Confirmed) Active Epidermal Active nevus(Confirmed) Gastroesophageal 04/04/14 Active reflux disease8, 9 Hearing loss10, 11 04/04/14 Active Hypocalcemia(Confirm Active ed) Ngidaboejklxgx66, 13 04/21/14 Active Right knee pain14, 12/30/14 Active 15 Left inguinal 04/21/14 Resolved , 17 Mixed Active hyperlipidemia(Confi rmed) Annual physical Resolved exam(Confirmed) Elevated Active PSA(Confirmed) Tinea pedis18, 19 09/15/14 Active Vascular Active headache(Confirmed) 1Data migrated from [employer] on 03/18/15. 2Data migrated from [employer] on 01/13/15. 3Data migrated from [employer] on 01/13/15. 4Data migrated from [employer] on 01/13/15. 5Data migrated from [employer] on 01/13/15. 6Data migrated from [employer] on 01/13/15. 7Data migrated from [employer] on 01/13/15. 8Data migrated from [employer] on 02/18/15. 9Data migrated from [employer] on 01/13/15. 10Data migrated from [employer] on 01/13/15. 11Data migrated from [employer] on 01/13/15. 12Data migrated from [employer] on 01/13/15. 13Data migrated from [employer] on 01/13/15. 14Data migrated from [employer] on 02/18/15. 15Data migrated from [employer] on 01/14/15. 16Data migrated from [employer] on 01/13/15. 17Data migrated from [employer] on 01/13/15. 18Data migrated from [employer] on 02/18/15. 19Data migrated from [employer] on 01/13/15. Allergies, Adverse Reactions, Alerts Substance Reaction Severity Status lisinopril1 headache Active penicillins2 itching and rash Active sulfa drugs3 lip swelling Active 1Data migrated from [employer] on 12/09/14. Originally documented as LISINOPRIL. Headache 2Data migrated from [employer] on 03/13/15. Originally documented as PENICILLIN. irritation and rash 3Data migrated from [employer] on 03/13/15. Originally documented as SULFA. lips (swollen) Medications No data available for this section Results CHEM PANEL Most recent to 1 oldest [Reference Range]: eGFR 70 mL/min/1.73m2 1 *NA* (11/06/15 11:20 AM) POC Creatinine 1.1 mg/dL [0.5-1.4 mg/dL] (11/06/15 11:20 AM) 1Result Comment: The eGFR is calculated [...] be mul tiplied by the estimated BMI. Immunizations Vaccine Date Refusal Reason influenza virus vaccine, inactivated 05/26/15 influenza virus vaccine, inactivated1 04/04/14 pneumococcal 23-valent vaccine2 04/04/14 1Result Comment: fluzone. Migrated from OBS ; Data migrated from [employer] on 03/20/2015. 2Result Comment: pneumovax. Migrated from OBS VIS: 03-11-97 given April 04, 2014. ; Data migrated from [employer] on 03/20/2015. Procedures Procedure Date Related Diagnosis Body Site Colonoscopy1 07/01/14 Bilateral inguinal hernia repair2 Cholecystectomy Tonsillectomy 1polyps, repeat in 3 years 2right in 2007 [place] left 11/2012 Social History Social History Type Response Substance Abuse Use: None. 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 Alcohol Never Smoking Status Never smoker; Tobacco [...]
--- OUTSIDE RECORDS SUMMARY | 2020-01-22 16:23 | XMS REPORT | Summary of Care ---
Author Author [facility] Primary Care [facility] Organization [facility] Address Unknown Phone Unavailable Encounter MIRELA Workman(FIN) [id number] Date(s): 11/07/17 - 11/07/17 [facility] [address], [address] [place] [address]- [phone] Discharge Disposition: Home or Self Care Attending Physician: Jessy Aggarwal MD Vital Signs Most recent to 1 oldest [Reference Range]: Height 167.64 cm (11/07/17 3:39 PM) Temperature Oral 97.6 DegF [96.4-99.1 DegF] (11/07/17 3:39 PM) Blood Pressure 122/72 mmHg [90-140/60-90 mmHg] (11/07/17 3:39 PM) Respiratory Rate 16 BRMIN [14-20 BRMIN] (11/07/17 3:39 PM) Peripheral Pulse 56 bpm Rate [60-100 bpm] *LOW* (11/07/17 3:39 PM) Weight 75.511 kg (11/07/17 3:39 PM) Body Mass Index 26.87 m2 (11/07/17 3:39 PM) Problem List Condition Effective Dates Status [...] 12/30/14 Active 16 Left inguinal 04/21/14 Resolved udwjhx52, 18 Left lumbar Active radiculopathy(Confir med) Medicare [...] Daily, # 90 tab, 1 Refill(s), [facility] [id number], Dose increased Start Date: 11/07/17 Status: Ordered Results No data available for this section Immunizations Given and Recorded Vaccine Date Status Refusal Reason influenza virus vaccine, inactivated1 05/15/17 Recorded influenza virus vaccine, inactivated 05/26/15 G iven influenza virus vaccine, inactivated2 04/04/14 Given pneumococcal 23-valent vaccine3 04/04/14 Given 1Location History: [facility] 2Result Comment: fluzone. Migrated from OBS ; Data migrated from [employer] on 03/20/2015. 3Result Comment: pneumovax. Migrated from OBS VIS: 03-11-97 given April 04, 2014. ; Data migrated from [employer] on 03/20/2015. 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 Alcohol Never Smoking Status Never smoker; Concerns abou t tobacco use in household: No; Exposure to Tobacco Smoke None; Cigarette Smoking L ast 365 Days No; Reg Smoking Cessation Counseling No entered on: 11/07/17 Assessment and Plan No data available for this section
--- OUTSIDE RECORDS SUMMARY | 2020-01-22 16:23 | XMS REPORT | Summary of Care ---
Author Author [facility] Organization [facility] Address Unknown Phone Unavailable Encounter MIRELA Workman(ALIA) [id number] Date(s): 01/12/16 - 01/12/16 [facility] [address] [place] [address]- [phone] Discharge Diagnosis: Pelvic and perineal pain Discharge Disposition: Home Attending Physician: Marilin Stewart MD Vital Signs Most recent to 1 2 oldest [Reference Range]: Height 167.64 cm (01/12/16 9:05 AM) Temperature Oral 98.0 DegF [96.4-99.1 DegF] (01/12/16 9:05 AM) Blood Pressure 118/69 mmHg 129/76 mmHg [90-140/60-90 mmHg] (01/12/16 11:41 AM) (01/12/16 9:05 AM) Respiratory Rate 18 BRMIN 18 BRMIN [14-20 BRMIN] (01/12/16 11:41 AM) (01/12/16 9:05 AM) Peripheral Pulse 72 bpm 65 bpm Rate [60-100 bpm] (01/12/16 11:41 AM) (01/12/16 9:05 AM) Weight 72.727 kg (01/12/16 9:05 AM) Body Mass Index 25.88 m2 (01/12/16 9:05 AM) Problem List Condition Effective Dates Status Health Status Informan t Anemia1 02/17/15 Active Benign essential 03/03/14 Active hypertension2, 3 Benign prostatic 03/03/14 Active hyperplasia4, 5 Biliary calculus6, 7 07/21/14 Active Diabetes mellitus Active type 2, controlled, without complications(Confir med) Dry eyes(Confirmed) Active Dyspnea(Confirmed) Resolved Epidermal Active nevus(Confirmed) Escherichia 01/10/16 Active coli(Confirmed)8, 9 Gastroesophageal 04/04/14 Active reflux xiqljyy23, 11 Hearing loss12, 13 04/04/14 Active Hypertension(Confirm Active ed) Hypocalcemia(Confirm Resolved ed) Cewkampehikjug23, 15 04/21/14 Active Right knee pain16, 12/30/14 Active 17 Left inguinal 04/21/14 Resolved yvhamg50, 19 Mixed Active hyperlipidemia(Confi rmed) Annual physical Resolved exam(Confirmed) Elevated Active PSA(Confirmed) Nevus(Confirmed) Active Tinea pedis20, [...] Originally documented as SULFA. lips (swollen) Medications Cipro 500 mg oral tablet 500 mg = 1 tab, PO, Q12H, X 21 day, # 42 tab, 0 Refill(s) Start Date: 01/12/16 Stop Date: 02/02/16 Status: Ordered Results ELECTROLYTES Most recent to 1 oldest [Reference Range]: Sodium Lvl [135-145 137 mEq/L mEq/L] (01/12/16 10:12 AM) Potassium Lvl 4.0 mEq/L [3.5-5.1 mEq/L] (01/12/16 10:12 AM) Chloride Lvl [95-109 104 mEq/L mEq/L] (01/12/16 10:12 AM) CO2 [24-32 mEq/L] 26 mEq/L (01/12/16 10:12 AM) AGAP [10.0-20.0 11.0 mEq/L mEq/L] (01/12/16 10:12 AM) CHEM PANEL Most recent to 1 oldest [Reference Range]: Creatinine Lvl 1.29 mg/dL [0.50-1.40 mg/dL] (01/12/16 10:12 AM) eGFR 57 mL/min/1.73m2 1 *NA* (01/12/16 10:12 AM) BUN [7-22 mg/dL] 14 mg/dL (01/12/16 10:12 AM) B/C Ratio [6-25] 11 (01/12/16 10:12 AM) Glucose Lvl [70-99 118 mg/dL mg/dL] *HI* (01/12/16 10:12 AM) Total Protein 7.6 g/dL [6.4-8.4 g/dL] (01/12/16 10:12 AM) Albumin Lvl [3.5-5.0 3.4 g/dL g/dL] *LOW* (01/12/16 10:12 AM) Globulin [2.0-4.0 4.2 g/dL g/dL] *HI* (01/12/16 10:12 AM) A/G Ratio [0.7-1.6] 0.8 (01/12/16 10:12 AM) Calcium Lvl 8.4 mg/dL [8.5-10.5 mg/dL] *LOW* (01/12/16 10:12 AM) ALT [0-65 unit/L] 17 unit/L (01/12/16 10:12 AM) AST [0-37 unit/L] 12 unit/L (01/12/16 10:12 AM) Alk Phos [39-136 83 unit/L unit/L] (01/12/16 10:12 AM) Bili Total [0.2-1.3 0.5 mg/dL mg/dL] (01/12/16 10:12 AM) 1Result Comment: The eGFR is calculated [...] oldest [Reference Range]: UA Turbidity [Clear] Clear (01/12/16 9:17 AM) UA Color Ltyellow *NA* (01/12/16 9:17 AM) UA pH [5.0-8.0] 7.0 (01/12/16 9:17 AM) UA Spec Grav 1.011 [<=1.030] (01/12/16 9:17 AM) UA Glucose [Negative Negative mg/dL mg/dL] *NA* (01/12/16 9:17 AM) UA Blood [Negative] Negative (01/12/16 9:17 AM) UA Ketones [Negative Negative mg/dL mg/dL] *NA* (01/12/16 9:17 AM) UA Protein [Negative Negative mg/dL mg/dL] (01/12/16 9:17 AM) UA Urobilinogen <=1.0 mg/dL [0.1-1.0 mg/dL] *NA* (01/12/16 9:17 AM) UA Bili [Negative] Negative *NA* (01/12/16 9:17 AM) UA Leuk Est Small [Negative] *ABN* (01/12/16 9:17 AM) UA Nitrite Negative [Negative] (01/12/16 9:17 AM) UA WBC [0-5 /HPF] 20 /HPF *HI* (01/12/16 9:17 AM) UA RBC [0-2 /HPF] 2 /HPF (01/12/16 9:17 AM) UA Bacteria [None Occasional /HPF Seen /HPF] *NA* (01/12/16 9:17 AM) UA Sq Epi None Seen *NA* (01/12/16 9:17 AM) UA Mucus [None Seen Few /LPF /LPF] *NA* (01/12/16 9:17 AM) UA Dickerson Yeast [None Occasional /HPF Seen /HPF] *ABN* (01/12/16 9:17 AM) HEMATOLOGY Most recent to 1 oldest [Reference Range]: WBC [3.7-10.4 K/CMM] 11.5 K/CMM *HI* (01/12/16 10:12 AM) RBC [4.70-6.10 4.48 M/CMM M/CMM] *LOW* (01/12/16 10:12 AM) Hgb [14.0-18.0 g/dL] 13.3 g/dL *LOW* (01/12/16 10:12 AM) Hct [42.0-54.0 %] 39.3 % *LOW* (01/12/16 10:12 AM) MCV [80.0-94.0 fL] 87.6 fL (01/12/16 10:12 AM) MCH [27.0-31.0 pg] 29.7 pg (01/12/16 10:12 AM) MCHC [32.0-36.0 33.9 g/dL g/dL] (01/12/16 10:12 AM) RDW [11.5-14.5 %] 14.1 % (01/12/16 10:12 AM) Platelet [133-450 190 K/CMM K/CMM] (01/12/16 10:12 AM) MPV [7.4-10.4 fL] 8.8 fL (01/12/16 10:12 AM) Segs [45.0-75.0 %] 83.0 % *HI* (01/12/16 10:12 AM) Lymphocytes 12.0 % [20.0-40.0 %] *LOW* (01/12/16 10:12 AM) Monocytes [2.0-12.0 4.6 % %] (01/12/16 10:12 AM) Eosinophils [0.0-4.0 0.3 % %] (01/12/16 10:12 AM) Basophils [0.0-1.0 0.1 % %] (01/12/16 10:12 AM) Segs-Bands # 9.5 K/CMM [1.5-8.1 K/CMM] *HI* (01/12/16 10:12 AM) Lymphocytes # 1.4 K/CMM [1.0-5.5 K/CMM] (01/12/16 10:12 AM) Monocytes # [0.0-0.8 0.5 K/CMM K/CMM] (01/12/16 10:12 AM) Immunizations Vaccine Date Refusal Reason influenza virus vaccine, inactivated 05/26/15 influenza virus vaccine, inactivated1 04/04/14 pneumococcal 23-valent vaccine2 04/04/14 1Result Comment: fluzone. Migrated from OBS ; Data migrated from [employer] on 03/20/2015. 2Result Comment: pneumovax. Migrated from OBS VIS: 03-11-97 given April 04, 2014. ; Data migrated from [employer] on 03/20/2015. Procedures Procedure Date Related Diagnosis Body Site Colonoscopy1 07/01/14 Bilateral inguinal hernia repair2 Cholecystectomy Tonsillectomy 1polyps, repeat in 3 years 2right in 2007 [place] left 11/2012 Social History Social History Type Response Substance Abuse Use: None. 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 Alcohol Never Smoking Status Never smoker; Tobacco [...]
--- OUTSIDE RECORDS SUMMARY | 2020-01-22 16:23 | XMS REPORT | Summary of Care ---
Author Author [facility] Primary Care [facility] Organization [facility] Primary [facility] Address Unknown Phone Unavailable Encounter HQ Jacinta(FIN) [id number] Date(s): 09/20/18 - 09/21/18 [facility] Primary [facility] [address], [address] [place] [address]- [phone] Vital Signs No data available for this [...] 12/30/14 Active 16 Left inguinal 04/21/14 Resolved ofeppe37, 18 Left lumbar Active radiculopathy(Confir med) Medicare [...] # 2 tab, 5 Refill(s), P harmacy: [id number] Start Date: 09/20/18 Status: Ordered Results No data available for [...] 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 Alcohol Never Smoking Status Never smoker; Concerns abou t tobacco use in household: No; Exposure to Tobacco Smoke None; Cigarette Smoking L ast 365 Days No; Reg Smoking Cessation Counseling No entered on: 06/27/18 Assessment and Plan No data available for this section
--- OUTSIDE RECORDS SUMMARY | 2020-01-22 16:24 | XMS REPORT | Continuity of Care Document ---
Author Author [facility] t Organization [facility] Address 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 [id number] 2019 00:00:00 PIPPA [facility] [id number] 2018 00:00:00 [facility] Problems Condition Name Condition Details Condition Category Status Onset Date Resolution Date Last Treatment Date Treating Clinician Comments Source ACUTE PYELONEPHRITIS PREVIOUSLY ON ABX ACUTE PYELONEPHRITIS PREVIOUSLY ON ABX Active 01/28/2016 [facility] Active 2016-01-28 00:00:00 2016-02-05 22:05:00 M sajan Pitts URINARY URIN ELIGIO Active 01/28/2016 [facility] Active 2016-01-28 00:00:00 2016-01-28 16:37:00 [facility] Escherichia coli (organism) Es cherichia coli (organism) Active 01/10/2016 Problem 02/04/2016 urine, 01/10/16Problem added by Discern Expert. [facility] Problem Active 2016-01-10 00:00:00 2016-02-04 01:59:12 [facility] FEVER/STOMACH PAIN FEVE R/STOMACH PAIN Active 01/09/2016 [facility] Active 2016-01-09 00:00:00 2016-01-10 02:09:00 [facility] ABD PAIN ABD PAIN Active 01/05/2016 [facility] Active 2016-01-05 00:00:00 2016-01-12 09:48:00 [facility] R06.02-SHORTNESS OF BREATH/R07.9-CHEST P R06.02- SHORTNESS OF BREATH/R07.9-CHEST P Active 10/30/2015 [facility] Active 2015-10-30 00:00:00 2015-11-06 11:05:00 [facility] ELEVATED PSA ELEV ATED PSA Active 02/17/2015 Condition 02/17/2015 [facility] Condition Active 2015-02-17 00:00:00 2015-02-17 13:31:10 [facility] CONJUNCTIVITIS, ACUTE CONJ UNCTIVITIS, ACUTE Active 02/17/2015 Condition 02/17/2015 [facility] Condition Active 2015-02-17 00:00:00 2015-02-17 13:31:10 [facility] ANEMIA ANEM IA Active 02/17/2015 Condition 02/17/2015 [facility] Condition Active 2015-02-17 00:00:00 2015-02-17 13:31:10 [facility] KNEE PAIN, RIGHT KNEE PAIN, RIGHT Active 12/30/2014 Condition 02/17/2015 [facility] Condition Active 2014-12-30 00:00:00 2015-02-17 13:31:10 [facility] Knee pain (finding) Knee pain (finding) Active 12/30/2014 Problem 04/11/2019 Data migrated from [email or web address] on 02/18/15.Data migrated from [email or web address] on 01/14/15. [facility] Problem Act scotty 2014-12-30 00:00:00 2019-04-11 12:44:27 [facility] TINEA PEDIS AVA A PEDIS Active 09/15/2014 Condition 02/17/2015 [facility] Condition Active 2014-09-15 00:00:00 2015-02 13:31:10 [facility] Tinea pedis (disorder) Ava a pedis (disorder) Active 09/15/2014 Problem 02/04/2016 Data migrated from [employer] on 02/18/15.Data migrated from [employer] on 01/13/15. 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 [facility] Problem Active 2014-07-21 00:00:00 2019-04-11 12:44:27 [facility] ACUTE CHOLECYSTITIS ACUT E CHOLECYSTITIS Active 07/08/2014 [facility] Active 2014-07-08 00:00:00 2014-07-15 10:30:00 [facility] ABDOMINAL PAIN ABDO PAPI PAIN Active 07/08/2014 [facility] Active 2014-07-08 00:00:00 2014-07-08 06:43:00 [facility] HYPOTHYROIDISM HYPO THYROIDISM Active 04/21/2014 Condition 02/17/2015 [facility] Condition Active 2014-04-21 00:00:00 2015-02-17 13:31:10 [facility] LEFT INGUINAL HERNIA LEFT INGUINAL HERNIA Active 04/21/2014 Condition 02/17/2015 [facility] Condition Active 2014-04-21 00:00:00 2015-02-17 13:31:10 [facility] HYPERLIPIDEMIA HYPE RLIPIDEMIA Active 04/21/2014 Condition 02/17/2015 [facility] Condition Active 2014-04-21 00:00:00 2015-02-17 13:31:10 [facility] Hypothyroidism (disorder) Hypo thyroidism (disorder) Active 04/21/2014 Problem 04/11/2019 Data migrated from [employer] on 01/13/15.Data migrated from [employer] on 01/13/15. [facility] Problem Active 2014-04-21 00:00:00 2019-04-11 12:44:27 M davonterialphonse Pitts IMPAIRED FASTING GLUCOSE IMPA IRED FASTING GLUCOSE Active 04/04/2014 Condition 12/30/2014 [facility] Condition Active 2014-04-04 00:00:00 2014-12-30 09:30:00 [facility] HEARING LOSS HEAR ING LOSS Active 04/04/2014 Condition 02/17/2015 [facility] Condition Active 2014-04-04 00:00:00 2015-02-17 13:31:10 [facility] DYSPEPSIA DYSP EPSIA Active 04/04/2014 Condition 09/15/2014 [facility] Condition Active 2014-04-04 00:00:00 2014-09-15 11:00:5 2 [facility] PREDIABETES PRED IABETES Active 04/04/2014 Condition 02/17/2015 [facility] Condition Active 2014-04-04 00:00:00 2015-02 13:31:10 [facility] GERD GERD Active 04/04/2014 Condition 02/17/2015 [facility] Condition Active 2014-04-04 00:00:00 2015-02-17 13:31:10 [facility] Gastroesophageal reflux disease (disorder) Gastroesophageal reflux disease (disorder) Active 04/04/2014 Problem 04/11/2019 Data migrated from [employer] on 02/18/15.Data migrated from [employer] on 01/13/15. [facility] Problem Active 2014-04-04 00:00:00 2019-04-11 12:44:27 [facility] Hearing loss (finding) Hear ing loss (finding) Active 04/04/2014 Problem 04/11/2019 Data migrated from [employer] on 01/13/15.Data migrated from [employer] on 01/13/15. [facility] Problem Active 2014-04-04 00:00:00 2019-04-11 12:44:27 [facility] HYPERTENSION HYPE RTENSION Active 03/03/2014 Condition 03/28/2014 [facility] Condition Active 2014-03-03 00:00:00 2014-03-28 08:35:00 [facility] BPH BPH Active 03/03/2014 Condition 02/17/2015 [facility] Condition Active 2014-03-03 00:00:00 2015-02-17 13:31:10 [facility] BENIGN ESSENTIAL HYPERTENSION BENIGN ESSENTIAL HYPERTENSION Active 03/03/2014 Condition 02/17/2015 [facility] Condition Active 2014-03-03 00:00:00 2015-02-17 13:31:10 [facility] Benign essential hypertension (disorder) Benign essential hypertension (disorder) Active 03/03/2014 Problem 04/11/2019 Data migrated from [employer] on 01/13/15.Data migrated from [employer] on 01/13/15. [facility] Problem Active 2014-03-03 00:00:00 2019-04-11 12:44:27 [facility] Benign prostatic hyperplasia (disorder) Benign prostatic hyperplasia (disorder) Active 03/03/2014 Problem 04/11/2019 Data migrated from [employer] on 01/13/15.Data migrated from [employer] on 01/13/15. [facility] Problem Active 2014-03-03 00:00:00 2019-04-11 12:44:27 [facility] Cystitis Cystitis Problem Active [facility] Diverticulitis Diverticulitis Problem Active [facility] Anemia (disorder) Anem ia (disorder) Resolved Problem 04/11/2019 [facility] Problem Resolved 2019-04-11 12:44:27 [facility] Dyspnea (finding) Dysp paola (finding) Resolved Problem 02/04/2016 [facility] Problem Resolved 2016-02-04 01:59:12 [facility] Hypocalcemia (disorder) Hypo calcemia (disorder) Resolved Problem 02/04/2016 [facility] Problem Resolved 2016-02-04 01:59: 12 [facility] Patient encounter status (finding) Patient encounter status (finding) Resolved Problem 02/04/2016 [facility] Problem Resolved 2016-02-04 01:59:12 [facility] Disease of thyroid gland (disorder) Disease of thyroid gland (disorder) Resolved Problem 07/13/2014 [facility] Problem Resolved 2014-07-13 22:25:05 [facility] Type II diabetes mellitus without complication (disord er) Type II diabetes mellitus without complication (disorder) Active Problem 04/11/2019 [facility] Problem Active 12:44:27 [facility] Dry eyes (finding) Dry eyes (finding) Active Problem 02/13/2018 [facility] Problem Active 2 11:10:17 [facility] History of polyp of colon (situation) History of polyp of colon (situation) Active Problem 04/11/2019 [facility] Problem Ac tive 2019-04-11 12:44:27 [facility] grace History of transurethral prostatectomy (situation) History of transurethral prostatectomy (situation) Active Problem 04/11/2019 [facility] Problem Active 2019-04-11 12:44:27 [facility] Lumbar radiculopathy (disorder) Lumbar radiculopathy (disorder) Active Problem 04/11/2019 [facility] Problem Active 2019-04-11 12:44:27 [facility] Medical examinations/reports status (finding) Medical examinations/reports status (finding) Active Problem 04/11/2019 [facility] Group Problem Active 2019-04-11 12:44:27 [facility] Mixed hyperlipidemia (disorder) Mixed hyperlipidemia (disorder) Active Problem 04/11/2019 [facility] Problem Active 2019-04-11 12:44:27 [facility] Overweight (finding) Over weight (finding) Active Problem 04/11/2019 [facility] Problem Active 2019-04-11 12:44:27 [facility] Raised prostate specific antigen (finding) Raised prostate specific antigen (finding) Active Problem 04/11/2019 [facility] Problem Active 2019-04-11 12:44:27 [facility] Screening status (finding) Scr eening status (finding) Active Problem 04/11/2019 [facility] Problem Active 2019-04-11 12:44:27 [facility] Tinnitus (finding) Tinn itus (finding) Active Problem 04/11/2019 [facility] Problem Active 2019-04-11 12:44:27 [facility] Vitamin D deficiency (disorder) Vitamin D deficiency (disorder) Active Problem 04/11/2019 [facility] Problem Active 2019-04-11 12:44:27 [facility] Body mass index index 25-29 - overweight (finding) Body mass index index 25-29 - overweight (finding) Active Problem 04/11/2019 [facility] Problem Active 2019-04-11 12:44:27 [facility] Vertigo (finding) Vert igo (finding) Active Problem 04/11/2019 [facility] Problem Active 2019-04-11 12:44:27 [facility] Pain in eye (finding) Pain in eye (finding) Active Problem 09/26/2018 [facility] Problem Active 2018-09-26 12: 09:52 [facility] Allergic cough (finding) Mykel rgic cough (finding) Active Problem 11/09/2015 [facility] Problem Active 2015-11-09 01:12:1 5 [facility] Epidermal nevus (disorder) Epi dermal nevus (disorder) Active Problem 02/04/2016 [facility] Problem Active 2016-02-04 01:59:12 [facility] Vascular headache (disorder) V ascular headache (disorder) Active Problem 02/04/2016 [facility] Problem Active 2016-02-04 01:59:12 [facility] Hypertensive disorder, systemic arterial (disorder) Hypertensive disorder, systemic arterial (disorder) Active Problem 02/04/2016 [facility] Problem Active 2016-02-04 01:59:12 Sugey Pitts Skin lesion (disorder) Skin lesion (disorder) Active Problem 02/04/2016 [facility] Problem Active 2016-02-04 01:59:1 2 [facility] Urethral spasm (finding) Uret hral spasm (finding) Active Problem 02/04/2016 [facility] Problem Active 2016-02-04 01:59:1 2 [facility] Urethritis (disorder) Uret hritis (disorder) Active Problem 02/04/2016 [facility] Problem Active 2016-02-04 01:59:1 2 [facility] Large prostate (finding) Larg e prostate (finding) Active Problem 02/04/2016 [facility] Problem Active 2016-02-04 01:59:1 2 [facility] CHOLECYSTITIS NOS CHOL ECYSTITIS NOS Active [facility] Diagnosis Active 2014-07-15 10:30:00 [facility] SHORTNESS OF BREATH SHOR TNESS OF BREATH Active [facility] Diagnosis Active 2015-11-06 11:05:00 [facility] CHEST PAIN, UNSPECIFIED CHES T PAIN, UNSPECIFIED Active [facility] Diagnosis Active 2015-11-06 11:05:00 [facility] TUBULO-INTERSTITIAL NEPHRITIS, 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, 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 [facility] Diagnosis Active 2016-02-05 22:05:00 [facility] Discharge Diagnosis: Pelvic and perineal pain Discharge Diagnosis: Pelvic and perineal pain 01/12/2016 01/15/2016 [facility] Problem 2016-01-12 05:00:00 2016-01-15 02:37:52 2016-01-15 02:37:52 [facility] Dis[facility] Diagnosis: Enteritis Discharge Diagnosis: Enteritis 01/10/2016 01/13/2016 [facility] Problem 2015 05:00:00 2016-01-13 00:27:27 2016-01-13 00:27:27 [facility] Discharge Diagnosis: Urinary tract infection Discharge Diagnosis: Urinary tract infection 06/04/2014 06/07/2014 [facility] Problem 2014-06-04 05:00:00 2014-06-07 05:05:45 2014-06-07 05:05:45 [facility] Allergies, Adverse Reactions, Alerts Allergy Name Allergy Type Status Severity Reaction(s) Onset Date Inacti ve Date Treating Clinician Comments Source Penicillin Allergy to Substance Active RASH 2019-07-22 00:00:00 [facility] Sulfa (Sulfonamide Antibiotics) Allergy to Substance Active RASH 2019-07-22 00:00:00 [facility] Sulfa (Sulfonamide Antibiotics) Drug Allergy Active Hives 2018-09-12 00:00:00 [facility] lisinopril<sup>1</sup> lisinopril<sup>1</sup> Active 28-08-04 06:00:00 [facility] LISINOPRIL LISINOPRIL Active 2014-08-18 00:00:00 [facility] penicillins<sup>1</sup> penicillins<sup>1</sup> Active 2014-03-03 05:00:00 [facility] penicillins<sup>2</sup> penicillins<sup>2</sup> Active 2014-03-03 05:00:00 [facility] PENICILLIN PENICILLIN Active 2014-03-03 00:00:00 [facility] Sulfamethoxazole-Trimethoprim Propensity to adverse reactions Active Rash 2014-01-25 00:00:00 [facility] Penicillins Propensity to adverse reactions Active Rash 2013 00:00:00 [facility] SULFA SULFA Active 2012-08-14 00:00:00 [facility] sulfa drugs<sup>2</sup> sulfa drugs<sup>2</sup> Active [facility] sulfa drugs<sup>3</sup> sulfa drugs<sup>3</sup> Active [facility] penicillins penicillins Active [facility] sulfa drugs sulfa drugs Active [facility] Social History Social Habit Start Date Stop Date Quantity Comments Source Sex Assigned At [facility] Social History 2015-05-26 18:59:23 2015-05-26 18:59:23 [facility] Smoking Status Start Date Stop Date Source Never smoker [facility] Medications Ordered Medication Name Filled Medication Name Start Date Stop Da te Current Medication? Ordering Clinician Indication Dosage Frequency Signature (SIG) Comments Components Source Cephalexin Monohydrate (Keflex) 500 Mg Capsule Cephale lanny Monohydrate (Keflex) 500 Mg Capsule 2019-07-28 00:00:00 Yes Bridgette Baxter Do 500 Every 6 Hours [facility] sildenafil 100 MG Oral Tablet 2019-01-28 19:26:00 Yes 100 mg = 1 tab, PO, Daily, PRN for erectile dysfunction, # 2 tab, 5 Refill(s) [facility] sildenafil 100 MG Oral Tablet 2018-12-18 10:08:52 Yes 100 mg = 1 tab, PO, Daily, PRN for erectile dysfunction, # 2 tab, 5 Refill(s), Pharmacy: [facility] [address] [place] [address] sildenafil 100 MG Oral Tablet 2018-12-12 03:48:00 Yes 100 mg = 1 tab, PO, Daily, PRN for erectile dysfunction, # 2 tab, 5 Refill(s), Pharmacy: [facility] [id number] [facility] omeprazole 40 mg oral delayed release capsule 2018-10-03 21:08:3 8 Yes 40 mg = 1 cap, PO, Daily, # 30 cap, 1 Re fill(s), Pharmacy: [facility] [id number] [facility] levothyroxine 88 mcg (0.088 mg) oral tablet 2018-09-28 20:21:00 Yes 88 microgram = 1 tab, PO, Daily, # 90 tab, 1 Refill(s), Pharmacy: [facility] [id number] [facility] sildenafil 100 MG Oral Tablet 2018-09-20 21:14:00 No 100 mg = 1 tab, PO, Daily, PRN for erectile dysfunction, # 2 tab, 5 Refill(s), Pharmacy: [facility] [id number] dicyclomine (BENTYL) 20 mg tablet 2018-09-13 00:00:00 2019 23:59:00 No 20mg Q.5D Take 1 tablet (20 mg total) by mouth 2 ( two) times daily. [facility] meclizine 25 mg oral tablet 2018-06-27 20:29:00 Yes 25 mg = 1 tab, PO, TID, PRN for dizziness, # 40 tab, 1 Refill(s), Pharmacy: [facility] [employer] [facility] [id number] [facility] sildenafil 100 MG Oral Tablet 2018-06-27 20:27:00 No 100 mg = 1 tab, PO, Daily, PRN for erectile dysfunction, # 2 tab, 5 Refill(s) [facility] levothyroxine 75 mcg (0.075 mg) oral tablet 2018-04-29 02:23:26 No 75 microgram = 1 tab, PO, Daily, # 90 tab, 1 Refill(s), Pharmacy: [facility] [employer] [facility] [id number] [facility] losartan 25 mg oral tablet 2018-04-03 10:19:20 Yes 25 mg = 1 tab, PO, Daily, # 90 tab, 1 Refill(s), Pharmacy: [facility] [employer] [facility] [address] [facility] losartan 25 mg oral tablet 2018-03-09 20:35:44 No 25 mg = 1 tab, PO, Daily, X 90 day, # 90 tab, 1 Refill(s), Pharmacy: [facility] [employer] [facility] [id number], Needs follow-up [facility] levothyroxine 75 mcg (0.075 mg) oral tablet 2018-03-09 20:35:41 No 75 microgram = 1 tab, PO, Daily, # 90 tab, 1 Refill(s), Pharmacy: [facility] [employer] [facility] [id number], Dose increased [facility] simvastatin 10 mg oral tablet 2018-03-09 20:34:30 Yes 10 mg = 1 tab, PO, Bedtime, # 90 tab, 1 Refill(s), Pharmacy: [facility] [employer] [facility] [address] [facility] montelukast 10 mg oral tablet 2018-01-23 21:57:00 Yes 10 mg = 1 tab, PO, Bedtime, # 90 tab, 1 Refill(s), Pharmacy: [facility] [id number] [facility] levothyroxine 75 mcg (0.075 mg) oral tablet 2017-11-07 21:03:00 Yes 75 microgram = 1 tab, PO, Daily, # 90 tab, 1 Refill(s), Pharmacy: [facility] [id number], Dose increased [facility] Fenofibrate 54 MG Oral Tablet 2017-08-16 17:25:19 Yes 54 mg = 1 tab, PO, Daily, # 90 tab, 1 Refill(s), Pharmacy: [place] [id number], Second approval [facility] Fenofibrate 54 MG Oral Tablet 2017-08-09 18:53:57 Yes 54 mg = 1 tab, PO, Daily, # 90 tab, 1 Refill(s), Pharmacy: [address] omeprazole 40 mg oral delayed release capsule 2017-07-03 17:17:0 0 Yes 40 mg = 1 cap, PO, Daily, # 30 cap, 1 Re fill(s), Pharmacy: [address] ertapenem 2016-02-01 18:36:00 No Notes: (Same as: FLORENCEanz) Refrigerate. NOT COMPATIBLE WITH D5W. Stable in refrigerator for 24 hours MEDICATION WASTE Product Size: 1000 mg Product Wasted: ___ mg [facility] tamsulosin 2016-01-30 14:00:00 No Notes: (Same As: Flomax) "Do Not Crush" [facility] Lisinopril 2016-01-30 14:00:00 No Notes: (Same as: Theodore Zestril) [facility] Finasteride 2016-01-30 14:00:00 No Notes: (Same as: Proscar) "Do Not Crush" Women of childbearing age should not touch or handle broken tablets [facility] Fenofibrate 54 MG Oral Tablet 2016-01-30 14:00:00 No 54 mg, 1 tab, Route: PO, Drug form: TAB, Daily, Dosing Weight 72.727, kg, Start date: 01/30/16 9:00:00 CDT, Duration: 30 day, Stop date: 02/28/16 9:00:00 CDT [facility] Vitamin D3 2000 intl units oral tablet 2016-01-30 14:00:00 No Notes: Same as : Vitamin D3 Sugey Pitts Thyroxine 2016-01-30 11:30:00 No Notes: Take 1 hour before or 2 hours after meal; Enteral feeds may interefere with the absorption of this medication.(Same as:Levothroid, Synthroid) Sugey Pitts ocular lubricant 2016-01-29 22:00:00 No Notes: (Same as: Aquasite) Sugey Pitts TriCor 2016-01-29 22:00:00 No Notes: (Same as: Tricor) Sugey Pitts Protonix 2016-01-29 21:30:00 No Notes: Tablet should not be chewed or crushed. (Same as: Protonix) Sugey Pitts meropenem 2016-01-29 21:00:00 No Notes: (Same as: Merrem) . MEDICATION WASTE Product Size: 1000 mg Product Wasted: ___ mg Sugey Pitts sodium phosphate + D5W 250 mL 2016-01-29 16:14:00 No 15 mmol, 5 mL, Route: IVPB, PRN, Dosing Weight 72.727, kg, PRN Abnormal Lab Result, Start date: 01/29/16 11:14:00 CDT, Duration: 30 day, Stop date: 02/28/16 11:13:00 CDT Sugey Pitts Enoxaparin 2016-01-29 15:00:00 No Notes: (S adelaida as: Lovenox) [facility] Insulin, Aspart, Human 2016-01-29 15:00:00 No Notes: Roll in palms of hands gently; Do not shake vigorously. (Same as: NovoLOG) "single patient use only" WASTE: F/P - Black; E - Municipal Trash Bin Stable for 28 days at room temperature. Expires in days from Date Sugey Pitts Glucagon 2016-01-29 15:00:00 No 1 mg, Route: IM, Drug form: PDR/INJ, PRN, Dosing Weight 72.727, kg, PRN Blood Glucose Results, Start date: 01/29/16 10:00:00 CDT, Duration: 30 day, Stop date: 02/28/16 9:59:00 CDT Sugey Pitts Dextrose 50% Syringe 2016-01-29 15:00:00 No 25 gm, 50 mL, Route: IVP, Drug Form: INJ, Dosing Weight 72.727, kg, PRN, PRN Blood Glucose Results, Start date: 01/29/16 10:00:00 CDT, Duration: 30 day, Stop date: 02/28/16 9:59:00 CDT [facility] Zofran 2016-01-29 14:57:00 No Notes: (Same as: Zofran) MEDICATION WASTE Product Size: 4 mg Product Wasted: ___ mg [facility] [place] tramadol hydrochloride 50 MG Oral Tablet 2016-01-29 14:56:00 No Notes: Not to exceed 400mg/day. (Same As: Ultram) [facility] Acetaminophen 2016-01-29 14:56:00 No Notes: Do not exceed 4 gm/day. (Same as: Tylenol) [facility] lisinopril 20 mg oral tablet 2016-01-29 02:55:00 Yes 20 mg = 1 tab, PO, Daily, # 30 tab, 0 Refill(s) [facility] Rocephin 2016-01-29 02:37:00 No Notes: (Same As: Rocephin). Use with 100 mL NS and infuse over 30 min MEDICATION WASTE Product Size: 1000 mg Product Wasted: ___ mg [facility] Sodium Chloride 0.154 MEQ/ML Injectable Solution 2016-01-29 02:3 7:00 No 1,000 mL, Rate: 100 ml/hr, I nfuse over: 10 hr, Route: IV, Dosing Weight 72.727 kg, Total Volume: 1,000, Start date: 01/28/16 21:37:00 CDT, Duration: 30 day, Stop date: 02/27/16 21:36:00 CDT [facility] Saline Flush 0.9% 2016-01-29 02:37:00 No Notes: (Same as: BD Posiflush) [facility] Docusate 2016-01-29 02:37:00 No Notes: (Same as: Colace) (Do Not Crush) [facility] Morphine 2016-01-29 02:37:00 No Not es: (Same as:MORPhine Sulfate) Sugey Pitts Ondansetron 2016-01-29 02:37:00 No Notes: (Same as: Zofran) MEDICATION WASTE Product Size: 4 mg Product Wasted: ___ mg Sugey Pitts Acetaminophen 2016-01-29 02:37:00 No Notes: Do not exceed 4 gm/day. (Same as: Tylenol) Sugey Pitts Morphine 2016-01-29 01:44:00 No Not es: (Same as:MORPhine Sulfate) Sugey Pitts Acetaminophen 2016-01-29 00:27:00 No Notes: Do not exceed 4 gm/day. (Same as: Tylenol) Sugey Pitts Rocephin 2016-01-29 00:24:00 No Notes: (Same As: Rocephin). Use with 100 mL NS and infuse over 30 min MEDICATION WASTE Product Size: 1000 mg Product Wasted: ___ mg Sugey Pitts Morphine 2016-01-29 00:23:00 No Not es: (Same as:MORPhine Sulfate) [facility] Saline Flush 0.9% 2016-01-28 21:14:00 No Notes: (Same as: BD Posiflush) [facility] Ciprofloxacin 500 MG Oral Tablet [Cipro] 2016-01-12 16:35:00 Yes 500 mg = 1 tab, PO, Q12H, X 21 day, # 42 tab, 0 [facility]ill[facility]) [facility] C[facility] MG Oral Tablet [Cipro] 2016-01-10 08:48:00 Yes 500 mg = 1 tab, PO, Q12H, X 7 day, # 14 tab, 0 Refill(s), Pharmacy: [facility] [employer] [facility] [id number] [facility] Ondansetron 4 MG Oral Tablet [Zofran] 2016-01-10 08:41:00 Y es 4 mg = 1 tab, PO, BID, X 5 day, # 10 tab, 0 Refill(s), Pharmacy: [facility] [employer] [facility] [id number] [facility] Ciprofloxacin 500 MG Oral Tablet [Cipro] 2016-01-10 08:40:00 Yes 500 mg = 1 tab, PO, Q12H, X 3 day, # 6 tab, 0 Refill(s), Pharmacy: [facility] [employer] [facility] [id number] [facility] Acetaminophen 325 MG / Hydrocodone Bitartrate 5 MG Oral Tabl et 2016-01-10 06:21:00 No Notes: (Sa me as: [place] 325/5) Do not exceed 4gm/day of acetaminophen. [facility] Saline Flush 0.9% 2016-01-10 06:21:00 No Notes: (Same as: BD Posiflush) Sugey Pitts Sodium Chloride 0.154 MEQ/ML Injectable Solution 2016-01-10 06:2 1:00 No 1,000 mL, 1,000 ml/hr, Infus e Over: 1 hr, Route: IV, 1,000, Drug form: INJ, ONCE, Priority: STAT, Dosing Weight 77.273 kg, Start date: 01/10/16 1:21:00 CDT, Duration: 1 doses or times, Stop date: 01/10/16 1:21:00 CDT [facility] VIGAMOX 0.5 % SOLN 2015-02-17 00:00:00 Yes Instill one drop to right eye three times daily for 7 days. Mai Pitts NAPROXEN 500 MG TABS 2014-12-30 00:00:00 No Take one tablet by mouth twice daily as needed for pain. Take with food. [facility] NAPROXEN 500 MG TABS 2014-12-30 00:00:00 Yes Take one tablet by mouth twice daily as needed for pain. Take with food. [facility] OMEPRAZOLE 20 MG CPDR 2014-09-30 00:00:00 No Take one capsule by mouth daily. [facility] OMEPRAZOLE 20 MG CPDR 2014-09-30 00:00:00 Yes Take one capsule by mouth daily. [facility] ECONAZOLE NITRATE 1 % CREA 2014-09-15 00:00:00 No Apply to affected areas twice daily [facility] ECONAZOLE NITRATE 1 % CREA 2014-09-15 00:00:00 Yes Apply to affected areas twice daily Sugey Pitts NAFTIN 2 % CREA 2014-09-15 00:00:00 Yes Apply to affected areas twice daily [facility] LOSARTAN POTASSIUM 25 MG TABS 2014-08-18 00:00:00 Yes Take one tablet by mouth daily. [facility] MACROBID 100 MG CAPS 2014-07-24 00:00:00 No Take one capsule by mouth twice daily for 7 days. [facility] Nancy mauricio polyethylene glycol 3350 oral powder for reconstitution 2014-07-11 17:58:00 Yes 17 gm, PO, Daily, # 12 ea, 0 Refill(s) [facility] tramadol hydrochloride 50 MG Oral Tablet 2014-07-11 17:55:00 Yes 50 mg = 1 tab, PO, Q6H, Pain, # 40 tab, 0 Refill(s) [facility] POLYETHYLENE GLYCOL 3350 2014-07-11 17:55:00 No PO, Daily, Constipation, 0 Refill(s) [facility] Ban davidson Miralax 2014-07-11 00:00:00 No Notes: Dissolve in 8 oz of water or juice. (Same as: Miralax) [facility] lety tamsulosin 2014-07-10 01:48:00 No Notes: (Same As: Flomax) "Do Not Crush" [facility] Finasteride 2014-07-10 01:47:00 No Notes: (Same as: Proscar) "Do Not Crush" [facility] Ofirmev 2014-07-09 19:57:00 No Notes: Infuse over 15 minutes Do not exceed 4gm/day of acetaminophen [facility] Acetaminophen 325 MG / Hydrocodone Bitartrate 10 MG Or al Tablet [[place] 10/325] 2014-07-09 19:57:00 No Note s: Do not exceed 4gm/day of acetaminophen. (Same as: [place] 325/10) [facility] Flumazenil 2014-07-09 19:57:00 No Notes: (S adelaida as: Romazicon) [facility] Morphine 2014-07-09 19:57:00 No Not es: (Same as:MORPhine Sulfate) [facility] Naloxone 2014-07-09 19:57:00 No Notes: Same as Narcan [facility] Ondansetron 2014-07-09 19:57:00 No Notes: ( Same as: Zofran) [facility] Ketorolac 2014-07-09 19:57:00 No 4 days [facility] Hydromorphone 2014-07-09 19:57:00 No 0.5 mg, 0.5 mL, Route: IVP, Drug form: INJ, Q5Min, Dosing Weight 76.818, kg, PRN Pain Score 7-10, Start date: 07/09/14 13:57:00, Duration: 4 doses or times, Stop date: Limited # of times [facility] Fentanyl 2014-07-09 19:57:00 No Notes: (Same as: Sublimaze) Preservative free. [facility] Acetaminophen 325 MG / Hydrocodone Bitartrate 5 MG Oral Tabl et 2014-07-09 19:43:00 No Notes: (Sa me as: [place] 325/5) Do not exceed 4gm/day of acetaminophen. [facility] Morphine 2014-07-09 19:43:00 No Not es: (Same as:MORPhine Sulfate) [facility] Calcium Chloride 0.0014 MEQ/ML / Potassi um Chloride 0.004 MEQ/ML / Sodium Chloride 0.103 MEQ/ML / Sodium Lactate 0.028 MEQ/ML Injectable Solution 2014-07-09 19:43:00 No 1,000 mL, Rate: 100 ml/hr, Infuse over: 10 hr, Route: IV, Dosing Weight 76.818 kg, Total Volume: 1,000, Start date: 07/09/14 13:43:00, Duration: 30 day, Stop date: 08/08/14 13:42:00 [facility] Flomax 2014-07-09 15:00:00 No Notes: (Same As: Flomax) "Do Not Crush" [facility] Finasteride 2014-07-09 15:00:00 No Notes: (Same as: Proscar) "Do Not Crush" [facility] Rocephin 2014-07-08 23:00:00 No Notes: (Same As: Rocephin). Use with 100ml NS mini-bag PLUS and infuse over 30 min [facility] Enoxaparin 2014-07-08 23:00:00 No Notes: (S adelaida as: Lovenox) [facility] Glucose 50 MG/ML / Sodium Chloride 0.154 MEQ/ML Injectable S olution 2014-07-08 20:06:00 No 1,000 mL, Rate: 125 ml/hr, Infuse over: 8 hr, Route: IV, Dosing Weight 77.273 kg, Total Volume: 1,000, Start date: 07/08/14 14:06:00, Duration: 30 day, Stop date: 08/07/14 14:05:00 [facility] Saline Flush 0.9% 2014-07-08 20:06:00 No Notes: (Same as: BD Posiflush) [facility] Ondansetron 2014-07-08 20:06:00 No Notes: ( Same as: Zofran) [facility] Morphine 2014-07-08 20:06:00 No Not es: (Same as:MORPhine Sulfate) [facility] Acetaminophen 2014-07-08 20:06:00 No Notes: Do not exceed 4 gm/day. (Same as: Tylenol) [facility] D5W 1/2NS 1000 mL 2014-07-08 17:33:00 No 1,000 mL, Rate: 75 ml/hr, Infuse over: 13.3 hr, Route: IV, Dosing Weight 77.273 kg, Total Volume: 1,000, Start date: 07/08/14 11:33:00, Duration: 30 day, Stop date: 08/07/14 11:32:00 [facility] Flagyl 2014-07-08 17:32:00 No Notes: (Same as: Flagyl) Avoid alcohol. [facility] Cipro 2014-07-08 17:32:00 No 400 mg, Route: IVPB, ONCE, Dosing Weight 77.273, kg, Priority: STAT, Start date: 07/08/14 11:32:00, Stop date: 07/08/14 11:32:00 [facility] Ondansetron 2014-07-08 12:36:00 No 4 mg, Route: IVP, ONCE, Dosing Weight 77.273, kg, Priority: STAT, Start date: 07/08/14 6:36:00, Stop date: 07/08/14 6:36:00 [facility] Morphine 2014-07-08 12:36:00 No 4 mg, Route: IVP, ONCE, Dosing Weight 77.273, kg, Priority: STAT, Start date: 07/08/14 6:36:00, Stop date: 07/08/14 6:36:00 [facility] Famotidine 2014-07-08 12:36:00 No 20 mg, Route: IVP, ONCE, Dosing Weight 77.273, kg, Priority: STAT, Start date: 07/08/14 6:36:00, Stop date: 07/08/14 6:36:00 [facility] GI cocktail 2014-07-08 12:36:00 No 30 mL, Route: PO, Dosing Weight 77.273, kg, ONCE, STAT, Start date: 07/08/14 6:36:00, Stop date: 07/08/14 6:36:00 [facility] Sodium Chloride 0.154 MEQ/ML Injectable Solution 2014-07-08 12:3 6:00 No 1,000 mL, Infuse Over: 1 hr, Route: IV, ONCE, Priority: STAT, Dosing Weight 77.273 kg, Start date: 07/08/14 6:36:00, Duration: 1 doses or times, Stop date: 07/08/14 6:36:00 [facility] Saline Flush 0.9% 2014-07-08 12:36:00 No Notes: (Same as: BD Posiflush) [facility] Finasteride 2014-07-08 12:16:00 Yes 0 Refill (s) [facility] Flomax 2014-07-08 12:15:00 Yes 0 Refill(s) [facility] lisinopril 20 mg oral tablet 2014-07-08 12:15:00 Yes 20 mg = 1 tab, PO, Daily, # 30 tab, 0 Refill(s) [facility] Thyroxine 2014-07-08 12:14:00 Yes 25 mg, PO, Daily, 0 Refill(s) [facility] CIPROFLOXACIN HCL 500 MG TABS 2014-06-09 00:00:00 No Take one tablet by mouth twice daily. [facility] PYRIDIUM 100 MG TABS 2014-06-09 00:00:00 No Take one tablet by mouth three times a day for 2 days. [facility] CIPROFLOXACIN HCL 500 MG TABS 2014-06-09 00:00:00 No Take one tablet by mouth twice daily. [facility] Ciprofloxacin 500 MG Oral Tablet [Cipro] 2014-06-05 04:27:00 Yes 500 mg = 1 tab, PO, Q12H, # 28 tab, 0 Refill(s) [facility] Ciprofloxacin 2 MG/ML Injectable Solution [Cipro] 2014-06-05 03:09:00 No Notes: Do not refrigerate [facility] Sodium Chloride 0.154 MEQ/ML Injectable Solution 2014-06-05 01:5 3:00 No 500 mL, 500 ml/hr, Infuse Ov er: 1 hr, Route: IV, ONCE, Priority: STAT, Dosing Weight 73.182 kg, Start date: 06/04/14 20:53:00, Duration: 1 doses or times, Stop date: 06/04/14 20:53:00 [facility]ann LEVOTHYROXINE SODIUM 25 MCG TABS 2014-04-21 00:00:00 Yes Take one tablet by mouth daily 30 minutes prior to breakfast. [facility] LEVOTHYROXINE SODIUM 25 MCG TABS 2014-04-21 00:00:00 Yes Take one tablet by mouth daily 30 minutes prior to breakfast. [facility] lisinopril (PRINIVIL,ZESTRIL) 10 MG tablet 2014-04-07 00:20:49 Yes 10mg QD Take 10 mg by mouth daily. [facility] famotidine (PEPCID) 20 MG tablet 2014-04-07 00:00:00 Yes 20mg Q.5D Take 1 tablet (20 mg total) by mouth 2 (two) times daily. [facility] MULTIVITAMIN AND MULTIMINERAL 2014-04-04 00:00:00 No Take one tablet by mouth daily. [facility] NEXIUM 20 MG CPDR 2014-04-04 00:00:00 No Take one capsule by mouth daily. [facility] CIPROFLOXACIN HCL 500 MG TABS 2014-04-04 00:00:00 No Take one tablet by mouth twice daily [facility] MG CPDR 2014-04-04 00:00:00 Yes Take one capsule by mouth daily. [facility] CIPROFLOXACIN HCL 500 MG TABS 2014-04-04 00:00:00 Yes Take one tablet by mouth twice daily for 3 days. [facility] CIPROFLOXACIN HCL 500 MG TABS 2014-04-04 00:00:00 No Take one tablet by mouth twice daily for 3 days. Amber Eubanks FINASTERIDE 5 MG TABS 2014-03-03 00:00:00 Yes Take one tablet by mouth daily. [facility] FLOMAX 0.4 MG CAPS 2014-03-03 00:00:00 Yes take 1 cap by mouth daily [facility] LISINOPRIL 20 MG TABS 2014-03-03 00:00:00 No Take one tablet by mouth daily. [facility] FINASTERIDE 5 MG TABS 2014-03-03 00:00:00 Yes take 1 tablet by mouth daily [facility] FLOMAX 0.4 MG CAPS 2014-03-03 00:00:00 Yes Take one capsule by mouth daily. [facility] LISINOPRIL 20 MG TABS 2014-03-03 00:00:00 Yes Take one tablet by mouth daily. [facility] LISINOPRIL 20 MG TABS 2014-03-03 00:00:00 Yes Take one tablet by mouth daily. [facility] LISINOPRIL 20 MG TABS 2014-03-03 00:00:00 Yes Take one tablet by mouth daily. [facility] FINASTERIDE 5 MG TABS 2014-03-03 00:00:00 Yes Take one tablet by mouth daily. [facility] LISINOPRIL 20 MG TABS 2014-03-03 00:00:00 No Take one tablet by mouth daily. [facility] FINASTERIDE ORAL 2014-01-25 13:51:43 Yes Felipe e by mouth. [facility] tamsulosin (FLOMAX) 0.4 mg Cp24 24 hr capsule 2014-01-25 13:51:4 3 Yes .4mg QD Take 0.4 mg by mouth daily. [facility] Ciprofloxacin Hcl (Cipro) 500 Mg Tablet Ciprofloxacin Hcl (C ipro) 500 Mg Tablet Yes 500 Every 12 Hours [facility] Levothyroxine Sodium 88 Mcg Tablet Levothyroxine Sodium 88 Mcg Tablet Yes 88 Daily [facility] Metronidazole (Flagyl) 250 Mg Tablet Metronidazole (Flagyl) 250 Mg Tablet Yes 500 Three Times A Day [facility] Fenofibrate Nanocrystallized (Fenofibrate) 145 Mg Tabl et, 1 Tab Oral Fenofibrate Nanocrystallized (Fenofibrate) 145 Mg Tablet, 1 Tab Oral 20 01-08-10 00:00:00 No 1 Daily [facility] Levothyroxine , 50 Mcg Oral Levothyroxine , 50 Mcg Oral 2019-07-23 00:00:00 No 50 Daily [facility] Losartan Potassium 25 Mg Tablet, 25 Mg Oral Losartan P otassium 25 Mg Tablet, 25 Mg Oral 2019-07-23 00:00:00 No 25 Daily [facility] Simvastatin 20 Mg Tablet, 10 Mg Oral Simvastatin 20 Mg Tablet, 1 0 Mg Oral 2019-07-23 00:00:00 No 10 Today At 9:00PM [facility] Finasteride 5 Mg Tablet, 5 Mg Oral Finasteride 5 Mg Tablet, 5 Mg Oral 2017-12-12 00:00:00 No 5 Daily [facility] Lisinopril 10 Mg Tablet, 20 Mg Oral Lisinopril 10 Mg Tablet, 20 Mg Oral 2017-12-12 00:00:00 No 20 Daily [facility] Sulfamethoxazole/Trimethoprim (Bactrim Ds Tablet) 1 Ea ch Tablet, 1 Tab Oral Sulfamethoxazole/Trimethoprim (Bactrim Ds Tablet) 1 Each Tablet, 1 Tab Oral 2017-12-12 00:00:00 No 1 Twice A Day [facility] Tamsulosin Hcl (Flomax*) 0.4 Mg Cap, 0.4 Mg Oral Tamsu losin Hcl (Flomax*) 0.4 Mg Cap, 0.4 Mg Oral 2017-12-12 00:00:00 No .4 Daily [facility] Tramadol Hcl (Ultram) 50 Mg Tablet, 50 Mg Oral Tramado l Hcl (Ultram) 50 Mg Tablet, 50 Mg Oral 2017-12-12 00:00:00 No 50 Every 4 Hours as needed for Pain [facility] Vital Signs Vital Name Observation Time Observation Value Comments Source Heart Rate 2019-01-28 19:07:00 [facility] Systolic (mm Hg) 2019-01-28 19:07:00 Messi barkley [facility] Diastolic (mm Hg) 2019-01-28 19:07:00 [facility] Temperature Oral (F) 2019-01-28 19:07:00 98.5 F [facility] Weight 2019-01-28 19:07:00 [facility] Height 2019-01-28 19:07:00 167.64 cm [facility] BMI Calculated 2019-01-28 19:07:00 [facility] Respitory Rate 2019-01-28 19:07:00 [facility] BMI Calculated 2018-09-28 20:04:00 [facility] Weight 2018-09-28 20:04:00 [facility] Height 2018-09-28 20:04:00 167.64 cm [facility] Respitory Rate 2018-09-28 20:04:00 [facility] Temperature Oral (F) 2018-09-28 20:04:00 97.6 F [facility] Systolic (mm Hg) 2018-09-28 20:04:00 [facility] Diastolic (mm Hg) 2018-09-28 20:04:00 [facility] Heart Rate 2018-09-28 20:04:00 [facility] BMI Calculated 2018-06-27 19:47:00 [facility] Height 2018-06-27 19:47:00 167.64 cm [facility] Weight 2018-06-27 19:47:00 [facility] Systolic (mm Hg) 2018-06-27 19:47:00 [facility] Diastolic (mm Hg) 2018-06-27 19:47:00 [facility] Heart Rate 2018-06-27 19:47:00 [facility] Respitory Rate 2018-06-27 19:47:00 [facility] Temperature Oral (F) 2018-06-27 19:47:00 98.3 F [facility] Systolic (mm Hg) 2018-03-09 19:54:00 [facility] Diastolic (mm Hg) 2018-03-09 19:54:00 [facility] Temperature Oral (F) 2018-03-09 19:54:00 97.1 F [facility] Respitory Rate 2018-03-09 19:54:00 [facility] Heart Rate 2018-03-09 19:54:00 [facility] Height 2018-03-09 19:54:00 167.64 cm [facility] BMI Calculated 2018-03-09 19:54:00 [facility] Weight 2018-03-09 19:54:00 [facility] BMI Calculated 2017-11-07 20:39:00 [facility] Weight 2017-11-07 20:39:00 [facility] Height 2017-11-07 20:39:00 167.64 cm [facility] Temperature Oral (F) 2017-11-07 20:39:00 97.6 F [facility] Respitory Rate 2017-11-07 20:39:00 [facility] Heart Rate 2017-11-07 20:39:00 [facility] Systolic (mm Hg) 2017-11-07 20:39:00 [facility]i [facility] Diastolic (mm Hg) 2017-11-07 20:39:00 [facility] Weight 2017-07-03 16:41:00 [facility] BMI Calculated 2017-07-03 16:41:00 [facility] Height 2017-07-03 16:41:00 167.64 cm [facility] Temperature Oral (F) 2017-07-03 16:41:00 97.5 F [facility] Heart Rate 2017-07-03 16:41:00 [facility] Respitory Rate 2017-07-03 16:41:00 [facility] Systolic (mm Hg) 2017-07-03 16:41:00 [facility]i [facility] Diastolic (mm Hg) 2017-07-03 16:41:00 [facility] Temperature Oral (F) 2016-02-01 21:33:00 98.3 F [facility] Heart Rate 2016-02-01 21:33:00 [facility] Respitory Rate 2016-02-01 21:33:00 [facility] Systolic (mm Hg) 2016-02-01 21:33:00 [facility] Diastolic (mm Hg) 2016-02-01 21:33:00 [facility] Systolic (mm Hg) 2016-02-01 17:20:00 [facility] Diastolic (mm Hg) 2016-02-01 17:20:00 [facility] Respitory Rate 2016-02-01 17:20:00 [facility] Heart Rate 2016-02-01 17:20:00 [facility] Temperature Oral (F) 2016-02-01 17:20:00 98.4 F [facility] Heart Rate 2016-02-01 13:00:00 [facility] Temperature Oral (F) 2016-02-01 13:00:00 98.2 F [facility] Systolic (mm Hg) 2016-02-01 13:00:00 [facility]i [facility] Diastolic (mm Hg) 2016-02-01 13:00:00 [facility] Respitory Rate 2016-02-01 13:00:00 [facility] Height 2016-01-29 02:40:00 167.64 cm [facility] Weight 2016-01-29 02:40:00 [facility] BMI Calculated 2016-01-29 02:40:00 [facility] Weight 2016-01-28 20:59:00 [facility] BMI Calculated 2016-01-28 20:59:00 [facility] Height 2016-01-28 20:59:00 167.64 cm [facility] Heart Rate 2016-01-12 16:41:00 [facility] Respitory Rate 2016-01-12 16:41:00 [facility] Systolic (mm Hg) 2016-01-12 16:41:00 [facility] Diastolic (mm Hg) 2016-01-12 16:41:00 [facility] Weight 2016-01-12 14:05:00 [facility] BMI Calculated 2016-01-12 14:05:00 [facility] Height 2016-01-12 14:05:00 167.64 cm [facility] Temperature Oral (F) 2016-01-12 14:05:00 98.0 F [facility] Heart Rate 2016-01-12 14:05:00 [facility] Respitory Rate 2016-01-12 14:05:00 [facility] Systolic (mm Hg) 2016-01-12 14:05:00 [facility] Diastolic (mm Hg) 2016-01-12 14:05:00 [facility] Heart Rate 2016-01-10 08:42:00 [facility] Respitory Rate 2016-01-10 08:42:00 [facility] Temperature Oral (F) 2016-01-10 08:42:00 100.2 F [facility] Systolic (mm Hg) 2016-01-10 08:42:00 [facility] Diastolic (mm Hg) 2016-01-10 08:42:00 [facility] Heart Rate 2016-01-10 06:34:00 [facility] Systolic (mm Hg) 2016-01-10 06:34:00 [facility] Diastolic (mm Hg) 2016-01-10 06:34:00 [facility] Respitory Rate 2016-01-10 06:34:00 [facility] Weight 2016-01-10 06:00:00 [facility] Respitory Rate 2016-01-10 06:00:00 [facility] Temperature Oral (F) 2016-01-10 06:00:00 101.2 F [facility] Height 2016-01-10 06:00:00 167.64 cm [facility] BMI Calculated 2016-01-10 06:00:00 [facility] Heart Rate 2016-01-10 06:00:00 [facility] Systolic (mm Hg) 2016-01-10 06:00:00 [facility] Diastolic (mm Hg) 2016-01-10 06:00:00 [facility] Respitory Rate 2015-02-17 18:31:10 [facility] Weight 2015-02-17 18:31:10 [facility] Height 2015-02-17 18:31:10 [facility] Temperature Oral (F) 2015-02-17 18:31:10 97.9 F [facility] Heart Rate 2015-02-17 18:31:10 [facility] Systolic (mm Hg) 2015-02-17 18:31:10 [facility] Diastolic (mm Hg) 2015-02-17 18:31:10 [facility] Weight 2014-12-30 13:27:10 [facility] Height 2014-12-30 13:27:10 [facility] Respitory Rate 2014-12-30 13:27:10 [facility] Temperature Oral (F) 2014-12-30 13:27:10 97.1 F [facility] Systolic (mm Hg) 2014-12-30 13:27:10 [facility] Diastolic (mm Hg) 2014-12-30 13:27:10 [facility] Heart Rate 2014-12-30 13:27:10 [facility] Weight 2014-09-30 15:56:00 [facility] Height 2014-09-30 15:56:00 [facility] Respitory Rate 2014-09-30 15:56:00 [facility] Temperature Oral (F) 2014-09-30 15:56:00 98.4 F [facility] Systolic (mm Hg) 2014-09-30 15:56:00 [facility] Diastolic (mm Hg) 2014-09-30 15:56:00 [facility] Heart Rate 2014-09-30 15:56:00 [facility] Respitory Rate 2014-09-15 17:00:52 [facility] Weight 2014-09-15 17:00:52 [facility] Height 2014-09-15 17:00:52 [facility] Temperature Oral (F) 2014-09-15 17:00:52 97.0 F [facility] Systolic (mm Hg) 2014-09-15 17:00:52 [facility] Diastolic (mm Hg) 2014-09-15 17:00:52 [facility] Heart Rate 2014-09-15 17:00:52 [facility] Respitory Rate 2014-08-18 16:08:01 [facility] Weight 2014-08-18 16:08:01 [facility] Height 2014-08-18 16:08:01 [facility] Temperature Oral (F) 2014-08-18 16:08:01 98.0 F [facility] Heart Rate 2014-08-18 16:08:01 [facility] Systolic (mm Hg) 2014-08-18 16:08:01 [facility] Diastolic (mm Hg) 2014-08-18 16:08:01 [facility] Respitory Rate 2014-07-21 15:33:49 [facility] Systolic (mm Hg) 2014-07-21 15:33:49 [facility] Diastolic (mm Hg) 2014-07-21 15:33:49 [facility] Heart Rate 2014-07-21 15:33:49 [facility] Temperature Oral (F) 2014-07-21 15:33:49 98.4 F [facility] Weight 2014-07-21 15:33:49 [facility] Height 2014-07-21 15:33:49 [facility] Respitory Rate 2014-07-11 13:45:00 [facility] Heart Rate 2014-07-11 13:45:00 [facility] Diastolic (mm Hg) 2014-07-11 13:45:00 [facility] Systolic (mm Hg) 2014-07-11 13:45:00 [facility] Temperature Oral (F) 2014-07-11 13:45:00 98.3 F [facility] Diastolic (mm Hg) 2014-07-11 10:00:00 [facility] Systolic (mm Hg) 2014-07-11 10:00:00 [facility] Respitory Rate 2014-07-11 10:00:00 [facility] Heart Rate 2014-07-11 10:00:00 [facility] Temperature Oral (F) 2014-07-11 10:00:00 98.2 F [facility] Respitory Rate 2014-07-11 06:00:00 [facility] Heart Rate 2014-07-11 06:00:00 [facility] Diastolic (mm Hg) 2014-07-11 06:00:00 [facility] Systolic (mm Hg) 2014-07-11 06:00:00 [facility] Temperature Oral (F) 2014-07-11 06:00:00 98.8 F [facility] Weight 2014-07-08 20:47:00 [facility] BMI Calculated 2014-07-08 20:11:00 [facility] Height 2014-07-08 20:11:00 167.64 cm [facility] Weight 2014-07-08 20:11:00 [facility] Weight 2014-07-08 20:10:00 [facility] Respitory Rate 2014-06-09 17:59:31 [facility] Weight 2014-06-09 17:59:31 [facility] Height 2014-06-09 17:59:31 [facility] Systolic (mm Hg) 2014-06-09 17:59:31 [facility] Diastolic (mm Hg) 2014-06-09 17:59:31 [facility] Heart Rate 2014-06-09 17:59:31 [facility] Respitory Rate 2014-06-05 04:40:00 [facility] Systolic (mm Hg) 2014-06-05 04:40:00 [facility] Heart Rate 2014-06-05 04:40:00 [facility] Temperature Oral (F) 2014-06-05 04:40:00 98.4 F [facility] Diastolic (mm Hg) 2014-06-05 04:40:00 [facility] Diastolic (mm Hg) 2014-06-05 03:20:00 [facility] Heart Rate 2014-06-05 03:20:00 [facility] Respitory Rate 2014-06-05 03:20:00 [facility] Systolic (mm Hg) 2014-06-05 03:20:00 [facility] Temperature Oral (F) 2014-06-05 03:20:00 98.3 F [facility] Respitory Rate 2014-06-04 23:23:00 [facility] Temperature Oral (F) 2014-06-04 23:23:00 98.7 F [facility] Systolic (mm Hg) 2014-06-04 23:23:00 [facility] Heart Rate 2014-06-04 23:23:00 [facility] Diastolic (mm Hg) 2014-06-04 23:23:00 [facility] BMI Calculated 2014-06-04 23:23:00 [facility] Weight 2014-06-04 23:23:00 [facility] Height 2014-06-04 23:23:00 167.64 cm [facility] Weight 2014-04-21 19:42:12 [facility] Height 2014-04-21 19:42:12 [facility] Respitory Rate 2014-04-21 19:42:12 [facility] Temperature Oral (F) 2014-04-21 19:42:12 97.6 F [facility] Heart Rate 2014-04-21 19:42:12 [facility] Systolic (mm Hg) 2014-04-21 19:42:12 [facility] Diastolic (mm Hg) 2014-04-21 19:42:12 [facility] Weight 2014-04-04 13:09:21 [facility] Height 2014-04-04 13:09:21 [facility] Temperature Oral (F) 2014-04-04 13:09:21 97.2 F [facility] Respitory Rate 2014-04-04 13:09:21 [facility] Heart Rate 2014-04-04 13:09:21 [facility] Systolic (mm Hg) 2014-04-04 13:09:21 [facility] Diastolic (mm Hg) 2014-04-04 13:09:21 [facility] Height 2014-03-03 14:29:11 [facility] Weight 2014-03-03 14:29:11 [facility] Systolic (mm Hg) 2014-03-03 14:29:11 [facility] Diastolic (mm Hg) 2014-03-03 14:29:11 [facility] Heart Rate 2014-03-03 14:29:11 [facility] Temperature Oral (F) 2014-03-03 14:29:11 97.6 F [facility] Respitory Rate 2014-03-03 14:29:11 [facility] Procedures Procedure Date / Time Performed Performing Clinician Sour e CT of abdomen and pelvis without contrast 2019-07-22 00:00:00 SA BEASLEYSAMANTHA BRIDGETTE [facility] Diabetic retinal eye exam<sup>1</sup> 2018-08-14 00:00:00 [facility] Influenza vaccination 2018-04-28 05:00:00 [facility] Colonoscopy<sup>2</sup> 2017-12-14 05:00:00 [facility] Diabetic retinal eye exam 2017-03-14 00:00:00 [facility] TURP - Transurethral resection of prostate<sup>3</sup> 2016-02-13 5 05:00:00 [facility] colonoscopy 2014-07-01 06:00:00 [facility] Colonoscopy<sup>4</sup> 2014-07-01 06:00:00 [facility] Pneumococcal vaccination<sup>5</sup> 2014-04-04 05:00:00 [facility] Cholecyst[facility] inguinal hernia repair<sup>6</sup> [facility] Encounters Start Date/Time End Date/Time Encounter Type Admission Type [facility] Care Department Encounter ID Source 2019-07-28 01:34:00 2019-07-28 02:21:00 Departed Emergency Room [facility] [id number] [facility] 2019-07-23 01:11:00 2019-07-25 10:15:00 Discharged Inpatient 1 NEELIMA BLEDSOE [facility] [id number] [facility] 2019-04-05 10:31:21 2019-04-06 10:31:21 Outpatient [facility] [id number] 2019-03-11 15:07:06 2019-03-12 23:59:59 Outpatient [facility] [id number] 2019-01-28 14:00:00 2019-01-28 23:59:59 Outpatient Jessy Haile [facility] [id number] 2018-12-18 05:08:32 2018-12-19 23:59:59 Outpatient [facility] [id number] 2018-12-11 14:49:51 2018-12-12 23:59:59 Outpatient [facility] [id number] 2018-11-11 19:31:00 2018-11-12 23:59:59 Outpatient [facility] [id number] 2018-10-02 04:53:00 2018-10-03 23:59:59 Outpatient [facility] [id number] 2018-09-28 14:00:00 2018-09-28 23:59:59 Outpatient S Jessy murray [facility] [id number] 2018-09-20 15:02:00 2018-09-21 23:59:59 Outpatient [facility] [id number] 2018-09-20 15:02:00 2018-09-21 23:59:59 Outpatient [facility] [id number] 2018-06-27 14:00:00 2018-06-27 23:59:59 Outpatient S Jessy murray [facility] [id number] 2018-04-28 21:23:00 2018-04-29 23:59:59 Outpatient [facility] [id number] 2018-04-03 05:19:00 2018-04-04 23:59:59 Outpatient [facility] [id number] 2018-03-09 15:00:00 2018-03-09 23:59:59 Outpatient S Jessy murray [facility] [place] [id number] 2018-01-23 16:36:00 2018-01-24 23:59:59 Outpatient [facility] [id number] 2017-11-07 15:30:00 2017-11-07 23:59:59 Outpatient S Jessy murray [facility] [place] [id number] 2017-08-16 11:25:00 2017-08-17 23:59:59 Outpatient [facility] [id number] 2017-08-09 12:53:00 2017-08-10 23:59:59 Outpatient [facility] [id number] 2017-07-03 10:30:00 2017-07-03 23:59:59 [id number] 2016-01-28 15:52:00 2016-02-01 17:13:00 Outpatient Reynaldo Haynes dena [facility] [id number] 2016-01-12 09:00:00 2016-01-12 11:47:00 Outpatient Marilin Stewart [facility] [id number] 2016-01-10 00:40:00 2016-01-10 03:59:00 Outpatient Leidy Sena [facility] [place] [id number] 2015-11-06 10:57:00 2015-11-06 23:59:00 Outpatient Flako Abad [facility] [place] [id number] 2014-07-08 05:52:00 2014-07-11 15:00:00 Outpatient Elisha Hernandez IE [facility] [id number] 2014-06-04 17:55:00 2014-06-04 23:48:00 Outpatient Leidy Sena IE [place] [id number] Results Test Description Test Time Test Comments Results Result Comments Source Blood Culture 2019-07-27 17:29:00 Test Item Blood Culture (test code = 54960188) NO GROWTH AFTER 5 DAYS, FINAL [facility]PORT [facility] Fbnykmt5495-28-09 17:29:00* Test Item Value Reference Range Interpretation Comments Blood Culture (test code = 57822474) NO GROWTH AFTER 48 HOURS [facility] [id number] 06:35:00* Test Item Value Reference Range Interpretation Comments Sodium Level (test code = 2951-2) 138 136-145 [facility] Nhuwc7699-57-86 06:35:00* Test Item Value Reference Range Interpretation Comments Potassium Level (test code = 2823-3) 3.7 3.5-5.1 [facility] Brook[facility]loride [id number] 06:35:00* Test Item Value Reference Range Interpretation Comments Chloride Level (test code = 2075-0) 105 98-107 [facility] Brook[facility]bon Dioxide [id number] 06:35:00* Test Item Value Reference Range Interpretation Comments Carbon Dioxide Level (test code = 2028-9) 24 22-29 [facility] BrookAnion [id number] 06:35:00* Test Item Value Reference Range Interpretation Comments Anion Gap (test code = 58648-5) 12.7 8-16 [facility] Urea Xehyfqjf2379-11-59 06:35:00* Test Item Value Reference Range Interpretation Comments Blood Urea Nitrogen (test code = 3094-0) 10 7-26 [facility] Brook[facility]inine2019-12-11 06:35:00* Test Item Value Reference Range Interpretation Comments Creatinine (test code = 2160-0) 1.02 0.72-1.25 [facility]UN/Creatinine Rgvcc8091-64-81 06:35:00* Test Item Value Reference Range Interpretation Comments BUN/Creatinine Ratio (test code = 3097-3) 10 6- [facility] Brook[facility]at Glomerular Filtration Rate 2019-07-24 06:35:00* Test Item Value Reference Range Interpretation Comments Estimat Glomerular Filtration Rate (test code = 432337280) > 60 >60 Ranges were taken from the National Kidney Disease Education Program and the [facility] literature.Reference ranges:60 or greater: Narknx57-24 ( for 3 consecutive months): Chronic kidney disease 15 or less: Kidney failureAdventHealth Rollins BrookGlucose Xprok2533-74-55 06:35:00* Test Item Value Reference Range Interpretation Comments Glucose Level (test code = NAF0828) 126 74-118 H [facility]Calcium Sglxp7494-55-25 06:35:00* Test Item Value Reference Range Interpretation Comments Calcium Level (test code = 91620-8) 8.0 8.4-10.2 L [facility] Ohrkj8778-11-20 06:35:00* Test Item Value Reference Range Interpretation Comments Sodium Level (test code = 2951-2) 138 136-145 [facility]assium Suhra9584-01-50 06:35:00* Test Item Value Reference Range Interpretation Comments Potassium Level (test code = 2823-3) 3.7 3.5-5.1 [facility] BrookChloride Yjidy4782-97-12 06:35:00* Test Item Value Reference Range Interpretation Comments Chloride Level (test code = 2075-0) 105 98-107 [facility] BrookCarbon Dioxide Zbyoz9686-42-51 06:35:00* Test Item Value Reference Range Interpretation Comments Carbon Dioxide Level (test code = 2028-9) 24 22-29 [facility] BrookAnion [id number] 06:35:00* Test Item Value Reference Range Interpretation Comments Anion Gap (test code = 37898-6) 12.7 8-16 [facility] Urea Ejhrqxre0975-16-94 06:35:00* Test Item Value Reference Range Interpretation Comments Blood Urea Nitrogen (test code = 3094-0) 10 7-26 [facility] BrookCreatinine2019-12-11 06:35:00* Test Item Value Reference Range Interpretation Comments Creatinine (test code = 2160-0) 1.02 0.72-1.25 [facility]UN/Creatinine Mblcx0586-21-38 06:35:00* Test Item Value Reference Range Interpretation Comments BUN/Creatinine Ratio (test code = 3097-3) 10 6-25 [facility] BrookEstimat Glomerular Filtration Rate 2019-07-24 06:35:00* Test Item Value Reference Range Interpretation Comments Estimat Glomerular Filtration Rate (test code = 960074506) > 60 >60 Ranges were taken from the National Kidney Disease Education Program and the [facility] literature.Reference ranges:60 or greater: Mlkrwh14-96 ( for 3 consecutive months): Chronic kidney disease 15 or less: Kidney failureAdventHealth Rollins BrookGlucose Aplnm7150-44-31 06:35:00* Test Item Value Reference Range Interpretation Comments Glucose Level (test code = GJT3524) 126 74-118 H [facility] BrookCalcium Ryjnl0917-58-96 06:35:00* Test Item Value Reference Range Interpretation Comments Calcium Level (test code = 87846-2) 8.0 8.4-10.2 L [facility] BrookWhite Blood Wmyyy9852-87-33 06:10:00* Test Item Value Reference Range Interpretation Comments White Blood Count (test code = 6690-2) 5.05 4.8-10.8 [facility] BrookRed Blood Wjguu4506-84-62 06:10:00* Test Item Value Reference Range Interpretation Comments Red Blood Count (test code = 789-8) 4.30 4.3-5.7 [facility] BrookHemoglobin2019-12-11 06:10:00* Test Item Value Reference Range Interpretation Comments Hemoglobin (test code = 76430-1) 13.5 14.0-18.0 L [facility] BrookHematocrit2019-12-11 06:10:00* Test Item Value Reference Range Interpretation Comments Hematocrit (test code = 4544-3) 38.9 38.2-49.6 [facility] BrookMean Corpuscular Riaxfn3436-64-56 06:10:00* Test Item Value Reference Range Interpretation Comments Mean Corpuscular Volume (test code = 787-2) 90.5 81-99 [facility] BrookMean Corpuscular Mdqabryojp8065-08-36 06:10:00* Test Item Value Reference Range Interpretation Comments Mean Corpuscular Hemoglobin (test code = 785-6) 31.4 28-32 [facility] BrookMean Corpuscular Hemoglobin Concent 2019-07-24 06:10:00* Test Item Value Reference Range Interpretation Comments Mean Corpuscular Hemoglobin Concent (test code = 786-4) 34.7 31-35 [facility] BrookRed Cell Distribution Knxzm4874-34-03 06:10:00* Test Item Value Reference Range Interpretation Comments Red Cell Distribution Width (test code = 86743-3) 13.0 11.7 -14.4 [facility] BrookPlatelet Hvrrd1124-76-62 06:10:00* Test Item Value Reference Range Interpretation Comments Platelet Count (test code = 777-3) 156 140-360 [facility] BrookNeutrophils (%) (Auto)2019-07-24 06:10:00 * Test Item Value Reference Range Interpretation Comments Neutrophils (%) (Auto) (test code = 71449-1) 75.6 38.7-80.0 [facility] BrookLymphocytes (%) (Auto)2019-07-24 06:10:00 * Test Item Value Reference Range Interpretation Comments Lymphocytes (%) (Auto) (test code = 736-9) 13.9 18.0-39.1 L [facility] BrookMonocytes (%) (Auto)2019-07-24 06:10:00* Test Item Value Reference Range Interpretation Comments Monocytes (%) (Auto) (test code = 5905-5) 8.5 4.4-11.3 [facility] BrookEosinophils (%) (Auto)2019-07-24 06:10:00 * Test Item Value Reference Range Interpretation Comments Eosinophils (%) (Auto) (test code = 713-8) 1.4 0.0-6.0 [facility] BrookBasophils (%) (Auto)2019-07-24 06:10:00* Test Item Value Reference Range Interpretation Comments Basophils (%) (Auto) (test code = 706-2) 0.2 0.0-1.0 [facility] BrookIM GRANULOCYTES %2019-07-24 06:10:00* Test Item Value Reference Range Interpretation Comments IM GRANULOCYTES % (test code = IM GRANULOCYTES %) 0.4 0.0- 1.0 [facility] BrookNeutrophils # (Auto)2019-07-24 06:10:00* Test Item Value Reference Range Interpretation Comments Neutrophils # (Auto) (test code = 751-8) 3.8 2.1-6.9 [facility] BrookLymphocytes # (Auto)2019-07-24 06:10:00* Test Item Value Reference Range Interpretation Comments Lymphocytes # (Auto) (test code = 07347-6) 0.7 1.0-3.2 L [facility] BrookMonocytes # (Auto)2019-07-24 06:10:00* Test Item Value Reference Range Interpretation Comments Monocytes # (Auto) (test code = 742-7) 0.4 0.2-0.8 [facility] BrookEosinophils # (Auto)2019-07-24 06:10:00* Test Item Value Reference Range Interpretation Comments Eosinophils # (Auto) (test code = 711-2) 0.1 0.0-0.4 [facility] BrookBasophils # (Auto)2019-07-24 06:10:00* Test Item Value Reference Range Interpretation Comments Basophils # (Auto) (test code = 704-7) 0.0 0.0-0.1 [facility] BrookAbsolute Immature Granulocyte (auto 2019-07-24 06:10:00* Test Item Value Reference Range Interpretation Comments Absolute Immature Granulocyte (auto (luisito t code = Absolute Immature Granulocyte (auto) 0.02 0-0.1 [facility] BrookWhite Blood Khrbn2631-18-41 06:10:00* Test Item Value Reference Range Interpretation Comments White Blood Count (test code = 6690-2) 5.05 4.8-10.8 [facility] BrookRed Blood Ixnrv4347-25-97 06:10:00* Test Item Value Reference Range Interpretation Comments Red Blood Count (test code = 789-8) 4.30 4.3-5.7 [facility] BrookHemoglobin2019-12-11 06:10:00* Test Item Value Reference Range Interpretation Comments Hemoglobin (test code = 54240-3) 13.5 14.0-18.0 L [facility] BrookHematocrit2019-12-11 06:10:00* Test Item Value Reference Range Interpretation Comments Hematocrit (test code = 4544-3) 38.9 38.2-49.6 [facility] BrookMean Corpuscular Ilioqz8853-92-46 06:10:00* Test Item Value Reference Range Interpretation Comments Mean Corpuscular Volume (test code = 787-2) 90.5 81-99 [facility] BrookMean Corpuscular Hjrcircxlf4368-87-52 06:10:00* Test Item Value Reference Range Interpretation Comments Mean Corpuscular Hemoglobin (test code = 785-6) 31.4 28-32 [facility] BrookMean Corpuscular Hemoglobin Concent 2019-07-24 06:10:00* Test Item Value Reference Range Interpretation Comments Mean Corpuscular Hemoglobin Concent (test code = 786-4) 34.7 31-35 [facility] BrookRed Cell Distribution Tmsqv6501-67-95 06:10:00* Test Item Value Reference Range Interpretation Comments Red Cell Distribution Width (test code = 58029-1) 13.0 11.7 -14.4 [facility] BrookPlatelet Ppkxk8606-33-67 06:10:00* Test Item Value Reference Range Interpretation Comments Platelet Count (test code = 777-3) 156 140-360 [facility] BrookNeutrophils (%) (Auto)2019-07-24 06:10:00 * Test Item Value Reference Range Interpretation Comments Neutrophils (%) (Auto) (test code = 87201-3) 75.6 38.7-80.0 [facility] BrookLymphocytes (%) (Auto)2019-07-24 06:10:00 * Test Item Value Reference Range Interpretation Comments Lymphocytes (%) (Auto) (test code = 736-9) 13.9 18.0-39.1 L [facility] BrookMonocytes (%) (Auto)2019-07-24 06:10:00* Test Item Value Reference Range Interpretation Comments Monocytes (%) (Auto) (test code = 5905-5) 8.5 4.4-11.3 [facility] BrookEosinophils (%) (Auto)2019-07-24 06:10:00 * Test Item Value Reference Range Interpretation Comments Eosinophils (%) (Auto) (test code = 713-8) 1.4 0.0-6.0 [facility] BrookBasophils (%) (Auto)2019-07-24 06:10:00* Test Item Value Reference Range Interpretation Comments Basophils (%) (Auto) (test code = 706-2) 0.2 0.0-1.0 [facility] BrookIM GRANULOCYTES %2019-07-24 06:10:00* Test Item Value Reference Range Interpretation Comments IM GRANULOCYTES % (test code = IM GRANULOCYTES %) 0.4 0.0- 1.0 [facility] BrookNeutrophils # (Auto)2019-07-24 06:10:00* Test Item Value Reference Range Interpretation Comments Neutrophils # (Auto) (test code = 751-8) 3.8 2.1-6.9 [facility] BrookLymphocytes # (Auto)2019-07-24 06:10:00* Test Item Value Reference Range Interpretation Comments Lymphocytes # (Auto) (test code = 87331-7) 0.7 1.0-3.2 L [facility] BrookMonocytes # (Auto)2019-07-24 06:10:00* Test Item Value Reference Range Interpretation Comments Monocytes # (Auto) (test code = 742-7) 0.4 0.2-0.8 [facility] BrookEosinophils # (Auto)2019-07-24 06:10:00* Test Item Value Reference Range Interpretation Comments Eosinophils # (Auto) (test code = 711-2) 0.1 0.0-0.4 [facility] BrookBasophils # (Auto)2019-07-24 06:10:00* Test Item Value Reference Range Interpretation Comments Basophils # (Auto) (test code = 704-7) 0.0 0.0-0.1 [facility] BrookAbsolute Immature Granulocyte (auto 2019-07-24 06:10:00* Test Item Value Reference Range Interpretation Comments Absolute Immature Granulocyte (auto (luisito t code = Absolute Immature Granulocyte (auto) 0.02 0-0.1 [facility] BrookCT ABDOMEN/PELVIS [id number] 20:20:00 [facility] [address] [place] [address] Patient Name: YENNI DESIR MR #: [id number] : 1950 Age/Sex: 69/M Req #: [id number] [facility] Physician: Ordered by: BRIDGETTE BAXTER DO Report #: [id number] Location: ER Room/Bed: Procedure: [id number] CT/ CT ABDOMEN/PELVIS WO Exam Date: 07/22/19 Exam Time: 1999 REPORT STATUS: Signed CT Ab domen and Pelvis without contrast INDICATION: hematuria [id number] TECHNIQUE: Thin collimation axial images obtained from the diaphragm t o the level of the pubic symphysis without nonionic intravenous contrast. Dose reduction techniques used: Automated exposure control, adjustment of the mAs and/or kVp according to patient size, standardized low-dose protocol, an d/or iterative reconstruction technique. RADIATION DOSE: Total DLP: 352.79 mGy*cm Estimated effective dose: (DLP x 0.015 x size factor) mSv CTDIvol has been reviewed. It is below the limits set by the Radiation P rotocol Committee (RPC). COMPARISON: None. ABDOMEN FINDINGS: Anthony g Bases: Clear. The visualized portion of the mediastinum is normal. Liver: Normal in attenuation without mass. Gallbladder: Absent. No ductal dilata tion. Pancreas: Normal attenuation without mass. Spleen: Normal size w ithout mass. Adrenal Glands: No evidence for mass. Kidneys: Right: No renal calculus. No cortical mass or hydronephrosis Left: No renal calc ulus. There is a prominent peripelvic cyst. No cortical mass or hydronephrosi s. Lymph Nodes: No enlarged abdominal or periaortic lymph nodes. Aorta : Normal in diameter. PELVIS FINDINGS: Bowel: Stomach: Normal. Small Bowel: Normal in caliber with normal wall thickness. Large Bowel: Diver ticulosis coli, predominantly the sigmoid colon with mural thickening of the m id sigmoid colon for approximately 4.4 cm. There is adjacent peritoneal inflam mation. Appendix: Normal. Bladder: Underdistended with mild circumferenti al mural thickening and perivesicular inflammation. Ureters: No ureteral dilatation or calculus. Prostate: Enlarged with postoperative changes sugge stive of TURP. Peritoneum/retroperitoneum: No free fluid or loculated fluid collection. Bones: Degenerative changes of the spine without compression d eformities. No lytic or blastic lesions. Soft tissues: [Normal hernia rep air mesh and reactive left inguinal lymph node.. IMPRESSION: 1. Inf lammation of the mid sigmoid colon is suggestive of diverticulitis. However, i nflammatory carcinoma cannot be excluded. Colonoscopy is recommended to exclud e underlying colon malignancy. 2. Perivesicular inflammation, likely due to d iverticulitis. Please correlate for signs/symptoms of cystitis. 3. Prostate hypertrophy with TURP defect. Bladder wall thickening may be secondary to outl et obstruction as well as cystitis. 4. No renal calculus or obstructive uropat hy. Signed by: Dr. Pat Steinberg MD on 07/22/2019 8:27 PM Dictat ed By: PAT STEINBERG MD 26 COPY TO: BRIDGETTE BAXTER DO Urine [id number] 18:45:00* Test Item Value Reference Range Interpretation Comments Urine WBC (test code = 5821-4) 0-5 0-5 [facility] [id number] 18:45:00* Test Item Value Reference Range Interpretation Comments Urine RBC (test code = 10183-6) 11-20 0-5 H [facility] Brook[facility] [id number] 18:45:00* Test Item Value Reference Range Interpretation Comments Urine Bacteria (test code = 33309-1) RARE NONE [facility] Epithelial Mxvgp3625-78-15 18:45:00 * Test Item Value Reference Range Interpretation Comments Urine Epithelial Cells (test code = 26492-2) RARE NONE [facility] [id number] 18:45:00* Test Item Value Reference Range Interpretation Comments Urine WBC (test code = 5821-4) 0-5 0-5 [facility] [id number] 18:45:00* Test Item Value Reference Range Interpretation Comments Urine RBC (test code = 48865-2) 11-20 0-5 H [facility] [id number] 18:45:00* Test Item Value Reference Range Interpretation Comments Urine Bacteria (test code = 29452-0) RARE NONE [facility] Epithelial [id number] 18:45:00 * Test Item Value Reference Range Interpretation Comments Urine Epithelial Cells (test code = 03304-9) RARE NONE [facility] [id number] 18:25:00* Test Item Value Reference Range Interpretation Comments Urine Color (test code = 5778-6) YELLOW YELLOW [facility] [id number] 18:25:00* Test Item Value Reference Range Interpretation Comments Urine Clarity (test code = 42411-8) SL CLOUDY CLEAR H [facility] Specific Rknlykv9169-81-28 18:25:00 * Test Item Value Reference Range Interpretation Comments Urine Specific Hunter (test code = 5811-5) 1.010 1.010-1.02 5 [facility] [id number] 18:25:00* Test Item Value Reference Range Interpretation Comments Urine pH (test code = 13136-8) 6.5 5-7 [facility] Leukocyte [id number] 18:25:00* Test Item Value Reference Range Interpretation Comments Urine Leukocyte Esterase (test code = 5799-2) NEGATIVE NEGATIVE [facility] [id number] 18:25:00* Test Item Value Reference Range Interpretation Comments Urine Nitrite (test code = 55322-2) NEGATIVE NEGATIVE [facility] Acnmhko2566-31-28 18:25:00* Test Item Value Reference Range Interpretation Comments Urine Protein (test code = 5804-0) NEGATIVE NEGATIVE [facility] Glucose (UA)2019-07-22 18:25:00* Test Item Value Reference Range Interpretation Comments Urine Glucose (UA) (test code = 2349-9) NEGATIVE NEGATIVE [facility] Prxiqjd2530-21-86 18:25:00* Test Item Value Reference Range Interpretation Comments Urine Ketones (test code = 89544-0) NEGATIVE NEGATIVE [facility] Ckoalrasowfx1417-15-91 18:25:00* Test Item Value Reference Range Interpretation Comments Urine Urobilinogen (test code = 98672-7) 0.2 0.2-1 [facility] Qrmyczdnk6156-25-41 18:25:00* Test Item Value Reference Range Interpretation Comments Urine Bilirubin (test code = 1978-6) NEGATIVE NEGATIVE [facility] Vzcqe2139-45-41 18:25:00* Test Item Value Reference Range Interpretation Comments Urine Blood (test code = 15052-1) 2+ NEGATIVE H [facility] Zrhjd8139-05-82 18:25:00* Test Item Value Reference Range Interpretation Comments Urine Color (test code = 5778-6) YELLOW YELLOW [facility] Wklfidh0202-74-93 18:25:00* Test Item Value Reference Range Interpretation Comments Urine Clarity (test code = 76680-5) SL CLOUDY CLEAR H [facility] Specific Gclmhyk2415-00-36 18:25:00 * Test Item Value Reference Range Interpretation Comments Urine Specific Hunter (test code = 5811-5) 1.010 1.010-1.02 5 [facility] iW7708-24-06 18:25:00* Test Item Value Reference Range Interpretation Comments Urine pH (test code = 44032-3) 6.5 5-7 [facility] Leukocyte Dhbjojax9848-01-01 18:25:00* Test Item Value Reference Range Interpretation Comments Urine Leukocyte Esterase (test code = 5799-2) NEGATIVE NEGATIVE [facility] Syraybk6619-50-72 18:25:00* Test Item Value Reference Range Interpretation Comments Urine Nitrite (test code = 71776-7) NEGATIVE [facility]GATIVE [facility] Sffdaoy2445-76-99 18:25:00* Test Item Value Reference Range Interpretation Comments Urine Protein (test code = 5804-0) NEGATIVE NEGATIVE [facility] Glucose (UA)2019-07-22 18:25:00* Test Item Value Reference Range Interpretation Comments Urine Glucose (UA) (test code = 2349-9) NEGATIVE [facility]GATIVE [facility] Usgvvlx5241-71-10 18:25:00* Test Item Value Reference Range Interpretation Comments Urine Ketones (test code = 57674-6) NEGATIVE [facility]GATIVE [facility] Rjdgunakposp2146-68-67 18:25:00* Test Item Value Reference Range Interpretation Comments Urine Urobilinogen (test code = 49789-3) 0.2 0.2-1 [facility] Oiegvdvtc4930-83-21 18:25:00* Test Item Value Reference Range Interpretation Comments Urine Bilirubin (test code = 1978-6) NEGATIVE NEGATIVE [facility] Otkyl6105-30-18 18:25:00* Test Item Value Reference Range Interpretation Comments Urine Blood (test code = 37619-1) 2+ NEGATIVE H [facility] Kyghakodj6000-84-52 17:48:00* Test Item Value Reference Range Interpretation Comments Total Bilirubin (test code = 1975-2) 0.9 0.2-1.2 [facility] Brook[facility]artate Amino Transf (AST/SGOT) 2019-07-22 17:48:00* Test Item Value Reference Range Interpretation Comments Aspartate Amino Transf (AST/SGOT) (test code = Aspartate Amino Transf (AST/SGOT)) 14 5-34 [facility] Aminotransferase (ALT/SGPT) 2019-07-22 17:48:00* Test Item Value Reference Range Interpretation Comments Alanine Aminotransferase (ALT/SGPT) (test code = 1742-6) 21 0-55 [facility] Rkwwtbq3699-67-81 17:48:00* Test Item Value Reference Range Interpretation Comments Total Protein (test code = 2885-2) 7.2 6.5-8.1 [facility]in2019-12-09 17:48:00* Test Item Value Reference Range Interpretation Comments Albumin (test code = 1751-7) 3.9 3.5-5.0 [facility]ulin2019-12-09 17:48:00* Test Item Value Reference Range Interpretation Comments Globulin (test code = 73048-9) 3.3 2.3-3.5 [facility]Globulin Urmmg0387-39-01 17:48:00 * Test Item Value Reference Range Interpretation Comments Albumin/Globulin Ratio (test code = 1759-0) 1.2 0.8-2.0 [facility]kaline Davfplxnhgl3027-20-25 17:48:00* Test Item Value Reference Range Interpretation Comments Alkaline Phosphatase (test code = 6768-6) 87 40-150 [facility] Nscsxqufp9464-05-27 17:48:00* Test Item Value Reference Range Interpretation Comments Total Bilirubin (test code = 1975-2) 0.9 0.2-1.2 [facility] Brook[facility]artate Amino Transf (AST/SGOT) 2019-07-22 17:48:00* Test Item Value Reference Range Interpretation Comments Aspartate Amino Transf (AST/SGOT) (test code = Aspartate Amino Transf (AST/SGOT)) 14 5-34 [facility] Aminotransferase (ALT/SGPT) 2019-07-22 17:48:00* Test Item Value Reference Range Interpretation Comments Alanine Aminotransferase (ALT/SGPT) (test code = 1742-6) 21 0-55 [facility] Zgcxplz6103-65-62 17:48:00* Test Item Value Reference Range Interpretation Comments Total Protein (test code = 2885-2) 7.2 6.5-8.1 [facility]2019-12-09 17:48:00* Test Item Value Reference Range Interpretation Comments Albumin (test code = 1751-7) 3.9 3.5-5.0 [facility]2019-12-09 17:48:00* Test Item Value Reference Range Interpretation Comments Globulin (test code = 03271-1) 3.3 2.3-3.5 [facility]ulin Gywkj1777-91-71 17:48:00 * Test Item Value Reference Range Interpretation Comments Albumin/Globulin Ratio (test code = 1759-0) 1.2 0.8-2.0 [facility] Mqepdppqebt8485-99-74 17:48:00* Test Item Value Reference Range Interpretation Comments Alkaline Phosphatase (test code = 6768-6) 87 40-150 [facility] Acid Bjwso2899-82-64 17:47:00* Test Item Value Reference Range Interpretation Comments Lactic Acid Level (test code = Lactic Acid Level) 1.6 0.5- 2.0 [facility] Acid Owako9456-18-80 17:47:00* Test Item Value Reference Range Interpretation Comments Lactic Acid Level (test code = Lactic Acid Level) 1.6 0.5- 2.0 [facility] W/ NBJNZXMNHXV0211-31-08 00:15:00* Test Item Value Reference Range Interpretation Comments COLOR (BEAKER) (test code = 470) Yellow CLARITY (BEAKER) (test code = 469) Hazy SPECIFIC GRAVITY UA (BEAKER) (test code = 468) 1.027 1.001-1 .035 PH UA (BEAKER) (test code = 467) 5.5 5.0-8.0 PROTEIN UA (BEAKER) (test code = 464) 30 mg/dL Negative A GLUCOSE UA (BEAKER) (test code = 365) Negative Negative KETONES UA (BEAKER) (test code = 371) 10 mg/dL Negative A BILIRUBIN UA (BEAKER) (test code = 462) Negative Negative BLOOD UA (BEAKER) (test code = 461) Negative Negative NITRITE UA (BEAKER) (test code = 465) Negative Negative LEUKOCYTE ESTERASE UA (BEAKER) (test code = 466) Trace Negat scotty A UROBILINOGEN UA (BEAKER) (test code = 463) 0.2 mg/dL 0.2-1.0 RBC UA (BEAKER) (test code = 519) 2 /HPF WBC UA (BEAKER) (test code = 520) 5 /HPF MUCUS (BEAKER) (test code = 1574) Many SQUAMOUS EPITHELIAL (BEAKER) (test code = 516) 3 /HPF SOURCE(BEAKER) (test code = 2795) Urine, Clean Catch BASIC METABOLIC CWPAO1844-14-63 23:59:00* Test Item Value Reference Range Interpretation Comments SODIUM (BEAKER) (test code = 381) 136 meq/L 136-145 POTASSIUM (BEAKER) (test code = 379) 4.7 meq/L 3.5-5.1 Specimen slightly hemolyzed CHLORIDE (BEAKER) (test code = 382) 104 meq/L 98-107 CO2 (BEAKER) (test code = 355) 23 meq/L 22-29 BLOOD UREA NITROGEN (BEAKER) (test code = 354) 23 mg/dL 7-21 H CREATININE (BEAKER) (test code = 358) 1.30 mg/dL 0.57-1.25 H Specimen slightly hemolyzed GLUCOSE RANDOM (BEAKER) (test code = 652) 141 mg/dL 70-105 H CALCIUM (BEAKER) (test code = 697) 9.1 mg/dL 8.4-10.2 EGFR (BEAKER) (test code = 1092) 55 mL/min/1.73 sq m ESTIMATED GFR IS NOT ACCURATE CREATININE CLEARANCE IN PREDICTING GLOMERULAR FILTRATION RATE. ESTIMATED GFR IS NOT APPLICABLE FOR DIALYSIS PATIENTS. CBC W/PLT COUNT & AUTO CIWHXZVSTDNU7215-52-71 23:48:00* Test Item Value Reference Range Interpretation Comments WHITE BLOOD CELL COUNT (BEAKER) (test code = 775) 11.7 K/ L 3.5- 10.5 H RED BLOOD CELL COUNT (BEAKER) (test code = 761) 5.29 M/ L 4.63-6 .08 HEMOGLOBIN (BEAKER) (test code = 410) 16.5 GM/DL 13.7-17.5 HEMATOCRIT (BEAKER) (test code = 411) 49.6 % 40.1-51.0 MEAN CORPUSCULAR VOLUME (BEAKER) (test code = 753) 93.8 fL 79. 0-92.2 H MEAN CORPUSCULAR HEMOGLOBIN (BEAKER) (test code = 751) 31.2 pg 25.7-32.2 MEAN CORPUSCULAR HEMOGLOBIN CONC (BEAKER) (test code = 752) 33.3 GM/DL 32.3-36.5 RED CELL DISTRIBUTION WIDTH (BEAKER) (test code = 412) 13.8 % 11.6-14.4 PLATELET COUNT (BEAKER) (test code = 756) 206 K/CU MM 150-450 MEAN PLATELET VOLUME (BEAKER) (test code = 754) 9.6 fL 9.4-12 .4 NUCLEATED RED BLOOD CELLS (BEAKER) (test code = 413) 0 /100 WBC 0 -0 NEUTROPHILS RELATIVE PERCENT (BEAKER) (test code = 429) 91 % LYMPHOCYTES RELATIVE PERCENT (BEAKER) (test code = 430) 5 % MONOCYTES RELATIVE PERCENT (BEAKER) (test code = 431) 4 % EOSINOPHILS RELATIVE PERCENT (BEAKER) (test code = 432) 0 % BASOPHILS RELATIVE PERCENT (BEAKER) (test code = 437) 0 % NEUTROPHILS ABSOLUTE COUNT (BEAKER) (test code = 670) 10.64 K/ L 1.78-5.38 H LYMPHOCYTES ABSOLUTE COUNT (BEAKER) (test code = 414) 0.55 K/ L 1.32-3.57 L MONOCYTES ABSOLUTE COUNT (BEAKER) (test code = 415) 0.42 K/ L 0. 30-0.82 EOSINOPHILS ABSOLUTE COUNT (BEAKER) (test code = 416) 0.03 K/ L 0.04-0.54 L BASOPHILS ABSOLUTE COUNT (BEAKER) (test code = 417) 0.01 K/ L 0. 01-0.08 IMMATURE GRANULOCYTES-RELATIVE PERCENT (BEAKER) (test code = 2801) 0 % 0-1 NJKXPXSUVAQE5205-97-46 10:49:0013.1[facility] EmllhwbWBNQJYPGSVJI4702-74-72 10:49:0081[facility] YvznnbaRXJLBQUCIXBS7218-69-33 10:49:80431Nxbtfism [place] ZNIXPJQVOISE7965-13-08 10:49:004.1[facility] HyghhidILVCJSJIDACW9018-52-92 10:49:007.9[facility] GlmyhxvKKDOLMDVJSTK9080-00-77 10:49:0024[facility] FWERSADLULAL9186-53-41 10:49:08084Cohzdjcl FrnggjgKOGDJDUZLFTS6103-64-99 10:49:0013[facility] BqqsqnoNBVKOHPMFAOM6129-36-81 10:49:00862Ssmegpfj [place] FDXGBJADKKCF8675-77-85 10:49:000.97[facility] LwutvrrMWEMZUDSIA3878-90-97 10:49:00 69.5[facility] YswrmbuGBZRZMNWCW5752-22-80 10:49:005.4[facility]annHEMATOLOGY 2016-01-30 10:49:001.7[facility] KhokqvjZVUJFJMQDZ8608-75-17 10:49:000.5[facility] FtoqsqrODJJWVEDIG0224-05-14 10:49:000.1[facility] NhvvsusBBQGANQHFD5801-21-85 10:49:000.5[facility] FtsodotWXWPPYJTGN6390-00-85 10:49:001.6[facility] AMAGNBUVVB6022-27-75 10:49:0021.4[facility] FqmrmvuKQSENZKLVT3390-89-07 10:49:00 7.0[facility] PmhkajlLFGVFJTPFR5508-03-38 10:49:0012.1[facility]annHEMATOLOGY 2016-01-30 10:49:0036.4[facility] RhryfvpAEGAHMSSPJ7813-97-04 10:49:0087.6[facility] SzcdgqwTSSYPXZTKI7480-62-83 10:49:007.8[facility] DxdslxzXPJJTHMIKQ9124-79-63 10:49:004.15[facility] SfrkityGYJOHLFESL6591-06-68 10:49:0014.1[facility] GBTFKUSWUA1654-99-45 10:49:37970Prfudlzo SmrvmqlRRDOIJEYLL2345-59-86 10:49:008.1 [facility] DnxcwjnRSMEKWIGZI2604-03-61 10:49:00* Test Item Value Reference Range Interpretation Comments MCH (test code = MCH) 29.2 pg 27.0-31.0 [facility] XnrbhgcYWFTANLXZQ1133-71-93 10:49:0033.3[facility]annSPECIAL ZCVZYEONP7482-20-24 10:49:006.3[facility] HermannCHEM CLKNK5840-93-84 12:16:001.0 [facility]annCHEM OXTMI5247-52-42 12:16:0014[facility]annCHEM PANEL 2016-01-29 12:16:0012.9[facility] HermannCHEM KSCHQ9588-64-36 12:16:002.8[facility]annCHEM PNRNQ0982-93-61 12:16:0078[facility]annCHEM VFBFO1877-16-68 12:16:0024[facility]annCHEM PUHAA2971-30-37 12:16:02987Oitkpihm HermannCHEM BNICY9144-44-82 12:16:0020[facility]annCHEM XVQAL4051-74-77 12:16:003.9 [facility]annCHEM VUEIE5844-07-50 12:16:05719Ztayhmgf HermannCHEM PANEL 2016-01-29 12:16:005.7[facility]annCHEM GGQOG0148-86-67 12:16:007.6[facility]annCHEM QCKDV4402-98-29 12:16:002.9[facility]annCHEM QXJGI7102-84-12 12:16:24054Lmxvtzxi HermannCHEM IOFLD1597-49-90 12:16:001.00[facility]annCHEM JUVJR2723-18-45 12:16:0014[facility]annCHEM JXTOO3943-13-48 12:16:0033 [facility]annCHEM SUHTW7722-87-73 12:16:0084[facility]annCHEM PANEL 2016-01-29 12:16:000.5[facility]annCHEM OFRYP6940-02-44 12:16:001.9[facility]annCHEM RGHXI6736-52-90 12:16:002.1[facility] WjsbeurYHUDSDUMTV2906-97-30 12:16:0013.6[facility] DpgbjpnHCKUQZMAQD4640-04-52 12:16:0087.6[facility] CMTLYIFMCC5746-17-96 12:16:0034.7[facility] VccmvzcFHNRDKPXDO1602-37-09 12:16:00 11.8[facility] SzykxfsGOBVOGLDWT6182-58-02 12:16:003.96[facility]annHEMATOLOGY 2016-01-29 12:16:00* Test Item Value Reference Range Interpretation Comments MCH (test code = MCH) 29.7 pg 27.0-31.0 [facility] CcusszwHSYKYRHXJD2309-54-14 12:16:0033.9[facility]annHEMATOLOGY 2016-01-29 12:16:008.0[facility] YlehgnnQHXAULDZGE6007-73-33 12:16:56208Kcirndmt VgawoibMAINTICVDU4709-41-45 12:16:0014.4[facility] GvmdofdFJNXSTBQKU8104-95-49 12:16:000.1[facility] ZzhdqslVDXHHNWFMN3050-20-33 12:16:0011.5[facility] [place] YURRAEVYMF6928-15-30 12:16:000.8[facility] KvibfizESWBLTMRFF5273-96-31 12:16:000.2 [facility] ZjkkdxsBRSUHTIWFZ4769-82-25 12:16:001.3[facility]annHEMATOLOGY 2016-01-29 12:16:000.4[facility] TkabzduORAVROTWSA8328-84-85 12:16:0084.1[facility] QjfpogyCKSKVKMDLE1934-52-16 12:16:009.8[facility] PqnhphbMZZBELWRQD1036-15-13 12:16:005.5[facility]annSPECIAL HOQRDUPEV3568-06-01 12:16:0020.2[facility] HermannSPECIAL OKVPRCAVB6435-92-66 12:16:002.38[facility]annSPECIAL CHEMISTRY 2016-01-29 12:16:0011.8[facility]annCHEM OTHTE5546-40-72 01:07:000.8[facility] HermannCARDIAC NNRGSKH5231-48-09 21:24:000.5[facility] HermannCARDIAC ENZYMES 2016-01-28 21:24:00<0.02[facility] HermannCHEM AKPXX0723-64-24 21:24:90150Megtiyre HermannCHEM VJAWC7140-83-33 21:24:0029[facility] XzbolahQTICXWJWIXUP6003-78-71 21:24:0011.6[facility] LmmlkciOZGBZCRETDPK4994-59-82 21:24:0013[facility] GBSURPSNOLAE4090-14-19 21:24:003.9[facility] FwxobsuQYKSTCAVATOJ4403-55-55 21:24:000.8[facility] WgcgybkSSSUGQDKFYGI9793-29-65 21:24:0073[facility] FPVMLPDXVMNJ1359-66-56 21:24:000.5[facility] WsglnsjNIXGTTBOWZEL7803-98-00 21:24:003.6[facility] AbuhsstNYFVZHHTBXMT7327-64-23 21:24:66795Unbtucno [place] KWAAYPRWZPDU2704-43-27 21:24:0025[facility] OayckzwPOVXVJEGQKVW5343-60-66 21:24:00 3.2[facility] EfaexvnKIKZUVHHCEPB1866-61-89 21:24:56462Uoprzcng [place] LTGZJUSTWLSH7641-85-15 21:24:008.2[facility] TasixnlQBFMUFULQKAA2128-16-08 21:24:007.1[facility] VixwmnbVREOCBZKZATU9117-56-16 21:24:0015[facility] ACRQIXPRDQLM7455-23-23 21:24:001.19[facility] WfjmrlqCRDRDAUHELEA9117-85-61 21:24:92722Nvgxxjkp SgqafdqWASFISUOTRCX7168-42-38 21:24:0063[facility] RUMSDWBRYMPS1640-84-75 21:24:0020[facility] TnbufadOLPBINVKYXHW8189-55-60 21:24:00 8[facility] BvmgeftUBLZPXUCIX4922-25-61 21:24:000.3[facility]annHEMATOLOGY 2016-01-28 21:24:0013.3[facility] NcymgmrQMCGZNSVSQ4071-61-67 21:24:0085.3[facility] RkqaxikTUWQYBDAAW0421-24-29 21:24:001.3[facility] LpthqlfZIWWPYRSEK0396-44-46 21:24:000.9[facility] YgqhgfrNOKUOJUVTE7453-63-04 21:24:005.9[facility] OMTWUPZAVV7648-13-02 21:24:000.1[facility] ViuubioSHGKGQHXCW4683-49-39 21:24:008.4 [facility] MzyepdhDWWPAJLRPY4356-34-59 21:24:007.5[facility]annHEMATOLOGY 2016-01-28 21:24:0087.2[facility] AwwljpnGHGXVCFKSB6435-93-18 21:24:0037.1[facility] NkrabdfZJLIYEADPO5738-93-63 21:24:0012.1[facility] NzurlacDAUWNLORIT2960-65-05 21:24:00* Test Item Value Reference Range Interpretation Comments MCH (test code = MCH) 28.4 pg 27.0-31.0 [facility] GfdbhqbXRAPUXSDXX9782-26-01 21:24:0032.6[facility] HermannHEMATOLOGY 2016-01-28 21:24:26112Bksbnpvv KrdnouaVAIFXNVLSS3482-42-12 21:24:0014.2[facility] NrtoatoHOGDLNJIIC7144-64-39 21:24:004.26[facility] AibwdnrKACFINASEL4449-61-79 21:24:0015.6[facility]annURINE AND IEUCV1762-54-90 21:24:00Negative *NA*(01/28/16 4:24 PM)[facility] RNJHP0092-49-93 21:24:00Negative (01/28/16 4:24 PM)[facility] PKVWA2525-49-10 21:24:00Negative (01/28/16 4:24 PM)[facility] CLDQR5808-74-54 21:24:00Moderate *ABN*(01/28/16 4:24 PM)[facility] NYGPW6895-54-50 21:24:003 [facility] RSTGT8948-43-09 21:24:0027[facility] AND ENVVQ4726-04-40 21:24:006.0[facility] AND LLSDT4397-59-46 21:24:00 1.021[facility] AND VFGMJ8103-55-95 21:24:00Clear (01/28/16 4:24 PM) [facility]annCHEM KTUJI9943-85-87 15:12:004.2[facility] HermannCHEM PANEL 2016-01-12 15:12:000.8[facility] HermannCHEM MJFOP4030-23-48 15:12:0011[facility]annCHEM GZMPS4207-89-54 15:12:0011.0[facility]annCHEM DLBUL7371-24-29 15:12:0057[facility]annCHEM CICCO2511-88-56 15:12:0012[facility]annCHEM OVRMW3139-20-78 15:12:0083[facility]annCHEM GSELY6233-48-22 15:12:000.5 [facility]annCHEM DIHVX9110-29-49 15:12:0017[facility]annCHEM PANEL 2016-01-12 15:12:003.4[facility]annCHEM QFIBO2962-13-14 15:12:007.6[facility]annCHEM TPLKK4041-04-93 15:12:008.4[facility] HermannCHEM FVVVP0183-30-28 15:12:19114Inigcioy HermannCHEM ZTBGK1765-81-82 15:12:0026[facility]annCHEM GOTPP6231-47-37 15:12:004.0[facility]annCHEM NHXFM6120-99-94 15:12:51424 [facility]annCHEM FGRHM8549-41-16 15:12:001.29[facility]annCHEM PANEL 2016-01-12 15:12:0014[facility]annCHEM NGRYD7367-70-65 15:12:59336Inbffwmr NjteyyaBDRGOZFWNL2287-80-29 15:12:0083.0[facility] WuoueigKUTFNMMAWA6912-70-35 15:12:000.1[facility] LaoxaulPHWHKHXQPB1530-77-95 15:12:001.4[facility] KNPUSSMYNL0126-48-88 15:12:000.5[facility] IcfygvwGXLVHNGJUY3901-02-11 15:12:009.5 [facility] PsrowzfDVJOOFQKGG9563-39-13 15:12:004.6[facility]annHEMATOLOGY 2016-01-12 15:12:000.3[facility] GlgiroxFROQIPJHJI1791-43-70 15:12:0012.0[facility] PdeslefNANZPQDIYJ6280-71-81 15:12:008.8[facility] ZdicvhnRUHGNTADES9209-17-17 15:12:61679Cokvgnek ZebimgmGWLPDQVDSW0524-66-45 15:12:0014.1[facility] BDKOAMCYTW3126-03-99 15:12:0033.9[facility] WjljzxnUOPOOWYNXN7988-93-29 15:12:00 4.48[facility] HyxehpcIANWZCGOHT5880-81-28 15:12:0013.3[facility]annHEMATOLOGY 2016-01-12 15:12:0039.3[facility] AikkwmqPSJVYFJYPS5365-23-23 15:12:0011.5[facility] ZkdroeiGFQRIIAYKR6315-51-02 15:12:00* Test Item Value Reference Range Interpretation Comments MCH (test code = MCH) 29.7 pg 27.0-31.0 [facility] QaxpcslOKTPSAGOUW1827-35-39 15:12:0087.6[facility]annURINE AND STOOL 2016-01-12 14:17:00Small *ABN*(01/12/16 9:17 AM)[facility] STOOL 2016-01-12 14:17:0020[facility] AND YSVPS9050-68-82 14:17:002[facility]UR[facility] AND IJUAB0589-13-67 14:17:00Negative *NA*(01/12/16 9:17 AM)[facility] QSMBI4752-06-28 14:17:00Negative (01/12/16 9:17 AM)[facility] NRYAU2442-43-64 14:17:00Negative (01/12/16 9:17 AM)[facility] WBKEH2877-88-28 14:17:00Clear (01/12/16 9:17 AM)[facility] AND UGPFH2893-15-14 14:17:001.011[facility]annUR[facility] AND TRUWA9815-61-08 14:17:007.0[facility]UR[facility] AND ZZHKP2342-90-75 08:29:004[facility] URINE AND JCJCW5915-22-85 08:29:00Clear (01/10/16 3:29 AM)[facility] VWYMZ0597-18-63 08:29:007.0[facility] AND MYAQY0226-33-16 08:29:001.015[facility] SAWND5200-72-00 08:29:00Negative (01/10/16 3:29 AM)[facility] LEPFE4118-15-39 08:29:00Negative (01/10/16 3:29 AM)[facility] KENUK5329-01-00 08:29:00Negative *NA*(01/10/16 3:29 AM)[facility] HCCUS2143-10-42 08:29:00Small *ABN*(01/10/16 3:29 AM)[facility] FPJPV9852-16-55 08:29:0012[facility]annCHEM ZTWAT6779-44-10 06:44:000.1[facility]annCHEM UHUDX7849-57-95 06:44:000.7 [facility]annCHEM RSXKU9556-59-75 06:44:0087[facility]annCHEM PANEL 2016-01-10 06:44:0016[facility] HermannCHEM UJDLF5502-13-87 06:44:0023[facility]annCHEM YFMIR8549-36-26 06:44:003.7[facility]annCHEM EOGGU4696-32-66 06:44:007.2[facility]annCHEM LKFVU8065-34-01 06:44:001.1[facility]annCHEM CKMNV9792-42-69 06:44:000.6[facility]annCHEM WRQHZ3770-43-86 06:44:003.5 [facility]CHE[facility] NKQMO6713-97-05 06:44:49547Aqiqlxuf HermannELECTROLYTES 2016-01-10 06:44:0011.9[facility] VgzhnmoWIMOCGDHYTKG9755-87-34 06:44:0060[facility] WbaepxjTRYWSBUKIBTU0009-98-61 06:44:008.4[facility] RhnqwqsPLQVLLANFZNZ6709-36-05 06:44:0025[facility] KqkzmekEYKJPCPRIWUB7169-02-46 06:44:84513Uwamqmwb Hong QYUFSCALQKPD9108-63-40 06:44:003.9[facility] VxloshnGMDZITYMADMZ9727-88-71 06:44:001.24[facility] LxbtvzaUFYPJPAFDYEA8146-80-64 06:44:05243Ueljfetb Hong JMIFKHYCNONC9613-74-17 06:44:0016[facility] TgrduflYTUQPRDZCUNF3452-82-60 06:44:00 163[facility] FgiwtxbSHGKPCDJZV8126-42-77 06:44:004.51[facility] HermannHEMATOLOGY 2016-01-10 06:44:0087.3[facility] KufbqzoCAPTBBHLBM7869-40-05 06:44:0013.4[facility] CgeyziiCRVBKZULIU4621-11-11 06:44:0039.4[facility] EccooywRRCTYLCCKL9816-44-50 06:44:0014.3[facility] HtsvhguUWPDBSXOWO7287-83-50 06:44:008.2[facility] SGZTWKMGSQ8609-61-86 06:44:74723Svefighu PfrvtjxTOEFNAAXFM8391-77-18 06:44:00 14.7[facility] GenzxxnBMJWJWQBLV3349-43-83 06:44:0034.0[facility]annHEMATOLOGY 2016-01-10 06:44:00* Test Item Value Reference Range Interpretation Comments MCH (test code = MCH) 29.6 pg 27.0-31.0 [facility] PvjbvtuUCUYVTGQGB5182-73-19 06:44:004.5[facility]annHEMATOLOGY 2016-01-10 06:44:0089.8[facility] XwmhoztVMCYHBXAAG9571-17-53 06:44:000.7[facility] VbetnnzOQEPWZPYTP5715-74-14 06:44:0012.8[facility] JsrzuzgKBTZRUGENY4704-24-30 06:44:000.3[facility] WfdfcnyBNOZRAPZWG9488-86-83 06:44:000.6[facility] DOTLTONVLB0485-38-98 06:44:000.2[facility] LopyspbCRFGQOXCXV9894-67-33 06:44:005.2 [facility]annCHEM UTQPY2622-55-32 16:20:0070[facility]annCHEM PANEL 2015-11-06 16:20:001.1[facility] LhnxqraJflryuduz8014-14-70 14:30:005.9[facility] LzywabcIovnggeof0935-60-88 14:30:005.530[facility] EznlqgvSddplxquk1643-28-39 14:30:63241Pwluvcoj EofnjjvQzuchtyqc3310-13-66 14:30:82006Tmhbmszx Inola Cdsssexxa6961-64-92 14:30:0037[facility] VvrhfffKbhlsmrqa2382-63-73 14:30:0079 [facility] FlcldvkSopllkzdo1918-06-26 14:30:09492 MEQ/LMemorial HermannChemistry 2014-12-30 14:30:004.1 MEQ/LMemorial EtxxuzfQmmwwaiam3667-66-68 14:30:000.9 [facility] SikrgldKcgyljihp7631-13-35 14:30:0014[facility] HermannChemistry 2014-12-30 14:30:00* Test Item Value Reference Range Interpretation Comments BUN/CREAT (test code = BUN/CREAT) 16 1 02-05 [facility] BuipgpeNrcwgotfs7327-25-29 14:30:003.6[facility]annChemistry 2014-12-30 14:30:008.8[facility] CzsrtroNjlfzodnb0065-10-31 14:30:0021[facility] VlqfzclTdxainirf9362-68-27 14:30:0016[facility] HewiqbhBgeueonux6714-53-82 14:30:82405Oabjbnvb XhacvloAdbptguyr9208-15-26 14:30:000.99[facility] Hong Vfdmfvhtw7152-25-49 14:30:005.14[facility] QjsuclpWteofjisht0501-65-86 14:30:00 13.8[facility] GeqrnlbRiuykwewcw2478-18-97 14:30:0039.2[facility] HermannHematology 2014-12-30 14:30:92366 K/CMMMemorial XjxmpowLlbowishb5791-86-39 17:11:007.61 [facility] ZmgzernNcpzmvhga3031-06-47 17:11:007.61[facility] HermannUrinalysis 2014-09-30 17:11:00[facility] GdzelvyFoohydoecm8251-69-51 17:11:00[facility] WqwnfeuJdyiqroegs6829-52-46 17:11:00YellowMemorial HermannUrinalysis 2014-09-30 17:11:00[facility] JappgjjQsgbeqdtv3309-13-22 21:31:006.4 [facility] KedxzjdDionkocxk2923-91-26 21:31:003.340[facility] HermannChemistry 2014-08-12 21:31:44250Hurxrray YumdeczQtmrkkjgm6767-45-13 21:31:20269Owjpgrdt UvoygfySogqkeltd2664-02-09 21:31:0039[facility] CagquizFyxyhtpqz5333-77-00 21:31:0095[facility] XvkvzfnYhtgqseub4073-21-04 21:31:53321 MEQ/LMem[facility] Inola Maiecpwcp7156-24-50 21:31:004.1 MEQ/LMemorial EhnxfamUtestepfn5549-46-79 21:31:001.0[facility] PbvzvnxTkbdtdlmy5881-86-64 21:31:0017[facility] Tttwmqzul4904-54-99 21:31:00* Test Item Value Reference Range Interpretation Comments BUN/CREAT (test code = BUN/CREAT) 17 1 6-25 [facility] HijjzngXapjjrqkv7390-80-16 21:31:004.0[facility] HermannChemistry 2014-08-12 21:31:008.5[facility] AhmdmfgRmctzvkkb8476-48-71 21:31:0026[facility] CekwqcnYdjlydriw4347-63-75 21:31:0015[facility] GbqwkrnAfeuofpch3031-17-38 21:31:03614Lzrxqywu XpqiopbRhtohzsqb9635-17-42 21:31:006.4[facility] Wsajphwws7738-30-54 21:31:003.340[facility] LcqncuxMpdhkozvx7198-62-57 21:31:44207 [facility] VtozrktMkiffvxbcf5263-16-47 21:31:00YellowMemorial HermannUrinalysis 2014-08-12 21:31:00[facility]ellowMem[facility] VffnwpuUupxynoowm8359-67-13 21:31:00[facility] KkywlvcWvzblxmwhf0075-49-83 21:00:00[facility] HermannUrinalysis 2014-07-21 21:00:00[facility] ZatpewiWkmcgnunyw5561-99-52 21:00:00[facility] UkzkvbpZsqzxyotnm7213-75-55 21:00:00[facility] HermannUrinalysis 2014-07-21 21:00:00[facility] UywbglzFjxztpkscd1844-94-69 21:00:00[facility] GjonlmmVqyuwbqfaa2952-16-08 21:00:00ManyMem[facility] HermannCHEM PANEL 2014-07-09 16:30:0063[facility] HermannCHEM SIPEG1996-24-37 16:30:007.5[facility] HermannCHEM DJTSW6803-46-15 16:30:0027[facility] HermannCHEM KZJGU3043-95-69 16:30:55433Tzjtucgq HermannCHEM KHDAW8017-23-02 16:30:001.2[facility] HermannCHEM TKDQO5685-78-62 16:30:008[facility] HermannCHEM NZAHF9435-31-27 16:30:004.0 [facility]annCHEM RXUKY1043-46-65 16:30:53695Owizwljq HermannCHEM PANEL 2014-07-09 16:30:15512Mdrxmgvt HermannCHEM YMJZM5434-22-89 16:30:0010.0[facility] OyyfcjhBAKVANYYAY7732-11-60 16:30:000.4[facility] ClwcwstJKZYUYZRQQ5001-23-54 16:30:000.3[facility] OkapaatDKBNMWIDCH4142-22-90 16:30:000.1[facility] RJBILJQITQ1729-46-65 16:30:0057.0[facility] XtfssktGQKLKEBMXH1685-75-11 16:30:00 2.4[facility] NwpmrclGRFHFIJEBE6713-93-73 16:30:001.4[facility] HermannHEMATOLOGY 2014-07-09 16:30:001.9[facility] SddttxiYGGLXNJTJG7395-86-59 16:30:007.3[facility] MurodjuALLFQOONYQ0983-31-49 16:30:0033.4[facility] VjtbiczWMYLWVPXSH1456-95-38 16:30:007.8[facility] IoaufqaKVWNOVJYEQ9927-76-00 16:30:0034.2[facility] ZJJIVUVVVP4405-62-04 16:30:0014.0[facility] RnrjrmfRLVIBIRBUG0358-06-69 16:30:00 160[facility] DiowboaJSJCPDBPIQ6699-14-68 16:30:0038.5[facility] HermannHEMATOLOGY 2014-07-09 16:30:00* Test Item Value Reference Range Interpretation Comments MCH (test code = MCH) 30.1 pg 27.0-31.0 [facility] TmivoxoRVGOPLDXPV4886-05-42 16:30:0088.0[facility] HermannHEMATOLOGY 2014-07-09 16:30:004.2[facility] RyyhponRKCEDWMLRH6365-63-66 16:30:0013.2[facility] PtjagupESYRFBINYE9580-09-84 16:30:004.38[facility] HermannCHEM YBHOF8366-05-43 23:01:0070[facility]annCHEM TBNFA2849-69-09 23:01:001.1[facility] JONOZSJGFF7979-36-82 23:01:00* Test Item Value Reference Range Interpretation Comments PTT (test code = PTT) 29.8 s 22.9-35.8 [facility] SwgwwvxMOCXQLJGIP4722-82-82 23:01:43995Suogekcd HermannCHEM PANEL 2014-07-08 12:25:0079[facility] HermannCHEM YEJJZ1472-56-67 12:25:008.5[facility]annCHEM SQTJL2433-65-37 12:25:003.9[facility]annCHEM LQXHY0533-74-63 12:25:49027Cbjibuaj HermannCHEM VYFWB4508-18-95 12:25:0026[facility]annCHEM QHITV6425-93-86 12:25:004.0[facility]annCHEM YKVXR7235-72-49 12:25:34251 [facility]annCHEM RNHET3218-36-72 12:25:001.0[facility] HermannCHEM PANEL 2014-07-08 12:25:0014[facility] HermannCHEM YVODD0602-16-96 12:25:99034Ghyzdwhv HermannCHEM JUZNS6568-86-59 12:25:77797Bpygzvcl HermannCHEM TTARV0872-36-36 12:25:000.4[facility]annCHEM AHGLX5323-17-25 12:25:007.8[facility] HermannCHEM YCLGC4336-61-77 12:25:0023[facility] HermannCHEM FYJFF5130-79-31 12:25:0016 [facility]annCHEM NSALD1982-44-14 12:25:0014[facility] HermannCHEM PANEL 2014-07-08 12:25:0013.0[facility] HermannCHEM HEJEJ9485-60-03 12:25:003.9[facility] HermannCHEM FISGJ2009-45-43 12:25:001.0[facility] HermannCHEM EXQIL4165-28-27 12:25:73405Wkwwcstg OzpekxoHXISEGHXJE1835-55-41 12:25:006.1[facility] ZMFIFANGQR0636-97-98 12:25:004.53[facility] JhgtaxsUSDASZGBUP4765-03-77 12:25:00 14.1[facility] PnihgilNMUNNTYBYE6993-19-78 12:25:57447Zmwykeza HermannHEMATOLOGY 2014-07-08 12:25:008.3[facility] MnvuxkyTLNFNBBZWI9215-36-53 12:25:0034.8[facility] WaakovhAYYAHMCHKC6033-71-60 12:25:0039.8[facility] XeyetocECEMCOVQNS5788-86-45 12:25:00* Test Item Value Reference Range Interpretation Comments MCH (test code = MCH) 30.6 pg 27.0-31.0 [facility] OxwmdavRMWWPJGIAY6321-72-08 12:25:0013.9[facility] HermannHEMATOLOGY 2014-07-08 12:25:0087.9[facility] BxwbkwlFKAHORTFTO5901-11-65 12:25:0069.2[facility] UuippxxZHNEBFLIGB1201-31-61 12:25:0024.4[facility] AbzvcgtDVGRFYUHPY7805-26-73 12:25:000.1[facility] BbziuejLHWJBUPAIF4357-29-16 12:25:001.5[facility] YONUDYFXCH6854-66-53 12:25:000.3[facility] CaqsmjtVYMXDYBONG8936-83-86 12:25:000.3 [facility] VmaoqnpUDVKSKSHIJ6284-52-97 12:25:004.9[facility] HermannHEMATOLOGY 2014-07-08 12:25:001.2[facility] UgritmaVJEREORDBZ4252-79-48 12:25:004.2[facility]annURINE AND CJXRL5571-65-24 12:24:00Negative *NA*(07/08/14 6:24 AM)[facility] YOSIL8277-75-31 12:24:00Clear (07/08/14 6:24 AM)[facility] OOAEU0685-74-29 12:24:00Negative (07/08/14 6:24 AM)[facility] YMZXN9270-68-00 12:24:001[facility] AND STOOL 2014-07-08 12:24:00<1[facility] AND CVWSX7798-83-83 12:24:001.013 [facility] JRWYR6511-21-40 12:24:00Negative (07/08/14 6:24 AM) [facility] WRWTC4427-76-33 12:24:00Negative (07/08/14 6:24 AM) [facility] BCCDB2211-85-93 12:24:005.0[facility] HermannUrinalysis 2014-06-09 20:09:00[facility] EhwcqtpMurbbnvwtw6523-09-74 20:09:00[facility] UeoodvsSaqlegckcg2842-66-09 20:09:00[facility]ellow[facility] HermannUrinalysis 2014-06-09 20:09:00[facility] XwqqakwOiglxxycov3725-57-03 20:09:00[facility] GvtvoiuTesjwqhfdc4621-46-52 20:09:00[facility] HermannUrinalysis 2014-06-09 20:09:00[facility] HermannCHEM NDYKG3149-52-67 02:20:0079 [facility]annCHEM WZYVR8774-49-67 02:20:008.3[facility] HermannCHEM PANEL 2014-06-05 02:20:12564Cynzbaqd HermannCHEM NAYTF1167-93-03 02:20:001.0[facility] HermannCHEM CRSQF9888-49-78 02:20:0012[facility] HermannCHEM CVJJX8170-69-18 02:20:0098[facility] HermannCHEM LADQP5932-85-96 02:20:0026[facility] HermannCHEM BQDQL8041-96-30 02:20:003.8[facility] HermannCHEM LRTGS8990-34-04 02:20:02683 [facility]annCHEM LCJSS0353-67-73 02:20:0010.8[facility] HermannHEMATOLOGY 2014-06-05 02:20:0014.3[facility] YexdrxeMKNIONBNKI1805-46-38 02:20:007.5[facility] XhdttdlKJDOKRUBKY0310-87-32 02:20:49254Huknmnfe XjoyhbmTCALTWLEMO4287-78-99 02:20:0040.2[facility] SlihwklUACXLTDDHR6378-02-99 02:20:0088.5[facility] [place] TNBAJFXXSQ0737-30-49 02:20:0013.9[facility] OwsedibZVOGFKYNGT7325-76-05 02:20:00 4.55[facility] HbcelhfBETAXRCYBS7987-28-60 02:20:0012.1[facility] HermannHEMATOLOGY 2014-06-05 02:20:0034.5[facility] PszgpqjMJLPHKDMKS5269-20-07 02:20:00* Test Item Value Reference Range Interpretation Comments MCH (test code = MCH) 30.5 pg 27.0-31.0 [facility] PwqqppgKGUWBZDLUD1180-33-24 02:20:009.5[facility] HermannHEMATOLOGY 2014-06-05 02:20:000.2[facility] DmhryugGNXAFIXYMA0044-95-21 02:20:000.7[facility] DvplbmmUMYOFWVONK3187-57-77 02:20:001.8[facility] NolivmuPJDMFRGLLJ7511-96-99 02:20:000.2[facility] EczekevKOQJPZGPUD3094-06-28 02:20:0078.4[facility] LMPHKJKFQA5316-59-44 02:20:0015.0[facility] RhpzrerQZTDIZKCRH6317-23-45 02:20:00 6.2[facility]UR[facility] AND TXLLJ5287-88-43 02:20:00Negative (06/04/14 9:20 PM) [facility] WKGKO3159-47-98 02:20:00Negative *NA*(06/04/14 9:20 PM)[facility] CBWRU2957-53-76 02:20:006.0[facility] HYPLV7927-10-01 02:20:001.006[facility] XVRJI7156-72-16 02:20:00Clear (06/04/14 9:20 PM)[facility] ZVQSZ2383-20-38 02:20:003[facility] AND WJZTZ9935-59-05 02:20:0017[facility] URINE AND XFRVI4219-27-60 02:20:00Moderate *ABN*(06/04/14 9:20 PM)[facility] SEHWD2300-71-83 02:20:00Negative (06/04/14 9:20 PM)[facility] OyggtepDubqmfdoo1427-03-82 19:57:00NegativeMemorial HijhvgnOjrvuitpe9067-46-35 19:57:00NegativeMemorial LunoikyKeuficshzftd6496-82-45 19:57:00NegativeMemorial UrlacriVufiumlay3229-03-56 19:56:00NegativeMemorial XmtzzojYdgmqrtrz7820-76-52 19:56:00NegativeMemorial YrcrbxcLxvvvjofvgni7444-97-26 19:56:00NegativeMemorial IenvkvdCfqszmvpe0391-28-68 19:55:00NegativeMemorial OwmbqkxNfcsimaaj7164-35-64 19:55:00NegativeMemorial ElplxvxMrytsfuhibeg7601-50-31 19:55:00NegativeMemorial RcqhjwrAxsmntfuk1292-29-47 15:15:006.1[facility] CvkzzohBrrfgbzea8076-58-63 15:15:005.070[facility] QcrndqoOjnveeezu4925-67-58 15:15:54054Guthjzlf [place] Couvebvyn7758-67-55 15:15:006.1[facility] WyvctvvYsymgnfle7436-62-60 15:15:005.070 [facility] QlpxeooYjoxxavhj2561-98-75 15:15:53874Ylmpkyrv HermannChemistry 2014-04-04 15:15:05999Yhzzaqnq PmbiokuBlwokwtqz8924-50-90 15:15:0040[facility] IloeuuxDydspjxoo7260-79-92 15:15:0088[facility] JhksqnoEferojuht0264-04-90 15:15:13377 MEQ/LMemorial ZmmcfzvQkocfibeb1827-94-00 15:15:004.3 MEQ/LMemorial MgcqhkoFlgbjjqjz6450-39-90 15:15:001.0[facility] IuowhvfPjbocxnyt7394-13-05 15:15:0013[facility] UqijbxzJesazpdlk9183-57-41 15:15:00* Test Item Value Reference Range Interpretation Comments BUN/CREAT (test code = BUN/CREAT) 13 1 25 [facility] XauwwdvVvkpfjbbr6115-34-50 15:15:003.9[facility] HermannChemistry 2014-04-04 15:15:008.6[facility] MlipfbmZicihsauo8388-10-39 15:15:0022[facility] VhnutzvSyuldtyqy1899-99-10 15:15:0011[facility] NgqbumnLpbpmejcv9448-12-95 15:15:03882Jrddlxjq TfifcfnYuklbdwfb7705-99-35 15:15:001.01[facility] [place] Xfqbqstxqz7852-03-38 15:15:0013.9[facility] SlowkysUnnhxlqgop5153-21-41 15:15:00 40.7[facility] KwpxpjuZnoavhaasr3101-57-93 15:15:81352 K/CMMMemorial [place] Houeecxmmj7984-56-71 05:00:00[facility] NndlgptWuppagztoc6054-35-70 05:00:00 [facility] XoadtfrBqdinvrthe3529-66-64 05:00:00[facility] Kgazqftdjf3316-47-32 05:00:00[facility] FyzhbsuPyaixbfeni9539-41-27 05:00:00[facility] SqsjrsbNzunxwtblk6413-87-32 05:00:00[facility] NmnfcuoIxnguuifin9363-48-43 05:00:00[facility] FqqqjrvLpzmoxqzjx5537-70-83 05:00:00[facility] SktnhrvTjbkjdcqza7065-01-36 05:00:00[facility] UrgpzrsIqrwamfflk8494-51-84 05:00:00[facility] CklwbcmJaevdqkddy9319-52-03 05:00:00[facility] GjygjtvAmzhposrze5174-15-44 05:00:00[facility] CmkscimApkeqbwiub5832-59-80 05:00:00[facility] QzbgkabJwxbpfpxpt1048-55-20 05:00:00[facility] KstzrbsOqxnfmlgzv1065-40-57 05:00:00[facility] LrwowdpYvusccnuob2838-31-77 05:00:00[facility] HermannChemistry 2014-03-28 13:35:49113 MEQ/LMemorial HvwgbivHtfwltbue0034-71-01 13:35:004.3 MEQ/LMemorial MxefoekOrmobqkkb3383-37-22 13:35:000.9[facility] HermannChemistry 2014-03-28 13:35:29929 MEQ/LMemorial FbnohpxAggfypiwo0938-76-08 13:35:004.3 MEQ/LMemorial AoohgonNkjhjwpvf1786-49-84 13:35:000.9[facility] HermannChemistry 2014-03-28 13:35:40376 MEQ/LMemorial XvpcvchHotlxuaaa0017-41-30 13:35:004.3 MEQ/LMemorial MwbylzuVowyubxdc4817-75-95 13:35:000.9[facility] HermannChemistry 2014-03-28 13:35:0013[facility] HngdsheMtcarckae4807-70-73 13:35:00* Test Item Value Reference Range Interpretation Comments BUN/CREAT (test code = BUN/CREAT) 14 1 6-25 [facility] CsechqkSpdystkkx2430-74-70 13:35:003.7[facility] HermannChemistry 2014-03-28 13:35:008.7[facility] CwsxojyXlxywvlop6076-75-61 13:35:0020[facility] JilsoqkXewyabdux6898-37-15 13:35:0012[facility] YxqeidaYdhaorxxq4549-04-66 13:35:0098[facility] FsedcdwNhdraqjxf0454-77-80 13:35:0010.24[facility] Buwokitvul1390-80-30 13:35:0014.0[facility] IxuzrkgOjjmtuuzel3255-80-89 13:35:00 40.6[facility] RpikzcrGvaioehmpw6472-49-74 13:35:78082 K/CMMMemorial Inola
[2020-01-22] MEDS ORDERED: ONDANSETRON HCL INJ 2MG/ML 2ML 2 MG/ML VIAL IV STA (16:29)
[2020-01-22] MEDS ORDERED: SODIUM CHLORIDE 0.9% 1000ML 1,000 ML IV STA (16:29)
[2020-01-22] MEDS ORDERED: PANTOPRAZOLE 40 MG 10ML VIAL IV STA (16:29)
--- NOTE | 2020-01-22 16:35 | Emergency Department Note ---
History of Present Illnes History of Present Illness Chief Complaint: Abdominal Complaints History of Present Illness This is a 69 year old male c/o mid abd pain / epigastric pain described as burning x 1 wk denies n/v/d cp sob de paz dizziness Historian: Patient Arrival Mode: Car Onset (how long ago): week(s) (1 wk) Radiation: Reports abdomen Severity: mild Onset quality: gradual Duration (how long): week(s) (1 wk) Timing of current episode: constant Progression: worsening Context: Denies recent illness, Denies recent surgery, Denies recent immobilization, Denies recent travel, Denies trauma/injury, Denies new medications, Denies hx of DVT/PE, Denies non-compliance w/ medications, Denies other Relieving factors: none Exacerbating factors: none Treatments prior to arrival: none Past Medical/Family History Physician Review I have reviewed the patient's past medical and family history. Any updates have been documented here. Past Medical History Past Medical History: Hypothyroidism, UTI's Other Medical History: BPH Past Surgical History: Cholecysctectomy Other Surgery: TURP Social History Smoking Cessation: Never Smoker Alcohol Use: Occasional Any Illegal Drug Use: No TB Exposure/Symptoms: No Physically hurt or threatened: No Family History Family history of heart diseas: No Other Last Tetanus: unk Any Pre-Existing Lines (PICC,: No Review of Systems Review of Systems Constitutional: Reports no symptoms EENTM: Reports no symptoms Cardiovascular: Reports no symptoms Respiratory: Reports no symptoms Gastrointestinal: Reports no symptoms, Reports abdominal pain (This is a 69 year old male c/o mid abd pain / epigastric pain described as burning x 1 wk denies n/v/d cp sob de paz dizziness ) Genitourinary: Reports no symptoms Musculoskeletal: Reports no symptoms Integumentary: Reports no symptoms Neurological: Reports no symptoms Psychological: Reports no symptoms Endocrine: Reports no symptoms Hematological/Lymphatic: Reports no symptoms Review of other systems All other systems reviewed and negative. Physical Exam Related Data Allergies: Coded Allergies: Penicillins (Verified Allergy, Unknown, RASH, 07/22/19) Sulfa (Sulfonamide Antibiotics) (Verified Allergy, Unknown, RASH, 07/22/19) Vital signs reviewed: Yes Physical Exam CONSTITUTIONAL Constitutional: Reports well-developed, Reports well-nourished HENT HENT: Reports normocephalic, Reports atraumatic, Reports oropharynx clear/moist, Reports nose normal HENT L/R: Reports left ext ear normal, Reports right ext ear normal EYES Eyes: Reports PERRL, Reports conjunctivae normal NECK Neck: Reports ROM normal PULMONARY Pulmonary: Reports effort normal, Reports breath sounds normal CARDIOVASCULAR Cardiovascular: Reports regular rhythm, Reports heart sounds normal, Reports capillary refill normal, Reports normal rate GASTROINTESTINAL Abdominal: Reports soft; Denies nontender; Reports bowel sounds normal, Reports tender (minimal diffuse tenderness on exam ), Reports other (This is a 69 year old male c/o mid abd pain / epigastric pain described as burning x 1 wk denies n/v/d cp sob de paz dizziness ) GENITOURINARY Genitourinary: Reports exam deferred SKIN Skin: Reports warm, Reports dry MUSCULOSKELETAL Musculoskeletal: Reports ROM normal NEUROLOGICAL Neurological: Reports alert, Reports oriented x 3, Reports no gross motor or sensory deficits PSYCHOLOGICAL Psychological: Reports mood/affect normal, Reports judgement normal Results Laboratory Laboratory Laboratory Tests Test 01/22/20 16:33 White Blood Count 5.20 x10e3/uL (4.8-10.8) Red Blood Count 4.78 x10e6/uL (4.3-5.7) Hemoglobin 14.5 g/dL (14.0-18.0) Hematocrit 43.0 % (38.2-49.6) Mean Corpuscular Volume 90.0 fL (81-99) Mean Corpuscular Hemoglobin 30.3 pg (28-32) Mean Corpuscular Hemoglobin Concent 33.7 g/dL (31-35) Red Cell Distribution Width 13.2 % (11.7-14.4) Platelet Count 201 x10e3/uL (140-360) Neutrophils (%) (Auto) 68.6 % (38.7-80.0) Lymphocytes (%) (Auto) 24.6 % (18.0-39.1) Monocytes (%) (Auto) 5.6 % (4.4-11.3) Eosinophils (%) (Auto) 1.0 % (0.0-6.0) Basophils (%) (Auto) 0.2 % (0.0-1.0) Neutrophils # (Auto) 3.6 (2.1-6.9) Lymphocytes # (Auto) 1.3 (1.0-3.2) Monocytes # (Auto) 0.3 (0.2-0.8) Eosinophils # (Auto) 0.1 (0.0-0.4) Basophils # (Auto) 0.0 (0.0-0.1) Absolute Immature Granulocyte (auto 0 x10e3/uL (0-0.1) Urine Color Yellow (YELLOW) Urine Clarity Sl cloudy (CLEAR) Urine pH 7.5 (5 - 7) Urine Specific [place] 1.025 (1.010-1.025) Urine Protein Negative (NEGATIVE) Urine Glucose (UA) Negative (NEGATIVE) Urine Ketones Negative (NEGATIVE) Urine Blood Negative (NEGATIVE) Urine Nitrite Negative (NEGATIVE) Urine Bilirubin Negative (NEGATIVE) Urine Urobilinogen 0.2 mg/dL (0.2 - 1) Urine Leukocyte Esterase Trace (NEGATIVE) Urine RBC None /HPF (0-5) Urine WBC 0-5 /HPF (0-5) Urine Epithelial Cells Rare /LPF (NONE) Urine Bacteria Rare /HPF (NONE) Sodium Level 138 mmol/L (136-145) Potassium Level 4.5 mmol/L (3.5-5.1) Chloride Level 103 mmol/L (98-107) Carbon Dioxide Level 25 mmol/L (22-29) Anion Gap 14.5 mmol/L (8-16) Blood Urea Nitrogen 18 mg/dL (7-26) Creatinine 1.21 mg/dL (0.72-1.25) Estimat Glomerular Filtration Rate 59 ML/MIN (60-) BUN/Creatinine Ratio 15 (6-25) Glucose Level 119 mg/dL (74-118) Calcium Level 8.9 mg/dL (8.4-10.2) Total Bilirubin 0.4 mg/dL (0.2-1.2) Aspartate Amino Transf (AST/SGOT) 21 IU/L (5-34) Alanine Aminotransferase (ALT/SGPT) 22 IU/L (0-55) Alkaline Phosphatase 86 IU/L (40-150) Creatine Kinase 139 IU/L (30-200) Creatine Kinase MB 1.40 ng/mL (0-5.0) Troponin I 0.033 ng/mL (0-0.300) Total Protein 7.1 g/dL (6.5-8.1) Albumin 3.9 g/dL (3.5-5.0) Globulin 3.2 g/dL (2.3-3.5) Albumin/Globulin Ratio 1.2 (0.8-2.0) Amylase Level 48 U/L (25-125) Lipase 52 U/L (8-78) Thyroid Stimulating Hormone (TSH) 2.704 uIU/mL (0.350-4.940) Lab results reviewed: Yes Procedures 12 Lead ECG Interpretation ECG Interpretation : [employer]: Interpreted by ED physician Date: Jan 22, 2020 Time: 17:39 Prior ECG tracings: reviewed Rhythm: sinus bradycardia Rate: normal BPM: 57 QRS axis: normal T wave inversion: aVR, V1 Assessment & Plan Medical Decision Making MDM This is a 69 year old male c/o mid abd pain / epigastric pain described as burning x 1 wk denies n/v/d cp sob de paz dizziness - minimal abd tenderness diffuse on exam - ordered lab / ct abd - pt medicated w/ protonix ns zofran d/d gastritis / sbo / constpation / gastric ulcers / pancreatitis - Reassessment Reassessment time: 18:59 Reassessment care of pt turned over to Dr Pearce- CT abd pending will dispo pt Assessment & Plan Final Impression: (1) Abdominal pain Home Meds Active Scripts Cephalexin Monohydrate (KEFLEX) 500 Mg Capsule, 500 MG PO Q6H for 10 Days, #40 TAB 0 Refills Prov:BRIDGETTE GARBER DO 07/28/19 Reported Medications Metronidazole (FLAGYL) 250 Mg Tablet, 500 MG PO TID 07/25/19 Ciprofloxacin Hcl (CIPRO) 500 Mg Tablet, 500 MG PO Q12H, #30 TAB 07/25/19 Levothyroxine Sodium (LEVOTHYROXINE SODIUM) 88 Mcg Tablet, 88 MCG PO DAILY 07/23/19 NEELIMA BLEDSOE MD Jan 22, 2020 16:35
[2020-01-22 17:06] LABS: BASOPHILS % 0.2 % (0.0-1.0); EOSINOPHILS # (AUTO) 0.1 (0.0-0.4); HEMOGLOBIN 14.5 g/dL (14.0-18.0); LYMPHOCYTES # (AUTO) 1.3 (1.0-3.2); LYMPHOCYTES % 24.6 % (18.0-39.1); MEAN CORPUSCULAR HEMOGLOBIN 30.3 pg (28-32); MEAN CORPUSCULAR HGB CONC 33.7 g/dL (31-35); MONOCYTES # (AUTO) 0.3 (0.2-0.8); MONOCYTES % 5.6 % (4.4-11.3); NEUTROPHILS # (AUTO) 3.6 (2.1-6.9); NEUTROPHILS % 68.6 % (38.7-80.0); PLATELET COUNT 201 x10e3/uL (140-360); RED BLOOD COUNT 4.78 x10e6/uL (4.3-5.7); RED CELL DISTRIBUTION WIDTH 13.2 % (11.7-14.4)
[2020-01-22 17:11] LABS: CLARITY,URINE SL CLOUDY (CLEAR); COLOR,URINE YELLOW (YELLOW)
[2020-01-22 17:12] LABS: BILIRUBIN,URINE NEGATIVE (NEGATIVE); KETONES,URINE NEGATIVE (NEGATIVE); LEUKOCYTE ESTERASE ,URINE TRACE (NEGATIVE); NITRITE,URINE NEGATIVE (NEGATIVE); PROTEIN,URINE DIPSTICK NEGATIVE (NEGATIVE); URINE UROBILINOGEN 0.2 mg/dL (0.2 - 1)
[2020-01-22 17:23] LABS: BACTERIA,URINE RARE /HPF; EPITHELIAL CELLS,URINE RARE /LPF; WBC,URINE (MAN) 0-5 /HPF (0-5)
[2020-01-22 17:26] LABS: ALBUMIN 3.9 g/dL (3.5-5.0); ALBUMIN/GLOBULIN RATIO 1.2 (0.8-2.0); ANION GAP 14.5 mmol/L (8-16); CALCIUM 8.9 mg/dL (8.4-10.2); CREATININE, SERUM 1.21 mg/dL (0.72-1.25); POTASSIUM 4.5 mmol/L (3.5-5.1)
[2020-01-22 17:46] LABS: CREATINE KINASE MB 1.4 ng/mL (0-5.0); THYROID STIMULATING HORMONE 2.704 uIU/mL (0.350-4.940)
--- NOTE | 2020-01-22 19:13 | Diagnostic Imaging Report ---
EXAM: CT Abdomen and Pelvis WITH contrast INDICATION: ^abd apin ^[id number] ^1821 COMPARISON: CT abdomen/pelvis, 07/22/2019 TECHNIQUE: Abdomen and pelvis were scanned utilizing a multidetector helical scanner from the lung base to the pubic symphysis after administration of IV contrast. Coronal and sagittal reformations were obtained. Routine protocol was performed. Scan was performed when during portal venous phase. Dose modulation, iterative reconstruction, and/or weight based adjustment of the mA/kV was utilized to reduce the radiation dose to as low as reasonably achievable. IV CONTRAST: 100 mL of Isovue-370 ORAL CONTRAST: Water RADIATION DOSE: Total DLP: 368.47 mGy*cm Estimated effective dose: (DLP x 0.015 x size factor) mSv COMPLICATIONS: None FINDINGS: LINES and TUBES: None. LOWER THORAX: Lung bases are clear with minimal dependent lower lobe and lingular atelectasis. Heart size normal. HEPATOBILIARY: Again noted is a 5 mm hypodensity in the left lobe of the liver, too small to fully characterize but likely representing a small hepatic cyst. No other focal hepatic lesions. No biliary ductal dilation. Diffuse low-density of the liver relative to the spleen compatible with steatosis. GALLBLADDER: Surgical absence of the gallbladder with cholecystectomy clips. SPLEEN: No splenomegaly. PANCREAS: No focal masses or ductal dilatation. ADRENALS: There is a 1.6 cm left adrenal nodule with apparent macroscopic fat compatible with lipid rich adenoma. KIDNEYS/URETERS: Kidneys enhance symmetrically. No hydronephrosis. No cystic or solid mass lesions. No stones. There is a parapelvic cyst or extrarenal pelvis on the left. GI TRACT: No abnormal distention, wall thickening, or evidence of bowel obstruction. Sigmoid diverticulosis. Previous inflammation surrounding the mid sigmoid has resolved. Appendix is normal. PELVIC ORGANS/BLADDER: Urinary bladder appears unremarkable. Prostate appears enlarged measuring 5.7 x 5.3 cm transversely. LYMPH NODES: No dominant lymph node mass is seen in the abdomen, retroperitoneum or pelvis. VESSELS: Unremarkable appearance of the abdominal aorta, IVC and portal system. PERITONEUM / RETROPERITONEUM: No pneumoperitoneum or ascites. BONES: No acute or suspicious bony lesions. SOFT TISSUES: Superficial surrounding soft tissue unremarkable. IMPRESSION: 1. Sigmoid diverticulosis. Inflammation previously noted surrounding the mid sigmoid has resolved. 2. No CT evidence for acute abdominal or pelvic pathology. Staff: Dinah Signed by: Dr. Augustin Nix M.D. on 01/22/2020 7:10 PM
--- NOTE | 2020-01-22 19:16 | Diagnostic Imaging Report ---
EXAM: CHEST SINGLE (PORTABLE) DATE: 01/22/2020 6:25 PM INDICATION: Mid abdomen pain ^ERMD ORDER ^[id number] ^1830 ^Y COMPARISON: None FINDINGS: Lines and tubes: None Heart size upper normal allowing for portable positioning. No focal pulmonary opacity, pleural effusion or pneumothorax. Minimal linear atelectasis at the left lung base. Upper abdomen unremarkable with no free air. No acute bony abnormality. IMPRESSION: No evidence for acute disease. Signed by: Dr. Augustin Nix M.D. on 01/22/2020 7:12 PM
[2020-01-22 20:17] VITALS: BP 138/81
[2020-01-22] MEDS ORDERED: IOPAMIDOL 370 MG/ML 200 ML INFUS..BTL INJ ONE (20:20)
[2020-01-22] MEDS ORDERED: SODIUM CHLORIDE 0.9% 50ML 50 ML ONE (20:20)
== END 2020-01-22 20:42 | disposition home or self-care (01) ==
LOC: ER 16:16
DX: R10.13 Epigastric pain (principal); I10 Essential (primary) hypertension; E03.9 Hypothyroidism, unspecified
CPT/HCPCS: 36415; 71045; 74177; 80053; 81001; 82150; 82550; 82553; 83690; 84443; 84484; 85025; 99284; C9113; J2405; J7030; Q9967; 93005

== ENCOUNTER → 2020-02-07 | Outpatient (CLI) | payer MEDICARE, OTHER ==
[~2020-02-07] MED LIST changes: +FAMOTIDINE20 MG PO
[2020-02-07 12:02] LABS: BASOPHILS % 0.2 % (0.0-1.0); EOSINOPHILS % 0.2 % (0.0-6.0); HEMATOCRIT 42.5 % (38.2-49.6); HEMOGLOBIN 14.4 g/dL (14.0-18.0); LYMPHOCYTES # (AUTO) 1.1 (1.0-3.2); LYMPHOCYTES % 22.7 % (18.0-39.1); MEAN CORPUSCULAR HEMOGLOBIN 30.2 pg (28-32); MEAN CORPUSCULAR HGB CONC 33.9 g/dL (31-35); MEAN CORPUSCULAR VOLUME 89.1 fL (81-99); MONOCYTES # (AUTO) 0.4 (0.2-0.8); MONOCYTES % 7.6 % (4.4-11.3); NEUTROPHILS # (AUTO) 3.3 (2.1-6.9); NEUTROPHILS % 69.1 % (38.7-80.0); PLATELET COUNT 147 x10e3/uL (140-360); RED BLOOD COUNT 4.77 x10e6/uL (4.3-5.7); RED CELL DISTRIBUTION WIDTH 12.9 % (11.7-14.4)
== END | disposition home or self-care (01) ==
LOC: DX 10:40 → EDSTATUS 02-12 11:30
PROVIDERS: ATTEND Internal Medicine Gastroenterology
DX: R14.0 Abdominal distension (gaseous) (principal); Z86.010 Personal history of colon polyps; R10.10 Upper abdominal pain, unspecified; U07.1 COVID-19; Z01.810 Encounter for preprocedural cardiovascular examination; Z01.812 Encounter for preprocedural laboratory examination; Z11.59 Encounter for screening for other viral diseases; Z53.9 Procedure and treatment not carried out, unspecified reason
CPT/HCPCS: 36415; 85025; 87635; 93005